=== PATIENT | female | born 1950 | race Caucasian/White ===

== ENCOUNTER 2020-01-12 23:48 | Inpatient (IN) | payer OTHER, MEDICARE ==
[2020-01-13] MEDS ORDERED: PROMETHAZINE INJ 25 MG/ML AMP ONE (00:21)
[2020-01-13] MEDS ORDERED: NA CHLORIDE 0.9% 1,000 ML ONE (00:23)
[2020-01-13] MEDS ORDERED: FENTANYL CITR 100 MCG/2 ML ONE (00:23)
[2020-01-13 00:27] LABS: Absolute Lymphocytes (CBC) 1.6 K/uL (0.7-4.9); Basophils % 1.1 % (0-1.3); Hematocrit 31.8 % (36.0-45.0); Lymphocytes % 13.8 % (15.3-44.8); MPV 7.8 fL (7.6-11.3); RBC Red Blood Cell Count 3.77 M/uL (3.86-4.86)
[2020-01-13 00:34] LABS: Protime INR 0.99
[2020-01-13] MEDS ORDERED: ASPIRIN 81 MG CHEWABLE TABLET ONE (00:45)
[2020-01-13 00:52] LABS: ALT/SGPT 30 U/L (12-78); AST/SGOT 17 U/L (15-37); Albumin 3.3 g/dL (3.4-5.0); Alkaline Phosphatase 68 U/L (45-117); BUN Blood Urea Nitrogen 29 mg/dL (7-18); Bicarbonate 25 mmol/L (21-32); Bilirubin Direct 0.1 mg/dL (0-0.2); Bilirubin Total 0.3 mg/dL (0.2-1.0); Glucose Level 223 mg/dL (74-106); NT PRO-BNP 985 pg/mL (<125); Potassium 3.7 mmol/L (3.5-5.1); Protein, Total 8.3 g/dL (6.4-8.2); Sodium Level 139 mmol/L (136-145); Troponin (Emerg Dept Use Only) < 0.02 ng/mL (0.0-0.045)
[2020-01-13] MEDS ORDERED: CEFTRIAXONE/SWI 1gm 1 GM/10 ML SYR ONE (01:29)
[2020-01-13] MEDS ORDERED: PANTOPRAZOLE 40 MG INJ ONE (01:29)
--- NOTE | 2020-01-13 01:38 | ER ---
Nurse's Notes [facility] Name: Dominique Collazo Age: 69 yrs Sex: Female : 1950 Arrival Date: 01/12/2020 Time: 23:49 Bed 13 Private MD: Diagnosis: Chest pain, unspecified;Pneumonia, unspecified organism-hx of valley fever Presentation: 01/13 00:00 Presenting complaint: Patient states: Chest pain that began about 2200 tonight; states lp1 pain to middle of chest, nausea; States hx of [place] with heart stents. 00:00 Transition of care: patient was not received from another setting of care. Onset of lp1 symptoms was January 12, 2020 at 22:00. Risk Assessment: Do you want to hurt yourself or someone else? Patient reports no desire to harm self or others. Initial Sepsis Screen: Does the patient meet any 2 criteria? No. Patient's initial sepsis screen is negative. Does the patient have a suspected source of infection? No. Patient's initial sepsis screen is negative. Care prior to arrival: None. 00:00 Method Of Arrival: Wheelchair lp1 00:00 Acuity: RAYO 3 lp1 Triage Assessment: 02:05 General: Appears in no apparent distress. comfortable, well groomed. bb3 02:06 General: Behavior is calm, cooperative, appropriate for age. Pain: Pain currently is 3 bb3 out of 10 on a pain scale. Cardiovascular: Rhythm is sinus rhythm. Historical: - Allergies: 00:25 No Known Allergies; lp1 - Home Meds: 00:25 Lantus Sub-Q [Active]; Atenolol Oral [Active]; Lisinopril Oral [Active]; atorvastatin lp1 oral oral [Active]; amlodipine oral [Active]; Hydrochlorothiazide Oral [Active]; Metformin Oral [Active]; BRILINTA oral oral [Active]; - PMHx: 00:25 Hypertension; SVT; Diabetes - IDDM; Hyperlipidemia; Myocardial infarction; lp1 - PSHx: 00:25 Cholecystectomy; Heart stents; lp1 - Immunization history:: Adult Immunizations up to date. - Coronavirus screen:: The patient has NOT traveled to [place] in the past 14 days. The patient has NOT had contact with known/suspected case of Coronavirus?. - Social history:: Smoking status: Patient denies any tobacco usage or history of. - Ebola Screening: : No symptoms or risks identified at this time. Screenin:25 Abuse screen: Denies threats or abuse. Denies injuries from another. Nutritional lp1 screening: No deficits noted. Tuberculosis screening: No symptoms or risk factors identified. 00:30 Fall Risk None identified. No fall in past 12 months (0 pts). IV access (20 points). bb3 Ambulatory Aid- None/Bed Rest/Nurse Assist (0 pts). Gait- Normal/Bed Rest/Wheelchair (0 pts) Mental Status- Oriented to own ability (0 pts). Assessment: 00:00 Reassessment: No changes from previously documented assessment. Patient and/or family bb3 updated on plan of care and expected duration. Pain level reassessed. Patient is alert, oriented x 3, equal unlabored respirations, skin warm/dry/pink. Pain:. 00:30 Pain: Pain does not radiate. Pain began 1 day ago. bb3 01:00 Reassessment: No changes from previously documented assessment. Patient and/or family bb3 updated on plan of care and expected duration. Pain level reassessed. Patient is alert, oriented x 3, equal unlabored respirations, skin warm/dry/pink. 02:01 Reassessment: No changes from previously documented assessment. Patient and/or family bb3 updated on plan of care and expected duration. Pain level reassessed. Patient is alert, oriented x 3, equal unlabored respirations, skin warm/dry/pink. Vital Signs: 00:10 BP 162 / 76; Pulse 85; Resp 20; Temp 97.8(O); Pulse Ox 100% on R/A; Weight 101.6 kg lp1 (R); Height 5 ft. 4 in. (162.56 cm); Pain 9/10; 01:15 BP 139 / 53; Pulse 83; Resp 20; Pulse Ox 99% ; bb3 02:28 BP 139 / 52; Pulse 75; Resp 22; Pulse Ox 98% ; Pain 3/10; bb3 03:23 BP 142 / 57; Pulse 76; Resp 20; Pulse Ox 97% ; Pain 4/10; bb3 00:10 Body Mass Index 38.45 (101.60 kg, 162.56 cm) [facility] ED Course: 01/12 23:49 Patient arrived in ED. es 23:55 Corie, Arlin, TRAINING SPECIALIST-C [facility] snw 23:55 Tam Nolen MD is Attending Physician. [facility] 01/13 00:15 Inserted saline lock: 22 gauge in right antecubital area, using aseptic technique. lp1 Blood collected. 00:15 Initial lab(s) drawn, by me, sent to lab. lp1 00:15 Patient has correct armband on for positive identification. Placed in gown. Bed in low lp1 position. Call light in reach. jazz musician on. Pulse ox on. NIBP on. 00:22 Triage completed. lp1 00:22 Arm band placed on. lp1 00:30 Patient maintains SpO2 saturation greater than 95% on room air. bb3 01:33 Júnior Villalba is Hospitalizing Provider. snw 01:56 Blood Culture Adult (2) Sent. bb3 03:13 No apparent distress. bb3 03:13 No provider procedures requiring assistance completed. bb3 03:28 Patient admitted, IV remains in place. bb3 04:09 Brittney Elias is Primary Nurse. wh Administered Medications: 01/12 02:10 Drug: Rocephin 1 grams Route: IV; Rate: calculated rate; Site: right forearm; [facility] 01/13 02:32 Follow up: Response: No adverse reaction; IV Status: Completed infusion; IV Intake: [id number] 01/12 02:10 Drug: ProTONIX 40 mg Route: IVP; Site: right forearm; [facility] 01/13 02:30 Follow up: Response: No adverse reaction; Marked relief of symptoms [facility] 01/12 23:30 Drug: fentaNYL (PF) 50 mcg Route: IVP; Site: right antecubital; [facility] 01/13 04:11 Follow up: Response: No adverse reaction; Pain is decreased; RASS: Alert and Calm (0) 01/12 23:30 Drug: Phenergan 12.5 mg Route: IVP; Site: right antecubital; [facility] 01/13 04:11 Follow up: Response: No adverse reaction; Nausea is decreased 01/12 23:30 Drug: NS 0.9% 1000 ml Route: IV; Rate: 75 ml/hr; Site: right antecubital; [facility] 01/13 04:10 Follow up: Response: No adverse reaction; IV Status: Infusion continued upon admission 00:44 Drug: Aspirin Chewable Tablet 324 mg Route: PO; bb3 04:10 Follow up: Response: No adverse reaction 02:49 Drug: Zithromax 500 mg Route: IVPB; Rate: ml/hr; Infused Over: 1 hrs; Site: right bb3 forearm; 04:09 Follow up: Response: No adverse reaction; IV Status: Completed infusion Intake: 02:32 IV: 10ml; Total: 10ml. bb3 Outcome: 01:37 Decision to Hospitalize by Provider. snw 03:26 Admitted to Tele accompanied by nurse, via wheelchair, room 419, with chart, Report bb3 called to ALEX Gill 03:26 Condition: improved 03:26 Condition: stable 03:26 Instructed on the need for admit. 04:11 Patient left the ED. Signatures: Ariln Fontenot, TRAINING SPECIALIST-C TRAINING SPECIALIST-Csnw Maria Luisa Nguyen Laura RN RN lp1 Brittney Elias Whitney Bird bb3
--- NOTE | 2020-01-13 01:38 | EDPHYS ---
Physician Documentation [facility] Name: Dominique Collazo Age: 69 yrs Sex: Female : 1950 Arrival Date: 01/12/2020 Time: 23:49 Bed 13 Private MD: ED Physician Tam Nolen HPI: 01/13 00:12 This 69 yrs old Female presents to ER via Unassigned with complaints of Chest snw Pain. 00:12 Onset: The symptoms/episode began/occurred acutely. Associated signs and symptoms: snw Pertinent positives: chest pain, nausea. The patient has experienced similar episodes in the past. The patient has not recently seen a physician, Dr. Marvin. Historical: - Allergies: 00:25 No Known Allergies; lp1 - Home Meds: 00:25 Lantus Sub-Q [Active]; Atenolol Oral [Active]; Lisinopril Oral [Active]; atorvastatin lp1 oral oral [Active]; amlodipine oral [Active]; Hydrochlorothiazide Oral [Active]; Metformin Oral [Active]; BRILINTA oral oral [Active]; - PMHx: 00:25 Hypertension; SVT; Diabetes - IDDM; Hyperlipidemia; Myocardial infarction; lp1 - PSHx: 00:25 Cholecystectomy; Heart stents; lp1 - Immunization history:: Adult Immunizations up to date. - Coronavirus screen:: The patient has NOT traveled to [place] in the past 14 days. The patient has NOT had contact with known/suspected case of Coronavirus?. - Social history:: Smoking status: Patient denies any tobacco usage or history of. - Ebola Screening: : No symptoms or risks identified at this time. ROS: 00:10 Eyes: Negative for injury, pain, redness, and discharge, ENT: Negative for injury, snw pain, and discharge, Neck: Negative for injury, pain, and swelling. 00:10 Respiratory: Negative for shortness of breath, cough, wheezing, and pleuritic chest pain, Abdomen/GI: Negative for abdominal pain, vomiting, diarrhea, and constipation, + nausea Back: Negative for injury and pain, : Negative for injury, bleeding, discharge, and swelling, MS/Extremity: Negative for injury and deformity, Skin: Negative for injury, rash, and discoloration, Neuro: Negative for headache, weakness, numbness, tingling, and seizure, Psych: Negative for depression, anxiety, suicide ideation, homicidal ideation, and hallucinations. 00:10 Constitutional: Positive for body aches. 00:10 Cardiovascular: Positive for chest pain, of the anterior aspect of left upper chest. Exam: 00:11 Eyes: Pupils equal round and reactive to light, extra-ocular motions intact. Lids and snw lashes normal. Conjunctiva and sclera are non-icteric and not injected. Cornea within normal limits. Periorbital areas with no swelling, redness, or edema. ENT: Nares patent. No nasal discharge, no septal abnormalities noted. Tympanic membranes are normal and external auditory canals are clear. Oropharynx with no redness, swelling, or masses, exudates, or evidence of obstruction, uvula midline. Mucous membranes moist. Neck: Trachea midline, no thyromegaly or masses palpated, and no cervical lymphadenopathy. Supple, full range of motion without nuchal rigidity, or vertebral point tenderness. No Meningismus. Chest/axilla: Normal chest wall appearance and motion. Nontender with no deformity. No lesions are appreciated. 00:11 Respiratory: Lungs have equal breath sounds bilaterally, clear to auscultation and percussion. No rales, rhonchi or wheezes noted. No increased work of breathing, no retractions or nasal flaring. 00:11 Back: No spinal tenderness. No costovertebral tenderness. Full range of motion. Skin: Warm, dry with normal turgor. Normal color with no rashes, no lesions, and no evidence of cellulitis. MS/ Extremity: Pulses equal, no cyanosis. Neurovascular intact. Full, normal range of motion. Neuro: Awake and alert, GCS 15, oriented to person, place, time, and situation. Cranial nerves II-XII grossly intact. Motor strength 5/5 in all extremities. Sensory grossly intact. Cerebellar exam normal. Normal gait. Psych: Awake, alert, with orientation to person, place and time. Behavior, mood, and affect are within normal limits. 00:11 Constitutional: The patient appears alert, anxious. 00:11 Head/face: Noted is ecchymosis, that is moderate, of the chin. 00:11 Cardiovascular: Rate: normal, Rhythm: regular, Pulses: no pulse deficits are appreciated, Heart sounds: normal, lymphedema, + pedal edema. 00:11 Abdomen/GI: Inspection: abdomen appears normal, scar(s), are noted in the right upper quadrant, right lower quadrant and left lower quadrant, Bowel sounds: normal, Palpation: abdomen is soft and non-tender. Vital Signs: 00:10 BP 162 / 76; Pulse 85; Resp 20; Temp 97.8(O); Pulse Ox 100% on R/A; Weight 101.6 kg lp1 (R); Height 5 ft. 4 in. (162.56 cm); Pain 9/10; 01:15 BP 139 / 53; Pulse 83; Resp 20; Pulse Ox 99% ; bb3 02:28 BP 139 / 52; Pulse 75; Resp 22; Pulse Ox 98% ; Pain 3/10; bb3 03:23 BP 142 / 57; Pulse 76; Resp 20; Pulse Ox 97% ; Pain 4/10; bb3 00:10 Body Mass Index 38.45 (101.60 kg, 162.56 cm) lp1 MDM: 01/12 23:56 Patient medically screened. snw 01/13 01:06 Data reviewed: vital signs, nurses notes. Data interpreted: Pulse oximetry: on room air snw is 100 %. Interpretation: normal. Counseling: I had a detailed discussion with the patient and/or guardian regarding: the historical points, exam findings, and any diagnostic results supporting the discharge/admit diagnosis, the presence of at least one elevated blood pressure reading (>120/80) during this emergency department visit, lab results, radiology results, the need for further work-up and treatment in the hospital. Physician consultation: Júnior Villalba was called at 01:07, was contacted at 01:07, regarding admission. 01/12 23:56 Order name: Basic Metabolic Panel [facility] 01/12 23:56 Order name: CBC with Diff snw 01/12 23:56 Order name: LFT's sn 01/12 23:56 Order name: Magnesium snw 01/12 23:56 Order name: NT PRO-BNP snw 01/12 23:56 Order name: PT-INR sn 01/12 23:56 Order name: Troponin (emerg Dept Use Only) sn 01/13 00:35 Order name: CBC with Automated Diff; Complete Time: 00:39 EDMS 01/13 00:35 Order name: Protime (+INR); Complete Time: 00:39 EDMS 01/13 00:40 Order name: Urine Culture 01/13 00:40 Order name: Urine Microscopic Only 01/13 00:41 Order name: Blood Culture Adult (2) 01/13 00:52 Order name: Basic Metabolic Panel; Complete Time: 00:57 EDMS 01/13 00:52 Order name: Liver (Hepatic) Function; Complete Time: 00:57 EDMS 01/12 23:56 Order name: XRAY Chest (1 view) 01/12 23:56 Order name: EKG; Complete Time: 23:57 snw 01/12 23:56 Order name: Cardiac monitoring; Complete Time: 00:10 w 01/12 23:56 Order name: EKG - Nurse/Tech; Complete Time: 00:10 w 01/12 23:56 Order name: IV Saline Lock; Complete Time: 00:26 w 01/12 23:56 Order name: Labs collected and sent; Complete Time: 00:26 w 01/13 00:52 Order name: Troponin (Emerg Dept Use Only); Complete Time: 00:57 EDMS 01/13 00:52 Order name: NT PRO-BNP; Complete Time: 00:57 EDMS 01/13 00:52 Order name: Magnesium; Complete Time: 00:57 EDMS 01/12 23:56 Order name: O2 Per Protocol; Complete Time: 00:10 w 01/12 23:56 Order name: O2 Sat Monitoring; Complete Time: 00:10 snw Administered Medications: 01/12 02:10 Drug: Rocephin 1 grams Route: IV; Rate: calculated rate; Site: right forearm; 01/13 02:32 Follow up: Response: No adverse reaction; IV Status: Completed infusion; IV Intake: [id number] 01/12 02:10 Drug: ProTONIX 40 mg Route: IVP; Site: right forearm; 01/13 02:30 Follow up: Response: No adverse reaction; Marked relief of symptoms 01/12 23:30 Drug: fentaNYL (PF) 50 mcg Route: IVP; Site: right antecubital; 01/13 04:11 Follow up: Response: No adverse reaction; Pain is decreased; RASS: Alert and Calm (0) 01/12 23:30 Drug: Phenergan 12.5 mg Route: IVP; Site: right antecubital; bb3 01/13 04:11 Follow up: Response: No adverse reaction; Nausea is decreased 01/12 23:30 Drug: NS 0.9% 1000 ml Route: IV; Rate: 75 ml/hr; Site: right antecubital; bb3 01/13 04:10 Follow up: Response: No adverse reaction; IV Status: Infusion continued upon admission 00:44 Drug: Aspirin Chewable Tablet 324 mg Route: PO; bb3 04:10 Follow up: Response: No adverse reaction 02:49 Drug: Zithromax 500 mg Route: IVPB; Rate: ml/hr; Infused Over: 1 hrs; Site: right bb3 forearm; 04:09 Follow up: Response: No adverse reaction; IV Status: Completed infusion Disposition: 01/13/20 01:37 Hospitalization ordered by Júnior Villalba for Inpatient Admission. Preliminary diagnosis are Chest pain, unspecified, Pneumonia, unspecified organism - hx of valley fever. - Bed requested for Telemetry/MedSurg (Inpatient). - Status is Inpatient Admission. - Condition is Stable. - Problem is an acute exacerbation. - Symptoms have worsened. Addendum: 01/14/2020 08:12 Co-signature as Attending Physician, Tam Nolen MD I agree with the assessment and c bahena plan of care. Signatures: Dispatcher [employer] Tam Carr MD MD cha Therrien, Shelly, MECHANIC DRIVER-C MECHANIC DRIVER-Csnw Huong Cooper RN RN lp1 Kate Kelly RN RN Brittney Elias Whitney Bird bb3 Corrections: (The following items were deleted from the chart) 01/13 02:40 01:37 Hospitalization Ordered by Júnior Villalba for Inpatient Admission. Preliminary cg diagnosis is Chest pain, unspecified; Pneumonia, unspecified organism - hx of valley fever. Bed requested for Telemetry/MedSurg (Inpatient). Status is Inpatient Admission. Condition is Stable. Problem is an acute exacerbation. Symptoms have worsened. snw 04:11 02:40 01/13/2020 01:37 Hospitalization Ordered by Júnior Villalba for Inpatient Admission. Preliminary diagnosis is Chest pain, unspecified; Pneumonia, unspecified organism - hx of valley fever. Bed requested for Telemetry/MedSurg (Inpatient). Status is Inpatient Admission. Condition is Stable. Problem is an acute exacerbation. Symptoms have worsened. cg
--- NOTE | 2020-01-13 02:29 | P.HP ---
Certification for Inpatient Patient admitted to: Observation With expected LOS: <2 Midnights Practitioner: I am a practitioner with admitting privileges, knowledge of patient current condition, hospital course, and medical plan of care. Services: Services provided to patient in accordance with Admission requirements found in Title 42 Section 412.3 of the Code of Federal Regulations Patient History Date of Service: 01/13/20 Reason for admission: Chest pain History of Present Illness: 69-year-old woman with a history of coronary artery disease status post stents x2, history of coccidiomycosis presented to the emergency department with a complaint of sudden onset of chest pain which occurred at rest last night. The patient described a left anterior chest pain, no relieving or aggravating factors, associated with chest tightness and shortness of breath. Her EKG in the ED demonstrated sinus rhythm with nonspecific ST-T changes. Initial troponin negative. Chest x-ray demonstrated right upper lobe opacity which per patient is chronic from her coccidiomycosis. Patient was chest pain free during my assessment. She is placed under observation for ACS rule out. Allergies No Known Allergies Allergy (Unverified 01/13/20 03:57) Home Medications: Amlodipine Besylate 5 mg PO DAILY 01/13/20 Aspirin 81 mg PO DAILY 01/13/20 Atorvastatin Calcium [Lipitor] 80 mg PO BEDTIME 01/13/20 Fluconazole [Diflucan] 400 mg PO DAILY 01/13/20 Insulin Glargine Human [Lantus*] 50 units SQ BEDTIME 01/13/20 Metformin HCl [Glucophage] 500 mg PO BIDWM 01/13/20 Ticagrelor [Brilinta*] 90 mg PO BID 01/13/20 atenoloL [Atenolol] 50 mg PO BID 01/13/20 hydroCHLOROthiazide [Hydrochlorothiazide] 25 mg PO DAILY 01/13/20 lisinopriL [Lisinopril] 40 mg PO DAILY 01/13/20 - Past Medical/Surgical History -: Hypertension -: Coronary artery disease -: Coccidiomycosis -: Cardiac stents - Family History Father -: Heart disease, Hypertension - Social History Smoking Status: Never smoker Alcohol use: No CD- Drugs: No Place of Residence: Home Review of Systems Other: Except as documented, all other systems reviewed and negative. Physical Examination - Physical Exam General: Alert, In no apparent distress, Oriented x3 HEENT: Atraumatic, Normocephalic, Mucous membr. moist/pink, Sclerae nonicteric Neck: Supple, JVD not distended, No Thyromegaly Respiratory: Clear to auscultation bilaterally, Normal air movement Cardiovascular: Regular rate/rhythm, Normal S1 S2, Edema (1+ bilateral lower extremity pitting edema) Capillary refill: <2 Seconds Gastrointestinal: Normal bowel sounds, Soft and benign, Non-distended, No tenderness Musculoskeletal: No swelling, No erythema Integumentary: No rashes Neurological: Normal speech, Normal strength at 5/5 x4 extr, Cranial nerves 3- 12 intact - Studies Laboratory Data (last 24 hrs) 01/13/20 00:15: PT 11.7, INR 0.99 01/13/20 00:15: WBC 11.6 H, Hgb 10.6 L, Hct 31.8 L, Plt Count 134 L 01/13/20 00:15: Sodium 139, Potassium 3.7, BUN 29 H, Creatinine 1.19, Glucose 223 H, Magnesium 2.0, Total Bilirubin 0.3, AST 17, ALT 30, Alkaline Phosphatase 68 Assessment and Plan - Problems (Diagnosis) (1) Chest pain Current Visit: Yes Status: Acute (2) Coronary artery disease Current Visit: Yes Status: Chronic (3) History of heart artery stent Current Visit: Yes Status: Chronic (4) Hypertension Current Visit: Yes Status: Chronic - Plan Place under observation Trend troponin Continue aspirin and Brillinta. Continue lipitor Atenolol 50 mg b.i.d. Check lipid profile Check echocardiogram Cardiology consult Outpatient stress test if troponin trend negative. - Advance Directives Does patient have a Living Will: No Does patient have a Durable POA for Healthcare: No
[2020-01-13] MEDS ORDERED: NA CHLORIDE 0.9% 250 ML ONE (02:42)
[2020-01-13] MEDS ORDERED: AZITHROMYCIN 500 MG INJ IVPB ONE (02:47)
[2020-01-13] MEDS ORDERED: MORPHINE 4 MG/ML SYR IV PRN (04:06)
[2020-01-13] MEDS ORDERED: NITROGLYCERIN 0.4 MG/TAB SL PRN (04:06)
[2020-01-13] MEDS: TICAGRELOR 90 MG TABLET PO SCH ×3 (04:48→20:18)
[2020-01-13] MEDS: ATORVASTATIN 80 MG TAB PO SCH ×2 (04:48→20:18)
[2020-01-13 04:56] VITALS: BMI 39.1
[2020-01-13 05:54] LABS: Troponin I 0.27 ng/mL (0.0-0.045)
--- NOTE | 2020-01-13 07:45 | EKG ---
Test Date: 2020-01-12 Test Time: 23:59:49 Wood Milling Machine Tender: SINCERE MEASUREMENT RESULTS: Intervals: Rate: 87 NH: 206 QRSD: 92 QT: 374 QTc: 450 [place]: P: 66 NH: 206 QRS: 83 T: 49 INTERPRETIVE STATEMENTS: Normal sinus rhythm Nonspecific ST abnormality Abnormal ECG No previous ECG available for comparison Electronically Signed On 01-13-20 07:44:27 CHEF GERMAN by Krish Aguilera
[2020-01-13] MEDS: ASPIRIN EC 81 MG TAB PO SCH (08:31)
[2020-01-13] MEDS ORDERED: ENOXAPARIN 40 MG/0.4 ML SQ SCH (09:00)
[2020-01-13] MEDS ORDERED: ENOXAPARIN 60 MG/0.6 ML SQ ONE (10:00)
--- NOTE | 2020-01-13 10:10 | RAD REPORT ---
EXAM DESCRIPTION: Kaylynn Single View01/13/2020 12:34 am CLINICAL HISTORY: Chest pain COMPARISON: none FINDINGS: The right upper lobe consolidation. Small nodular opacity right lung base Left lung appears clear The heart is normal size IMPRESSION: Right upper lobe consolidation consistent with pneumonia. This should be followed until it has cleared to help exclude a post obstructive process/underlying mass Small nodular opacity right lung base can be re-evaluated on subsequent exam
[2020-01-13 10:30] LABS: Urine Appearance CLEAR; Urine Bilirubin NEGATIVE (NEG); Urine Blood TRACE (NEG); Urine Color YELLOW; Urine Glucose NEGATIVE (NEG); Urine Protein TRACE (NEG); Urine Specific Gravity <=1.005 (1.005-1.030); Urine Urobilinogen 0.2 mg/dL (0.2-1.0); Urine pH 6.5 (5.0-7.0)
[2020-01-13] MEDS: lisinopriL 20 MG TAB PO SCH (10:38)
[2020-01-13] MEDS: hydroCHLOROthiazide 25 MG TAB PO SCH (10:38)
[2020-01-13] MEDS: atenoloL 50 MG TAB PO SCH ×2 (10:39→20:19)
[2020-01-13] MEDS: AMLODIPINE 5 MG TAB PO SCH (10:39)
[2020-01-13 10:50] LABS: Urine Bacteria <20 /HPF (<20); Urine Culture Reflex Order NOT NEEDED; Urine RBC <5 /HPF (NONE SEEN)
--- NOTE | 2020-01-13 11:03 | PN ---
Date of Progress Note: 01/13/2020 Code Status: Full. Medications: List reviewed. Subjective: Patient is seen and examined. Chart reviewed and case discussed with RN. Patient state s her pain is improved, asking for her home medications. Physical Examination: Vital Signs: Temperature 97.1, heart rate 62, blood pressure 157/70, respirations 18, O2 of 95% on r oom air. General: Awake, alert, oriented x3, in some mild distress. Elderly female, ill-appearing, obese. B MA 39. CV: S1, S2. Regular rate and rhythm. Peripheral pulses present. Respiratory: Moving air well bilaterally. No wheezing or stridor. No use of accessory muscles. Gastrointestinal: Abdomen is soft, nontender, nondistended. Positive bowel sounds. No guarding or rigidity. Extremities: No clubbing, cyanosis, or edema. Neurologic: Nonfocal. Laboratory Data: Troponin 0.02, 0.27, 0.82. Triglycerides 177, cholesterol 93, LDL 27, HDL 31. Blo od cultures pending as well as urine culture. Assessment: A 69-year-old female with: 1.Kan-RT-dfrwdmluo myocardial infarction. Cardiac enzymes are elevated. We will continue chest stefania n guidelines. We will switch to full-dose Lovenox. Patient is on aspirin and Brilinta. Plan is for cardiac catheterization in .. Appreciate Dr. Aguilera's input. 2.Coronary artery disease of three affiliated artery and three affiliated heart, status post 3 stents with angina. Cont inue home medications. 3.Essential hypertension, stable. We will continue home medications. 4.History of coccidioidomycosis. We will continue with Diflucan. Plan: Anticipate heart catheterization in a.. /DALIA Voice ID: [id number] Report ID: [id number]
[2020-01-13] MEDS ORDERED: D50W 25 GM/50 ML SYRINGE/VIAL IV PRN (15:49)
[2020-01-13] MEDS ORDERED: GLUCAGON 1 MG/VIAL IM PRN (15:49)
--- NOTE | 2020-01-13 16:02 | CON ---
Date of Consultation: 01/13/[address] Villalba on 01/13/2020. I saw the patient on 01/13/2020. Reason For Consultation: [id number] myocardial infarction. History Of Present Illness: Ms. Collazo is a 69-year-old white woman, has multiple past medical histo ry including her diabetes, hypertension, dyslipidemia, history of SVT. She had coronary artery disea se. She is status post 3 stents in June of last year. These stents were done in [place]. It soun ds from her that she had 2 stents placed in the LAD and 1 stent maybe in the RCA. She was not quite sure. She came in with chest pain with exertion radiating to the arms, some diaphoresis, shortness o f breath, but no nausea or vomiting. She denied PND, orthopnea, pedal edema, palpitation, or syncope . Her troponin was 0.27. Past Medical History: Otherwise as stated earlier. Allergies: NONE. Review of Systems: Negative. Social History: Negative. Family History: Positive for heart disease. Medications: At home include atenolol, Norvasc, aspirin, Lipitor, hydrochlorothiazide, lisinopril, i nsulin, Brilinta, and metformin. Physical Examination: General: Ms. Collazo is very pleasant. She was in no acute distress. She was pain free. Vital Signs: Stable. She was afebrile. HEENT: Negative. Neck: Supple without any bruit, lymphadenopathy, JVD, or thyromegaly. Chest; clear to auscultation and percussion. Cardiac: Revealed a regular rhythm and rate. No murmurs, gallops, or rubs. Abdomen: Benign. Extremities: Revealed no clubbing, cyanosis, or edema. Skin: Dry and intact. Pulses were present distally bilaterally in the dorsalis pedis and posterior tibial. Impression And Plan: Patient with history of coronary artery disease status post 3 stents in June of 2019 with recurrent chest pain, positive troponin consistent with [id number] myocardial infa rction. The patient does not have any allergies. She has a creatinine of 1.19, hemoglobin 10.7. Th e patient and I discussed the need for heart catheterization with possible intervention by Dr. Pena in the morning. She understood the risk and the benefits of the procedure and she agreed to proceed . She prefers her case done through the wrist as apparently she had developed a retroperitoneal martin jesenia with a hemoglobin of 6 requiring transfusion after her procedure in [place] in June. For now, we will continue her present regimen including the Brilinta, Lipitor, and her beta blockers. Her hy pertension, diabetes, and dyslipidemia seems to be well controlled. Her SVT has not recurred for esteban te some time. MARCOS/DALIA Voice ID: [id number] Report ID: [id number]
[2020-01-13] MEDS: INSULIN -REGULAR HUMAN 50 UNIT/0.5 ML ML SQ SCH ×2 (16:23→20:19)
[2020-01-13] MEDS ORDERED: INSULIN GLARGINE 100 UNITS/ML SQ SCH (21:00)
[2020-01-13] MEDS ORDERED: ENOXAPARIN 100 MG/ML SYR SQ SCH (21:00)
[2020-01-13] MEDS: ACETAMINOPHEN 325 MG TABLET PO PRN (21:05)
[2020-01-14] MEDS: ACETAMINOPHEN 325 MG TABLET PO PRN (02:05)
[2020-01-14] MEDS ORDERED: NA CHLORIDE 0.9% 1,000 ML ONE (06:20)
[2020-01-14 06:21] LABS: Absolute Lymphocytes (CBC) 1.9 K/uL (0.7-4.9); Basophils % 0.6 % (0-1.3); Hematocrit 29.3 % (36.0-45.0); Lymphocytes % 19.1 % (15.3-44.8); MPV 7.8 fL (7.6-11.3); RBC Red Blood Cell Count 3.47 M/uL (3.86-4.86)
[2020-01-14] MEDS: lisinopriL 20 MG TAB PO SCH (06:21)
[2020-01-14] MEDS: hydroCHLOROthiazide 25 MG TAB PO SCH (06:21)
[2020-01-14] MEDS: ASPIRIN EC 81 MG TAB PO SCH (06:21)
[2020-01-14] MEDS: atenoloL 50 MG TAB PO SCH (06:22)
[2020-01-14] MEDS: AMLODIPINE 5 MG TAB PO SCH (06:22)
[2020-01-14] MEDS: TICAGRELOR 90 MG TABLET PO SCH (06:23)
[2020-01-14 06:46] LABS: Potassium 3.9 mmol/L (3.5-5.1)
[2020-01-14] MEDS: INSULIN -REGULAR HUMAN 50 UNIT/0.5 ML ML SQ SCH ×2 (07:30→11:30)
[2020-01-14] MEDS ORDERED: AZITHROMYCIN IV 500 MG in NA CHLORIDE 0.9% 250 ML IVPB SCH (09:00)
[2020-01-14] MEDS ORDERED: CEFTRIAXONE/SWI 1gm 1 GM/10 ML SYR IVP SCH (09:00)
[2020-01-14] MEDS ORDERED: FLUCONAZOLE 100 MG TAB PO SCH (09:00)
[2020-01-14] MEDS ORDERED: HOME MED 1 EA UNK (Lisinopril [Lisinopril] 40 MG) PO SCH (09:00)
[2020-01-14] MEDS ORDERED: ENOXAPARIN 100 MG/ML SYR SQ SCH (09:00)
[2020-01-14] MEDS ORDERED: NA CHLORIDE 0.9% 0 ML ONE (09:26)
[2020-01-14] MEDS ORDERED: HEPA 1000U/500MLS 2,000 UNIT/1,000 ML BAG IV ONE (09:26)
[2020-01-14] MEDS ORDERED: HEPARIN 5000 UNIT/ML 1 ML VIAL ONE (09:53)
[2020-01-14] MEDS ORDERED: NICARDIPINE HCL 25 MG/10 ML IV ONE (09:54)
[2020-01-14] MEDS ORDERED: MIDAZOLAM HCL 2 MG/2 ML INJ ONE ×3 (09:54→10:21)
[2020-01-14] MEDS ORDERED: LIDOCAINE 1% MPF 30 ML VIAL ONE ×2 (09:54→09:55)
[2020-01-14] MEDS ORDERED: FENTANYL CITR 100 MCG/2 ML ONE (09:54)
[2020-01-14] MEDS ORDERED: NITROGLYCERIN 100 MCG/ML SYR (for cath lab use only) IV ONE (09:54)
[2020-01-14] MEDS ORDERED: NITROGLYCERIN/D5W 25 MG/250 ML BTL IV ONE (09:54)
[2020-01-14] MEDS ORDERED: NA CHLORIDE 0.9% 0 ML IV ONE (09:54)
--- NOTE | 2020-01-14 11:48 | OP ---
Surgeon: Jared Pena MD Identification: 69-year-old woman. Procedure: Left heart catheterization, coronary left ventricular angiography. Findings: The patient had previous stents placed. The stent is a bifurcation stent. It originates in the proximal LAD and it terminates a smaller branch in the first diagonal. The larger branch in t he mid LAD. It is totally occluded by the mid LAD. There is STEW 1 collateral flow from right and c ircumflex second diagonals to the LAD. The collateral flow was not very brisk. The right coronary, circumflex, left main are free of disease. The left main has at least 20% to 30% plaque at its ostiu m. The left ventricular ejection fraction is normal. Wall motion is normal. Left ventricular end-d iastolic pressure is normal at 11. Mild systolic hypertension. The recommendation is for the patien t to go through bypass surgery, left internal mammary to the LAD and perhaps Y LAD graft because she has poor veins. Procedure In Detail: The patient was brought to the cardiac cardiac cath lab radiology technologist in a fasting, sedated with Vers ed and fentanyl, prepared and draped in usual sterile fashion. Right radial approach was used. 3 cc of 1% lidocaine were used to anesthetize the skin around the right radial artery. The artery was en tered using a 21-gauge needle, cannulated with a 0.021 inch diameter guidewire, and a [employer] 5/6-Fren ch radial sheath was placed. We removed the wire and introducer. We gave a radial cocktail consisti ng of nicardipine, heparin, nitroglycerin. We guided a TIG catheter to the ascending aorta. Using a short radius J-tip Glidewire, we were able to angiogram right and left coronary, left ventricle all with a TIG catheter at the end of the procedure when the decision was made not to attempt an angiopla sty and send the patient to surgery. We withdrew the TIG catheter over a J-wire, flushed the sheath, measured arterial pressures, recorded a waveform. Then we removed the sheath and closed the arterio jamaal with a TR band. Complications From The Procedure: None. SH/MODL Voice ID: [id number] Report ID: [id number]
[2020-01-14 13:05] VITALS: O2SAT 98
--- NOTE | 2020-01-14 14:55 | DS ---
Consultants: 1. Dr. Pena with Cardiology. 2. Dr. Aguilera with Cardiology. Procedure: Cardiac catheterization on 01/14/2020, found to have in-stent stenosis of the mid LAD, recommended to have bypass surgery. Admitting Diagnoses: 1. Unstable angina. 2. Coronary artery disease. 3. Essential hypertension. Discharge Diagnoses: 1. Zwn-RF-brwsuxldm myocardial infarction, status post cardiac cath with in- stent stenosis. Continue aspirin and Brilinta. 2. Coronary artery disease, [place] artery and [place] heart, status post stent with angina, stable. 3. Essential hypertension, stable. 4. History of coccidioidomycosis, on chronic Diflucan. 5. Obesity, BMI 39. Hospital Course: Patient is a 69-year-old female with past medical history of hypertension, heart disease, coccidiomycosis, on Diflucan, comes in with chest pain. Patient was found to have NSTEMI. She was started on chest pain guidelines, given full-dose Lovenox. She was on aspirin and Brilinta. Patient was seen by Cardiology, Dr. Aguilera. Cardiac catheterization was recommended. Cardiac catheterization revealed in-stent stenosis and was recommended to have bypass surgery. Patient's pain improved, however, she will need to be transferred for coronary artery bypass graft. It should be noted that her chest x-ray did show right upper lobe consolidation, which is secondary to her chronic coccidioidomycosis and small nodular opacity in the right lung base, which is to be evaluated on subsequent exam versus possible CT of the chest may not be related to coccidioidomycosis infection. Patient is made aware of these findings. Physical exam General awake alert oriented x3 no acute distress CV S1-S2 Respiratory moving air well bilaterally Gastrointestinal abdomen soft nontender nondistended positive bowel sounds Extremities no clubbing cyanosis edema. Right wrist catheter site no hematoma Neuro nonfocal. Sensation intact light touch Time Spent: Total time spent transferring the patient was 45 minutes. /DALIA Voice ID: [id number] Report ID: [id number] JHOANA
[2020-01-14 16:53] VITALS: BP 145/71; TEMP 97.8
== END 2020-01-14 15:45 | disposition short-term general hospital (02) | DRG 281 ==
LOC: ER 23:48 → OBSVTOIN 01-13 02:33 → ERHOLD 01-13 02:33 → 4TH 01-13 03:29
PROVIDERS: ADMIT Internal Medicine; ATTEND Internal Medicine
PROC: 4A023N7 Measurement of Cardiac Sampling and Pressure, Left Heart, Percutaneous Approach (ICD-10-PCS; principal; 2020-01-14)
PROC: B205YZZ Plain Radiography of Left Heart using Other Contrast (ICD-10-PCS; 2020-01-14)
PROC: B201YZZ Plain Radiography of Multiple Coronary Arteries using Other Contrast (ICD-10-PCS; 2020-01-14)
DX: I21.4 Non-ST elevation (NSTEMI) myocardial infarction (principal); B38.9 Coccidioidomycosis, unspecified; I25.119 Atherosclerotic heart disease of native coronary artery with unspecified angina pectoris; I10 Essential (primary) hypertension; Z95.5 Presence of coronary angioplasty implant and graft; E66.9 Obesity, unspecified; Z68.39 Body mass index [BMI] 39.0-39.9, adult
CPT/HCPCS: 36415; 71045; 80048; 80061; 80076; 81001; 82947; 83735; 83880; 84484; 85025; 85610; 87040; 87086; 87088; 93005; 93458; 94760; 96365; 96366; 96367; 96375; 99285; C1893; C9113; J0456; J0583; J0696; J1644; J1650; J2250; J2550; J3010; J7030; J7040

== ENCOUNTER 2021-05-02 05:00 | Inpatient (IN) | payer OTHER, MEDICARE ==
[2021-05-02 05:21] LABS: Absolute Lymphocytes (CBC) 1.3 K/uL (0.7-4.9); Basophils % 0.6 % (0-1.3); Hematocrit 31.7 % (36.0-45.0); Lymphocytes % 9.2 % (15.3-44.8); MPV 7.7 fL (7.6-11.3); RBC Red Blood Cell Count 4.03 M/uL (3.86-4.86)
[2021-05-02 05:30] LABS: Protime INR 1.03
[2021-05-02 05:48] LABS: ALT/SGPT 23 U/L (12-78); AST/SGOT 14 U/L (15-37); Albumin 3.3 g/dL (3.4-5.0); Alkaline Phosphatase 74 U/L (45-117); BUN Blood Urea Nitrogen 21 mg/dL (7-18); Bicarbonate 28 mmol/L (21-32); Bilirubin Direct 0.2 mg/dL (0-0.2); Bilirubin Total 0.6 mg/dL (0.2-1.0); Creatine Phosphokinase 49 U/L (26-192); Glucose Level 200 mg/dL (74-106); Lipase 75 U/L (73-393); Magnesium 2.2 mg/dL (1.8-2.4); NT PRO-BNP 3423 pg/mL (<125); Potassium 3.7 mmol/L (3.5-5.1); Protein, Total 8.6 g/dL (6.4-8.2); Sodium Level 140 mmol/L (136-145); Troponin (Emerg Dept Use Only) < 0.02 ng/mL (0.0-0.045)
[2021-05-02 05:55] LABS: CKMB Creatine Kinase MB < 1.0 ng/mL (1.0-3.6)
[2021-05-02 06:02] LABS: Urine Blood 2+ (Negative); Urine Glucose Trace (Negative); Urine Protein 3+ (Negative); Urine Specific Gravity 1.025 (1.005-1.030)
--- NOTE | 2021-05-02 06:40 | EDPHYS ---
Physician Documentation [facility] Name: Dominique Collazo Age: 71 yrs Sex: Female : 1950 Arrival Date: 05/02/2021 Time: 05:05 Bed 8 Private MD: ED Physician Abundio Gaona HPI: 05/02 05:20 This 71 yrs old Female presents to ER via EMS with complaints of Shortness of mh7 Breath.. 05:20 The patient has shortness of breath at rest. Onset: The symptoms/episode began/occurred mh7 last night, at 22:00. Duration: The symptoms are continuous, and are unchanged since they started. The patient's shortness of breath is aggravated by light activity, is alleviated by rest, sitting up. Associated signs and symptoms: Pertinent negatives: chest pain, non-productive cough, productive cough, diaphoresis, dizziness, fever, hemoptysis, loss of consciousness, nausea, numbness in extremities, visual changes, vomiting. Severity of symptoms: At their worst the symptoms were moderate last night, in the emergency department the symptoms are unchanged. Historical: - Allergies: 05:06 No Known Allergies; ea - PMHx: 05:06 SVT; Myocardial infarction; Hypertension; Hyperlipidemia; Diabetes - IDDM; ea - PSHx: 05:06 Heart stents; Cholecystectomy; ea - Immunization history:: Adult Immunizations up to date. - Social history:: Smoking status: unknown. ROS: 05:20 Constitutional: Negative for fever, chills, and weight loss, Eyes: Negative for injury, mh7 pain, redness, and discharge, ENT: Negative for injury, pain, and discharge, Neck: Negative for injury, pain, and swelling, Cardiovascular: Negative for chest pain, palpitations, and edema, Abdomen/GI: Negative for abdominal pain, nausea, vomiting, diarrhea, and constipation, Back: Negative for injury and pain, : Negative for injury, bleeding, discharge, and swelling, MS/Extremity: Negative for injury and deformity, Skin: Negative for injury, rash, and discoloration, Neuro: Negative for headache, weakness, numbness, tingling, and seizure, Psych: Negative for depression, anxiety, suicide ideation, homicidal ideation, and hallucinations, Allergy/Immunology: Negative for hives, rash, and allergies, Endocrine: Negative for neck swelling, polydipsia, polyuria, polyphagia, and marked weight changes, Hematologic/Lymphatic: Negative for swollen nodes, abnormal bleeding, and unusual bruising. Exam: 05:20 Constitutional: This is a well developed, well nourished patient who is awake, alert, mh7 and in no acute distress. Head/Face: Normocephalic, atraumatic. Eyes: Pupils equal round and reactive to light, extra-ocular motions intact. Lids and lashes normal. Conjunctiva and sclera are non-icteric and not injected. Cornea within normal limits. Periorbital areas with no swelling, redness, or edema. Neck: Trachea midline, no thyromegaly or masses palpated, and no cervical lymphadenopathy. Supple, full range of motion without nuchal rigidity, or vertebral point tenderness. No Meningismus. Chest/axilla: Normal chest wall appearance and motion. Nontender with no deformity. No lesions are appreciated. Cardiovascular: Regular rate and rhythm with a normal S1 and S2. No gallops, murmurs, or rubs. Normal PMI, no JVD. No pulse deficits. 05:20 Abdomen/GI: Soft, non-tender, with normal bowel sounds. No distension or tympany. No guarding or rebound. No evidence of tenderness throughout. Back: No spinal tenderness. No costovertebral tenderness. Full range of motion. Skin: Warm, dry with normal turgor. Normal color with no rashes, no lesions, and no evidence of cellulitis. MS/ Extremity: Pulses equal, no cyanosis. Neurovascular intact. Full, normal range of motion. Neuro: Awake and alert, GCS 15, oriented to person, place, time, and situation. Cranial nerves II-XII grossly intact. Motor strength 5/5 in all extremities. Sensory grossly intact. Cerebellar exam normal. Normal gait. Psych: Awake, alert, with orientation to person, place and time. Behavior, mood, and affect are within normal limits. 05:20 Respiratory: the patient does not display signs of respiratory distress, Respirations: normal, Breath sounds: rales, that are mild, are scattered, rhonchi, that are mild, are scattered, Respiratory rate: 20 Vital Signs: 05:10 BP 188 / 147; Pulse 88; Resp 20; Temp 97.8; Pulse Ox 93% on R/A; Weight 108.86 kg; ea Height 5 ft. 4 in. (162.56 cm); 06:10 BP 177 / 68; Pulse 79; Resp 16; Pulse Ox 99% ; rr5 07:30 ph 08:42 BP 158 / 66; Pulse 70; Resp 20; Pulse Ox 99% on 2 lpm NC; ph 09:30 BP 147 / 76; Pulse 68; Resp 18; Temp 97.9(TE); Pulse Ox 98% on 2 lpm NC; ph 05:10 Body Mass Index 41.20 (108.86 kg, 162.56 cm) ea 07:30 Pt in radiology ph MDM: 06:38 Differential diagnosis: Anemia Anxiety Reaction asthma, Bronchitis CHF exacerbation, mh7 Chronic Obstructive Pulmonary Disease Myocardial Infarction pneumonia, Psychogenic pulmonary edema, reactive airway disease. Data reviewed: vital signs, nurses notes, old medical records, lab test result(s), cardiac enzymes, CBC, electrolytes, EKG, radiologic studies, plain films. Data interpreted: Pulse oximetry: on room air is 99 %. Interpretation: normal. Counseling: I had a detailed discussion with the patient and/or guardian regarding: the historical points, exam findings, and any diagnostic results supporting the discharge/admit diagnosis, the presence of at least one elevated blood pressure reading (>120/80) during this emergency department visit, lab results, radiology results, the need for further work-up and treatment in the hospital. Response to treatment: the patient's symptoms have mildly improved after treatment. 06:40 Patient medically screened. 7 05/02 05:08 Order name: BMP 05/02 05:08 Order name: CBC with Diff 05/02 05:08 Order name: Ckmb 05/02 05:08 Order name: CPK 05/02 05:08 Order name: D-Dimer 05/02 05:08 Order name: Hepatic Function; Complete Time: 06:13 05/02 05:08 Order name: Lipase; Complete Time: 06:13 05/02 05:08 Order name: Magnesium; Complete Time: 06:13 05/02 05:08 Order name: NT PRO-BNP; Complete Time: 06:13 05/02 05:08 Order name: PT-INR; Complete Time: 06:13 05/02 05:08 Order name: Ptt, Activated; Complete Time: 06:13 05/02 05:08 Order name: Troponin (emerg Dept Use Only); Complete Time: 06:13 ea 05/02 05:09 Order name: Basic Metabolic Panel; Complete Time: 06:13 EDMS 05/02 05:09 Order name: CBC with Automated Diff; Complete Time: 05:31 EDMS 05/02 05:09 Order name: CKMB Creatine Kinase MB; Complete Time: 06:13 EDMS 05/02 05:09 Order name: Creatine Phosphokinase; Complete Time: 06:13 EDMS 05/02 05:09 Order name: D-Dimer; Complete Time: 06:13 EDMS 05/02 06:02 Order name: Urine Dipstick-Ancillary; Complete Time: 06:13 EDMS 05/02 06:47 Order name: Basic Metabolic Panel EDMS 05/02 06:47 Order name: Basic Metabolic Panel EDMS 05/02 06:47 Order name: CBC with Automated Diff EDMS 05/02 06:47 Order name: CBC with Automated Diff EDMS 05/02 06:47 Order name: NT PRO-BNP EDMS 05/02 06:47 Order name: NT PRO-BNP EDMS 05/02 06:47 Order name: Troponin I EDMS 05/02 06:47 Order name: Troponin I EDMS 05/02 06:47 Order name: Troponin I; Complete Time: 02:37 EDMS 05/02 08:00 Order name: COVID-19 : Document "Date of Symptom Onset" if Symptomatic. 05/02 08:40 Order name: CORONAVIRUS EDMN 05/02 05:08 Order name: EKG; Complete Time: 05:09 ea 05/02 05:08 Order name: Cardiac monitoring; Complete Time: 05:27 ea 05/02 05:08 Order name: EKG - Nurse/Tech; Complete Time: 05:27 ea 05/02 05:08 Order name: IV Saline Lock; Complete Time: 05:19 ea 05/02 05:08 Order name: Labs collected and sent; Complete Time: 05:19 ea 05/02 05:08 Order name: O2 Per Protocol; Complete Time: 05:19 ea 05/02 05:08 Order name: O2 Sat Monitoring; Complete Time: 05:19 ea 05/02 05:09 Order name: Chest Single View XRAY; Complete Time: 02:37 ea 05/02 06:38 Order name: CT Chest For PE Angio [facility] 05/02 06:47 Order name: CONS Physician Consult [facility] 05/02 06:47 Order name: Consistent Carb (ADA) [address] EDMN 05/02 07:51 Order name: CT; Complete Time: 02:37 EDMS 05/02 09:38 Order name: SARS-COV-2 RT PCR; Complete Time: 02:37 EDMS Administered Medications: 06:48 Drug: Lasix (furosemide) 40 mg Route: IVP; Site: right antecubital; ea 09:53 Follow up: Response: No adverse reaction ph Disposition: 05/02/21 06:40 Hospitalization ordered by Jigar Desai for Inpatient Admission. Preliminary diagnosis is Acute combined systolic (congestive) and diastolic (congestive) heart failure. - Bed requested for Telemetry/MedSurg (Inpatient). - Status is Inpatient Admission. ph - Condition is Stable. - Problem is an acute exacerbation. - Symptoms have improved. Signatures: Dispatcher [employer] [facility] Shira Baxter RN RN ph Antunez, Elena, RN RN ea Botello, Elizabeth eb Holmes, Maurice, MD MD 7 Corrections: (The following items were deleted from the chart) 09:50 06:40 Hospitalization Ordered by A Giselle CRUZ for Inpatient Admission. Preliminary eb diagnosis is Acute combined systolic (congestive) and diastolic (congestive) heart failure. Bed requested for Telemetry/MedSurg (Inpatient). Status is Inpatient Admission. Condition is Stable. Problem is an acute exacerbation. Symptoms have improved. [facility] 10:33 09:50 05/02/2021 06:40 Hospitalization Ordered by A Giselle CRUZ for Inpatient Admission. ph Preliminary diagnosis is Acute combined systolic (congestive) and diastolic (congestive) heart failure. Bed requested for Telemetry/MedSurg (Inpatient). Status is Inpatient Admission. Condition is Stable. Problem is an acute exacerbation. Symptoms have improved. eb
--- NOTE | 2021-05-02 06:40 | ER ---
Nurse's Notes [facility] Name: Dominique Collazo Age: 71 yrs Sex: Female : 1950 Arrival Date: 05/02/2021 Time: 05:05 Bed 8 Private MD: Diagnosis: Acute combined systolic (congestive) and diastolic (congestive) heart failure Presentation: 05/02 05:09 Ebola Screen: No symptoms or risks identified at this time. ea 05:09 Acuity: RAYO 3 ea 05:10 Chief complaint: EMS states: Pt reports she was feeling short of breath since 10 PM ea last night with no improvement. Coronavirus screen: At this time, the client does not indicate any symptoms associated with coronavirus-19. Initial Sepsis Screen: Does the patient meet any 2 criteria? No. Patient's initial sepsis screen is negative. Does the patient have a suspected source of infection? No. Patient's initial sepsis screen is negative. Risk Assessment: Do you want to hurt yourself or someone else? Patient reports no desire to harm self or others. Onset of symptoms was May 02, 2021. 05:10 Method Of Arrival: EMS: [facility] ea Historical: - Allergies: 05:06 No Known Allergies; ea - PMHx: 05:06 SVT; Myocardial infarction; Hypertension; Hyperlipidemia; Diabetes - IDDM; ea - PSHx: 05:06 Heart stents; Cholecystectomy; ea - Immunization history:: Adult Immunizations up to date. - Social history:: Smoking status: unknown. Screenin:05 Abuse screen: Denies threats or abuse. Nutritional screening: No deficits noted. ea Tuberculosis screening: No symptoms or risk factors identified. Fall Risk None identified. Assessment: 05:10 General: Appears in no apparent distress. uncomfortable, Behavior is calm, cooperative, rr5 appropriate for age. 05:10 Pain: Denies pain. Neuro: Level of Consciousness is awake, alert, obeys commands, rr5 Oriented to person, place, time. Cardiovascular: Capillary refill < 3 seconds Patient's skin is warm and dry. Respiratory: Reports shortness of breath Airway is patent Respiratory effort is even, unlabored, Respiratory pattern is regular, symmetrical. GI: Abdomen is round. : No signs and/or symptoms were reported regarding the genitourinary system. Derm: Skin is fragile, Skin is dry, Skin temperature is warm. Musculoskeletal: Capillary refill < 3 seconds. 05:31 Reassessment: D dimer 899 torri from laboratory called, ed provider aware. rr5 06:10 Reassessment: Patient appears in no apparent distress at this time. Patient is alert, rr5 oriented x 3, equal unlabored respirations, skin warm/dry/pink. 06:56 Reassessment: Patient and/or family updated on plan of care and expected duration. Pain ea level reassessed. Patient is alert, oriented x 3, equal unlabored respirations, skin warm/dry/pink. 07:05 Reassessment: Pt taken to radiology via stretcher. ph 08:41 Reassessment: Patient appears in no apparent distress at this time. Patient and/or ph family updated on plan of care and expected duration. Pain level reassessed. Patient is alert, oriented x 3, equal unlabored respirations, skin warm/dry/pink. Pt resting comfortably, family at bedside. Awaiting results of COVID swab before receiving room assignment. 10:15 Reassessment: Patient appears in no apparent distress at this time. Patient and/or ph family updated on plan of care and expected duration. Pain level reassessed. Patient is alert, oriented x 3, equal unlabored respirations, skin warm/dry/pink. Report given to ALEX Nava. Vital Signs: 05:10 BP 188 / 147; Pulse 88; Resp 20; Temp 97.8; Pulse Ox 93% on R/A; Weight 108.86 kg; ea Height 5 ft. 4 in. (162.56 cm); 06:10 BP 177 / 68; Pulse 79; Resp 16; Pulse Ox 99% ; rr5 07:30 ph 08:42 BP 158 / 66; Pulse 70; Resp 20; Pulse Ox 99% on 2 lpm NC; ph 09:30 BP 147 / 76; Pulse 68; Resp 18; Temp 97.9(TE); Pulse Ox 98% on 2 lpm NC; ph 05:10 Body Mass Index 41.20 (108.86 kg, 162.56 cm) ea 07:30 Pt in radiology ED Course: 05:05 Patient arrived in ED. ea 05:05 Patient has correct armband on for positive identification. Placed in gown. Bed in low ea position. Call light in reach. Pulse ox on. NIBP on. 05:09 Triage completed. ea 05:09 Arm band placed on right wrist. Patient placed in an exam room, on a stretcher, on ea pulse oximetry. 05:11 Abundio Gaona MD is Attending Physician. 7 05:15 Inserted saline lock: 20 gauge in right antecubital area, using aseptic technique. rr5 05:27 Radha Nova, RN is Primary Nurse. ea 05:30 No provider procedures requiring assistance completed. EKG done, by ED staff, reviewed rr5 by Abundio Gaona MD. 05:36 Chest Single View XRAY In Process Unspecified. EDMT 06:39 Jigar Desai MD is Hospitalizing Provider. [facility] 06:55 Patient admitted, IV remains in place. ea 08:01 Primary Nurse role handed off by Radha Nova RN 08:01 Shira Baxter RN is Primary Nurse. ph Administered Medications: 06:48 Drug: Lasix (furosemide) 40 mg Route: IVP; Site: right antecubital; ea 09:53 Follow up: Response: No adverse reaction ph Output: 08:43 Urine: 650ml (Voided); Total: 650ml. ph Outcome: 06:40 Decision to Hospitalize by Provider. [facility] 06:55 Instructed on the need for admit, Demonstrated understanding of instructions. ea 10:16 Admitted to Tele accompanied by tech, family with patient, via wheelchair, room 209, ph with chart, Report called to ALEX Nava 10:16 Condition: stable 10:33 Patient left the ED. ph Signatures: Dispatcher [employer] [facility] Shira Baxter RN RN Radha Nova RN RN ea Roque, Raymond, RN RN rr5 Abundio Gaona MD MD [facility]
[2021-05-02] MEDS ORDERED: ALBUTEROL 2.5 MG/3 ML NEB SOL NEB PRN (06:44)
[2021-05-02] MEDS ORDERED: IPRATROPIUM BROM 0.5MG/2.5ML NEB PRN (06:44)
[2021-05-02] MEDS ORDERED: FUROSEMIDE 40 MG/4 ML VIAL ONE (07:03)
--- NOTE | 2021-05-02 07:50 | RAD REPORT ---
EXAM DESCRIPTION: CT - Chest For Pe Angio - 05/02/2021 7:16 am CLINICAL HISTORY: SOB COMPARISON: Chest Single View dated 05/02/2021 TECHNIQUE: Dynamically enhanced 3 mm thick images of the chest were obtained during administration o f approximately 150mL Isovue 370 IV contrast. Coronal and oblique MIP reconstruction images were gene rated and reviewed. Exam utilizes a protocol to evaluate the pulmonary arterial tree. All CT scans are performed using dose optimization technique as appropriate and may include automated exposure control or mA/KV adjustment according to patient size. FINDINGS: No main or lobar pulmonary artery emboli are present. Segmental branches also appear clear . Subsegmental branch assessment is very limited. There is substantial motion degradation on this ambika dy. The aorta as imaged shows no acute or suspicious finding. No pericardial thickening or effusion. Moderate-size area of consolidation present in the right upper lobe. Interstitial opacification is pr esent and there are scattered patchy alveolar opacities present in the lower lung sanderson. Left lower lobe partial atelectasis present. Small bilateral pleural effusions are seen layering from posterior gutter to apex. No pleural effusion or pleural thickening. Active type lymphadenopathy is seen. No chest wall masses or abnormal axillary lymphadenopathy. Zuniga otomy wires are in place. Bony degenerative changes are present without pathologic component identifi able. IMPRESSION: Exam is limited due to motion. However, no pulmonary emboli are identifiable. None are s uspected. Moderate-sized consolidated pneumonia right upper lobe. Overall increased interstitial prominence from edema or infiltrate. Small bilateral pleural effusions are present.
[2021-05-02] MEDS ORDERED: ACETAMINOPHEN 325 MG TABLET PO PRN (08:00)
--- NOTE | 2021-05-02 08:39 | RAD REPORT ---
EXAM DESCRIPTION: RAD - Chest Single View - 05/02/2021 5:35 am CLINICAL HISTORY: SOB COMPARISON: June 2020, portable December 2019 TECHNIQUE: AP portable chest image was obtained 05/02/2021 5:35 am . FINDINGS: Right upper lobe consolidation is present abutting the minor fissure. This has a typical a ppearance for pneumonia. However, imaging extending back 14 months shows this finding to be persisten t in this region. Patient could be having recurrent pneumonia. Underlying malignancy is a possibility given the persistence of this finding. New interstitial and alveolar opacities are present in the lower lung sanderson, right greater than left . Cardiomegaly is present. Vasculature is increased in prominence. No pneumothorax seen. Small pleura l effusions are likely. No acute bony abnormality seen. No acute aortic findings suspected. IMPRESSION: Right upper lobe consolidation is present typical for pneumonia. However, patient has bahena d consolidation in this region for greater than 1 year. Right upper lobe malignancy should be conside red in addition to recurrent pneumonia. Heart, vasculature and lower lung field markings are all increased suggesting failure/ volume overloa d component.
[2021-05-02] MEDS: FUROSEMIDE 40 MG/4 ML VIAL IV SCH ×2 (09:00→17:00)
[2021-05-02] MEDS ORDERED: D50W 25 GM/50 ML SYRINGE IV PRN (11:24)
[2021-05-02] MEDS ORDERED: GLUCAGON 1 MG/VIAL IM PRN (11:24)
[2021-05-02] MEDS ORDERED: ACETAMINOPHEN 500 MG TAB PO PRN (11:25)
[2021-05-02] MEDS: INSULIN -REGULAR HUMAN 50 UNIT/0.5 ML ML SQ SCH ×3 (11:30→20:08)
[2021-05-02 12:05] VITALS: BMI 41.1
[2021-05-02] MEDS: VALSARTAN 160 MG TAB PO SCH ×2 (12:58→20:37)
[2021-05-02] MEDS: atenoloL 50 MG TAB PO SCH ×2 (12:59→20:37)
[2021-05-02 13:40] LABS: Ferritin 212.3 ng/mL (8-388); Folic Acid, (Folate) > 20.0 ng/mL (3.1-17.5); Transferrin 182 mg/dL (200-360)
[2021-05-02] MEDS ORDERED: SILVER SULFADIAZINE 1% 25 GM TOP ONE (13:45)
--- NOTE | 2021-05-02 14:24 | HP ---
Date of Admission: 05/02/2021 Chief Complaint: Shortness of breath. History Of Present Illness: This is a 71-year-old very pleasant female patient came into the emergen cy room with increasing leg swelling and shortness of breath problem. The patient has history of chr onic leg edema which is nothing new, but lately it has gotten worse and she has started to notice shanel e clear liquid coming out of superficial excoriation from her left leg mainly. Denies any fever or c hills. She also has some shortness of breath now, which has gotten worse in the last few days and it started somewhere around Tuesday of this week or so. She recently went out of town to go on a family vacation and while she was on vacation, she did not have any trouble, but as of Tuesday of this week, she is having increasing shortness of breath to the extent and now she is having paroxysmal nocturna l dyspnea and orthopnea and not able to sleep at night at all. She came into emergency room with all these complaints and after she was evaluated, she was admitted to the hospital with congestive heart failure problem. Allergies: NO KNOWN ALLERGIES. Medications: Takes Lantus insulin 40 units at bedtime, furosemide 40 mg daily as needed for leg swel ling, fluconazole 400 mg daily, atorvastatin 80 mg daily at bedtime, atenolol 50 mg 2 times a day, as pirin 81 mg daily, and olmesartan 40 mg daily. Review of Systems: Cardiovascular: As mentioned above. All other systems reviewed and negative. Past Medical History: Significant for type 2 diabetes mellitus, coccidioidomycosis infection of lung for which she had workup done including biopsy while she was in [place] and since that time she was started on fluconazole 400 mg daily, which she takes it as a maintenance medication. Past medical hi story also significant for hypertension, hyperlipidemia, coronary artery disease, non-STEMI January 12, 2020, and supraventricular tachycardia, history of anemia, idiopathic thrombocytopenic purpura an d had a negative bone marrow biopsy in 2017. Past Surgical History: Negative breast biopsy, had coronary artery stent placement in May 2019, and coronary artery bypass surgery January 21, 2020 and subsequently had pericardial effusion for which she required pericardial window on January 28, 2020. She also had hernia repair, which was umbilical herni a repair and cholecystectomy in the past. Family History: Significant for father had heart disease and hypertension. Mother had thyroid cance r. Social History: Negative for smoking, alcohol use. Physical Examination: Vital Signs: When she first came in, blood pressure was 188/147, pulse 88, respiratory rate 20, temp erature 97.8, oxygen saturation 93%. Height 5 feet 4 inches, weight 108.86 kg. Last blood pressure in the emergency room was 177/68. General: Awake, alert, oriented, not in distress. HEENT: Head atraumatic, normocephalic. Conjunctivae nonerythematous. Sclerae white. Mouth, no thr ush or edema noted. Ears/Nose, no mass, lesion, discharge noted. Neck: Supple. No JVD, lymph nodes, bruit, thyromegaly noted. Lungs: Bilateral rales noted in lower lung sanderson. Not using accessory muscles for respiration. Heart: Normal heart sounds, no murmur or gallop. Abdomen: Abdominal wall edema present. No guarding or rigidity, tenderness, distention. No hepatos plenomegaly. No bruit. Extremities: Bilateral lower leg edema. Grade 2 to grade 3 nonpitting edema with some nodular skin appearance of the lower leg with some superficial skin excoriation, worse in the left anterior leg th an the right anterior leg with presence of some redness of the skin with clear watery type of dischar ge. No purulent discharge. No bleeding. Skin: No rash, ulcer, cellulitis. Lymphatics: No lymph node enlargement in neck, supraclavicular, infraclavicular region. Neuro: No focal neurological deficit. Chest: Unremarkable. External Genitalia: Deferred. Rectal: Deferred. Laboratory Data: CAT scan of the chest shows moderate-sized consolidation in right upper lobe and pr esence of bilateral small pleural effusion. Compared to chest x-ray from December 2019, this right u pper lobe consolidation has not shown any significant change. We do not have prior scan of the chest available for any comparison. Chest x-ray also shows right upper lobe consolidation present and thi s was noted also in December 2019 chest x-ray. White count 13.8, hemoglobin 10.2, platelets 150. D- dimer 899. INR 1.03. Sodium 140, potassium 3.7, chloride 106, bicarb 28, BUN 21, creatinine 1.04, g lucose 200. Liver function tests unremarkable. Troponin less than 0.02. ProBNP 3423. Lipase 75. Urinalysis; 2+ blood, 3+ protein. Impression: 1.Congestive heart failure. 2.Lymphedema, bilateral lower extremities. 3.Hypertension, uncontrolled. 4.Type 2 diabetes mellitus. 5.Coccidioidomycosis infection of lung, on chronic fluconazole therapy. 6.Hyperlipidemia. 7.Coronary artery disease. 8.Anemia, chronic. Plan: We will go ahead and admit the patient to hospital for further evaluation and management of th is problem. The patient is appropriate for inpatient and [facility] We will continue home medications per order, monitor intake output and daily weight. IV Lasix wi ll be given per order. Try to get her old records from [place] where she had her prior workup done f or this lung problems. We will get a venous and arterial Doppler done on her lower extremity. Bilat eral lower extremity daily dressing changes instruction, return, and we will clean bilateral lower le gs with saline solution and apply Silvadene cream daily. Consult regional ehs manager. The patient reports that she had echocardiogram done at office of Dr. Aguilera just about 2 to 3 months ago and it was unr emarkable and we will try to get the copy of that result as well. No need to repeat echocardiogram a t the present time. I suspect she probably has chronic diastolic congestive heart failure, and now p resenting with acute exacerbation of that. was ordered and Lovenox was ordered for DVT pr ophylaxis. Two days ago, she had outpatient mammogram done, which came back abnormal and I have disc ussed that result with her today, to go to [facility] and she is agreeable to do so and I will have office pursue further appointment at [facility] in [place]. Plan of treatment discussed with her an d her daughter who was at bedside and I will see her tomorrow morning for followup. SAUMYA/DALIA Voice ID: [id number]
[2021-05-02] MEDS: ENOXAPARIN 40 MG/0.4 ML SQ SCH (17:00)
[2021-05-02] MEDS: ONDANSETRON 4 MG/2 ML VIAL IV PRN (17:00)
[2021-05-02] MEDS: MORPHINE 2 MG/ML SYR IV PRN ×2 (17:00→22:05)
--- NOTE | 2021-05-02 20:32 | RAD REPORT ---
EXAM DESCRIPTION: US - Extrem Venous W Compress Roderick - 05/02/2021 7:58 pm CLINICAL HISTORY: leg edemabilateral COMPARISON: None. TECHNIQUE: Real-time sonographic evaluation of the bilateral lower extremity common femoral, superfi cial femoral, popliteal and posterior tibial veins was performed. FINDINGS: Normal compressibility, flow augmentation, phasic flow and spontaneous flow are identified in the left and right lower extremity common femoral, superficial femoral, popliteal and posterior t ibial veins. No intraluminal filling defects seen. IMPRESSION: No DVT in either lower extremity.
[2021-05-02] MEDS: ATORVASTATIN 80 MG TAB PO SCH (20:37)
[2021-05-02] MEDS: MELATONIN 5 MG TABLET PO SCH (20:37)
[2021-05-02] MEDS: INSULIN GLARGINE 100 UNITS/ML SQ SCH (20:38)
[2021-05-02] MEDS ORDERED: MELATONIN 10 MG PO SCH (21:00)
[2021-05-03 05:57] LABS: Absolute Lymphocytes (CBC) 1.4 K/uL (0.7-4.9); Basophils % 0.9 % (0-1.3); Hematocrit 26.2 % (36.0-45.0); Lymphocytes % 12.7 % (15.3-44.8); MPV 7.8 fL (7.6-11.3); RBC Red Blood Cell Count 3.33 M/uL (3.86-4.86)
[2021-05-03 06:18] LABS: Potassium 4.1 mmol/L (3.5-5.1)
[2021-05-03] MEDS: INSULIN -REGULAR HUMAN 50 UNIT/0.5 ML ML SQ SCH ×4 (07:30→21:00)
[2021-05-03] MEDS: FERROUS SULFATE 142 MG PO SCH (09:00)
[2021-05-03] MEDS ORDERED: FLUCONAZOLE 200 MG PO SCH (09:00)
[2021-05-03] MEDS: FUROSEMIDE 40 MG/4 ML VIAL IV SCH ×2 (10:33→17:40)
[2021-05-03] MEDS: atenoloL 50 MG TAB PO SCH ×2 (10:33→21:46)
[2021-05-03] MEDS: FLUCONAZOLE 100 MG TAB PO SCH (10:33)
[2021-05-03] MEDS: VALSARTAN 160 MG TAB PO SCH ×2 (10:35→21:45)
[2021-05-03] MEDS: ASPIRIN 81 MG CHEWABLE TABLET PO SCH (10:35)
--- NOTE | 2021-05-03 17:16 | PN ---
Date of Progress Note: 05/03/2021 Subjective: The patient was seen this morning for followup. No new complaints, problems reported by the patient. Overall she feels better. She slept better last night with her head elevated. Objective: Vital Signs: Reviewed. HEENT: Unremarkable. Lungs: Bilateral good equal air entry. Presence of rales noted in the lung bases, overall better than yesterday, not in respiratory distress . Heart: Sounds normal. Abdomen: Soft, bowel sounds normal. No guarding, rigidity, tenderness, distention. Extremities: Bilateral leg edema present. Laboratory Data: White count 11, hemoglobin 8.5, platelets 140. Sodium 143, potassium 4.1, chloride 106, bicarb 32, BUN 23, creatinine 1.18, glucose 135. Serum iron 38, TIBC 255, ferritin 212, B12 fo lic acid more than 20. ProBNP 4960. Impression: 1.Congestive heart failure. 2.Anemia. 3.Hypertension. 4.Coccidioidomycosis, on chronic fluconazole therapy. Plan: We will go ahead and continue current medications. Continue current IV Lasix tomorrow. We wi ll repeat blood work tomorrow morning and depending on her condition, we will decide if we can possib ly discharge her to go home tomorrow or not. We will monitor intake, output, and weight. SAUMYA/MODL Voice ID: [id number] Report ID: [id number]
[2021-05-03] MEDS: ENOXAPARIN 40 MG/0.4 ML SQ SCH (17:40)
--- NOTE | 2021-05-03 17:40 | RAD REPORT ---
EXAM DESCRIPTION: US - Lower Extremity Arterial Bilat - 05/03/2021 5:12 pm CLINICAL HISTORY: rule out pvd Leg pain, claudication. COMPARISON: No comparisons TECHNIQUE: Bilateral lower extremity arterial Doppler examination was performed with waveform tracin g and velocity measurements. FINDINGS: Right common femoral artery and superficial femoral artery are triphasic. Right popliteal artery, pos terior tibial artery and dorsalis pedis artery are mildly blunted monophasic. Left common femoral artery and superficial femoral artery are triphasic. Left popliteal and dorsalis pedis artery is are blunted and biphasic. Left posterior tibial artery was not well seen. No occlusions are present. No significant stenosis identified. IMPRESSION: Infrapopliteal peripheral vascular disease is seen in the symmetric bilateral fashion wh ich is mild to moderate in severity.
[2021-05-03] MEDS: MORPHINE 2 MG/ML SYR IV PRN (18:54)
[2021-05-03] MEDS: ONDANSETRON 4 MG/2 ML VIAL IV PRN (18:55)
[2021-05-03] MEDS: INSULIN GLARGINE 100 UNITS/ML SQ SCH (21:47)
[2021-05-03] MEDS: MELATONIN 5 MG TABLET PO SCH (22:17)
[2021-05-03] MEDS: ATORVASTATIN 80 MG TAB PO SCH (22:17)
[2021-05-04] MEDS: MORPHINE 2 MG/ML SYR IV PRN ×2 (04:41→18:11)
[2021-05-04 05:36] LABS: Absolute Lymphocytes (CBC) 1.6 K/uL (0.7-4.9); Basophils % 0.6 % (0-1.3); Hematocrit 22.7 % (36.0-45.0); Lymphocytes % 16.7 % (15.3-44.8); MPV 7.5 fL (7.6-11.3); RBC Red Blood Cell Count 2.92 M/uL (3.86-4.86)
[2021-05-04 05:57] LABS: Magnesium 2.2 mg/dL (1.8-2.4)
[2021-05-04] MEDS: INSULIN -REGULAR HUMAN 50 UNIT/0.5 ML ML SQ SCH ×4 (07:30→20:10)
[2021-05-04] MEDS: FERROUS SULFATE 142 MG PO SCH (09:00)
[2021-05-04] MEDS: FLUCONAZOLE 100 MG TAB PO SCH (10:17)
[2021-05-04] MEDS: FUROSEMIDE 40 MG/4 ML VIAL IV SCH ×2 (10:17→16:06)
[2021-05-04] MEDS: ASPIRIN 81 MG CHEWABLE TABLET PO SCH (10:18)
[2021-05-04] MEDS: HYDRALAZINE HCL 10 MG TABLET PO SCH ×2 (10:18→21:00)
[2021-05-04] MEDS: VALSARTAN 160 MG TAB PO SCH ×2 (10:18→21:00)
[2021-05-04] MEDS: atenoloL 50 MG TAB PO SCH ×2 (10:19→21:00)
--- NOTE | 2021-05-04 14:39 | RAD REPORT ---
EXAM DESCRIPTION: RAD - Chest Pa And Lat (2 Views) - 05/04/2021 2:23 pm CLINICAL HISTORY: CHF COMPARISON: Portable May 02, two view chest June 2020, portable chest December 2019 ; CT chest Ju TECHNIQUE: Frontal and lateral views of the chest were obtained. FINDINGS: The lungs are fibrotic as a baseline. Mid and lower lung field interstitial and alveolar o pacities have substantially improved. Central pulmonary vasculature has improved. Heart size remains prominent. Left-sided costophrenic angle blunting has been improved as well. Trachea is midline. CHF / volume overload pattern is improved. Patient has had chronic parenchymal opacification in the right upper lobe along the minor fissure. Th is is improved compared compared to all of these comparison studies. Additional clinical information subsequent to the May 02 CT chest indicates the patient is on chronic fungal infection regimen. The improvement in the right upper lobe is probably clearing of failure findings that surrounded the typesetting machine tender faith lung infection. There are no cavitation changes in the lung parenchyma. No pleural effusion or pn eumothorax seen. No acute bony finding noted. No aortic abnormality. IMPRESSION: Significant improvement in the CHF/ volume overload findings since prior studies.
[2021-05-04] MEDS: ENOXAPARIN 40 MG/0.4 ML SQ SCH (16:06)
[2021-05-04] MEDS: GLUCERNA SHAKE 237 ML CAN PO SCH (17:53)
[2021-05-04] MEDS: INSULIN GLARGINE 100 UNITS/ML SQ SCH (21:01)
[2021-05-04] MEDS: ATORVASTATIN 80 MG TAB PO SCH (21:01)
[2021-05-04] MEDS: MELATONIN 5 MG TABLET PO SCH (21:01)
--- NOTE | 2021-05-04 21:29 | PN ---
Date of Progress Note: 05/04/2021 Subjective: The patient was seen this morning for followup. She was lying in bed, not in distress. She slept very well last night and denied any shortness of breath during nighttime. Overall, she sa ys she feels much better. Objective: Vital Signs: Reviewed. HEENT: Unremarkable. Lungs: Bilateral good equal air entry. Not using any accessory muscles of respiration. No rales. No rhonchi. Heart: Sounds normal. Abdomen: Soft. Bowel sounds normal. No guarding, rigidity, tenderness, distention. Extremities: Bilateral leg edema present. Laboratory Data: White count 9.3, hemoglobin 7.7, platelets 120. Sodium 140, potassium 4, chloride 104, bicarb 31, BUN 34, creatinine 1.37, glucose 146. ProBNP 2390. Arterial Doppler of legs shows e vidence of igod-sw-yexxfmfr peripheral vascular disease . Chest x-ray shows improvement in congestive heart failure. Impression: 1.Congestive heart failure, chronic, diastolic, with acute exacerbation. 2.Anemia, chronic, unspecified. 3.Thrombocytopenia. 4.Hypertension. 5.Acute kidney injury. Plan: We will go ahead and continue current Lasix. We will go ahead and monitor renal function. We will get a stool for guaiac. The patient does not have any symptoms of GI blood loss. Anemia profi le is unremarkable. Her renal function has deteriorated very likely due to IV iodine contrast dye th at she received with her CAT scan when she came into emergency room. Upon further discussion today, the patient informs me that in the past when she had cardiac cath procedure a few to several years ag o, she had similar problem with kidney injury due to iodine. and I will see her tomorrow for followup. Depending on her blood work tomorrow, we will decide if she is stable for discharge to [place] or not. Details and plan of treatment discussed with her. Her echocardiogram was done on an outpatient basis in January of this year with her workforce services representative, Dr. Aguilera, showing normal ejection fr action. No need to repeat another echocardiogram at this time. SAUMYA/MODL Voice ID: [id number] Report ID: [id number]
[2021-05-05 06:17] LABS: Magnesium 2.2 mg/dL (1.8-2.4)
[2021-05-05 06:46] LABS: Absolute Lymphocytes (CBC) 1.2 K/uL (0.7-4.9); Hematocrit 23.2 % (36.0-45.0); Lymphocytes % 11.9 % (15.3-44.8); MPV 7.7 fL (7.6-11.3); RBC Red Blood Cell Count 2.98 M/uL (3.86-4.86)
[2021-05-05] MEDS: INSULIN -REGULAR HUMAN 50 UNIT/0.5 ML ML SQ SCH ×2 (07:30→11:30)
[2021-05-05] MEDS: FERROUS SULFATE 142 MG PO SCH (09:00)
[2021-05-05] MEDS: FUROSEMIDE 40 MG/4 ML VIAL IV SCH (09:02)
[2021-05-05] MEDS: FLUCONAZOLE 100 MG TAB PO SCH (09:03)
[2021-05-05] MEDS: VALSARTAN 160 MG TAB PO SCH (09:04)
[2021-05-05] MEDS: ASPIRIN 81 MG CHEWABLE TABLET PO SCH (09:04)
[2021-05-05] MEDS: atenoloL 50 MG TAB PO SCH (09:04)
[2021-05-05] MEDS: HYDRALAZINE HCL 10 MG TABLET PO SCH (09:04)
[2021-05-05] MEDS: GLUCERNA SHAKE 237 ML CAN PO SCH (09:06)
[2021-05-05 09:14] VITALS: O2SAT 96
[2021-05-05 12:39] VITALS: BP 188/71; TEMP 98
--- NOTE | 2021-05-05 20:33 | DS ---
Date of Discharge: 05/05/2021 Disposition: Discharged to go home. Physical Examination: HEENT: Unremarkable. Lungs: Clear to auscultation. Heart: Sounds normal. Abdomen: Soft. Bowel sounds normal. No guarding, rigidity, tenderness, distention. Extremities: Bilateral leg lymphedema present with superficial open wound, smaller wound on the righ t anterior leg and larger on the left anterior leg and this is in form of loss of epidermal skin. Th ere is no active discharge or bleeding. No evidence of surrounding skin redness or cellulitis type o f problem. Laboratory Data: Last chemistry today; sodium 142, potassium 4, chloride 105, bicarb 30, BUN 32, cre atinine 1.24, glucose 134, highest creatinine was yesterday 1.37, BUN 34. ProBNP yesterday was 2390. Upon admission; BUN was 21, creatinine 1.04. Troponin less than 0.02. Anemia workup showed ferrit in level 212, B12 597, and folic acid level more than 20. CBC today; white count 10, hemoglobin 7.9, platelets 113. Lowest hemoglobin was yesterday 7.7. Upon admission; white count 13.8, hemoglobin 1 0.2, platelets 150. Discharge Diagnoses: 1.Congestive heart failure, chronic, diastolic, with acute exacerbation. 2.Lymphedema, bilateral lower extremity. 3.Acute kidney injury, resolved. 4.Anemia, chronic, unspecified. 5.Hypertension, uncontrolled. 6.Type 2 diabetes mellitus. 7.Coccidioidomycosis infection of lung, on chronic fluconazole therapy. 8.Hyperlipidemia. 9.Coronary artery disease. 10.Peripheral vascular disease. Hospital Course: This is a 71-year-old pleasant female patient, admitted to the hospital with compla ints of shortness of breath. Please see dictated H and P for more information. After the patient wa s evaluated in the ER, she was admitted to the hospital and she was treated with IV Lasix 40 mg 2 trin[place] es a day and her shortness of breath complaint started to improve. The patient has bilateral leg lym phedema with some superficial open wound on the anterior leg and this was treated with topical dressi ng changes with Silvadene and this started to show improvement and the patient was advised to continu e to change dressing daily at home. Overall, her condition has improved. Leg was negative for DVT. Arterial Doppler shows [id number] disease and I have advised her to follow up with her cardiol ogist, Dr. Aguilera regarding this problem. Chest x-ray has shown improvement in her congestive heart failure pattern. Discharge Medications And Instructions: 1.Continue all prior home medications except change furosemide 40 mg, the patient to take 1 tablet b y mouth 2 times a day. 2.Apply Silvadene daily to bilateral leg wounds. 3.Start hydralazine 10 mg, take 1 tablet by mouth 2 times a day. 4.Follow up at my office next week on Tuesday, which is 05/11/2021 at 10 a.m. 5.The patient was advised to follow up with her nutrition assistant, Dr. Aguilera for peripheral vascular di sease. SAUMYA/MODL Voice ID: [id number] Report ID: [id number]
--- NOTE | 2021-05-10 15:35 | CON ---
Date of Consultation: 05/04/2021 Reason For Consultation: Shortness of breath. History Of Present Illness: Ms. Collazo is a patient of Dr. Desai. She came in complaining of shortne ss of breath that has been going on for few hours. Dyspnea on exertion. Denied chest pain, cough, d iaphoresis, nausea, vomiting, PND, orthopnea, pedal edema, palpitations, or syncope. She denied any fever or chills. Allergies: NONE. Review of Systems: Negative. Social History: Negative. Family History: Noncontributory. Past Medical History: Includes CAD, status post stent, STD, hypertension, diabetes, dyslipidemia, an d she is status post cholecystectomy. She came into the emergency room. Physical Examination: Vital signs: Her blood pressure was 188/147, sinus rhythm, with normal O2 saturation. HEENT: Negative. Neck: Supple. No adenopathy, JVD, or thyromegaly. Lungs: Revealed some rales at both bases. Cardiac: Revealed a regular rhythm and rate. No murmurs, gallops, or rubs. Abdomen: Obese but benign. Extremities: Revealed no clubbing, cyanosis, or edema. Diagnostic Data: Her creatinine is 1.7. Hemoglobin was 7.7. Her BNP was 2390. Chest x-ray showed congestive heart failure. Arterial Doppler showed peripheral arterial disease [id number]. EKG s howed normal sinus rhythm with nonspecific changes. Heart catheterization in 2019 showed occlusion o f her LAD, which was stented later. Impression And Plan: 1.Dyspnea on exertion secondary to congestive heart failure. 2.Hypertension. 3.Diabetes. 4.Hyperlipidemia. 5.Coronary artery disease status post stent. 6.Severe anemia. 7.Acute kidney injury. 8.Normal ejection fraction in January of 2021. 9.Allergies to contrast. Continue her present regimen. Consider blood transfusion. Watch her kidn ey function and low-dose Lasix to her regimen. I will plan to do a Lexiscan on her in a near future. She was seen in the office soon. MARCOS/DALIA Voice ID: [id number] Report ID: [id number]
== END 2021-05-05 12:30 | disposition home or self-care (01) | DRG 292 ==
LOC: ER 05:00 → ERHOLD 06:48 → 2ND 10:15
PROVIDERS: ADMIT Internal Medicine; ATTEND Internal Medicine
DX: I11.0 Hypertensive heart disease with heart failure (principal); N17.9 Acute kidney failure, unspecified; B38.2 Pulmonary coccidioidomycosis, unspecified; I50.33 Acute on chronic diastolic (congestive) heart failure; E11.9 Type 2 diabetes mellitus without complications; E78.5 Hyperlipidemia, unspecified; I25.10 Atherosclerotic heart disease of native coronary artery without angina pectoris; D64.9 Anemia, unspecified; I89.0 Lymphedema, not elsewhere classified; I73.9 Peripheral vascular disease, unspecified; Z95.1 Presence of aortocoronary bypass graft; Z95.5 Presence of coronary angioplasty implant and graft; Z20.822 Contact with and (suspected) exposure to COVID-19
CPT/HCPCS: 36415; 71045; 71046; 71275; 76641; 77066; 80048; 80076; 81003; 82274; 82550; 82553; 82607; 82728; 82746; 82947; 83540; 83690; 83735; 83880; 84466; 84484; 85025; 85379; 85610; 85730; 93005; 93925; 93970; 96374; 99285; G0279; J1650; J1815; J1940; J2270; J2405; Q9967; U0003

== ENCOUNTER 2021-06-11 00:33 | Inpatient (IN) | payer OTHER, MEDICARE ==
--- OUTSIDE RECORDS SUMMARY | 2021-06-11 00:43 | XMS REPORT | Continuity of Care Document ---
:1950 Author Organization [facility] t Address [address] [place] [address] Care Team Providers Name Role Phone [phone] Primary Care Physician Unavailable SYSTEM, NOT IN Attending Clinician Unavailable Jose Angel CRUZ Attending Clinician JOSE ANGEL Attending Clinician Unavailable Teto HERRERA Attending Clinician TETO Attending Clinician Unavailable Kimberly JOHNSON Attending Clinician Unavailable DIANA ALLEN Attending Clinician Unavailable LARRY JOHNSON Attending Clinician Unavailable DIANA ALLEN Admitting Clinician Unavailable LARRY JOHNSON Admitting Clinician Unavailable Payers Payer Name Policy Type Policy Effective Date Expiration Date Sour ce Number MEDICAREMEDICARE PART [id number] 2017 MD Nolen A AND 00:00:00 [id number] 2016-P [id number] [place], [place] [employer] [id number] 2020 MD Nolen OF RETIRED 00:00:00 PERSONSAARP-SECONDARY [id number]/ 1-PresentMedigap Problems Condition Condition Condition Status Onset Resolution Last Treating Co mments Source Name Details Category Date Date Treatment Clinician Date Anemia Anemia Disease Active 05-26 Anderso 00:00: n 00 Chest pain Chest pain Disease Active M D 05-26 Anderso 00:00: n 00 Coronary Coronary Disease Active bypass bypass 05-26 Anderso graft graft 00:00: n finding finding 00 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 Benji Allen on on 00:00: Wil Thorne edical 01/21/20 01/21/20 00 on 01/21/20 Cente r CAD CAD Disease Active [facility] (coronary (coronary 2-24 [facility] - artery artery 00:00: Medical disease) disease) 00 Center Status Status Disease Active [facility] pericardia pericardia l window l window Acute Acute Disease Active [facility] respirator respirator [facility] - y y Medical insufficie insufficie Ce nter ncy ncy Acute Acute Disease Active [facility] blood loss blood loss [facility] anemia anemia [facility] Pleural Pleural Disease Active [facility] effusion effusion [facility] Hypervolem Hypervolem Disease Active [facility] ia, ia, [facility] - unspecifie unspecifie Me dical d d Center hypervolem hypervolem ia type ia type Allergies, Adverse Reactions, Alerts This patient has no known allergies or adverse reactions. Family History Family Member Diagnosis Comments Start Date Stop Date Source Natural father Hypertension [facility] Natural father Kidney disease [facility] Natural father Prostate cancer MD Jadyn rose Paternal aunt Brain cancer Ajith on Paternal uncle Lung cancer Ajith on Social History Social Habit Start Date Stop Date Quantity Comments Source History SDOH [facility] - Alcohol Binge Medical [place] [facility] Sex Assigned At [facility] History SDOH [facility] - Alcohol Std Drinks Medica l Center Exposure to Not sure MD Nolen SARS-CoV-2 (event) Tobacco use and 2020-01-31 2020-01-31 Never used CARLA Lockett kes - exposure 00:00:00 00:00:00 [facility] Alcohol intake 2020-01-31 2020-01-31 Current CARLA Bhatia es - 00:00:00 00:00:00 non-drinker of Medical Ce nter alcohol (finding) History SDOH 2020-01-14 2020-01-14 [address] [facility] - Alcohol Frequency 00:00:00 00:00:00 [facility] Smoking Status Start Date Stop Date Source Never smoker [facility] Medications Ordered Filled Start Stop Current Ordering Indication Dosage Frequency Signature Comments Components Source Medication Medication Date Date Medication? Clinician (SIG) Name Name LORazepam Yes .5mg Take 0.5 MD (ATIVAN) 7-19 mg by Anderso 0.5 mg 21:03: mouth n tablet 01 once. Prior MRI aspirin Yes MD (ASPIR-81 05-21 Anderso ORAL) 17:18: n 45 LORazepam Claustropho 1mg Take 2 MD (ATIVAN) 05-21 cristian tablets (1 Daniel rso 0.5 mg 00:00: 04:59 mg) by n tablet 00 :00 mouth once for 1 dose. For use with MRI. Do not take until MRI consent has been signed. hydrALAZINE Yes TAKE 1 MD (APRESOLINE 6-15 TABLET BY And erso ) 10 mg 00:00: MOUTH n tablet 00 TWICE DAILY furosemide Yes TAKE 1 MD (LASIX) 40 6-15 TABLET BY Daniel rso mg tablet 00:00: MOUTH n 00 TWICE DAILY Lantus Yes ADMINISTER MD U-100 6-14 40 UNITS Anderso Insulin 100 00:00: UNDER THE n unit/mL 00 SKIN DAILY injection AT BEDTIME ferrous Yes 1{tbl} 1 tablet. sulfate 142 -12 Anderso mg (45 mg 00:00: n iron) TbER 00 acetaminoph Yes Q4H en 6-12 Anderso (TYLENOL) 00:00: n 500 mg 00 tablet atenolol Yes TAKE 1 MD (TENORMIN) 6-09 TABLET BY Daniel rso 50 mg 00:00: MOUTH n tablet 00 TWICE DAILY fluconazole Yes TAKE 2 MD (DIFLUCAN) 5-28 TABLETS BY And erso 200 mg 00:00: MOUTH n tablet 00 DAILY olmesartan Yes TAKE 1 MD (BENICAR) 5-27 TABLET BY Woo so 40 mg 00:00: MOUTH n tablet 00 DAILY atorvastati Yes TAKE 1 MD n (LIPITOR) 5-03 TABLET BY And erso 80 mg 00:00: MOUTH n tablet 00 EVERY DAY aspirin 81 2020-0 Yes 81mg QD Take 1 [facility] 3-[facility] tablet (81 [facility] - tablet 00:00: mg total) Medica l 00 by mouth Center daily. clopidogreL 2020-0 Yes 75mg QD Take [address] (PLAVIX) 75 3-18 tablet (75 Deepali kes - mg tablet 00:00: mg total) Med ical 00 by mouth Center daily. furosemide 2019-0 Yes 40mg QD Take 1 [facility] (LASIX) 40 3-18 tablet (40 [facility] - MG tablet 00:00: mg total) Med ical 00 by mouth Center daily. atenolol 2019-0 Yes hypertensio 50mg Q.5D Take [address] (TENORMIN) 3-17 n by mouth 2 [facility]ookie es - 50 MG 15:13: (two) Medical tablet 09 times Center daily. fluconazole 2019-0 Yes 200mg QD Take [address] (DIFLUCAN) 3-17 mg by [facility] - 200 MG 15:13: mouth Medical tablet 09 daily 2 Center tabs= 400mg . atorvastati 2019-0 Yes 80mg QD Take [address] n (LIPITOR) 3-17 by mouth [facility] - 80 MG 15:13: nightly. Medical tablet 09 Center nystatin 2020-0 Yes Q.5D Apply [facility] (MYCOSTATIN 3-17 topically [facility] - ) 100,000 00:00: 2 (two) Medic al unit/gram 00 times Center powder daily. insulin 2020-0 Yes 50U QD Inject 50 [facility] glargine 3-17 Units [facility] - (LANTUS) 00:00: subcutaneo Med ical 100 unit/mL 00 usly Center injection nightly Use as directed . Immunizations Ordered Immunization Filled Immunization Date Status Commen ts Source Name Name Bert SARS-CoV-2 2021-01-22 Completed And erson Vaccination 00:00:00 Bert SARS-CoV-2 2020-12-27 Completed And erson Vaccination 00:00:00 Vital Signs Vital Name Observation Time Observation Value Comments Source Systolic blood pressure 2021-06-08 22:25:00 164 mm[Hg] MD Nolen Diastolic blood pressure 2021-06-08 22:25:00 79 mm[Hg] MD Nolen Heart rate 2021-06-08 22:25:00 60 /min MD Woo cooper Respiratory rate 2021-06-08 22:25:00 15 /min MD Jigar gonzalez Oxygen saturation in 2021-06-08 22:25:00 99 /min MD Nolen Arterial blood by Pulse oximetry Body temperature 2021-05-21 17:08:00 37.11 Velia MD Jigar gonzalez Body height 2021-05-21 17:05:00 162 cm MD Woo cooper Body weight 2021-05-21 17:05:00 102.6 kg MD Woo cooper BMI 2021-05-21 17:05:00 39.09 kg/m2 MD Woo cooper Procedures Procedure Date / Time Performed Performing Clinician [facility] e MRI BREAST BILATERAL W WO 2021-06-08 22:24:00 Joao Walter CONTRAST INCL CAD MAMMO POST PROCEDURE BILATERAL 2021-05-20 22:26:50 Maru Irene MD PATHOLOGY BIOPSY 2021-05-20 22:21:00 Suni Irene MD INTERPRETATION PATHOLOGY BIOPSY 2021-05-20 22:19:00 Suni Irene MD INTERPRETATION US BREAST COMPLETE BILATERAL 2021-05-20 22:11:50 Suni Irene MD US CHEST 2021-05-20 22:11:50 Suni Irene MD US GUIDED BREAST BIOPSY RIGHT 2021-05-20 22:11:50 Dominique Irene MD US GUIDED BREAST CLIP 2021-05-20 22:11:50 Suni Irene MD And erson PLACEMENT RIGHT MAMMO DIGITAL DIAGNOSTIC 2021-05-20 18:59:53 Suni Irene MD BILATERAL W ALIDA OSI US BREAST 2021-04-29 17:47:00 Joao Walter MD OSI MAMMO BILATERAL 2021-04-29 17:46:00 Joao Walter MD OSI MAMMO BILATERAL 2020-07-03 17:47:00 Joao Walter MD rsamaury Plan of Care Planned Activity Planned Date Details Comments Source Future Scheduled 2020-07-22 INFLUENZA VACCINE (#1) [facility] Test 00:00:00 [code = INFLUENZA Medical Ce nter VACCINE (#1)] Future Scheduled 2019-01-[address] [facility] - Test 00:00:00 WELLNESS (YEAR 2 or Medical Center FIRST YEAR if no IPPE) [code = MEDICARE ANNUAL WELLNESS (YEAR 2 or FIRST YEAR if no IPPE)] Future Scheduled 2017-02-13 PNEUMOCOCCAL 65+ [facility]RS [facility] - Test 00:00:00 (1 of 1 - Medical Center [id number] PCV13) [code = PNEUMOCOCCAL 65+ YRS (1 of 1 - [id number] PCV13)] Future Scheduled [address] [facility] - Test 00:00:00 [facility] breast [facility]procedure) [code = 593585110] Future Scheduled [address] [facility] - Test 00:00:00 [facility] colon (procedure) [code = 765509367] Encounters Start End Encounter Admission Attending Care Care Encounter Source Date/Time Date/Time Type Type Clinicians Facility Department ID 2021-05-21 Outpatient SYSTEM, DYLAN RICHARDSON [id number] 10:22:16 PROVIDER Ajith o n 2021-05-20 Outpatient SYSTEM, DYLAN RICHARDSON [id number] 13:48:06 PROVIDER Ajith o n 2021-05-20 Outpatient SYSTEM, DYLAN RICHARDSON [id number] 12:42:12 PROVIDER Ajith o n 2021-05-20 Outpatient SYSTEM, DYLAN RICHARDSON [id number] 09:32:03 PROVIDER Ajith o n 2021-05-11 Outpatient SYSTEM, DYLAN RICHARDSON [id number] 11:24:36 PROVIDER Ajith o n 2021-06-08 2021-06-08 Outpatient GRAHAM WALTER MDA MDA [id number] 15:30:37 15:30:37 JOAO Winchesterers o n 2021-05-21 2021-05-21 Outpatient GRAHAM WALTER MDA MDA [id number] 11:53:27 13:19:21 JOAO Winchesterers o n 2021-05-21 2021-05-21 Outpatient GRAHAM WALTER MDA MDA [id number] 11:45:55 11:58:33 JOAO Winchesterers o n 2021-05-20 2021-05-20 Outpatient EL DYLAN MDA [id number] 17:07:10 17:07:10 Ajith terrell 2021-05-20 2021-05-20 Outpatient GRAHAM IRENE MDA MDA [id number] 14:00:59 14:00:59 SUNI tererll 2021-05-20 2021-05-20 Outpatient GRAHAM WALTER MDA MDA [id number] 12:33:34 12:33:34 JOAO Winchesterers o n 2021-05-20 2021-05-20 Outpatient GRAHAM WALTER MDA MDA [id number] 12:33:26 12:33:26 JOAO Winchesterers o n 2021-05-20 2021-05-20 Outpatient GRAHAM WALTER MDA MDA [id number] 12:33:22 12:33:22 JOAO Canseco o n 2021-05-20 2021-05-20 Outpatient EL DYLAN IRENE MDA [id number] 12:27:21 12:27:21 SUNI terrell Results Test Description Test Time Test Comments Results Result Comments Source MRI Breast Bilateral with and without Contrast incl CAD 2020 22:07:55 Test Item Value Reference Range Interpretation Comme nts IMP (test code = IMP) 1. Oval irregular enhancing mass in the right breast is identified withassociated signal void/clip artifact. This was previously biopsied viaultrasound guidance and reported as "Fragments of intraductal papilloma involvedby collagenous spherulosis and apocrine metaplasia" which was deemed discordant.Stereotactic biopsy has been recommended per 05/20/2021 report. This appears tointerconnect with a second area laterally which measure as a whole up to 4.0cm. 2. Signal void/clip artifact noted in the left breast 7:00 with adjacentnonspecific foci of enhancement/post biopsy changes. This was previouslybiopsied via ultrasound guidance and reported as "Breast parenchyma with focalapocrine metaplasia near post procedural changes with associatedmicrocalcifications" which was deemed discordant. Stereotactic biopsy has beenrecommended per 05/20/2021 report. A 1cm area of nonspecific enhancing focus in the right breast 7:00 7cm from thenipple likely corresponds to additional area of distortion noted on priormammogram. BI-RADS Category 4B:Suspicious Abnormality PXN (test code = PXN) Interface, Radiology Results In - 06/09/2021 5:08 PM CDT FILMS COMPAREDThe present examination has been compared to a prior imaging study performed [facility] on 05/20/2021. EXAMINATION:MRI BREAST BILATERAL W WO CONTRAST INCL CAD, Bennett Basins TECHNIQUE:Multiplanar, multisequence breast MRI was performed before and after theadministration of 10 mL of Gadavist contrast intravenously per protocol. Thefollowing sequences were obtained: Axial noncontrast T1-W, axial T1-W fat satdynamic pre/post contrast, sagittal T1-W fat sat post contrast, axialT2-weighted fat sat, axial DWI with ADC mapping. Serial subtraction images weregenerated during post-processing. DynaCAD was used for kinetic assessment. BACKGROUND ENHANCEMENT: There is motion artifact. Additionally the right anterior retroareolar regionis not well evaluated due to the anterior breast flattened against the table. There is mild early background parenchymal enhancement. MRI FINDINGS: 1. There is an oval irregular enhancing mass with associated signal void fromclip/foreign body measuring 2.6 x 1.1 x 1.3 centimeters in the right breastupper hemisphere at 12 o'clock located 4 centimeters from the nipple. Thisdemonstrates persistent kinetics. This is best demonstrated on series 100 image78. There is an asymmetry lateral and anterior to the 12:00 4cm mass which measuresapproximately 1.5cm. This is best seen on series 3, image 77 and series 7, . This may correspond to distortion noted on mammogram in the right rvmyez31:00 4cm from the nipple. This appears to connect with the 12:00 mass and as awhole this area measures up to 4.0cm 2. Signal void/clip artifact noted in the left breast 7:00 with area ofnonspecific enhancement measuring 2.0cm. This is best seen on series 100 image96. This demonstrates persistent kinetics. Superior lateral to the 7:00 area is a 1.0cm area of nonspecific enhancingfocus. This may correspond to second area of distortion noted on prior 05/20/21mammogram. This demonstrates persistent kinetics. Left Regional Bennett Basins: No suspicious axillary levels I, II, III(infraclavicular) or internal mammary lymph node is identified. Right Regional Bennett Basins: No suspicious axillary levels I, II, III(infraclavicular) or internal mammary lymph node is identified. IMPRESSION:1. Oval irregular enhancing mass in the right breast is identified withassociated signal void/clip artifact. This was previously biopsied viaultrasound guidance and reported as "Fragments of intraductal papilloma involvedby collagenous spherulosis and apocrine metaplasia" which was deemed discordant.Stereotactic biopsy has been recommended per 05/20/2021 report. This appears tointerconnect with a second area laterally which measure as a whole up to 4.0cm. 2. Signal void/clip artifact noted in the left breast 7:00 with adjacentnonspecific foci of enhancement/post biopsy changes. This was previouslybiopsied via ultrasound guidance and reported as "Breast parenchyma with focalapocrine metaplasia near post procedural changes with associatedmicrocalcifications" which was deemed discordant. Stereotactic biopsy has beenrecommended per 05/20/2021 report. A 1cm area of nonspecific enhancing focus in the right breast 7:00 7cm from thenipple likely corresponds to additional area of distortion noted on priormammogram. BI-RADS Category 4B:Suspicious Abnormality Lab Interpretation (test code = Abnormal 75535-2) [facility] [id number] 17:42:59 Test Item Value Reference Range Interpretation Comments Submitted Clinical History [id number] (test code = 62270) mbGFuZzEwMzNcZnRuYm pcdWMxIHtccnRmMVxzc 3OtI8HdBqKuPRkblmQa XGRlZmxhbmcxMDMzXGZ 0bmJqXHVjMVxkZWZmMH jfWv6xnHLhkPinDgJzE GSii8oyeuIMksnrhDy2 e5rlGPRpZaJ7qZIxNBp kD3ucfiYzrVSpVUWmJP x3hU06IEUjeQ5zkOXdQ ZczxpGmLaP1ETijCPVo XuW0WUHrnFAbHMTeJ2n yZWQwXGdyZWVuMFxibH DwWUE3hBdxu6P0kRUva GVldHtcZjBcZnMyMiBO c1MdEDw3qRtnU5KoWHF tSmG4yZRiXWGqUWlgTC KlRHOtlaN0jF40SQtnz hG4kIJwc1Yci55sp147 aP9kzKEdQJH3SHPnCYE vwAQyOFDrTCO9CDJdtW LqC1ryALTtOB2pnbmyR JgaTPqyBHGrkJC5CBDj mDOiR5MsCGBpUHqgOBQ mobp9JbZfVz9rtDZsbB pgOVgqh3edo9ldtMLgC ms1EQNoJeYiUxqaJRal u2Jcq9ilBICkkf0sWCB 3gUJjnJtsp7U4rFTgOM PshSSgehMiUHJsFcW5Z YqmRI5vpm89UNYiUUR9 qd3unVEpjDcuncBpbNU xKPocX4KfHBWzj999ZH BdT5WnUNIyn9S0oyYpR pKcAFDxyZG5yaX2OYXw DGi1eVSdzgV1pyIjtIV eV0zsiD7xJUKfHU5sea tpq7pvLIhlEEkjYXErd VY3ajR6VGNwiONrB9He zL1lDCDuQUtgQAUcahi 4HyErOd2pgHFabWqgQR xzYmtwYWdlXHBnbmNvb nRccGduZGVjXHBsYWlu XHBsYWluXGYwXGZzMjR wcOgxiScllC0rUoIdGo EvUBtwOJ7kFJPeT8sap WVeYLNqPSAdC0fxXlJv sP9hqAmsBHkhzrTuTK5 lzH5hL4JvuIa8LONyud 3tmNGcVRtLXEBfHX9yr SygfI1fCoDzUiMmKgqm NA8bDIOqA5dxpISpOED dLXUqT4wgLqPwiW3arL zhVBnaphDrZDPlek27 Diagnosis (test code = 34) e7hecLIdIJIbySV4AIG fURDht4lzy4CffYNofD NlGAturAVgpsWyxx55d PF9lB60ZF5xRDLrXwU9 QNDbxoK2Fce6HVUdGSP rpRCwN038i0bwj3fzdd QluJB3iZduQBIbljpkY sO0HQrtBMFlyylcKOe3 RPgoWDQaeBO0BKOwjNL cG3IxAHNqTT0sgvp1DY G4KWtwZAKgLsO0EYPjt PWjGIPusKuySJuqd608 BDR8VdZwANZhsqTjaQn kmN6zXmDaTRBKAoKiQE StrWGzfxSuo2RsXPGnD YXiL36eoJUnhobjHamx QVhrEcWncCEzre9mVM7 iuXBfVWgrqPu7xfSqw6 EbNM7icJtqRCUcW68fP SBuZWVkbGUgYmlvcHN5 MdgdZZXanZGcCK3eZPF 2sCFjeuLvMD8ySW4txE fubtKiA6ayHLdcnpAlg GFiIEJyZWFzdCBwYXJl zrPseB4iGIiagNrmPu5 yFIcpJGYqS2FyptGhiC R2BBAzJRIuGADoIZWeC BDri1MpkYRzV5UbuSEm dAOlyZJlD5YdWCcibAz hRDFas2PwKZHsRTBfhW Tci8KneCFmIxstQFOaz 17yQjh6WFThdKCrzH== Gross Description (test m1oscYMdHTPucWZ8BOH code = [id number]) kBSTyr0vkz6TtmZHpvK TaLIdhkHXjnkLypl66m UX7xV96ZD1oDKIxPpG4 FJUerkX7Npe0WNMoUYA abNCkP438n6ssm9xina FalFV2QWZfAQUwP2StM K3hFTChgQCrH79tfFSu SDG2CDYnGNJnzFUwLJE bZWL5LTHnlKRoV5vaXI JpVF9uyvqcFForOSewP REduAR6HZDoyOLfT6If ODMlMChxIWPalkm8LhW rKk7gxNPgvNprLHhiKK Ich2huPQEcrBRrEIV9H FxcaWQgNTEwMDAgXFx0 LHVzXHnutNXcCL4pfUs rAonasUpop8YbyLQaPO lkIDUxMDAyIFxcZGIgT 8JBUFKzDmT9YBuxOWUa EZw5ITwyU8VENBBfUUY 6BTGwCUe4NoM5JSp6XD AEJj2uMeG6BUS7GEN1A FC6HxZ1LColfOKkBCle ZmwgXFxmIEFyaWFsIFx cZnMgMTAgXFxmYiBcXG 5jfVxwbGFpblxiXGZzM jAgQTpccGFyXGNmMSBC ixKoq0BcQInjSxKfFQd 6MDAgNiBjbSBmbjpcYj WoM7GuYVMYq99rwJQ4P Z6kWECpqTRnXIHmEyBq aTlpc3OkIDVpymEqKCL bubpjoipbpQ2ru4z5KD Xxyy9iWIEkTQ6pYuirS 16hyY9pvEWbY4KlHTrz VI1bMADuSPluBWOoEU9 bcGNeQwIyS3HzL8yyCN 7eEZIzVDAomYXzwTT2P TRlAX01uDKjaAixpW1o QOKpNRUoMEReE77bTPJ gZWFjaCkuICBccHJvdG ZdsSuqNkxmlTA4NFndM orxjZ5piCYNIZBDYdcX WcltdwWrVJ7CLF7QVrW LPL06QsPjKXT6FNoXR7 OWtAB1Kab6HLt0iExdE aybmfYhrWEuPiFxdT4C VIvoEerafQV9IQdpEfd zeY2uoUALFLWKXuvIBr ieucCnWF5DQE9DRI2Zm BGrEZS8mLZ0SRZNFkug wUN2nVC4mR17PRXuGWH pcHGkXFsnW644GVKgFM psKSHlQeI0SVHmdGFrR NH6IT7gvRajJIJkS0Cx X6PstvG2MSPmre9= Biomarker Block(s) (test o2tynKGoFNQemHM6BNZ code = 9841) yKDFvj3eyc3HukVUgaC DuKXpiwGZdlvWwkx99r BI7yC45OP4xIXIgZsF3 NKTynvP0Bpn4AAOyIXZ lhHNrF814l0wep8snpw CnhXY8nZdtNEZpzdvhD nO7MRtlINZoeukxCQi9 EUsaMSAjyCX9JSNopCB sP0KmFHXaFH5nlth6MC A1JSpaZNSfTjX6RDXzo PZmOEOaxMjtBOspq682 JSR3PgDoBKTeroFvtTh myY2mDtEkPSAFF4QqeZ FyfQ== Disclaimer (test code = w0pjpWJuAVOdmLQpWeW 9844) uELYkTKNqy7ptRCWnqB FuZzEwMzNcZnRuYmpcd TAkEOWlWdPxd4lnx890 rLImi9jyIEOoIzX7uJB vPQFxxMKdK997HTDuMX mkq2geo3LvPGIzdGGmj 9W2WAHEpphuiRq1hMbo H61zm0L4JebxV3fgVPG yXMZiW7QdJG0rRDCuBl d3OHI2EPS6ILGrJMKtN 3DfRT2xWOKvdMKgKAj7 q8guxZawHKPtNIG5u4k bBVcpdfQhZP7quz6qlN z4o0cqbzHpPCRcXKDki RBZMATjA9KaqBarYr9x sGd4aCroUcwsGTB8Tcj 8KI0nzw42rth3hUsxWC IkatjdRdP9NRpqFUYyf xlmPBw4WMrbXREceAX6 WLRzaPDcV0FlLJGpRY6 ruzu3SCS6YOvwKSInWn K7VVLjuKWzUBHvgSccV Xack746SKI8OjQdHQ4c Q1Uey3N8rQ4lbQCyXEE hnVIwYuDvDRVpjy3iqB AaMBotw2BcUZQ0vqP2p BLieTNrSONlXF04Gung g9CoUxrcERZ9RIUijtN ws7Oex7ftUyChcdAoY9 lrF6PpMVFtRTLwUONfH dZyxkXsp4Wqp1RyyDTf sUg1z1oiZRSuHYAcpPp dq1kcKHI7QLXwW2P5wC Wai9lpUTxhPNNprUJ4b yA7QBVinECnV3YazQ4g VERlRR2gzac7t0ouVLQ 4PQwbMIHgZcX0cfI9ZL BcaGVhZGVyeTcyMFxmb 534CYK2KhGfNVHcf7Mh A6JirUikM54inQcrA12 nNXOxtHnruT2fdUzprH 5cZjBcZnMyNFxxbFxwb CHmeubeABiwqeK6XGjn cufpVPBmSDsrD3fzFkL cHDIloMirWMpax9IpGF DtKOHuPgqmugW4WRQPw 45gRDIeo6WmYIZqeT0m fDSrYMdgmcOjvMR0HHv hdmUgYmVlbiBkZXZlbG 1lMSJdSE4mIBQpfwFhg h1bnfDtFIFwOZWvX9Fs cmlzdGljcyBkZXRlcm1 wddPyADV1GQHTVN8BDS NqFYKwo61cAGQbbSgku Q5ktBLcsmPzXZAxi0Cg rR4xnMTXMJNjG6yeRL6 zHWyfh9TlaGWccNLsxN T7QWFsf6BwDbXcdwYbq UXkgVHlD9YnvSdvM8gz TCLbNRXdboZmpYHui6Z gAJKwqKY4aGWeIT8IMc BDz18lKQNiDNILxuIgV GCvgFaivBW1rjK3gS0o LiBJZiBhcHBsaWNhYmx mIYDqi290ma5rivR4IQ JnHSFjfijql3GjTZBsQ PKzzA70LKRgXGEmsw7x ezcyiFWcqwCsB0Gwehx 7yT5pPSPmARgcNWPhRU ZzMjJcbGFuZzEwMzNca GljaFxmMVxkYmNoXGYx BJzeG8kxPkQcZtSiBle wYXJ9 AndersonUS Guided Breast Biopsy [id number] 23:09:21Addendum by Eliane Wilkinson MD on 05/26/2021 1:34 PMADDENDED REPORT 05/26/2021 at 12:50:14 Addendum: Right breast, 0.76 cm mass, 1:00, 3 cm from nipple, ultrasound-guided coreneedle biopsy:No evidence of malignancy or atypia.Fragments of intraductal papilloma involved by collagenous sherulosis andapocrine metaplasia with focally associated microcalcifications. Leftbreast, 1.04 cm mass, 7:00, 6 cm from nipple, ultrasound-guided core needlebiopsy:No evidence of malignancy.Breast parenchyma with focal apocrine metaplasia near post procedural changeswith associated microcalcifications. Given the distortions, the pathology is discordant. Stereotactic biopsies ofboth the right breast 1 o'clock and left breast 7 o'clock are recommended.Breast MRI is also recommendedfor the additional areas of distortion in bothbreasts in this patient with a history of bilateral breast surgeries. An institutional email was sent to Dr. Walter. Technically successful ultrasound guided biopsy of the right breast. An addendumwill be issued once the final pathology result is available and reviewed. The patients clinical history was reviewed in detail. On the basis of availableclinical data, the procedure noted above is Urgent/Elective-Urgent. Theprocedure is immediately medically necessary as the risk for cancer progressionor deterioration is significant if not performed immediately or significantlydelayed. The resulting decline in the patients health could make the patientmore vulnerable to COVID-19 and other issues. Examination: Left Breast Ultrasound Guided Needle Biopsy with Marker ClipPlacement and Post Biopsy Mammograms, 05/20/2021. Clinical History: 71 year-old woman with an abnormal breast ultrasoundpresenting for biopsy. Indication: Suspicious finding(s) onrecent breast ultrasound. Comparison: Breast Ultrasound from 05/20/2021. Technique: Ultrasound imaging of the left breast was performed. The skin of thebreast(s) was cleansed with chlorhexidine. Localanesthesia was achieved witha total of 7ml 1% Lidocaine Procedure: The procedure and its risks, benefits, and alternatives wereexplained in detail to the patient, who agreed to proceed and signed an informedconsent form. All questions were answered. The patient was brought to the ultrasound suite, andwas placed supine on thetable. Site 1: The lesion in question was identified in the left breast at 7o'clock,6cm from the nipple. The biopsy needle was advanced to the targeted lesion.Biopsy was performed with a 14-gauge automated core biopsy device, and 4 passeswere made. A total of 4 cores were obtained. A marker clip was deployed into thebiopsied lesion. At the conclusion of the procedure, pressure was held untilcessation of bleeding. The skin incision was closed with Steri-strips andcovered witha bandage. A JEDI MIND ribbon marker clip was placed at the biopsy site. Post proceduremammography confirms expected positioning of the marker clip(s)The clip marker lies within the biopsied lesion.. The estimated blood loss for the procedure was minimal. The patient toleratedthe procedure well without immediate complications and left the department ingood condition. IMPRESSION: Technically successful ultrasound guided biopsy of the left breast. An addendumwill be issued once the final pathology resultis available and reviewed. The patients clinical history was reviewed in detail. On the basis of availableclinical data, the procedure noted above is Urgent/Elective-Urgent. Theprocedure is immediately medically necessary as the risk for cancer progressionor deterioration is significant if not performed immediately or significantlydelayed. The resulting decline in the patients health could make the patientmore vulnerable to COVID-19 and other issues. Examination: Post Procedure Mammogram Bilateral 05/20/2021. Clinical Indication: Patient is a 71 years old female and is seen for postprocedure mammogram. Findings: See Ultrasound-guided biopsy report done same date. Interface, Radiology Results In - 05/20/2021 6:09 PM CDT Examination: Right Breast Ultrasound Guided Needle Biopsy with Marker ClipPlacement and Post Biopsy Mammograms, 05/20/2021. Clinical History: 71 year- old woman with an abnormal breast ultrasoundpresenting forbiopsy. Indication: Suspicious finding(s) on recent breast ultrasound. Comparison: Breast Ultrasound from 05/20/2021. Technique: Ultrasound imaging of the right breast was performed. The skin of thebreast(s) was cleansed with chlorhexidine. Local anesthesia was achieved witha total of 16ml 1% Lidocaine Procedure: The procedure and its risks, benefits, and alternatives wereexplained in detail to the patient, who agreed to proceed and signed an informedconsent form. All questions were answered. The patient was brought to the ultrasound suite, and was placed supine on thetable. Site 1: The lesion in question was identified in the right breast at 1 o'clock,3cm from the nipple. The biopsy needle was ad vanced to the targeted lesion.Biopsy was performed with a 14-gauge automated core biopsy device, and6 passeswere made. A total of 6 cores were obtained. A marker clip was deployed into thebiopsied lesion. At the conclusion of the procedure, pressure was held untilcessation of bleeding. The skin incision was closed with Steri-strips andcovered with a bandage. A Bard coil marker clip was placed at thebiopsy site. Post proceduremammography confirms expected positioning of the marker clip(s)The clip marker lies within the biopsied lesion.. The estimated blood loss for the procedure was minimal. The patient toleratedthe procedure well without immediate complications and left the department ingood condition. IMPRESSION: Technically successful ultrasound guided biopsy of the right breast. An addendumwill be issued once the final pathology result is available and reviewed. The patients clinical history was reviewed in detail. On the basis of availableclinical data, the procedure noted above is Urgent/Elective-Urgent. Theprocedure is immediately medically necessary as the risk for cancer progressionor deterioration is significant if not performed immediately or significantlydelayed. The resulting decline in the patients health could make the patientmore vulnerable to COVID-19 and other issues. Examination: Left Breast Ultrasound Guided Needle Biopsy with Marker ClipPlacement and Post Biopsy Mammograms, 05/20/2021. Clinical History: 71 year- old woman with an abnormal breast ultrasoundpresenting for biopsy. Indication: Suspicious finding(s) on recent breast ultrasound. Comparison: Breast Ultrasound from 05/20/2021. Technique: Ultrasound imaging of the left breast was performed. The skin of thebreast(s) was cleansed with chlorhexidine. Local anesthesia was achieved witha total of 7ml 1% Lidocaine Procedure: The procedure and its risks, benefits, and alternatives wereexplained in detail to the patient, who agreed to proceed and signed an informedconsent form. All questions were answered. The patient was brought to the ultrasound suite, and was placed supine on thetable. Site 1: The lesion in question was identified in the left breast at 7 o'clock,6cm from the nipple. The biopsy needle was advanced to the targeted lesion.Biopsy was performed with a 14-gauge automated core biopsy dev ice, and 4 passeswere made. A total of 4 cores were obtained. A marker clip was deployed into thebiopsied lesion. At the conclusion of the procedure, pressure was held untilcessation of bleeding. The skin incision was closed with Steri- strips andcovered with a bandage. A Bard ribbon marker clip was placed at the biopsy site. Post proceduremammography confirms expected positioning of the marker clip(s)The clip marker lies within the biopsied lesion.. The estimated blood loss for the procedure was minimal. The patient toleratedthe procedure well without immediate complications and left the department ingood condition. IMPRESSION: Technically successful ultrasound guided biopsy of the left breast. An addendumwill be issued once the final pathology result is available and reviewed. The patients clinical history was reviewed in detail. On the basis of availableclinical data, the procedure noted above is Urgent/Elective-Urgent. Theprocedure is immediately medically necessary as the risk for cancer progressionor deterioration is significant if not performed immediately or significantlydelayed. The resulting decline in the patients health could make the patientmore vulnerable to COVID-19 and other issues. Examination: Post Procedure Mammogram Bilateral 05/20/2021. Clinical Indication: Patient is a 71 years old female and is seen for postprocedure mammogram. Findings: See Ultrasound-guided biopsy report done same date.MD NolenUS Guided Breast Clip Placement [id number] 23:09:21Addendum by Eliane Wilkinson MD on 05/26/2021 1:34 PMADDENDED REPORT 05/26/2021 at 12:50:14 Addendum: Right breast, 0.76 cm mass, 1:00, 3 cm from nipple, ultrasound-guided coreneedle biopsy:No evidence of malignancy or atypia.Fragments of intraductal papilloma involved by collagenous sherulosis andapocrine metaplasia with focally associated microcalcifications. Leftbreast, 1.04 cm mass, 7:00, 6 cm from nipple, ultrasound-guided core needlebiopsy:No evidence of malignancy.Breast parenchyma with focal apocrine metaplasia near post procedural changeswith associated microcalcifications. Given the distortions, the pathology is discordant. Stereotactic biopsies ofboth the right breast 1 o'clock and left breast 7 o'clock are recommended.Breast MRI is also recommendedfor the additional areas of distortion in bothbreasts in this patient with a history of bilateral breast surgeries. An institutional email was sent to Dr. Walter. Technically successful ultrasound guided biopsy of the right breast. An addendumwill be issued once the final pathology result is available and reviewed. The patients clinical history was reviewed in detail. On the basis of availableclinical data, the procedure noted above is Urgent/Elective-Urgent. Theprocedure is immediately medically necessary as the risk for cancer progressionor deterioration is significant if not performed immediately or significantlydelayed. The resulting decline in the patients health could make the patientmore vulnerable to COVID-19 and other issues. Examination: Left Breast Ultrasound Guided Needle Biopsy with Marker ClipPlacement and Post Biopsy Mammograms, 05/20/2021. Clinical History: 71 year-old woman with an abnormal breast ultrasoundpresenting for biopsy. Indication: Suspicious finding(s) onrecent breast ultrasound. Comparison: Breast Ultrasound from 05/20/2021. Technique: Ultrasound imaging of the left breast was performed. The skin of thebreast(s) was cleansed with chlorhexidine. Localanesthesia was achieved witha total of 7ml 1% Lidocaine Procedure: The procedure and its risks, benefits, and alternatives wereexplained in detail to the patient, who agreed to proceed and signed an informedconsent form. All questions were answered. The patient was brought to the ultrasound suite, andwas placed supine on thetable. Site 1: The lesion in question was identified in the left breast at 7o'clock,6cm from the nipple. The biopsy needle was advanced to the targeted lesion.Biopsy was performed with a 14-gauge automated core biopsy device, and 4 passeswere made. A total of 4 cores were obtained. A marker clip was deployed into thebiopsied lesion. At the conclusion of the procedure, pressure was held untilcessation of bleeding. The skin incision was closed with Steri-strips andcovered witha bandage. A Bard ribbon marker clip was placed at the biopsy site. Post proceduremammography confirms expected positioning of the marker clip(s)The clip marker lies within the biopsied lesion.. The estimated blood loss for the procedure was minimal. The patient toleratedthe procedure well without immediate complications and left the department ingood condition. IMPRESSION: Technically successful ultrasound guided biopsy of the left breast. An addendumwill be issued once the final pathology resultis available and reviewed. The patients clinical history was reviewed in detail. On the basis of availableclinical data, the procedure noted above is Urgent/Elective-Urgent. Theprocedure is immediately medically necessary as the risk for cancer progressionor deterioration is significant if not performed immediately or significantlydelayed. The resulting decline in the patients health could make the patientmore vulnerable to COVID-19 and other issues. Examination: Post Procedure Mammogram Bilateral 05/20/2021. Clinical Indication: Patient is a 71 years old female and is seen for postprocedure mammogram. Findings: See Ultrasound-guided biopsy report done same date. Interface, Radiology Results In - 05/20/2021 6:09 PM CDT Examination: Right Breast Ultrasound Guided Needle Biopsy with Marker ClipPlacement and Post Biopsy Mammograms, 05/20/2021. Clinical History: 71 year- old woman with an abnormal breast ultrasoundpresenting forbiopsy. Indication: Suspicious finding(s) on recent breast ultrasound. Comparison: Breast Ultrasound from 05/20/2021. Technique: Ultrasound imaging of the right breast was performed. The skin of thebreast(s) was cleansed with chlorhexidine. Local anesthesia was achieved witha total of 16ml 1% Lidocaine Procedure: The procedure and its risks, benefits, and alternatives wereexplained in detail to the patient, who agreed to proceed and signed an informedconsent form. All questions were answered. The patient was brought to the ultrasound suite, and was placed supine on thetable. Site 1: The lesion in question was identified in the right breast at 1 o'clock,3cm from the nipple. The biopsy needle was ad vanced to the targeted lesion.Biopsy was performed with a 14-gauge automated core biopsy device, and6 passeswere made. A total of 6 cores were obtained. A marker clip was deployed into thebiopsied lesion. At the conclusion of the procedure, pressure was held untilcessation of bleeding. The skin incision was closed with Steri-strips andcovered with a bandage. A JEDI MIND coil marker clip was placed at thebiopsy site. Post proceduremammography confirms expected positioning of the marker clip(s)The clip marker lies within the biopsied lesion.. The estimated blood loss for the procedure was minimal. The patient toleratedthe procedure well without immediate complications and left the department ingood condition. IMPRESSION: Technically successful ultrasound guided biopsy of the right breast. An addendumwill be issued once the final pathology result is available and reviewed. The patients clinical history was reviewed in detail. On the basis of availableclinical data, the procedure noted above is Urgent/Elective-Urgent. Theprocedure is immediately medically necessary as the risk for cancer progressionor deterioration is significant if not performed immediately or significantlydelayed. The resulting decline in the patients health could make the patientmore vulnerable to COVID-19 and other issues. Examination: Left Breast Ultrasound Guided Needle Biopsy with Marker ClipPlacement and Post Biopsy Mammograms, 05/20/2021. Clinical History: 71 year- old woman with an abnormal breast ultrasoundpresenting for biopsy. Indication: Suspicious finding(s) on recent breast ultrasound. Comparison: Breast Ultrasound from 05/20/2021. Technique: Ultrasound imaging of the left breast was performed. The skin of thebreast(s) was cleansed with chlorhexidine. Local anesthesia was achieved witha total of 7ml 1% Lidocaine Procedure: The procedure and its risks, benefits, and alternatives wereexplained in detail to the patient, who agreed to proceed and signed an informedconsent form. All questions were answered. The patient was brought to the ultrasound suite, and was placed supine on thetable. Site 1: The lesion in question was identified in the left breast at 7 o'clock,6cm from the nipple. The biopsy needle was advanced to the targeted lesion.Biopsy was performed with a 14-gauge automated core biopsy dev ice, and 4 passeswere made. A total of 4 cores were obtained. A marker clip was deployed into thebiopsied lesion. At the conclusion of the procedure, pressure was held untilcessation of bleeding. The skin incision was closed with Steri- strips andcovered with a bandage. A JEDI MIND ribbon marker clip was placed at the biopsy site. Post proceduremammography confirms expected positioning of the marker clip(s)The clip marker lies within the biopsied lesion.. The estimated blood loss for the procedure was minimal. The patient toleratedthe procedure well without immediate complications and left the department ingood condition. IMPRESSION: Technically successful ultrasound guided biopsy of the left breast. An addendumwill be issued once the final pathology result is available and reviewed. The patients clinical history was reviewed in detail. On the basis of availableclinical data, the procedure noted above is Urgent/Elective-Urgent. Theprocedure is immediately medically necessary as the risk for cancer progressionor deterioration is significant if not performed immediately or significantlydelayed. The resulting decline in the patients health could make the patientmore vulnerable to COVID-19 and other issues. Examination: Post Procedure Mammogram Bilateral 05/20/2021. Clinical Indication: Patient is a 71 years old female and is seen for postprocedure mammogram. Findings: See Ultrasound-guided biopsy report done same date.MD NolenUS Guided Breast Clip Placement [id number] 23:09:21Addendum by Eliane Wilkinson MD on 05/26/2021 1:34 PMADDENDED REPORT 05/26/2021 at 12:50:14 Addendum: Right breast, 0.76 cm mass, 1:00, 3 cm from nipple, ultrasound-guided coreneedle biopsy:No evidence of malignancy or atypia.Fragments of intraductal papilloma involved by collagenous sherulosis andapocrine metaplasia with focally associated microcalcifications. Leftbreast, 1.04 cm mass, 7:00, 6 cm from nipple, ultrasound-guided core needlebiopsy:No evidence of malignancy.Breast parenchyma with focal apocrine metaplasia near post procedural changeswith associated microcalcifications. Given the distortions, the pathology is discordant. Stereotactic biopsies ofboth the right breast 1 o'clock and left breast 7 o'clock are recommended.Breast MRI is also recommendedfor the additional areas of distortion in bothbreasts in this patient with a history of bilateral breast surgeries. An institutional email was sent to Dr. Walter. Technically successful ultrasound guided biopsy of the right breast. An addendumwill be issued once the final pathology result is available and reviewed. The patients clinical history was reviewed in detail. On the basis of availableclinical data, the procedure noted above is Urgent/Elective-Urgent. Theprocedure is immediately medically necessary as the risk for cancer progressionor deterioration is significant if not performed immediately or significantlydelayed. The resulting decline in the patients health could make the patientmore vulnerable to COVID-19 and other issues. Examination: Left Breast Ultrasound Guided Needle Biopsy with Marker ClipPlacement and Post Biopsy Mammograms, 05/20/2021. Clinical History: 71 year-old woman with an abnormal breast ultrasoundpresenting for biopsy. Indication: Suspicious finding(s) onrecent breast ultrasound. Comparison: Breast Ultrasound from 05/20/2021. Technique: Ultrasound imaging of the left breast was performed. The skin of thebreast(s) was cleansed with chlorhexidine. Localanesthesia was achieved witha total of 7ml 1% Lidocaine Procedure: The procedure and its risks, benefits, and alternatives wereexplained in detail to the patient, who agreed to proceed and signed an informedconsent form. All questions were answered. The patient was brought to the ultrasound suite, andwas placed supine on thetable. Site 1: The lesion in question was identified in the left breast at 7o'clock,6cm from the nipple. The biopsy needle was advanced to the targeted lesion.Biopsy was performed with a 14-gauge automated core biopsy device, and 4 passeswere made. A total of 4 cores were obtained. A marker clip was deployed into thebiopsied lesion. At the conclusion of the procedure, pressure was held untilcessation of bleeding. The skin incision was closed with Steri-strips andcovered witha bandage. A JEDI MIND ribbon marker clip was placed at the biopsy site. Post proceduremammography confirms expected positioning of the marker clip(s)The clip marker lies within the biopsied lesion.. The estimated blood loss for the procedure was minimal. The patient toleratedthe procedure well without immediate complications and left the department ingood condition. IMPRESSION: Technically successful ultrasound guided biopsy of the left breast. An addendumwill be issued once the final pathology resultis available and reviewed. The patients clinical history was reviewed in detail. On the basis of availableclinical data, the procedure noted above is Urgent/Elective-Urgent. Theprocedure is immediately medically necessary as the risk for cancer progressionor deterioration is significant if not performed immediately or significantlydelayed. The resulting decline in the patients health could make the patientmore vulnerable to COVID-19 and other issues. Examination: Post Procedure Mammogram Bilateral 05/20/2021. Clinical Indication: Patient is a 71 years old female and is seen for postprocedure mammogram. Findings: See Ultrasound-guided biopsy report done same date. Interface, Radiology Results In - 05/20/2021 6:09 PM CDT Examination: Right Breast Ultrasound Guided Needle Biopsy with Marker ClipPlacement and Post Biopsy Mammograms, 05/20/2021. Clinical History: 71 year- old woman with an abnormal breast ultrasoundpresenting forbiopsy. Indication: Suspicious finding(s) on recent breast ultrasound. Comparison: Breast Ultrasound from 05/20/2021. Technique: Ultrasound imaging of the right breast was performed. The skin of thebreast(s) was cleansed with chlorhexidine. Local anesthesia was achieved witha total of 16ml 1% Lidocaine Procedure: The procedure and its risks, benefits, and alternatives wereexplained in detail to the patient, who agreed to proceed and signed an informedconsent form. All questions were answered. The patient was brought to the ultrasound suite, and was placed supine on thetable. Site 1: The lesion in question was identified in the right breast at 1 o'clock,3cm from the nipple. The biopsy needle was ad vanced to the targeted lesion.Biopsy was performed with a 14-gauge automated core biopsy device, and6 passeswere made. A total of 6 cores were obtained. A marker clip was deployed into thebiopsied lesion. At the conclusion of the procedure, pressure was held untilcessation of bleeding. The skin incision was closed with Steri-strips andcovered with a bandage. A JEDI MIND coil marker clip was placed at thebiopsy site. Post proceduremammography confirms expected positioning of the marker clip(s)The clip marker lies within the biopsied lesion.. The estimated blood loss for the procedure was minimal. The patient toleratedthe procedure well without immediate complications and left the department ingood condition. IMPRESSION: Technically successful ultrasound guided biopsy of the right breast. An addendumwill be issued once the final pathology result is available and reviewed. The patients clinical history was reviewed in detail. On the basis of availableclinical data, the procedure noted above is Urgent/Elective-Urgent. Theprocedure is immediately medically necessary as the risk for cancer progressionor deterioration is significant if not performed immediately or significantlydelayed. The resulting decline in the patients health could make the patientmore vulnerable to COVID-19 and other issues. Examination: Left Breast Ultrasound Guided Needle Biopsy with Marker ClipPlacement and Post Biopsy Mammograms, 05/20/2021. Clinical History: 71 year- old woman with an abnormal breast ultrasoundpresenting for biopsy. Indication: Suspicious finding(s) on recent breast ultrasound. Comparison: Breast Ultrasound from 05/20/2021. Technique: Ultrasound imaging of the left breast was performed. The skin of thebreast(s) was cleansed with chlorhexidine. Local anesthesia was achieved witha total of 7ml 1% Lidocaine Procedure: The procedure and its risks, benefits, and alternatives wereexplained in detail to the patient, who agreed to proceed and signed an informedconsent form. All questions were answered. The patient was brought to the ultrasound suite, and was placed supine on thetable. Site 1: The lesion in question was identified in the left breast at 7 o'clock,6cm from the nipple. The biopsy needle was advanced to the targeted lesion.Biopsy was performed with a 14-gauge automated core biopsy dev ice, and 4 passeswere made. A total of 4 cores were obtained. A marker clip was deployed into thebiopsied lesion. At the conclusion of the procedure, pressure was held untilcessation of bleeding. The skin incision was closed with Steri- strips andcovered with a bandage. A JEDI MIND ribbon marker clip was placed at the biopsy site. Post proceduremammography confirms expected positioning of the marker clip(s)The clip marker lies within the biopsied lesion.. The estimated blood loss for the procedure was minimal. The patient toleratedthe procedure well without immediate complications and left the department ingood condition. IMPRESSION: Technically successful ultrasound guided biopsy of the left breast. An addendumwill be issued once the final pathology result is available and reviewed. The patients clinical history was reviewed in detail. On the basis of availableclinical data, the procedure noted above is Urgent/Elective-Urgent. Theprocedure is immediately medically necessary as the risk for cancer progressionor deterioration is significant if not performed immediately or significantlydelayed. The resulting decline in the patients health could make the patientmore vulnerable to COVID-19 and other issues. Examination: Post Procedure Mammogram Bilateral 05/20/2021. Clinical Indication: Patient is a 71 years old female and is seen for postprocedure mammogram. Findings: See Ultrasound-guided biopsy report done same date.MD NolenUS Guided Breast Biopsy [id number] 23:09:21Addendum by Eliane Wilkinson MD on 05/26/2021 1:34 PMADDENDED REPORT 05/26/2021 at 12:50:14 Addendum: Right breast, 0.76 cm mass, 1:00, 3 cm from nipple, ultrasound-guided coreneedle biopsy:No evidence of malignancy or atypia.Fragments of intraductal papilloma involved by collagenous sherulosis andapocrine metaplasia with focally associated microcalcifications. Leftbreast, 1.04 cm mass, 7:00, 6 cm from nipple, ultrasound-guided core needlebiopsy:No evidence of malignancy.Breast parenchyma with focal apocrine metaplasia near post procedural changeswith associated microcalcifications. Given the distortions, the pathology is discordant. Stereotactic biopsies ofboth the right breast 1 o'clock and left breast 7 o'clock are recommended.Breast MRI is also recommendedfor the additional areas of distortion in bothbreasts in this patient with a history of bilateral breast surgeries. An institutional email was sent to Dr. Walter. Technically successful ultrasound guided biopsy of the right breast. An addendumwill be issued once the final pathology result is available and reviewed. The patients clinical history was reviewed in detail. On the basis of availableclinical data, the procedure noted above is Urgent/Elective-Urgent. Theprocedure is immediately medically necessary as the risk for cancer progressionor deterioration is significant if not performed immediately or significantlydelayed. The resulting decline in the patients health could make the patientmore vulnerable to COVID-19 and other issues. Examination: Left Breast Ultrasound Guided Needle Biopsy with Marker ClipPlacement and Post Biopsy Mammograms, 05/20/2021. Clinical History: 71 year-old woman with an abnormal breast ultrasoundpresenting for biopsy. Indication: Suspicious finding(s) on recent breast ultrasound. Comparison: Breast Ultrasound from 05/20/2021. Technique: Ultrasound imaging of the left breast was performed. The skin of thebreast(s) was cleansed with chlorhexidine. Localanesthesia was achieved witha total of 7ml 1% Lidocaine Procedure: The procedure and its risks, benef its, and alternatives wereexplained in detail to the patient, who agreed to proceed and signed an informedconsent form. All questions were answered. The patient was brought to the ultrasound suite, andwas placed supine on thetable. Site 1: The lesion in question was identified in the left breast at 7o'clock,6cm from the nipple. The biopsy needle was advanced to the targeted lesion.Biopsy was performed with a 14-gauge automated core biopsy device, and 4 passeswere made. A total of 4 cores were obtained. A marker clip was deployed into thebiopsied lesion. At the conclusion of the procedure, pressure was held untilcessation of bleeding. The skin incision was closed with Steri-strips andcovered witha bandage. A Bard ribbon marker clip was placed at the biopsy site. Post proceduremammography confirms expected positioning of the marker clip(s)The clip marker lies within the biopsied lesion.. The estimated blood loss for the procedure was minimal. The patient toleratedthe procedure well without immediate complications and left the department ingood condition. IMPRESSION: Technically successful ultrasound guided biopsy of the left breast. An addendumwill be issued once the final pathology resultis available and reviewed. The patients clinical history was reviewed in detail. On the basis of availableclinical data, the procedure noted above is Urgent/Elective-Urgent. Theprocedure is immediately medically necessary as the risk for cancer progressionor deterioration is significant if not performed immediately or significantlydelayed. The resulting decline in the patients health could make the patientmore vulnerable to COVID-19 and other issues. Examination: Post Procedure Mammogram Bilateral 05/20/2021. Clinical Indication: Patient is a 71 years old female and is seen for postprocedure mammogram. Findings: See Ultrasound-guided biopsy report done same date. Interface, Radiology Results In - 05/20/2021 6:09 PM CDT Examination: Right Breast Ultrasound Guided Needle Biopsy with Marker ClipPlacement and Post Biopsy Mammograms, 05/20/2021. Clinical History: 71 year- old woman with an abnormal breast ultrasoundpresenting forbiopsy. Indication: Suspicious finding(s) on recent breast ultrasound. Comparison: Breast Ultrasound from 05/20/2021. Technique: Ultrasound imaging of the right breast was performed. The skin of thebreast(s) was cleansed with chlorhexidine. Local anesthesia was achieved witha total of 16ml 1% Lidocaine Procedure: The procedure and its risks, benefits, and alternatives wereexplained in detail to the patient, who agreed to proceed and signed an informedconsent form. All questions were answered. The patient was brought to the ultrasound suite, and was placed supine on thetable. Site 1: The lesion in question was identified in the right breast at 1 o'clock,3cm from the nipple. The biopsy needle was ad vanced to the targeted lesion.Biopsy was performed with a 14-gauge automated core biopsy device, and6 passeswere made. A total of 6 cores were obtained. A marker clip was deployed into thebiopsied lesion. At the conclusion of the procedure, pressure was held untilcessation of bleeding. The skin incision was closed with Steri-strips andcovered with a bandage. A JEDI MIND coil marker clip was placed at thebiopsy site. Post proceduremammography confirms expected positioning of the marker clip(s)The clip marker lies within the biopsied lesion.. The estimated blood loss for the procedure was minimal. The patient toleratedthe procedure well without immediate complications and left the department ingood condition. IMPRESSION: Technically successful ultrasound guided biopsy of the right breast. An addendumwill be issued once the final pathology result is available and reviewed. The patients clinical history was reviewed in detail. On the basis of availableclinical data, the procedure noted above is Urgent/Elective-Urgent. Theprocedure is immediately medically necessary as the risk for cancer progressionor deterioration is significant if not performed immediately or significantlydelayed. The resulting decline in the patients health could make the patientmore vulnerable to COVID-19 and other issues. Examination: Left Breast Ultrasound Guided Needle Biopsy with Marker ClipPlacement and Post Biopsy Mammograms, 05/20/2021. Clinical History: 71 year- old woman with an abnormal breast ultrasoundpresenting for biopsy. Indication: Suspicious finding(s) on recent breast ultrasound. Comparison: Breast Ultrasound from 05/20/2021. Technique: Ultrasound imaging of the left breast was performed. The skin of thebreast(s) was cleansed with chlorhexidine. Local anesthesia was achieved witha total of 7ml 1% Lidocaine Procedure: The procedure and its risks, benefits, and alternatives wereexplained in detail to the patient, who agreed to proceed and signed an informedconsent form. All questions were answered. The patient was brought to the ultrasound suite, and was placed supine on thetable. Site 1: The lesion in question was identified in the left breast at 7 o'clock,6cm from the nipple. The biopsy needle was advanced to the targeted lesion.Biopsy was performed with a 14-gauge automated core biopsy dev ice, and 4 passeswere made. A total of 4 cores were obtained. A marker clip was deployed into thebiopsied lesion. At the conclusion of the procedure, pressure was held untilcessation of bleeding. The skin incision was closed with Steri- strips andcovered with a bandage. A Bard ribbon marker clip was placed at the biopsy site. Post proceduremammography confirms expected positioning of the marker clip(s)The clip marker lies within the biopsied lesion.. The estimated blood loss for the procedure was minimal. The patient toleratedthe procedure well without immediate complications and left the department ingood condition. IMPRESSION: Technically successful ultrasound guided biopsy of the left breast. An addendumwill be issued once the final pathology result is available and reviewed. The patients clinical history was reviewed in detail. On the basis of availableclinical data, the procedure noted above is Urgent/Elective-Urgent. Theprocedure is immediately medically necessary as the risk for cancer progressionor deterioration is significant if not performed immediately or significantlydelayed. The resulting decline in the patients health could make the patientmore vulnerable to COVID-19 and other issues. Examination: Post Procedure Mammogram Bilateral 05/20/2021. Clinical Indication: Patient is a 71 years old female and is seen for postprocedure mammogram. Findings: See Ultrasound-guided biopsy report done same date.MD NolenPosmonica Procedure Mammogram [id number] 23:09:21Addendum by Eliane Wilkinson MD on 05/26/2021 1:34 PMADDENDED REPORT 05/26/2021 at 12:50:14 Addendum: Right breast, 0.76 cm mass, 1:00, 3 cm from nipple, ultrasound-guided coreneedle biopsy:No evidence of malignancy or atypia.Fragments of intraductal papilloma involved by collagenous sherulosis andapocrine metaplasia with focally associated microcalcifications. Leftbreast, 1.04 cm mass, 7:00, 6 cm from nipple, ultrasound-guided core needlebiopsy:No evidence of malignancy.Breast parenchyma with focal apocrine metaplasia near post procedural changeswith associated microcalcifications. Given the distortions, the pathology is discordant. Stereotactic biopsies ofboth the right breast 1 o'clock and left breast 7 o'clock are recommended.Breast MRI is also recommendedfor the additional areas of distortion in bothbreasts in this patient with a history of bilateral breast surgeries. An institutional email was sent to Dr. Walter. Technically successful ultrasound guided biopsy of the right breast. An addendumwill be issued once the final pathology result is available and reviewed. The patients clinical history was reviewed in detail. On the basis of availableclinical data, the procedure noted above is Urgent/Elective-Urgent. Theprocedure is immediately medically necessary as the risk for cancer progressionor deterioration is significant if not performed immediately or significantlydelayed. The resulting decline in the patients health could make the patientmore vulnerable to COVID-19 and other issues. Examination: Left Breast Ultrasound Guided Needle Biopsy with Marker ClipPlacement and Post Biopsy Mammograms, 05/20/2021. Clinical History: 71 year-old woman with an abnormal breast ultrasoundpresenting for biopsy. Indication: Suspicious finding(s) onrecent breast ultrasound. Comparison: Breast Ultrasound from 05/20/2021. Technique: Ultrasound imaging of the left breast was performed. The skin of thebreast(s) was cleansed with chlorhexidine. Localanesthesia was achieved witha total of 7ml 1% Lidocaine Procedure: The procedure and its risks, benefits, and alternatives wereexplained in detail to the patient, who agreed to proceed and signed an informedconsent form. All questions were answered. The patient was brought to the ultrasound suite, andwas placed supine on thetable. Site 1: The lesion in question was identified in the left breast at 7o'clock,6cm from the nipple. The biopsy needle was advanced to the targeted lesion.Biopsy was performed with a 14-gauge automated core biopsy device, and 4 passeswere made. A total of 4 cores were obtained. A marker clip was deployed into thebiopsied lesion. At the conclusion of the procedure, pressure was held untilcessation of bleeding. The skin incision was closed with Steri-strips andcovered witha bandage. A JEDI MIND ribbon marker clip was placed at the biopsy site. Post proceduremammography confirms expected positioning of the marker clip(s)The clip marker lies within the biopsied lesion.. The estimated blood loss for the procedure was minimal. The patient toleratedthe procedure well without immediate complications and left the department ingood condition. IMPRESSION: Technically successful ultrasound guided biopsy of the left breast. An addendumwill be issued once the final pathology resultis available and reviewed. The patients clinical history was reviewed in detail. On the basis of availableclinical data, the procedure noted above is Urgent/Elective-Urgent. Theprocedure is immediately medically necessary as the risk for cancer progressionor deterioration is significant if not performed immediately or significantlydelayed. The resulting decline in the patients health could make the patientmore vulnerable to COVID-19 and other issues. Examination: Post Procedure Mammogram Bilateral 05/20/2021. Clinical Indication: Patient is a 71 years old female and is seen for postprocedure mammogram. Findings: See Ultrasound-guided biopsy report done same date. Interface, Radiology Results In - 05/20/2021 6:09 PM CDT Examination: Right Breast Ultrasound Guided Needle Biopsy with Marker ClipPlacement and Post Biopsy Mammograms, 05/20/2021. Clinical History: 71 year- old woman with an abnormal breast ultrasoundpresenting forbiopsy. Indication: Suspicious finding(s) on recent breast ultrasound. Comparison: Breast Ultrasound from 05/20/2021. Technique: Ultrasound imaging of the right breast was performed. The skin of thebreast(s) was cleansed with chlorhexidine. Local anesthesia was achieved witha total of 16ml 1% Lidocaine Procedure: The procedure and its risks, benefits, and alternatives wereexplained in detail to the patient, who agreed to proceed and signed an informedconsent form. All questions were answered. The patient was brought to the ultrasound suite, and was placed supine on thetable. Site 1: The lesion in question was identified in the right breast at 1 o'clock,3cm from the nipple. The biopsy needle was ad vanced to the targeted lesion.Biopsy was performed with a 14-gauge automated core biopsy device, and6 passeswere made. A total of 6 cores were obtained. A marker clip was deployed into thebiopsied lesion. At the conclusion of the procedure, pressure was held untilcessation of bleeding. The skin incision was closed with Steri-strips andcovered with a bandage. A Bard coil marker clip was placed at thebiopsy site. Post proceduremammography confirms expected positioning of the marker clip(s)The clip marker lies within the biopsied lesion.. The estimated blood loss for the procedure was minimal. The patient toleratedthe procedure well without immediate complications and left the department ingood condition. IMPRESSION: Technically successful ultrasound guided biopsy of the right breast. An addendumwill be issued once the final pathology result is available and reviewed. The patients clinical history was reviewed in detail. On the basis of availableclinical data, the procedure noted above is Urgent/Elective-Urgent. Theprocedure is immediately medically necessary as the risk for cancer progressionor deterioration is significant if not performed immediately or significantlydelayed. The resulting decline in the patients health could make the patientmore vulnerable to COVID-19 and other issues. Examination: Left Breast Ultrasound Guided Needle Biopsy with Marker ClipPlacement and Post Biopsy Mammograms, 05/20/2021. Clinical History: 71 year- old woman with an abnormal breast ultrasoundpresenting for biopsy. Indication: Suspicious finding(s) on recent breast ultrasound. Comparison: Breast Ultrasound from 05/20/2021. Technique: Ultrasound imaging of the left breast was performed. The skin of thebreast(s) was cleansed with chlorhexidine. Local anesthesia was achieved witha total of 7ml 1% Lidocaine Procedure: The procedure and its risks, benefits, and alternatives wereexplained in detail to the patient, who agreed to proceed and signed an informedconsent form. All questions were answered. The patient was brought to the ultrasound suite, and was placed supine on thetable. Site 1: The lesion in question was identified in the left breast at 7 o'clock,6cm from the nipple. The biopsy needle was advanced to the targeted lesion.Biopsy was performed with a 14-gauge automated core biopsy dev ice, and 4 passeswere made. A total of 4 cores were obtained. A marker clip was deployed into thebiopsied lesion. At the conclusion of the procedure, pressure was held untilcessation of bleeding. The skin incision was closed with Steri- strips andcovered with a bandage. A JEDI MIND ribbon marker clip was placed at the biopsy site. Post proceduremammography confirms expected positioning of the marker clip(s)The clip marker lies within the biopsied lesion.. The estimated blood loss for the procedure was minimal. The patient toleratedthe procedure well without immediate complications and left the department ingood condition. IMPRESSION: Technically successful ultrasound guided biopsy of the left breast. An addendumwill be issued once the final pathology result is available and reviewed. The patients clinical history was reviewed in detail. On the basis of availableclinical data, the procedure noted above is Urgent/Elective-Urgent. Theprocedure is immediately medically necessary as the risk for cancer progressionor deterioration is significant if not performed immediately or significantlydelayed. The resulting decline in the patients health could make the patientmore vulnerable to COVID-19 and other issues. Examination: Post Procedure Mammogram Bilateral 05/20/2021. Clinical Indication: Patient is a 71 years old female and is seen for postprocedure mammogram. Findings: See Ultrasound-guided biopsy report done same date.MD NolenUS Breast Complete - [id number] 23:05:28 Test Item Value Reference Range Interpretation Comments IMP (test code = IMP) 1: Mass in the right breast upper inner quadrant at 1 o'clock located 3centimeters from the nipple is suspicious. Ultrasound guided biopsy isrecommended and subsequently performed. 2: Area of architectural distortion in the right breast may represent a postsurgical scar. However, no overlying skin scar i seen. 3: Mass in the left breast lower inner quadrant at 7 o'clock located 6centimeters from the nipple is suspicious. Ultrasound guided biopsy isrecommended and subsequently performed. 4: No sonographic correlate of the architectural distortion in the left breastat 7 o'clock 7 cm from the nipple. While patient's bilateral architectural distortions may be related to her priorbilateral surgeries, there is no mammograms prior to 2019 for comparison. Abreast MRI for further evaluation is recommended. BI-RADS Category 4B:Suspicious Abnormality PXN (test code = PXN) Interface, Radiology Results In - 05/20/2021 6:08 PM CDT CLINICAL INDICATION:Patient is a 71 year old female and is seen for other signs and symptoms in thebreast FILMS COMPAREDThe present examination has been compared to [facility] imaging [facility], and at [facility] on 05/20/2021. Images were obtained in multiple scanning planes. Real-time sonographic imaging of both breasts (including all 4 quadrants andretroareolar region) was performed. Real-time sonographic imaging of bilateralregional bennett basins including the axillary (level I,II,III) and internalmammary regions was performed. 1: There is an irregular mass measuring 0.8 x 0.4 x 0.4 cm in the right breastupper inner quadrant at 1 o'clock located 3 centimeters from the nipple. Thiscorrelates with the irregular mass on mammogram at 12-1 o'clock, 4 cm from thenipple. 2: An area of subtle architectural distortion at right 11:00, 6 cm from thenipple may correlate with the architectural distortion on mammogram at 11:00, 4cm from the nipple. While this may represent a postsurgical scar, a scar is notclearly seen on the overlying skin. 3: There is a hypoechoic mass measuring 1 x 0.8 x 0.7 cm in the left breastlower inner quadrant at 7 o'clock located 6 centimeters from the nipple. Thiscorrelates with the irregular mass on mammogram at left 7-8 o'clock, 6 cm fromthe nipple. 4: There is no sonographic correlate of the architectural distortion in theleft breast at 7:00, 7 cm from the nipple. A postsurgical scar is seen in the left retroareolar region. Multiple bilateral similar-appearing masses are consistent with fat necrosis andcorrelate with the mammography findings. Left Regional Bennett Basins: No suspicious axillary levels I, II, III(infraclavicular) or internal mammary lymph node is identified. Right Regional Bennett Basins: No suspicious axillary levels I, II, III(infraclavicular) or internal mammary lymph node is identified. IMPRESSION:1: Mass in the right breast upper inner quadrant at 1 o'clock located 3centimeters from the nipple is suspicious. Ultrasound guided biopsy isrecommended and subsequently performed. 2: Area of architectural distortion in the right breast may represent a postsurgical scar. However, no overlying skin scar i seen. 3: Mass in the left breast lower inner quadrant at 7 o'clock located 6centimeters from the nipple is suspicious. Ultrasound guided biopsy isrecommended and subsequently performed. 4: No sonographic correlate of the architectural distortion in the left breastat 7 o'clock 7 cm from the nipple. While patient's bilateral architectural distortions may be related to her priorbilateral surgeries, there is no mammograms prior to 2019 for comparison. Abreast MRI for further evaluation is recommended. BI-RADS Category 4B:Suspicious Abnormality Lab Interpretation Abnormal (test code = 92598-1) [facility] [id number] 23:05:28 Test Item Value Reference Range Interpretation Comments IMP (test code = IMP) 1: Mass in the right breast upper inner quadrant at 1 o'clock located 3centimeters from the nipple is suspicious. Ultrasound guided biopsy isrecommended and subsequently performed. 2: Area of architectural distortion in the right breast may represent a postsurgical scar. However, no overlying skin scar i seen. 3: Mass in the left breast lower inner quadrant at 7 o'clock located 6centimeters from the nipple is suspicious. Ultrasound guided biopsy isrecommended and subsequently performed. 4: No sonographic correlate of the architectural distortion in the left breastat 7 o'clock 7 cm from the nipple. While patient's bilateral architectural distortions may be related to her priorbilateral surgeries, there is no mammograms prior to 2019 for comparison. Abreast MRI for further evaluation is recommended. BI-RADS Category 4B:Suspicious Abnormality PXN (test code = PXN) Interface, Radiology Results In - 05/20/2021 6:08 PM CDT CLINICAL INDICATION:Patient is a 71 year old female and is seen for other signs and symptoms in thebreast FILMS COMPAREDThe present examination has been compared to prior imaging studies performed ata outside location on 04/29/2021, and at [facility] on 05/20/2021. Images were obtained in multiple scanning planes. Real-time sonographic imaging of both breasts (including all 4 quadrants andretroareolar region) was performed. Real-time sonographic imaging of bilateralregional bennett basins including the axillary (level I,II,III) and internalmammary regions was performed. 1: There is an irregular mass measuring 0.8 x 0.4 x 0.4 cm in the right breastupper inner quadrant at 1 o'clock located 3 centimeters from the nipple. Thiscorrelates with the irregular mass on mammogram at 12-1 o'clock, 4 cm from thenipple. 2: An area of subtle architectural distortion at right 11:00, 6 cm from thenipple may correlate with the architectural distortion on mammogram at 11:00, 4cm from the nipple. While this may represent a postsurgical scar, a scar is notclearly seen on the overlying skin. 3: There is a hypoechoic mass measuring 1 x 0.8 x 0.7 cm in the left breastlower inner quadrant at 7 o'clock located 6 centimeters from the nipple. Thiscorrelates with the irregular mass on mammogram at left 7-8 o'clock, 6 cm fromthe nipple. 4: There is no sonographic correlate of the architectural distortion in theleft breast at 7:00, 7 cm from the nipple. A postsurgical scar is seen in the left retroareolar region. Multiple bilateral similar-appearing masses are consistent with fat necrosis andcorrelate with the mammography findings. Left Regional Bennett Basins: No suspicious axillary levels I, II, III(infraclavicular) or internal mammary lymph node is identified. Right Regional Bennett Basins: No suspicious axillary levels I, II, III(infraclavicular) or internal mammary lymph node is identified. IMPRESSION:1: Mass in the right breast upper inner quadrant at 1 o'clock located 3centimeters from the nipple is suspicious. Ultrasound guided biopsy isrecommended and subsequently performed. 2: Area of architectural distortion in the right breast may represent a postsurgical scar. However, no overlying skin scar i seen. 3: Mass in the left breast lower inner quadrant at 7 o'clock located 6centimeters from the nipple is suspicious. Ultrasound guided biopsy isrecommended and subsequently performed. 4: No sonographic correlate of the architectural distortion in the left breastat 7 o'clock 7 cm from the nipple. While patient's bilateral architectural distortions may be related to her priorbilateral surgeries, there is no mammograms prior to 2019 for comparison. Abreast MRI for further evaluation is recommended. BI-RADS Category 4B:Suspicious Abnormality Lab Interpretation Abnormal (test code = 68125-8) MD NolenMammgraham Digital Diagnostic Bilateral with [id number] 22:47:41 Test Item Value Reference Range Interpretation Comments IMP (test code = IMP) 1: Masses in both breasts are benign. 2: Mass in the right breast upper hemisphere at 12 to 1 o'clock located 4centimeters from the nipple requires additional imaging evaluation. Anultrasound exam and possible biopsy is recommended. 3: Area of architectural distortion in the right breast upper outer quadrant at11 o'clock located 4 centimeters from the nipple requires additional imagingevaluation. An ultrasound exam is recommended. 4: Mass in the left breast lower inner quadrant at 7 to 8 o'clock located 6centimeters from the nipple requires additional imaging evaluation. Anultrasound exam and possible biopsy is recommended. 5: Post surgical scar in the retroareolar region of the left breast requiresadditional imaging evaluation. An ultrasound exam is recommended. 6: Area of architectural distortion in the left breast lower inner quadrant at7 o'clock located 7 centimeters from the nipple requires additional imagingevaluation. An ultrasound exam is recommended. BI-RADS Category 0:Incomplete: Needs Additional Imaging Evaluation PXN (test code = PXN) Interface, Radiology Results In - 05/20/2021 6:08 PM CDT CLINICAL INDICATION:Patient is a 71 year old female and is seen for other signs and symptoms in thebreast MAMMO DIGITAL DIAGNOSTIC BILATERAL W TOMODigital Mammogram evaluated with Computer Aided Detection (CAD). COMPARISON:The present examination has been compared to prior imaging studies performed atan outside location on 07/03/2020 and 04/29/2021. FINDINGS:There are scattered areas of fibroglandular density. 1: There are multiple similar oval masses with associated coarse calcificationsin both breasts. Patient reported a fall a few years ago. These masses arecompatible with fat necrosis. One of the fat necrosis masses correlates with anarea of palpable concern in the right breast. 2: There is an irregular mass measuring 1.5 centimeters in the right breastupper hemisphere at 12 to 1 o'clock located 4 centimeters from the nipple. 3: There is an area of architectural distortion in the right breast upper outerquadrant at 11 o'clock located 4 centimeters from the nipple. The patient has ahistory of bilateral breast surgeries. While this may represent a postsurgicalscar, a scar is not clearly seen on the overlying skin. 4: There is an irregular mass measuring 1.2 centimeters in the left breastlower inner quadrant at 7 to 8 o'clock located 6 centimeters from the nipple. 5: There is a post surgical scar with associated surgical clip in theretroareolar region of the left breast. 6: There is an area of architectural distortion in the left breast lower innerquadrant at 7 o'clock located 7 centimeters from the nipple. Tomosynthesis performed in CC and MLO projections. IMPRESSION:1: Masses in both breasts are benign. 2: Mass in the right breast upper hemisphere at 12 to 1 o'clock located 4centimeters from the nipple requires additional imaging evaluation. Anultrasound exam and possible biopsy is recommended. 3: Area of architectural distortion in the right breast upper outer quadrant at11 o'clock located 4 centimeters from the nipple requires additional imagingevaluation. An ultrasound exam is recommended. 4: Mass in the left breast lower inner quadrant at 7 to 8 o'clock located 6centimeters from the nipple requires additional imaging evaluation. Anultrasound exam and possible biopsy is recommended. 5: Post surgical scar in the retroareolar region of the left breast requiresadditional imaging evaluation. An ultrasound exam is recommended. 6: Area of architectural distortion in the left breast lower inner quadrant at7 o'clock located 7 centimeters from the nipple requires additional imagingevaluation. An ultrasound exam is recommended. BI-RADS Category 0:Incomplete: Needs Additional Imaging Evaluation Lab Interpretation Abnormal (test code = 16890-5) MD Cooper US [id number] 17:47:47Study acquired at another institution. For comparison only. No [facility] originated interpretation requested or available.MD Cooper [id number] 17:47:05Study acquired at another institution. For comparison only. No [facility] originated interpretationrequested or available.MD NolenPOCT-GLUCOSE [id number] 17:03:00 Test Item Value Reference Range Interpretation Comments POC-GLUCOSE METER 169 mg/dL 70-110 H : TESTED A T [facility] ([employer]) (test code = [place], 1538) 62577: Teletype Adjuster/Techni kylie ID = [id number] for TIMMY CLIFFORDFRANKIE POCT-GLUCOSE [id number] 12:28:00 Test Item Value Reference Range Interpretation Comments POC-GLUCOSE METER 173 mg/dL 70-110 H : TESTED A T [facility] ([employer]) (test code = [place], 1538) 52677: Teletype Adjuster/Techni kylie ID = [id number] for [place] YOUNG [id number] 06:44:00 Test Item Value Reference Range Interpretation Comments MAGNESIUM (BEAKER) (test code = 2.2 mg/dL 1.6-2.6 627) Teletype Adjuster ID - LARRY MBASIC METABOLIC [id number] 06:44:00 Test Item Value Reference Range Interpretation Comments SODIUM (BEAKER) 137 meq/L 136-145 (test code = 381) POTASSIUM (BEAKER) 4.5 meq/L 3.5-5.1 (test code = 379) CHLORIDE (BEAKER) 100 meq/L 98-107 (test code = 382) CO2 (BEAKER) (test 30 meq/L 22-29 H code = 355) BLOOD UREA NITROGEN 32 mg/dL 7-21 H (BEAKER) (test code = 354) CREATININE (BEAKER) 1.07 mg/dL 0.57-1.25 (test code = 358) GLUCOSE RANDOM 161 mg/dL 70-105 H (BEAKER) (test code = 652) CALCIUM (BEAKER) 8.9 mg/dL 8.4-10.2 (test code = 697) EGFR (BEAKER) (test 51 mL/min/1.73 ESTIMA TOSHIA GFR IS code = 1092) sq m NOT ACCURATE CREATININE CLEARANCE IN PREDICTING GLOMERULAR FILTRATION RATE . ESTIMATED GFR I S NOT APPLICABLE FOR DIALYSIS PATIEN TS. Teletype Adjuster ID - LARRY MCBC W/PLT COUNT & AUTO [id number] 06:21:00 Test Item Value Reference Range Interpretation Comments WHITE BLOOD CELL COUNT (BEAKER) 11.2 K/ L 3.5-10.5 H (test code = 775) RED BLOOD CELL COUNT (BEAKER) 2.81 M/ L 3.93-5.22 L (test code = 761) HEMOGLOBIN (BEAKER) (test code = 8.0 GM/DL 11.2-15.7 L 410) HEMATOCRIT (BEAKER) (test code = 25.7 % 34.1-44.9 L 411) MEAN CORPUSCULAR VOLUME (BEAKER) 91.5 fL 79.4-94.8 (test code = 753) MEAN CORPUSCULAR HEMOGLOBIN 28.5 pg 25.6-32.2 (BEAKER) (test code = 751) MEAN CORPUSCULAR HEMOGLOBIN CONC 31.1 GM/DL 32.2-35.5 L (BEAKER) (test code = 752) RED CELL DISTRIBUTION WIDTH 16.0 % 11.7-14.4 H (BEAKER) (test code = 412) PLATELET COUNT (BEAKER) (test 130 K/CU MM 150-450 L code = 756) MEAN PLATELET VOLUME (BEAKER) 9.8 fL 9.4-12.3 (test code = 754) NUCLEATED RED BLOOD CELLS 0 /100 WBC 0-0 (BEAKER) (test code = 413) NEUTROPHILS RELATIVE PERCENT 83 % (BEAKER) (test code = 429) LYMPHOCYTES RELATIVE PERCENT 12 % (BEAKER) (test code = 430) MONOCYTES RELATIVE PERCENT 3 % (BEAKER) (test code = 431) EOSINOPHILS RELATIVE PERCENT 1 % (BEAKER) (test code = 432) BASOPHILS RELATIVE PERCENT 0 % (BEAKER) (test code = 437) NEUTROPHILS ABSOLUTE COUNT 9.29 K/ L 1.56-6.13 H (BEAKER) (test code = 670) LYMPHOCYTES ABSOLUTE COUNT 1.33 K/ L 1.18-3.74 (BEAKER) (test code = 414) MONOCYTES ABSOLUTE COUNT (BEAKER) 0.33 K/ L 0.24-0.36 (test code = 415) EOSINOPHILS ABSOLUTE COUNT 0.14 K/ L 0.04-0.36 (BEAKER) (test code = 416) BASOPHILS ABSOLUTE COUNT (BEAKER) 0.02 K/ L 0.01-0.08 (test code = 417) IMMATURE GRANULOCYTES-RELATIVE 1 % 0-1 PERCENT (BEAKER) (test code = 2801) RAD, CHEST, 1 VIEW, NON [id number] 05:40:00Reason for exam:->Pulmonary edema evalShould this be performed at the bedside?->YesFINAL REPORT CLINICAL INDICATION: Pulmonary edema evaluation Comparison: 02/03 The cardiomediastinal contours are stable. Bilateral parenchymal and pleural opacities are unchanged. There is no pneumothorax. Signed: Tati Robertson MDReport Verified Date/Time: 02/05/2020 05:40:40 POCT-GLUCOSE [id number] 21:06:00 Test Item Value Reference Range Interpretation Comments POC-GLUCOSE METER 228 mg/dL 70-110 H : TESTED A T [facility] (BEAKER) (test code = [facility], 1538) 83356: Teletype Adjuster/Techni kylie ID = [id number] for SHARONDA ROMEO POCT-GLUCOSE [id number] 18:30:00 Test Item Value Reference Range Interpretation Comments POC-GLUCOSE METER 111 mg/dL 70-110 H : TESTED A T [facility] (BEAKER) (test code = [facility], 1538) 35583: Teletype Adjuster/Techni kylie ID = [id number] for JOAQUINA ALEJO, [place] POCT-GLUCOSE [id number] 12:32:00 Test Item Value Reference Range Interpretation Comments POC-GLUCOSE METER 175 mg/dL 70-110 H : TESTED A T [facility] (BEAKER) (test code = [facility], 1538) 39369: Teletype Adjuster/Techni kylie ID = [id number] for JOAQUINA HN, [place] POCT-GLUCOSE [id number] 07:49:00 Test Item Value Reference Range Interpretation Comments POC-GLUCOSE METER 171 mg/dL 70-110 H : TESTED A T [facility] (BEAKER) (test code = [facility], 1538) 05470: Teletype Adjuster/Techni kylie ID = [id number] for JOAQUINA HN, [place] CBC W/PLT COUNT & AUTO [id number] 07:40:00 Test Item Value Reference Range Interpretation Comments WHITE BLOOD CELL COUNT (BEAKER) 12.3 K/ L 3.5-10.5 H (test code = 775) RED BLOOD CELL COUNT (BEAKER) 2.87 M/ L 3.93-5.22 L (test code = 761) HEMOGLOBIN (BEAKER) (test code = 8.0 GM/DL 11.2-15.7 L 410) HEMATOCRIT (BEAKER) (test code = 26.3 % 34.1-44.9 L 411) MEAN CORPUSCULAR VOLUME (BEAKER) 91.6 fL 79.4-94.8 (test code = 753) MEAN CORPUSCULAR HEMOGLOBIN 27.9 pg 25.6-32.2 (BEAKER) (test code = 751) MEAN CORPUSCULAR HEMOGLOBIN CONC 30.4 GM/DL 32.2-35.5 L (BEAKER) (test code = 752) RED CELL DISTRIBUTION WIDTH 16.1 % 11.7-14.4 H (BEAKER) (test code = 412) PLATELET COUNT (BEAKER) (test 134 K/CU MM 150-450 L code = 756) MEAN PLATELET VOLUME (BEAKER) 9.8 fL 9.4-12.3 (test code = 754) NUCLEATED RED BLOOD CELLS 0 /100 WBC 0-0 (BEAKER) (test code = 413) NEUTROPHILS RELATIVE PERCENT 84 % (BEAKER) (test code = 429) LYMPHOCYTES RELATIVE PERCENT 11 % (BEAKER) (test code = 430) MONOCYTES RELATIVE PERCENT 3 % (BEAKER) (test code = 431) EOSINOPHILS RELATIVE PERCENT 1 % (BEAKER) (test code = 432) BASOPHILS RELATIVE PERCENT 0 % (BEAKER) (test code = 437) NEUTROPHILS ABSOLUTE COUNT 10.35 K/ L 1.56-6.13 H (BEAKER) (test code = 670) LYMPHOCYTES ABSOLUTE COUNT 1.33 K/ L 1.18-3.74 (BEAKER) (test code = 414) MONOCYTES ABSOLUTE COUNT (BEAKER) 0.32 K/ L 0.24-0.36 (test code = 415) EOSINOPHILS ABSOLUTE COUNT 0.15 K/ L 0.04-0.36 (BEAKER) (test code = 416) BASOPHILS ABSOLUTE COUNT (BEAKER) 0.02 K/ L 0.01-0.08 (test code = 417) IMMATURE GRANULOCYTES-RELATIVE 1 % 0-1 PERCENT (BEAKER) (test code = 2801) [id number] 07:40:00 Test Item Value Reference Range Interpretation Comments MAGNESIUM (BEAKER) (test code = 2.2 mg/dL 1.6-2.6 627) Teletype Adjuster ID - MARY FBASIC METABOLIC [id number] 07:40:00 Test Item Value Reference Range Interpretation Comments SODIUM (BEAKER) 136 meq/L 136-145 (test code = 381) POTASSIUM (BEAKER) 4.6 meq/L 3.5-5.1 (test code = 379) CHLORIDE (BEAKER) 101 meq/L 98-107 (test code = 382) CO2 (BEAKER) (test 25 meq/L 22-29 code = 355) BLOOD UREA NITROGEN 35 mg/dL 7-21 H (BEAKER) (test code = 354) CREATININE (BEAKER) 1.02 mg/dL 0.57-1.25 (test code = 358) GLUCOSE RANDOM 168 mg/dL 70-105 H (BEAKER) (test code = 652) CALCIUM (BEAKER) 8.6 mg/dL 8.4-10.2 (test code = 697) EGFR (BEAKER) (test 54 mL/min/1.73 ESTIMA TOSHIA GFR IS code = 1092) sq m NOT ACCURATE CREATININE CLEARANCE IN PREDICTING GLOMERULAR FILTRATION RATE . ESTIMATED GFR I S NOT APPLICABLE FOR DIALYSIS PATIEN TS. Teletype Adjuster ID - MARY LEGER, CHEST, 1 VIEW, NON [id number] 05:19:00Reason for exam:->Pulmonary edema evalShould this be performed at the bedside?->YesFINAL REPORT CLINICAL INDICATION: Pulmonary edema evaluation Comparison: 02/03/2020 The cardiomediastinal contours are stable. Central pulmonary vascular congestion has partiallyimproved. Bilateral parenchymal and pleural opacities are similar to previous. There is no pneumothorax. Signed: Tati Robertson MDReport Verified Date/Time: 02/04/2020 05:19:59 POCT-GLUCOSE [id number] 21:40:00 Test Item Value Reference Range Interpretation Comments POC-GLUCOSE METER 164 mg/dL 70-110 H : TESTED A T [facility] (BEAKER) (test code = [facility] [employer] [facility], 1538) 56477: Teletype Adjuster/Techni kylie ID = [id number] for BERNICE MANN POCT-GLUCOSE [id number] 17:56:00 Test Item Value Reference Range Interpretation Comments POC-GLUCOSE METER 164 mg/dL 70-110 H : TESTED A T [facility] (BEAKER) (test code = [facility] [employer] [facility], 1538) 55507: Teletype Adjuster/Techni kylie ID = [id number] for FADY PELAYO RAD, CHEST, 1 VIEW, NON [id number] 04:12:00Reason for exam:->Pulmonary edema evalShould this be performed at the bedside?->YesFINAL REPORT CLINICAL INDICATION: Pulmonary edema evaluation Comparison: 02/01 The cardiomediastinal contours are stable. Central pulmonary vascular congestion and bilateralparenchymal and pleural opacities are similar within variation of acquisition technique. There is nopneumothorax. Signed: Tati Robertson MDReport Verified Date/Time: 02/03/2020 04:12:45 [id number] 03:41:00 Test Item Value Reference Range Interpretation Comments MAGNESIUM (BEAKER) (test code = 2.2 mg/dL 1.6-2.6 627) Teletype Adjuster ID - LARRY MBASIC METABOLIC [id number] 03:41:00 Test Item Value Reference Range Interpretation Comments SODIUM (BEAKER) 136 meq/L 136-145 (test code = 381) POTASSIUM (BEAKER) 4.6 meq/L 3.5-5.1 (test code = 379) CHLORIDE (BEAKER) 99 meq/L 98-107 (test code = 382) CO2 (BEAKER) (test 27 meq/L 22-29 code = 355) BLOOD UREA NITROGEN 45 mg/dL 7-21 H (BEAKER) (test code = 354) CREATININE (BEAKER) 1.17 mg/dL 0.57-1.25 (test code = 358) GLUCOSE RANDOM 178 mg/dL 70-105 H (BEAKER) (test code = 652) CALCIUM (BEAKER) 8.8 mg/dL 8.4-10.2 (test code = 697) EGFR (BEAKER) (test 46 mL/min/1.73 ESTIMA TOSHIA GFR IS code = 1092) sq m NOT ACCURATE CREATININE CLEARANCE IN PREDICTING GLOMERULAR FILTRATION RATE . ESTIMATED GFR I S NOT APPLICABLE FOR DIALYSIS PATIEN TS. Teletype Adjuster ID - LARRY MCBC W/PLT COUNT & AUTO [id number] 03:32:00 Test Item Value Reference Range Interpretation Comments WHITE BLOOD CELL COUNT (BEAKER) 13.0 K/ L 3.5-10.5 H (test code = 775) RED BLOOD CELL COUNT (BEAKER) 2.85 M/ L 3.93-5.22 L (test code = 761) HEMOGLOBIN (BEAKER) (test code = 8.1 GM/DL 11.2-15.7 L 410) HEMATOCRIT (BEAKER) (test code = 26.3 % 34.1-44.9 L 411) MEAN CORPUSCULAR VOLUME (BEAKER) 92.3 fL 79.4-94.8 (test code = 753) MEAN CORPUSCULAR HEMOGLOBIN 28.4 pg 25.6-32.2 (BEAKER) (test code = 751) MEAN CORPUSCULAR HEMOGLOBIN CONC 30.8 GM/DL 32.2-35.5 L (BEAKER) (test code = 752) RED CELL DISTRIBUTION WIDTH 15.9 % 11.7-14.4 H (BEAKER) (test code = 412) PLATELET COUNT (BEAKER) (test 147 K/CU MM 150-450 L code = 756) MEAN PLATELET VOLUME (BEAKER) 9.9 fL 9.4-12.3 (test code = 754) NUCLEATED RED BLOOD CELLS 0 /100 WBC 0-0 (BEAKER) (test code = 413) NEUTROPHILS RELATIVE PERCENT 84 % (BEAKER) (test code = 429) LYMPHOCYTES RELATIVE PERCENT 11 % (BEAKER) (test code = 430) MONOCYTES RELATIVE PERCENT 3 % (BEAKER) (test code = 431) EOSINOPHILS RELATIVE PERCENT 1 % (BEAKER) (test code = 432) BASOPHILS RELATIVE PERCENT 0 % (BEAKER) (test code = 437) NEUTROPHILS ABSOLUTE COUNT 10.89 K/ L 1.56-6.13 H (BEAKER) (test code = 670) LYMPHOCYTES ABSOLUTE COUNT 1.42 K/ L 1.18-3.74 (BEAKER) (test code = 414) MONOCYTES ABSOLUTE COUNT (BEAKER) 0.41 K/ L 0.24-0.36 H (test code = 415) EOSINOPHILS ABSOLUTE COUNT 0.14 K/ L 0.04-0.36 (BEAKER) (test code = 416) BASOPHILS ABSOLUTE COUNT (BEAKER) 0.02 K/ L 0.01-0.08 (test code = 417) IMMATURE GRANULOCYTES-RELATIVE 1 % 0-1 PERCENT (BEAKER) (test code = 2801) POCT-GLUCOSE [id number] 21:10:00 Test Item Value Reference Range Interpretation Comments POC-GLUCOSE METER 100 mg/dL 70-110 : TESTED A T [facility] (BEAKER) (test code = [facility], 1538) 81698: Teletype Adjuster/Techni kylie ID = [id number] for MILY PEDRAZA POCT-GLUCOSE [id number] 16:50:00 Test Item Value Reference Range Interpretation Comments POC-GLUCOSE METER 128 mg/dL 70-110 H : TESTED A T [facility] (BEAKER) (test code = [facility], 1538) 37251: Teletype Adjuster/Techni kylie ID = [id number] for IZABEL CALLAHAN BODY FLUID CULTURE + GRAM [id number] 15:39:00 Test Item Value Reference Range Interpretation Comments CULTURE (BEAKER) (test No growth code = 1095) GRAM STAIN RESULT 2+ White blood cells (BEAKER) (test code = seen 1123) GRAM STAIN RESULT No organisms seen (BEAKER) (test code = 08411) POCT-GLUCOSE [id number] 07:54:00 Test Item Value Reference Range Interpretation Comments POC-GLUCOSE METER 111 mg/dL 70-110 H : TESTED A T [facility] (BEAKER) (test code = [facility], 1538) 88095: Teletype Adjuster/Techni kylie ID = [id number] for IZABEL CALLAHAN CBC W/PLT COUNT & AUTO [id number] 07:43:00 Test Item Value Reference Range Interpretation Comments WHITE BLOOD CELL COUNT (BEAKER) 13.0 K/ L 3.5-10.5 H (test code = 775) RED BLOOD CELL COUNT (BEAKER) 2.89 M/ L 3.93-5.22 L (test code = 761) HEMOGLOBIN (BEAKER) (test code = 8.3 GM/DL 11.2-15.7 L 410) HEMATOCRIT (BEAKER) (test code = 26.8 % 34.1-44.9 L 411) MEAN CORPUSCULAR VOLUME (BEAKER) 92.7 fL 79.4-94.8 (test code = 753) MEAN CORPUSCULAR HEMOGLOBIN 28.7 pg 25.6-32.2 (BEAKER) (test code = 751) MEAN CORPUSCULAR HEMOGLOBIN CONC 31.0 GM/DL 32.2-35.5 L (BEAKER) (test code = 752) RED CELL DISTRIBUTION WIDTH 16.2 % 11.7-14.4 H (BEAKER) (test code = 412) PLATELET COUNT (BEAKER) (test 136 K/CU MM 150-450 L code = 756) MEAN PLATELET VOLUME (BEAKER) 10.1 fL 9.4-12.3 (test code = 754) NUCLEATED RED BLOOD CELLS 0 /100 WBC 0-0 (BEAKER) (test code = 413) NEUTROPHILS RELATIVE PERCENT 84 % (BEAKER) (test code = 429) LYMPHOCYTES RELATIVE PERCENT 10 % (BEAKER) (test code = 430) MONOCYTES RELATIVE PERCENT 3 % (BEAKER) (test code = 431) EOSINOPHILS RELATIVE PERCENT 1 % (BEAKER) (test code = 432) BASOPHILS RELATIVE PERCENT 0 % (BEAKER) (test code = 437) NEUTROPHILS ABSOLUTE COUNT 10.93 K/ L 1.56-6.13 H (BEAKER) (test code = 670) LYMPHOCYTES ABSOLUTE COUNT 1.35 K/ L 1.18-3.74 (BEAKER) (test code = 414) MONOCYTES ABSOLUTE COUNT (BEAKER) 0.39 K/ L 0.24-0.36 H (test code = 415) EOSINOPHILS ABSOLUTE COUNT 0.12 K/ L 0.04-0.36 (BEAKER) (test code = 416) BASOPHILS ABSOLUTE COUNT (BEAKER) 0.02 K/ L 0.01-0.08 (test code = 417) IMMATURE GRANULOCYTES-RELATIVE 1 % 0-1 PERCENT (BEAKER) (test code = 2801) [id number] 07:26:00 Test Item Value Reference Range Interpretation Comments MAGNESIUM (BEAKER) (test code = 2.3 mg/dL 1.6-2.6 627) Teletype Adjuster ID - LARRY MBASIC METABOLIC [id number] 07:26:00 Test Item Value Reference Range Interpretation Comments SODIUM (BEAKER) 137 meq/L 136-145 (test code = 381) POTASSIUM (BEAKER) 4.3 meq/L 3.5-5.1 (test code = 379) CHLORIDE (BEAKER) 102 meq/L 98-107 (test code = 382) CO2 (BEAKER) (test 27 meq/L 22-29 code = 355) BLOOD UREA NITROGEN 48 mg/dL 7-21 H (BEAKER) (test code = 354) CREATININE (BEAKER) 1.22 mg/dL 0.57-1.25 (test code = 358) GLUCOSE RANDOM 108 mg/dL 70-105 H (BEAKER) (test code = 652) CALCIUM (BEAKER) 8.9 mg/dL 8.4-10.2 (test code = 697) EGFR (BEAKER) (test 44 mL/min/1.73 ESTIMA TOSHIA GFR IS code = 1092) sq m NOT ACCURATE CREATININE CLEARANCE IN PREDICTING GLOMERULAR FILTRATION RATE . ESTIMATED GFR I S NOT APPLICABLE FOR DIALYSIS PATIEN TS. Teletype Adjuster ID - LARRY MRAD, CHEST, 1 VIEW, NON [id number] 03:54:00Reason for exam:->Pulmonary edema evalShould this be performed at the bedside?->Yes FINAL REPORT RAD, CHEST, 1 VIEW, NON DEPT INDICATION: Pulmonary edema eval COMPARISON: Prior day's exam FINDINGS: Portable frontal view of the chest. IMPRESSION: Lungs and pleura: Unchanged airspace and pleural opacities. No pneumothorax.Heart and mediastinum: Stable contours. Stable surgical changes.Additional findings: None. Signed: Carleen Richardson Verified Date/Time: 02/02/2020 03:54:55 POCT-GLUCOSE [id number] 21:12:00 Test Item Value Reference Range Interpretation Comments POC-GLUCOSE METER 164 mg/dL 70-110 H : TESTED A T [facility] ([employer]) (test code = [facility], 1538) 40753: Teletype Adjuster/Techni kylie ID = [id number] for ANGIE SAMANO POCT-GLUCOSE [id number] 17:36:00 Test Item Value Reference Range Interpretation Comments POC-GLUCOSE METER 130 mg/dL 70-110 H : TESTED A T [facility] ([employer]) (test code = [facility], 1538) 74104: Teletype Adjuster/Techni kylie ID = [id number] for IZABEL CALLAHAN POCT-GLUCOSE [id number] 13:24:00 Test Item Value Reference Range Interpretation Comments POC-GLUCOSE METER 185 mg/dL 70-110 H : TESTED A T [facility] (BEAKER) (test code = [facility], 1538) 77586: Teletype Adjuster/Techni kylie ID = [id number] for IZABEL CALLAHAN RAD, CHEST, 1 VIEW, NON [id number] 10:28:00Reason for exam:->Pulmonary edema evalShould this be performed at the bedside?->YesFINAL REPORT RAD, CHEST, 1 VIEW, NON DEPT INDICATION: Pulmonary edema eval COM PARISON: Prior day's exam FINDINGS: Portable frontal view of the chest. IMPRESSION: Support Lines: Sternotomy wires Lungs and pleura: Possible left effusion and airspace edema No pneumothorax.Heart and mediastinum: Stable contours. Additional findings: None. Signed: Shellie Clark Verified Date/Time: 02/01/2020 10:28:46 Reading Location: [facility] Radiology Reading Room POCT-GLUCOSE [id number] 07:48:00 Test Item Value Reference Range Interpretation Comments POC-GLUCOSE METER 114 mg/dL 70-110 H : TESTED A T [facility] (BEAKER) (test code = [facility], 1538) 74280: Teletype Adjuster/Techni kylie ID = [id number] for IZABEL CALLAHAN [id number] 05:05:00 Test Item Value Reference Range Interpretation Comments PHOSPHORUS (BEAKER) (test code = 3.6 mg/dL 2.3-4.7 604) Teletype Adjuster ID - LARRY [id number] 05:05:00 Test Item Value Reference Range Interpretation Comments MAGNESIUM (BEAKER) (test code = 2.1 mg/dL 1.6-2.6 627) Teletype Adjuster ID - LARRY MBASIC METABOLIC [id number] 05:05:00 Test Item Value Reference Range Interpretation Comments SODIUM (BEAKER) 137 meq/L 136-145 (test code = 381) POTASSIUM (BEAKER) 4.3 meq/L 3.5-5.1 (test code = 379) CHLORIDE (BEAKER) 102 meq/L 98-107 (test code = 382) CO2 (BEAKER) (test 25 meq/L 22-29 code = 355) BLOOD UREA NITROGEN 53 mg/dL 7-21 H (BEAKER) (test code = 354) CREATININE (BEAKER) 1.41 mg/dL 0.57-1.25 H (test code = 358) GLUCOSE RANDOM 158 mg/dL 70-105 H (BEAKER) (test code = 652) CALCIUM (BEAKER) 8.8 mg/dL 8.4-10.2 (test code = 697) EGFR (BEAKER) (test 37 mL/min/1.73 ESTIMA TOSHIA GFR IS code = 1092) sq m NOT ACCURATE CREATININE CLEARANCE IN PREDICTING GLOMERULAR FILTRATION RATE . ESTIMATED GFR I S NOT APPLICABLE FOR DIALYSIS PATIEN TS. Teletype Adjuster ID - LARRY MCALCIUM, [id number] 05:03:00 Test Item Value Reference Range Interpretation Comments CALCIUM IONIZED (BEAKER) (test 1.06 mmol/L 1.12-1.27 L code = 698) PH, BLOOD (BEAKER) (test code = 7.42 1810) B-TYPE NATRIURETIC FACTOR (BNP)2020-02-01 04:52:00 Test Item Value Reference Range Interpretation Comments B-TYPE NATRIURETIC PEPTIDE (BEAKER) 640 pg/mL 0-100 H (test code = 700) Teletype Adjuster ID - LARRY MCBC W/PLT COUNT & AUTO [id number] 04:27:00 Test Item Value Reference Range Interpretation Comments WHITE BLOOD CELL COUNT (BEAKER) 12.9 K/ L 3.5-10.5 H (test code = 775) RED BLOOD CELL COUNT (BEAKER) 2.75 M/ L 3.93-5.22 L (test code = 761) HEMOGLOBIN (BEAKER) (test code = 8.0 GM/DL 11.2-15.7 L 410) HEMATOCRIT (BEAKER) (test code = 25.6 % 34.1-44.9 L 411) MEAN CORPUSCULAR VOLUME (BEAKER) 93.1 fL 79.4-94.8 (test code = 753) MEAN CORPUSCULAR HEMOGLOBIN 29.1 pg 25.6-32.2 (BEAKER) (test code = 751) MEAN CORPUSCULAR HEMOGLOBIN CONC 31.3 GM/DL 32.2-35.5 L (BEAKER) (test code = 752) RED CELL DISTRIBUTION WIDTH 16.3 % 11.7-14.4 H (BEAKER) (test code = 412) PLATELET COUNT (BEAKER) (test 109 K/CU MM 150-450 L code = 756) MEAN PLATELET VOLUME (BEAKER) 9.8 fL 9.4-12.3 (test code = 754) NUCLEATED RED BLOOD CELLS 0 /100 WBC 0-0 (BEAKER) (test code = 413) NEUTROPHILS RELATIVE PERCENT 86 % (BEAKER) (test code = 429) LYMPHOCYTES RELATIVE PERCENT 8 % (BEAKER) (test code = 430) MONOCYTES RELATIVE PERCENT 3 % (BEAKER) (test code = 431) EOSINOPHILS RELATIVE PERCENT 1 % (BEAKER) (test code = 432) BASOPHILS RELATIVE PERCENT 0 % (BEAKER) (test code = 437) NEUTROPHILS ABSOLUTE COUNT 11.10 K/ L 1.56-6.13 H (BEAKER) (test code = 670) LYMPHOCYTES ABSOLUTE COUNT 1.08 K/ L 1.18-3.74 L (BEAKER) (test code = 414) MONOCYTES ABSOLUTE COUNT (BEAKER) 0.40 K/ L 0.24-0.36 H (test code = 415) EOSINOPHILS ABSOLUTE COUNT 0.11 K/ L 0.04-0.36 (BEAKER) (test code = 416) BASOPHILS ABSOLUTE COUNT (BEAKER) 0.02 K/ L 0.01-0.08 (test code = 417) IMMATURE GRANULOCYTES-RELATIVE 1 % 0-1 PERCENT (BEAKER) (test code = 2801) POCT-GLUCOSE [id number] 21:42:00 Test Item Value Reference Range Interpretation Comments POC-GLUCOSE METER 179 mg/dL 70-110 H : TESTED A T [facility] 6720 (BEAKER) (test code = [place], 1538) [address]: Teletype Adjuster/Techni kylie ID = [id number] for Nevaeh Strauss POCT-GLUCOSE [id number] 12:56:00 Test Item Value Reference Range Interpretation Comments POC-GLUCOSE METER 155 mg/dL 70-110 H : TESTED A T [facility] 6720 (BEAKER) (test code = [place], 1538) [id number]: Teletype Adjuster/Techni kylie ID = [id number] for CORAZON YOUNG RAD, CHEST, 1 VIEW, NON [id number] 08:51:00Reason for exam:->Pulmonary edema evalShould this be performed at the bedside?->YesFINAL REPORT RAD, CHEST, 1 VIEW, NON DEPT INDICATION: Pulmonary edema eval COM PARISON: Prior day's exam FINDINGS: Portable frontal view of the chest. IMPRESSION: Support Lines: None Lungs and pleura: Scattered airspace edema and trace fluid within the right minor fissure is unchanged No pneumothorax.Heart and mediastinum: Stable contours. Stable surgical changes.Additional findings: None. Signed: Shellie Clark Verified Date/Time: 01/31/2020 08:51:26 Reading Location: [facility] Radiology Reading Room Electronically signed by: SHELLIE CLARK MD on01/31/2020 08:51 AMPOCT-GLUCOSE METER 2020-01-31 08:09:00 Test Item Value Reference Range Interpretation Comments POC-GLUCOSE METER 144 mg/dL 70-110 H : [facility] ([facility] (test code = [facility]al [facility], 1538) [id number]: Teletype Adjuster/Techni kylie ID = [id number] for CORAZON YOUNG CBC W/PLT COUNT & AUTO [id number] 07:53:00 Test Item Value Reference Range Interpretation Comments WHITE BLOOD CELL COUNT (BEAKER) 14.5 K/ L 3.5-10.5 H (test code = 775) RED BLOOD CELL COUNT (BEAKER) 2.70 M/ L 3.93-5.22 L (test code = 761) HEMOGLOBIN (BEAKER) (test code = 8.0 GM/DL 11.2-15.7 L 410) HEMATOCRIT (BEAKER) (test code = 24.9 % 34.1-44.9 L 411) MEAN CORPUSCULAR VOLUME (BEAKER) 92.2 fL 79.4-94.8 (test code = 753) MEAN CORPUSCULAR HEMOGLOBIN 29.6 pg 25.6-32.2 (BEAKER) (test code = 751) MEAN CORPUSCULAR HEMOGLOBIN CONC 32.1 GM/DL 32.2-35.5 L (BEAKER) (test code = 752) RED CELL DISTRIBUTION WIDTH 16.2 % 11.7-14.4 H (BEAKER) (test code = 412) PLATELET COUNT (BEAKER) (test 108 K/CU MM 150-450 L code = 756) MEAN PLATELET VOLUME (BEAKER) 10.1 fL 9.4-12.3 (test code = 754) NUCLEATED RED BLOOD CELLS 0 /100 WBC 0-0 (BEAKER) (test code = 413) NEUTROPHILS RELATIVE PERCENT 87 % (BEAKER) (test code = 429) LYMPHOCYTES RELATIVE PERCENT 7 % (BEAKER) (test code = 430) MONOCYTES RELATIVE PERCENT 4 % (BEAKER) (test code = 431) EOSINOPHILS RELATIVE PERCENT 1 % (BEAKER) (test code = 432) BASOPHILS RELATIVE PERCENT 0 % (BEAKER) (test code = 437) NEUTROPHILS ABSOLUTE COUNT 12.59 K/ L 1.56-6.13 H (BEAKER) (test code = 670) LYMPHOCYTES ABSOLUTE COUNT 1.07 K/ L 1.18-3.74 L (BEAKER) (test code = 414) MONOCYTES ABSOLUTE COUNT (BEAKER) 0.61 K/ L 0.24-0.36 H (test code = 415) EOSINOPHILS ABSOLUTE COUNT 0.08 K/ L 0.04-0.36 (BEAKER) (test code = 416) BASOPHILS ABSOLUTE COUNT (BEAKER) 0.02 K/ L 0.01-0.08 (test code = 417) IMMATURE GRANULOCYTES-RELATIVE 1 % 0-1 PERCENT (BEAKER) (test code = 2801) [id number] 07:04:00 Test Item Value Reference Range Interpretation Comments MAGNESIUM (BEAKER) (test code = 2.1 mg/dL 1.6-2.6 627) Teletype Adjuster ID - [place] FBASIC METABOLIC [id number] 07:04:00 Test Item Value Reference Range Interpretation Comments SODIUM (BEAKER) 137 meq/L 136-145 (test code = 381) POTASSIUM (BEAKER) 4.6 meq/L 3.5-5.1 (test code = 379) CHLORIDE (BEAKER) 101 meq/L 98-107 (test code = 382) CO2 (BEAKER) (test 25 meq/L 22-29 code = 355) BLOOD UREA NITROGEN 55 mg/dL 7-21 H (BEAKER) (test code = 354) CREATININE (BEAKER) 1.53 mg/dL 0.57-1.25 H (test code = 358) GLUCOSE RANDOM 167 mg/dL 70-105 H (BEAKER) (test code = 652) CALCIUM (BEAKER) 8.5 mg/dL 8.4-10.2 (test code = 697) EGFR (BEAKER) (test 34 mL/min/1.73 ESTIMA TOSHIA GFR IS code = 1092) sq m NOT ACCURATE CREATININE CLEARANCE IN PREDICTING GLOMERULAR FILTRATION RATE . ESTIMATED GFR I S NOT APPLICABLE FOR DIALYSIS PATIEN TS. Teletype Adjuster ID - MARY FPOCT-GLUCOSE [id number] 23:43:00 Test Item Value Reference Range Interpretation Comments POC-GLUCOSE METER 176 mg/dL 70-110 H : TESTED A T [facility] 6720 (BEAKER) (test code = [place], 1538) 459[address]: Teletype Adjuster/Techni kylie ID = [id number] for Angel mesa Eduardo BODY FLUID CELL COUNT WITH [id number] 18:44:00 Test Item Value Reference Range Interpretation Comments APPEARANCE FLUID (BEAKER) Bloody Clear A (test code = 510) COLOR FLUID (BEAKER) (test Red Colorless, Straw A code = 511) RBC FLUID (BEAKER) (test 573553 /cu mm <=1 H code = 513) ADJUSTED WBC FLUID 476 /cu mm <=5 H (BEAKER) (test code = 1691) LINING CELLS (BEAKER) 14 /cu mm <=1 H (test code = 1590) NEUTROPHILS FLUID (BEAKER) 47 % (test code = 1656) LYMPHS FLUID (BEAKER) 37 % (test code = 488) MONO/MACROPHAGE FLUID 16 % (BEAKER) (test code = 489) EOSINOPHILS FLUID (BEAKER) 0 % (test code = 491) BASO FLUID (BEAKER) (test 0 % code = 492) CONTAINER BODY FLUID Sterile Container (BEAKER) (test code = 2873) BLOOD GAS, [id number] 18:06:00 Test Item Value Reference Range Interpretation Comments PH ARTERIAL (BEAKER) (test code = 7.45 7.35-7.45 383) PCO2 ARTERIAL (BEAKER) (test code 40 mmHg 35-45 = 384) PO2 ARTERIAL (BEAKER) (test code = 89 mmHg 80-90 385) O2 SATURATION ARTERIAL (BEAKER) 97.3 % 96.0-97.0 H (test code = 386) HCO3 ARTERIAL (BEAKER) (test code 28 mmol/L 21-29 = 388) BASE EXCESS ARTERIAL (BEAKER) 3.4 mmol/L -2.0-3.0 H (test code = 387) PATIENT TEMPERATURE (BEAKER) (test 36.5 C code = 1818) FIO2 (BEAKER) (test code = 1819) 28.0 % SODIUM NA-STAT [id number] 18:06:00 Test Item Value Reference Range Interpretation Comments SODIUM (BEAKER) (test code = 381) 138 meq/L 135-148 POTASSIUM-STAT [id number] 18:06:00 Test Item Value Reference Range Interpretation Comments POTASSIUM (BEAKER) (test code = 3.8 meq/L 3.6-5.5 379) GLUCOSE-STAT [id number] 18:06:00 Test Item Value Reference Range Interpretation Comments GLUCOSE RANDOM (BEAKER) (test code 149 mg/dL 70-110 H = 652) HGB/HCT (H&H) - STAT [id number] 18:06:00 Test Item Value Reference Range Interpretation Comments HEMOGLOBIN (BEAKER) (test code = 7.6 g/dL 12.0-15.0 L 410) HEMATOCRIT (BEAKER) (test code = 22.0 % 36.0-45.0 L 411) BASIC METABOLIC [id number] 17:37:00 Test Item Value Reference Range Interpretation Comments SODIUM (BEAKER) 136 meq/L 136-145 (test code = 381) POTASSIUM (BEAKER) 4.3 meq/L 3.5-5.1 Specimen slightly (test code = 379) hemolyzed CHLORIDE (BEAKER) 102 meq/L 98-107 (test code = 382) CO2 (BEAKER) (test 25 meq/L 22-29 code = 355) BLOOD UREA NITROGEN 57 mg/dL 7-21 H (BEAKER) (test code = 354) CREATININE (BEAKER) 1.38 mg/dL 0.57-1.25 H Specimen slightly (test code = 358) hemolyzed GLUCOSE RANDOM 167 mg/dL 70-105 H (BEAKER) (test code = 652) CALCIUM (BEAKER) 8.7 mg/dL 8.4-10.2 (test code = 697) EGFR (BEAKER) (test 38 mL/min/1.73 ESTIMA TOSHIA GFR IS code = 1092) sq m NOT ACCURATE CREATININE CLEARANCE IN PREDICTING GLOMERULAR FILTRATION RATE . ESTIMATED GFR I S NOT APPLICABLE FOR DIALYSIS PATIEN TS. Teletype Adjuster ID - DBRAD, CHEST, 1 VIEW, NON [id number] 17:00:00Reason for exam:- >Post thoracentesisShould this be performed at the bedside?->YesFINAL REPORT History: Status post thoracentesis Comparison: 0029 hours on 01/30/2020 Findings: Interval left-sided thoracentesis. No pneumothorax is identified. The previously visualized left pleural effusion is no longer identified. There are bilateral interstitial pulmonary opacities suggestive of interstitial edema. Airspace consolidation in the right upper lobe is unchanged. Small right pleural effusion is suspected. The cardiac shadow remains enlarged. Signed: Jose Alfredo Quinonez MDReport Verified Date/Time: 01/30/2020 17:00:24 Reading Location: [facility] Radiology Reading Room [id number] 14:52:00 Test Item Value Reference Range Interpretation Comments MAGNESIUM (BEAKER) (test code = 2.1 mg/dL 1.6-2.6 627) Teletype Adjuster ID - LARRY MCOMPREHENSIVE METABOLIC [id number] 14:52:00 Test Item Value Reference Range Interpretation Comments TOTAL PROTEIN 6.4 gm/dL 6.0-8.3 (BEAKER) (test code = 770) ALBUMIN (BEAKER) 2.9 g/dL 3.5-5.0 L (test code = 1145) ALKALINE PHOSPHATASE 77 U/L 40-150 (BEAKER) (test code = 346) BILIRUBIN TOTAL 0.8 mg/dL 0.2-1.2 (BEAKER) (test code = 377) SODIUM (BEAKER) (test 137 meq/L 136-145 code = 381) POTASSIUM (BEAKER) 4.2 meq/L 3.5-5.1 (test code = 379) CHLORIDE (BEAKER) 101 meq/L 98-107 (test code = 382) CO2 (BEAKER) (test 27 meq/L 22-29 code = 355) BLOOD UREA NITROGEN 58 mg/dL 7-21 H (BEAKER) (test code = 354) CREATININE (BEAKER) 1.51 mg/dL 0.57-1.25 H (test code = 358) GLUCOSE RANDOM 178 mg/dL 70-105 H (BEAKER) (test code = 652) CALCIUM (BEAKER) 9.1 mg/dL 8.4-10.2 (test code = 697) AST (SGOT) (BEAKER) 12 U/L 5-34 (test code = 353) ALT (SGPT) (BEAKER) 21 U/L 6-55 (test code = 347) EGFR (BEAKER) (test 34 mL/min/1.73 ESTIMA TOSHIA GFR IS code = 1092) sq m NOT ACCURATE CREATININE CLEARANCE IN PREDICTING GLOMERULAR FILTRATION RATE . ESTIMATED GFR I S NOT APPLICABLE FOR DIALYSIS PATIEN TS. Teletype Adjuster ID - LARRY MCBC W/PLT COUNT & AUTO [id number] 14:26:00 Test Item Value Reference Range Interpretation Comments WHITE BLOOD CELL COUNT (BEAKER) 13.1 K/ L 3.5-10.5 H (test code = 775) RED BLOOD CELL COUNT (BEAKER) 2.69 M/ L 3.93-5.22 L (test code = 761) HEMOGLOBIN (BEAKER) (test code = 8.0 GM/DL 11.2-15.7 L 410) HEMATOCRIT (BEAKER) (test code = 24.5 % 34.1-44.9 L 411) MEAN CORPUSCULAR VOLUME (BEAKER) 91.1 fL 79.4-94.8 (test code = 753) MEAN CORPUSCULAR HEMOGLOBIN 29.7 pg 25.6-32.2 (BEAKER) (test code = 751) MEAN CORPUSCULAR HEMOGLOBIN CONC 32.7 GM/DL 32.2-35.5 (BEAKER) (test code = 752) RED CELL DISTRIBUTION WIDTH 15.7 % 11.7-14.4 H (BEAKER) (test code = 412) PLATELET COUNT (BEAKER) (test 113 K/CU MM 150-450 L code = 756) MEAN PLATELET VOLUME (BEAKER) 9.6 fL 9.4-12.3 (test code = 754) NUCLEATED RED BLOOD CELLS 0 /100 WBC 0-0 (BEAKER) (test code = 413) NEUTROPHILS RELATIVE PERCENT 85 % (BEAKER) (test code = 429) LYMPHOCYTES RELATIVE PERCENT 9 % (BEAKER) (test code = 430) MONOCYTES RELATIVE PERCENT 4 % (BEAKER) (test code = 431) EOSINOPHILS RELATIVE PERCENT 0 % (BEAKER) (test code = 432) BASOPHILS RELATIVE PERCENT 0 % (BEAKER) (test code = 437) NEUTROPHILS ABSOLUTE COUNT 11.21 K/ L 1.56-6.13 H (BEAKER) (test code = 670) LYMPHOCYTES ABSOLUTE COUNT 1.17 K/ L 1.18-3.74 L (BEAKER) (test code = 414) MONOCYTES ABSOLUTE COUNT (BEAKER) 0.51 K/ L 0.24-0.36 H (test code = 415) EOSINOPHILS ABSOLUTE COUNT 0.05 K/ L 0.04-0.36 (BEAKER) (test code = 416) BASOPHILS ABSOLUTE COUNT (BEAKER) 0.02 K/ L 0.01-0.08 (test code = 417) IMMATURE GRANULOCYTES-RELATIVE 1 % 0-1 PERCENT (BEAKER) (test code = 2801) LACTIC ACID, [id number] 14:23:00 Test Item Value Reference Range Interpretation Comments LACTATE BLOOD ARTERIAL (2) 0.6 mmol/L 0.5-2.2 (BEAKER) (test code = 2874) Teletype Adjuster ID - LARRY [id number] 14:22:00 Test Item Value Reference Range Interpretation Comments PARTIAL THROMBOPLASTIN TIME 45.2 seconds 22.5-36.0 H (BEAKER) (test code = 760) PROTHROMBIN [id number] 14:21:00 Test Item Value Reference Range Interpretation Comments PROTIME (BEAKER) (test code = 15.8 seconds 11.9-14.2 H 759) INR (BEAKER) (test code = 370) 1.3 <=5.9 Effective 04/18/2019: PT Reference Range ChangeNew: 11.9-14.2 Previous: 11.7- 14.7RECOMMENDED COUMADIN/WARFARIN INR THERAPY RANGESSTANDARD DOSE: 2.0-3.0 Includes: PROPHYLAXIS for venous thrombosis, systemic embolization; TREATMENT for venous thrombosis and/or pulmonary embolus.HIGH RISK: Target INR is2.5-3.5 for patients wiht mechanical heart valves.BLOOD GAS, [id number] 14:19:00 Test Item Value Reference Range Interpretation Comments PH ARTERIAL (BEAKER) (test code = 7.43 7.35-7.45 383) PCO2 ARTERIAL (BEAKER) (test code 43 mmHg 35-45 = 384) PO2 ARTERIAL (BEAKER) (test code = 61 mmHg 80-90 L 385) O2 SATURATION ARTERIAL (BEAKER) 93.0 % 96.0-97.0 L (test code = 386) HCO3 ARTERIAL (BEAKER) (test code 28 mmol/L 21-29 = 388) BASE EXCESS ARTERIAL (BEAKER) 2.6 mmol/L -2.0-3.0 (test code = 387) PATIENT TEMPERATURE (BEAKER) (test 36.0 C code = 1818) FIO2 (BEAKER) (test code = 1819) 28.0 % BLOOD GAS, [id number] 14:19:00 Test Item Value Reference Range Interpretation Comments PH ARTERIAL (BEAKER) (test code = 7.43 7.35-7.45 383) PCO2 ARTERIAL (BEAKER) (test code 41 mmHg 35-45 = 384) PO2 ARTERIAL (BEAKER) (test code = 62 mmHg 80-90 L 385) O2 SATURATION ARTERIAL (BEAKER) 93.4 % 96.0-97.0 L (test code = 386) HCO3 ARTERIAL (BEAKER) (test code 27 mmol/L 21-29 = 388) BASE EXCESS ARTERIAL (BEAKER) 1.9 mmol/L -2.0-3.0 (test code = 387) PATIENT TEMPERATURE (BEAKER) (test 36.0 C code = 1818) FIO2 (BEAKER) (test code = 1819) 28.0 % BLOOD GAS, [id number] 13:12:00 Test Item Value Reference Range Interpretation Comments PH ARTERIAL (BEAKER) (test code = 7.39 7.35-7.45 383) PCO2 ARTERIAL (BEAKER) (test code 49 mmHg 35-45 H = 384) PO2 ARTERIAL (BEAKER) (test code = 187 mmHg 80-90 H 385) O2 SATURATION ARTERIAL (BEAKER) 99.3 % 96.0-97.0 H (test code = 386) HCO3 ARTERIAL (BEAKER) (test code 29 mmol/L 21-29 = 388) BASE EXCESS ARTERIAL (BEAKER) 3.5 mmol/L -2.0-3.0 H (test code = 387) PATIENT TEMPERATURE (BEAKER) (test 37.0 C code = 1818) FIO2 (BEAKER) (test code = 1819) 28.0 % GLUCOSE-STAT [id number] 13:12:00 Test Item Value Reference Range Interpretation Comments GLUCOSE RANDOM (BEAKER) (test code 179 mg/dL 70-110 H = 652) HGB/HCT (H&H) - STAT [id number] 13:12:00 Test Item Value Reference Range Interpretation Comments HEMOGLOBIN (BEAKER) (test code = 7.5 g/dL 12.0-15.0 L 410) HEMATOCRIT (BEAKER) (test code = 22.0 % 36.0-45.0 L 411) CALCIUM, [id number] 13:12:00 Test Item Value Reference Range Interpretation Comments CALCIUM IONIZED (BEAKER) (test 1.17 mmol/L 1.12-1.27 code = 698) PH, BLOOD (BEAKER) (test code = 7.39 1810) SODIUM NA-STAT [id number] 13:10:00 Test Item Value Reference Range Interpretation Comments SODIUM (BEAKER) (test code = 381) 135 meq/L 135-148 POTASSIUM-STAT [id number] 13:10:00 Test Item Value Reference Range Interpretation Comments POTASSIUM (BEAKER) (test code = 4.1 meq/L 3.6-5.5 379) POCT-GLUCOSE [id number] 11:01:00 Test Item Value Reference Range Interpretation Comments POC-GLUCOSE METER 170 mg/dL 70-110 H : TESTED A T [facility] 6720 (BEAKER) (test code = [place], 153) [address]: Teletype Adjuster/Techni kylie ID = [id number] for Ana Cedeno POCT-GLUCOSE [id number] 08:06:00 Test Item Value Reference Range Interpretation Comments POC-GLUCOSE METER 168 mg/dL 70-110 H : TESTED A T [facility] 6720 (BEAKER) (test code = [place], 1538) [address]: Teletype Adjuster/Techni kylie ID = [id number] for CORAZON YOUNG [id number] 06:17:00 Test Item Value Reference Range Interpretation Comments MAGNESIUM (BEAKER) (test code = 2.2 mg/dL 1.6-2.6 627) Teletype Adjuster ID - LARRY MBASIC METABOLIC [id number] 06:17:00 Test Item Value Reference Range Interpretation Comments SODIUM (BEAKER) 136 meq/L 136-145 (test code = 381) POTASSIUM (BEAKER) 4.2 meq/L 3.5-5.1 (test code = 379) CHLORIDE (BEAKER) 100 meq/L 98-107 (test code = 382) CO2 (BEAKER) (test 29 meq/L 22-29 code = 355) BLOOD UREA NITROGEN 59 mg/dL 7-21 H (BEAKER) (test code = 354) CREATININE (BEAKER) 1.50 mg/dL 0.57-1.25 H (test code = 358) GLUCOSE RANDOM 167 mg/dL 70-105 H (BEAKER) (test code = 652) CALCIUM (BEAKER) 8.5 mg/dL 8.4-10.2 (test code = 697) EGFR (BEAKER) (test 35 mL/min/1.73 ESTIMA TOSHIA GFR IS code = 1092) sq m NOT ACCURATE CREATININE CLEARANCE IN PREDICTING GLOMERULAR FILTRATION RATE . ESTIMATED GFR I S NOT APPLICABLE FOR DIALYSIS PATIEN TS. Teletype Adjuster ID - LARRY MCBC W/PLT COUNT & AUTO [id number] 05:22:00 Test Item Value Reference Range Interpretation Comments WHITE BLOOD CELL COUNT (BEAKER) 13.0 K/ L 3.5-10.5 H (test code = 775) RED BLOOD CELL COUNT (BEAKER) 2.42 M/ L 3.93-5.22 L (test code = 761) HEMOGLOBIN (BEAKER) (test code = 6.9 GM/DL 11.2-15.7 L 410) HEMATOCRIT (BEAKER) (test code = 22.2 % 34.1-44.9 L 411) MEAN CORPUSCULAR VOLUME (BEAKER) 91.7 fL 79.4-94.8 (test code = 753) MEAN CORPUSCULAR HEMOGLOBIN 28.5 pg 25.6-32.2 (BEAKER) (test code = 751) MEAN CORPUSCULAR HEMOGLOBIN CONC 31.1 GM/DL 32.2-35.5 L (BEAKER) (test code = 752) RED CELL DISTRIBUTION WIDTH 16.1 % 11.7-14.4 H (BEAKER) (test code = 412) PLATELET COUNT (BEAKER) (test 116 K/CU MM 150-450 L code = 756) MEAN PLATELET VOLUME (BEAKER) 10.2 fL 9.4-12.3 (test code = 754) NUCLEATED RED BLOOD CELLS 0 /100 WBC 0-0 (BEAKER) (test code = 413) NEUTROPHILS RELATIVE PERCENT 85 % (BEAKER) (test code = 429) LYMPHOCYTES RELATIVE PERCENT 10 % (BEAKER) (test code = 430) MONOCYTES RELATIVE PERCENT 4 % (BEAKER) (test code = 431) EOSINOPHILS RELATIVE PERCENT 0 % (BEAKER) (test code = 432) BASOPHILS RELATIVE PERCENT 0 % (BEAKER) (test code = 437) NEUTROPHILS ABSOLUTE COUNT 11.12 K/ L 1.56-6.13 H (BEAKER) (test code = 670) LYMPHOCYTES ABSOLUTE COUNT 1.25 K/ L 1.18-3.74 (BEAKER) (test code = 414) MONOCYTES ABSOLUTE COUNT (BEAKER) 0.47 K/ L 0.24-0.36 H (test code = 415) EOSINOPHILS ABSOLUTE COUNT 0.04 K/ L 0.04-0.36 (BEAKER) (test code = 416) BASOPHILS ABSOLUTE COUNT (BEAKER) 0.02 K/ L 0.01-0.08 (test code = 417) IMMATURE GRANULOCYTES-RELATIVE 1 % 0-1 PERCENT (BEAKER) (test code = 2801) RAD, CHEST, 1 VIEW, NON [id number] 04:45:00Reason for exam:->Pulmonary edema evalShould this be performed at the bedside?->YesFINAL REPORT RAD, CHEST, 1 VIEW, NON DEPT INDICATION: Pulmonary edema eval COM PARISON: Prior day's exam FINDINGS: Portable frontal view of the chest. IMPRESSION: Support Lines: None Lungs and pleura: Unchanged moderate left pleural effusion with adjacent airspace disease and right midlung hazy opacity. No new airspace consolidation. No pneumothorax.Heart and mediastinum: Stable contours. Stable surgical changes.Additional findings: None. Signed: Bettina Mclean MDReport Verified Date/Time: 01/30/2020 04:45:39 BASIC METABOLIC PANEL 2020-01-29 22:45:00 Test Item Value Reference Range Interpretation Comments SODIUM (BEAKER) 135 meq/L 136-145 L (test code = 381) POTASSIUM (BEAKER) 4.2 meq/L 3.5-5.1 (test code = 379) CHLORIDE (BEAKER) 97 meq/L 98-107 L (test code = 382) CO2 (BEAKER) (test 28 meq/L 22-29 code = 355) BLOOD UREA NITROGEN 61 mg/dL 7-21 H (BEAKER) (test code = 354) CREATININE (BEAKER) 1.61 mg/dL 0.57-1.25 H (test code = 358) GLUCOSE RANDOM 201 mg/dL 70-105 H (BEAKER) (test code = 652) CALCIUM (BEAKER) 8.7 mg/dL 8.4-10.2 (test code = 697) EGFR (BEAKER) (test 32 mL/min/1.73 ESTIMA TOSHIA GFR IS code = 1092) sq m NOT ACCURATE CREATININE CLEARANCE IN PREDICTING GLOMERULAR FILTRATION RATE . ESTIMATED GFR I S NOT APPLICABLE FOR DIALYSIS PATIEN TS. Teletype Adjuster ID - DBPOCT-GLUCOSE [id number] 21:24:00 Test Item Value Reference Range Interpretation Comments POC-GLUCOSE METER 185 mg/dL 70-110 H : TESTED A T [facility] 6720 (BEAKER) (test code = [facility] [employer] [facility], 1538) [id number]: Teletype Adjuster/Techni kylie ID = [id number] for BERNICE MANN POCT-GLUCOSE [id number] 17:05:00 Test Item Value Reference Range Interpretation Comments POC-GLUCOSE METER 192 mg/dL 70-110 H : TESTED A T [facility] 6720 (BEAKER) (test code = [facility] [employer] [facility], 1538) [id number]: Teletype Adjuster/Techni kylie ID = [id number] for TA MERYBAKARI GILBERT POCT-GLUCOSE [id number] 13:09:00 Test Item Value Reference Range Interpretation Comments POC-GLUCOSE METER 241 mg/dL 70-110 H : TESTED A T [facility] 6720 (BEAKER) (test code = [facility] [employer] [facility], 1538) [id number]: Teletype Adjuster/Techni kylie ID = [id number] for OR CYNTHIA KEITH RAD, CHEST, 1 VIEW, NON [id number] 08:05:00Reason for exam:->Pulmonary edema evalShould this be performed at the bedside?->YesFINAL REPORT RAD, CHEST, 1 VIEW, NON DEPT INDICATION: Pulmonary edema eval COM PARISON: Prior day's exam FINDINGS: Portable frontal view of the chest. IMPRESSION: Support Lines: Stable. Lungs and pleura: Unchanged airspace and pleural opacities. No pneumothorax.Heart and mediastinum: Stable contours. Stable surgical changes.Additional findings: None. Signed: Shellie Clark MD Report Verified Date/Time: 01/29/2020 08:05:17 Reading Location: [facility] Radiology Reading Room POCT-GLUCOSE [id number] 07:40:00 Test Item Value Reference Range Interpretation Comments POC-GLUCOSE METER 209 mg/dL 70-110 H : TESTED A T [facility] 6720 (BEAKER) (test [facility] = [facility], 1538) [id number]: Teletype Adjuster/Techni kylie ID = [id number] for RACHEL STEEN [id number] 06:53:00 Test Item Value Reference Range Interpretation Comments PHOSPHORUS (BEAKER) (test code = 3.5 mg/dL 2.3-4.7 604) Teletype Adjuster ID - LARRY [id number] 06:53:00 Test Item Value Reference Range Interpretation Comments MAGNESIUM (BEAKER) (test code = 2.0 mg/dL 1.6-2.6 627) Teletype Adjuster ID - LARRY [facility] W/PLT COUNT & AUTO [id number] 06:45:00 Test Item Value Reference Range Interpretation Comments WHITE BLOOD CELL COUNT (BEAKER) 14.2 K/ L 3.5-10.5 H (test code = 775) RED BLOOD CELL COUNT (BEAKER) 2.45 M/ L 3.93-5.22 L (test code = 761) HEMOGLOBIN (BEAKER) (test code = 7.0 GM/DL 11.2-15.7 L 410) HEMATOCRIT (BEAKER) (test code = 22.5 % 34.1-44.9 L 411) MEAN CORPUSCULAR VOLUME (BEAKER) 91.8 fL 79.4-94.8 (test code = 753) MEAN CORPUSCULAR HEMOGLOBIN 28.6 pg 25.6-32.2 (BEAKER) (test code = 751) MEAN CORPUSCULAR HEMOGLOBIN CONC 31.1 GM/DL 32.2-35.5 L (BEAKER) (test code = 752) RED CELL DISTRIBUTION WIDTH 16.0 % 11.7-14.4 H (BEAKER) (test code = 412) PLATELET COUNT (BEAKER) (test 123 K/CU MM 150-450 L code = 756) MEAN PLATELET VOLUME (BEAKER) 10.2 fL 9.4-12.3 (test code = 754) NUCLEATED RED BLOOD CELLS 0 /100 WBC 0-0 (BEAKER) (test code = 413) NEUTROPHILS RELATIVE PERCENT 88 % (BEAKER) (test code = 429) LYMPHOCYTES RELATIVE PERCENT 8 % (BEAKER) (test code = 430) MONOCYTES RELATIVE PERCENT 3 % (BEAKER) (test code = 431) EOSINOPHILS RELATIVE PERCENT 0 % (BEAKER) (test code = 432) BASOPHILS RELATIVE PERCENT 0 % (BEAKER) (test code = 437) NEUTROPHILS ABSOLUTE COUNT 12.42 K/ L 1.56-6.13 H (BEAKER) (test code = 670) LYMPHOCYTES ABSOLUTE COUNT 1.13 K/ L 1.18-3.74 L (BEAKER) (test code = 414) MONOCYTES ABSOLUTE COUNT (BEAKER) 0.46 K/ L 0.24-0.36 H (test code = 415) EOSINOPHILS ABSOLUTE COUNT 0.03 K/ L 0.04-0.36 L (BEAKER) (test code = 416) BASOPHILS ABSOLUTE COUNT (BEAKER) 0.02 K/ L 0.01-0.08 (test code = 417) IMMATURE GRANULOCYTES-RELATIVE 1 % 0-1 PERCENT (BEAKER) (test code = 280) B-TYPE NATRIURETIC FACTOR (BNP)2020-01-29 06:28:00 Test Item Value Reference Range Interpretation Comments B-TYPE NATRIURETIC PEPTIDE (BEAKER) 276 pg/mL 0-100 H (test code = 700) Teletype Adjuster ID - LARRY MCALCIUM, [id number] 06:02:00 Test Item Value Reference Range Interpretation Comments CALCIUM IONIZED (BEAKER) (test 1.03 mmol/L 1.12-1.27 L code = 698) PH, BLOOD (BEAKER) (test code = 7.46 1810) BASIC METABOLIC [id number] 22:40:00 Test Item Value Reference Range Interpretation Comments SODIUM (BEAKER) 136 meq/L 136-145 (test code = 381) POTASSIUM (BEAKER) 3.8 meq/L 3.5-5.1 (test code = 379) CHLORIDE (BEAKER) 99 meq/L 98-107 (test code = 382) CO2 (BEAKER) (test 26 meq/L 22-29 code = 355) BLOOD UREA NITROGEN 54 mg/dL 7-21 H (BEAKER) (test code = 354) CREATININE (BEAKER) 1.40 mg/dL 0.57-1.25 H (test code = 358) GLUCOSE RANDOM 174 mg/dL 70-105 H (BEAKER) (test code = 652) CALCIUM (BEAKER) 8.4 mg/dL 8.4-10.2 (test code = 697) EGFR (BEAKER) (test 38 mL/min/1.73 ESTIMA TOSHIA GFR IS code = 1092) sq m NOT ACCURATE CREATININE CLEARANCE IN PREDICTING GLOMERULAR FILTRATION RATE . ESTIMATED GFR I S NOT APPLICABLE FOR DIALYSIS PATIEN TS. Teletype Adjuster ID - BSPOCT-GLUCOSE [id number] 21:05:00 Test Item Value Reference Range Interpretation Comments POC-GLUCOSE METER 168 mg/dL 70-110 H : TESTED A T [facility] 6720 (BEAKER) (test code = [facility], 1538) 44645: Teletype Adjuster/Techni kylie ID = [id number] for PI TTS, BERNICE POCT-GLUCOSE [id number] 17:35:00 Test Item Value Reference Range Interpretation Comments POC-GLUCOSE METER 200 mg/dL 70-110 H : TESTED A T [facility] 6720 (BEAKER) (test code = [facility], 1538) 15730: Teletype Adjuster/Techni kylie ID = [id number] for OL MOS, RAMON POCT-GLUCOSE [id number] 12:52:00 Test Item Value Reference Range Interpretation Comments POC-GLUCOSE METER 190 mg/dL 70-110 H : [facility] ([facility] (test code = [place], 1538) 81876: Teletype Adjuster/Techni kylie ID = [id number] for JEFFERY ERAZO [id number] 08:31:00 Test Item Value Reference Range Interpretation Comments MAGNESIUM (BEAKER) (test code = 2.1 mg/dL 1.6-2.6 627) Teletype Adjuster ID - PIAYA LCOMPREHENSIVE METABOLIC [id number] 08:31:00 Test Item Value Reference Range Interpretation Comments TOTAL PROTEIN 6.5 gm/dL 6.0-8.3 (BEAKER) (test code = 770) ALBUMIN (BEAKER) 3.1 g/dL 3.5-5.0 L (test code = 1145) ALKALINE PHOSPHATASE 72 U/L 40-150 (BEAKER) (test code = 346) BILIRUBIN TOTAL 0.7 mg/dL 0.2-1.2 (BEAKER) (test code = 377) SODIUM (BEAKER) (test 135 meq/L 136-145 L code = 381) POTASSIUM (BEAKER) 3.9 meq/L 3.5-5.1 (test code = 379) CHLORIDE (BEAKER) 99 meq/L 98-107 (test code = 382) CO2 (BEAKER) (test 25 meq/L 22-29 code = 355) BLOOD UREA NITROGEN 52 mg/dL 7-21 H (BEAKER) (test code = 354) CREATININE (BEAKER) 1.32 mg/dL 0.57-1.25 H (test code = 358) GLUCOSE RANDOM 210 mg/dL 70-105 H (BEAKER) (test code = 652) CALCIUM (BEAKER) 8.6 mg/dL 8.4-10.2 (test code = 697) AST (SGOT) (BEAKER) 11 U/L 5-34 (test code = 353) ALT (SGPT) (BEAKER) 28 U/L 6-55 (test code = 347) EGFR (BEAKER) (test 40 mL/min/1.73 ESTIMA TOSHIA GFR IS code = 1092) sq m NOT ACCURATE CREATININE CLEARANCE IN PREDICTING GLOMERULAR FILTRATION RATE . ESTIMATED GFR I S NOT APPLICABLE FOR DIALYSIS PATIEN TS. Teletype Adjuster ID - PIAYA LPOCT-GLUCOSE [id number] 08:22:00 Test Item Value Reference Range Interpretation Comments POC-GLUCOSE METER 191 mg/dL 70-110 H : TESTED [facility] 6720 (BEAKER) (test code = [facility] [place], 1538) 29279: Teletype Adjuster/Techni kylie ID = [id number] for JEFFERY ERAZO CBC W/PLT COUNT & AUTO [id number] 08:21:00 Test Item Value Reference Range Interpretation Comments WHITE BLOOD CELL COUNT (BEAKER) 15.3 K/ L 3.5-10.5 H (test code = 775) RED BLOOD CELL COUNT (BEAKER) 2.65 M/ L 3.93-5.22 L (test code = 761) HEMOGLOBIN (BEAKER) (test code = 7.6 GM/DL 11.2-15.7 L 410) HEMATOCRIT (BEAKER) (test code = 24.3 % 34.1-44.9 L 411) MEAN CORPUSCULAR VOLUME (BEAKER) 91.7 fL 79.4-94.8 (test code = 753) MEAN CORPUSCULAR HEMOGLOBIN 28.7 pg 25.6-32.2 (BEAKER) (test code = 751) MEAN CORPUSCULAR HEMOGLOBIN CONC 31.3 GM/DL 32.2-35.5 L (BEAKER) (test code = 752) RED CELL DISTRIBUTION WIDTH 16.0 % 11.7-14.4 H (BEAKER) (test code = 412) PLATELET COUNT (BEAKER) (test 144 K/CU MM 150-450 L code = 756) MEAN PLATELET VOLUME (BEAKER) 10.1 fL 9.4-12.3 (test code = 754) NUCLEATED RED BLOOD CELLS 0 /100 WBC 0-0 (BEAKER) (test code = 413) NEUTROPHILS RELATIVE PERCENT 88 % (BEAKER) (test code = 429) LYMPHOCYTES RELATIVE PERCENT 7 % (BEAKER) (test code = 430) MONOCYTES RELATIVE PERCENT 4 % (BEAKER) (test code = 431) EOSINOPHILS RELATIVE PERCENT 0 % (BEAKER) (test code = 432) BASOPHILS RELATIVE PERCENT 0 % (BEAKER) (test code = 437) NEUTROPHILS ABSOLUTE COUNT 13.48 K/ L 1.56-6.13 H (BEAKER) (test code = 670) LYMPHOCYTES ABSOLUTE COUNT 1.05 K/ L 1.18-3.74 L (BEAKER) (test code = 414) MONOCYTES ABSOLUTE COUNT (BEAKER) 0.54 K/ L 0.24-0.36 H (test code = 415) EOSINOPHILS ABSOLUTE COUNT 0.06 K/ L 0.04-0.36 (BEAKER) (test code = 416) BASOPHILS ABSOLUTE COUNT (BEAKER) 0.02 K/ L 0.01-0.08 (test code = 417) IMMATURE GRANULOCYTES-RELATIVE 1 % 0-1 PERCENT (BEAKER) (test code = 2801) RAD, CHEST, 1 VIEW, NON [id number] 08:06:00Reason for exam:->Pulmonary edema evalShould this be performed at the bedside?->YesFINAL REPORT RAD, CHEST, 1 VIEW, NON DEPT INDICATION: Pulmonary edema eval COM PARISON: Prior day's exam FINDINGS: Portable frontal view of the chest. IMPRESSION: Support Lines: Right IJ catheter has been removed Lungs and pleura: Unchanged airspace and pleural opacities. No pneumothorax.Heart and mediastinum: Stable contours. Stable surgical changes.Additional findings: None. Signed: Shellie Clark Verified Date/Time: 01/28/2020 08:06:18 Reading Location: [facility] Radiology Reading Room POCT-GLUCOSE [id number] 22:12:00 Test Item Value Reference Range Interpretation Comments POC-GLUCOSE METER 216 mg/dL 70-110 H : [facility] ([facility]ER[facility] (test code = [facility], 1538) 23028: Teletype Adjuster/Techni kylie ID = [id number] for DO KEYJOSE LUIS LEON [id number] 21:25:00 Test Item Value Reference Range Interpretation Comments MAGNESIUM (BEAKER) 2.1 mg/dL 1.6-2.6 Specimen slightly (test code = 627) hemolyzed Teletype Adjuster ID - DBWhile on bumex gttBASIC METABOLIC [id number] 21:25:00 Test Item Value Reference Range Interpretation Comments SODIUM (BEAKER) 135 meq/L 136-145 L (test code = 381) POTASSIUM (BEAKER) 4.2 meq/L 3.5-5.1 Specimen slightly (test code = 379) hemolyzed CHLORIDE (BEAKER) 100 meq/L 98-107 (test code = 382) CO2 (BEAKER) (test 25 meq/L 22-29 code = 355) BLOOD UREA NITROGEN 55 mg/dL 7-21 H (BEAKER) (test code = 354) CREATININE (BEAKER) 1.34 mg/dL 0.57-1.25 H Specimen slightly (test code = 358) hemolyzed GLUCOSE RANDOM 233 mg/dL 70-105 H (BEAKER) (test code = 652) CALCIUM (BEAKER) 8.6 mg/dL 8.4-10.2 (test code = 697) EGFR (BEAKER) (test 39 mL/min/1.73 ESTIMA TOSHIA GFR IS code = 1092) sq m NOT ACCURATE CREATININE CLEARANCE IN PREDICTING GLOMERULAR FILTRATION RATE . ESTIMATED GFR I S NOT APPLICABLE FOR DIALYSIS PATIEN TS. Teletype Adjuster ID - DBWhile on bumex gttHEMOGLOBIN AND [id number] 21:10:00 Test Item Value Reference Range Interpretation Comments HEMOGLOBIN (BEAKER) (test code = 7.7 GM/DL 11.2-15.7 L 410) HEMATOCRIT (BEAKER) (test code = 24.2 % 34.1-44.9 L 411) Teletype Adjuster ID - 6000POCT-GLUCOSE [id number] 17:06:00 Test Item Value Reference Range Interpretation Comments POC-GLUCOSE METER 168 mg/dL 70-110 H : TESTED A T [facility] 6720 (BEAKER) (test code = [facility], 1538) 12000: Teletype Adjuster/Techni kylie ID = [id number] for JOAQUINA Kendal ROSA POCT-GLUCOSE [id number] 13:42:00 Test Item Value Reference Range Interpretation Comments POC-GLUCOSE METER 150 mg/dL 70-110 H : TESTED A T [facility] 6720 (BEAKER) (test code = [facility], 1538) 90751: Teletype Adjuster/Techni kylie ID = [id number] for NORA CALLAWAY [id number] 12:10:00 Test Item Value Reference Range Interpretation Comments MAGNESIUM (BEAKER) (test code = 2.3 mg/dL 1.6-2.6 627) Teletype Adjuster ID - CRIS Carlson on bumex gttBASIC METABOLIC [id number] 12:10:00 Test Item Value Reference Range Interpretation Comments SODIUM (BEAKER) 133 meq/L 136-145 L (test code = 381) POTASSIUM (BEAKER) 3.9 meq/L 3.5-5.1 (test code = 379) CHLORIDE (BEAKER) 99 meq/L 98-107 (test code = 382) CO2 (BEAKER) (test 23 meq/L 22-29 code = 355) BLOOD UREA NITROGEN 53 mg/dL 7-21 H (BEAKER) (test code = 354) CREATININE (BEAKER) 1.30 mg/dL 0.57-1.25 H (test code = 358) GLUCOSE RANDOM 219 mg/dL 70-105 H (BEAKER) (test code = 652) CALCIUM (BEAKER) 8.4 mg/dL 8.4-10.2 (test code = 697) EGFR (BEAKER) (test 41 mL/min/1.73 ESTIMA TOSHIA GFR IS code = 1092) sq m NOT ACCURATE CREATININE CLEARANCE IN PREDICTING GLOMERULAR FILTRATION RATE . ESTIMATED GFR I S NOT APPLICABLE FOR DIALYSIS PATIEN TS. Teletype Adjuster ID - CRIS Carlson on bumex gttPOCT-GLUCOSE [id number] 11:53:00 Test Item Value Reference Range Interpretation Comments POC-GLUCOSE METER 209 mg/dL 70-110 H : TESTED A T [facility] 6720 ([employer]) (test code = [place], 1538) 49018: Teletype Adjuster/Techni kylie ID = [id number] for JOAQUINA Kendal ROSA OXYGEN SATURATION, [id number] 11:28:00 Test Item Value Reference Range Interpretation Comments O2 SATURATION (MEASURED) (BEAKER) 52.1 % (test code = 1455) POCT-GLUCOSE [id number] 08:08:00 Test Item Value Reference Range Interpretation Comments POC-GLUCOSE METER 164 mg/dL 70-110 H : TESTED A T [facility] 6720 (BEAKER) (test code = [employer] [facility], 1538) 10288: Teletype Adjuster/Techni kylie ID = [id number] for JOAQUINA ROSA Edmonds RAD, CHEST, 1 VIEW, NON [id number] 05:55:00Reason for exam:->Pulmonary edema evalShould this be performed at the bedside?->YesFINAL REPORT RAD, CHEST, 1 VIEW, NON DEPT INDICATION: Pulmonary edema eval COM PARISON: Exam from 11 hours prior FINDINGS: Portable frontal view of the chest. IMPRESSION: Support Lines: Stable. Lungs and pleura: Improved right basilar aeration. Otherwise, unchanged bilateral airspace opacities and small pleural effusion. No new consolidation. No pneumothorax.Heart and mediastinum: Stable contours. Stable surgical changes.Additional findings: None. Signed: Bettina Mclean MDReport Verified Date/Time: 01/27/2020 05:55:02 [id number] 04:55:00 Test Item Value Reference Range Interpretation Comments MAGNESIUM (BEAKER) 2.2 mg/dL 1.6-2.6 Specimen slightly (test code = 627) hemolyzed Teletype Adjuster ID - PIAYA [id number] 04:55:00 Test Item Value Reference Range Interpretation Comments PHOSPHORUS (BEAKER) 3.5 mg/dL 2.3-4.7 Specimen slightly (test code = 604) hemolyzed Teletype Adjuster ID - PIAYA LCOMPREHENSIVE METABOLIC [id number] 04:55:00 Test Item Value Reference Range Interpretation Comments TOTAL PROTEIN 6.0 gm/dL 6.0-8.3 Specimen sligh tly (BEAKER) (test code = hemoly zed 770) ALBUMIN (BEAKER) 2.9 g/dL 3.5-5.0 L Specimen sl ightly (test code = 1145) hemolyzed ALKALINE PHOSPHATASE 66 U/L 40-150 (BEAKER) (test code = 346) BILIRUBIN TOTAL 0.5 mg/dL 0.2-1.2 Specimen sli ghtly (BEAKER) (test code = hemoly zed 377) SODIUM (BEAKER) (test 134 meq/L 136-145 L code = 381) POTASSIUM (BEAKER) 4.1 meq/L 3.5-5.1 Specimen slightly (test code = 379) hemolyzed CHLORIDE (BEAKER) 101 meq/L 98-107 (test code = 382) CO2 (BEAKER) (test 25 meq/L 22-29 code = 355) BLOOD UREA NITROGEN 48 mg/dL 7-21 H (BEAKER) (test code = 354) CREATININE (BEAKER) 1.30 mg/dL 0.57-1.25 H Specimen slightly (test code = 358) hemolyzed GLUCOSE RANDOM 188 mg/dL 70-105 H (BEAKER) (test code = 652) CALCIUM (BEAKER) 8.5 mg/dL 8.4-10.2 (test code = 697) AST (SGOT) (BEAKER) 16 U/L 5-34 Specimen slightly (test code = 353) hemolyzed ALT (SGPT) (BEAKER) 32 U/L 6-55 Specimen slightly (test code = 347) hemolyzed EGFR (BEAKER) (test 41 mL/min/1.73 ESTIMA TOSHIA GFR IS code = 1092) sq m NOT ACCURATE CREATININE CLEARANCE IN PREDICTING GLOMERULAR FILTRATION RATE . ESTIMATED GFR I S NOT APPLICABLE FOR DIALYSIS PATIEN TS. Teletype Adjuster ID - PIAYA LCBC W/PLT COUNT & AUTO [id number] 04:30:00 Test Item Value Reference Range Interpretation Comments WHITE BLOOD CELL COUNT (BEAKER) 14.3 K/ L 3.5-10.5 H (test code = 775) RED BLOOD CELL COUNT (BEAKER) 2.48 M/ L 3.93-5.22 L (test code = 761) HEMOGLOBIN (BEAKER) (test code = 7.3 GM/DL 11.2-15.7 L 410) HEMATOCRIT (BEAKER) (test code = 22.4 % 34.1-44.9 L 411) MEAN CORPUSCULAR VOLUME (BEAKER) 90.3 fL 79.4-94.8 (test code = 753) MEAN CORPUSCULAR HEMOGLOBIN 29.4 pg 25.6-32.2 (BEAKER) (test code = 751) MEAN CORPUSCULAR HEMOGLOBIN CONC 32.6 GM/DL 32.2-35.5 (BEAKER) (test code = 752) RED CELL DISTRIBUTION WIDTH 16.0 % 11.7-14.4 H (BEAKER) (test code = 412) PLATELET COUNT (BEAKER) (test 121 K/CU MM 150-450 L code = 756) MEAN PLATELET VOLUME (BEAKER) 10.1 fL 9.4-12.3 (test code = 754) NUCLEATED RED BLOOD CELLS 0 /100 WBC 0-0 (BEAKER) (test code = 413) NEUTROPHILS RELATIVE PERCENT 87 % (BEAKER) (test code = 429) LYMPHOCYTES RELATIVE PERCENT 9 % (BEAKER) (test code = 430) MONOCYTES RELATIVE PERCENT 4 % (BEAKER) (test code = 431) EOSINOPHILS RELATIVE PERCENT 0 % (BEAKER) (test code = 432) BASOPHILS RELATIVE PERCENT 0 % (BEAKER) (test code = 437) NEUTROPHILS ABSOLUTE COUNT 12.40 K/ L 1.56-6.13 H (BEAKER) (test code = 670) LYMPHOCYTES ABSOLUTE COUNT 1.24 K/ L 1.18-3.74 (BEAKER) (test code = 414) MONOCYTES ABSOLUTE COUNT (BEAKER) 0.51 K/ L 0.24-0.36 H (test code = 415) EOSINOPHILS ABSOLUTE COUNT 0.06 K/ L 0.04-0.36 (BEAKER) (test code = 416) BASOPHILS ABSOLUTE COUNT (BEAKER) 0.02 K/ L 0.01-0.08 (test code = 417) IMMATURE GRANULOCYTES-RELATIVE 1 % 0-1 PERCENT (BEAKER) (test code = 2801) CALCIUM, [id number] 04:11:00 Test Item Value Reference Range Interpretation Comments CALCIUM IONIZED (BEAKER) (test 1.12 mmol/L 1.12-1.27 code = 698) PH, BLOOD (BEAKER) (test code = 7.46 1810) [id number] 22:43:00 Test Item Value Reference Range Interpretation Comments MAGNESIUM (BEAKER) (test code = 2.1 mg/dL 1.6-2.6 627) Teletype Adjuster ID - DBWhile on bumex gttBASIC METABOLIC [id number] 22:43:00 Test Item Value Reference Range Interpretation Comments SODIUM (BEAKER) 134 meq/L 136-145 L (test code = 381) POTASSIUM (BEAKER) 4.0 meq/L 3.5-5.1 (test code = 379) CHLORIDE (BEAKER) 102 meq/L 98-107 (test code = 382) CO2 (BEAKER) (test 24 meq/L 22-29 code = 355) BLOOD UREA NITROGEN 52 mg/dL 7-21 H (BEAKER) (test code = 354) CREATININE (BEAKER) 1.28 mg/dL 0.57-1.25 H (test code = 358) GLUCOSE RANDOM 177 mg/dL 70-105 H (BEAKER) (test code = 652) CALCIUM (BEAKER) 8.6 mg/dL 8.4-10.2 (test code = 697) EGFR (BEAKER) (test 42 mL/min/1.73 ESTIMA TOSHIA GFR IS code = 1092) sq m NOT ACCURATE CREATININE CLEARANCE IN PREDICTING GLOMERULAR FILTRATION RATE . ESTIMATED GFR I S NOT APPLICABLE FOR DIALYSIS PATIEN TS. Teletype Adjuster ID - Keith on bumex gttPOCT-GLUCOSE [id number] 22:21:00 Test Item Value Reference Range Interpretation Comments POC-GLUCOSE METER 163 mg/dL 70-110 H : TESTED A T [facility] 6720 (BEAKER) (test code = [place], 1538) 81333: Teletype Adjuster/Techni kylie ID = [id number] for JIMMY ZHOU [id number] 18:36:00 Test Item Value Reference Range Interpretation Comments MAGNESIUM (BEAKER) (test code = 2.0 mg/dL 1.6-2.6 627) Teletype Adjuster ID - LARRY Ramírez on bumex gttBASIC METABOLIC [id number] 18:36:00 Test Item Value Reference Range Interpretation Comments SODIUM (BEAKER) 135 meq/L 136-145 L (test code = 381) POTASSIUM (BEAKER) 4.0 meq/L 3.5-5.1 (test code = 379) CHLORIDE (BEAKER) 102 meq/L 98-107 (test code = 382) CO2 (BEAKER) (test 24 meq/L 22-29 code = 355) BLOOD UREA NITROGEN 52 mg/dL 7-21 H (BEAKER) (test code = 354) CREATININE (BEAKER) 1.33 mg/dL 0.57-1.25 H (test code = 358) GLUCOSE RANDOM 115 mg/dL 70-105 H (BEAKER) (test code = 652) CALCIUM (BEAKER) 8.8 mg/dL 8.4-10.2 (test code = 697) EGFR (BEAKER) (test 40 mL/min/1.73 ESTIMA TOSHIA GFR IS code = 1092) sq m NOT ACCURATE CREATININE CLEARANCE IN PREDICTING GLOMERULAR FILTRATION RATE . ESTIMATED GFR I S NOT APPLICABLE FOR DIALYSIS PATIEN TS. Teletype Adjuster ID - LARRY Ramírez on bumex gttPOCT-GLUCOSE [id number] 17:41:00 Test Item Value Reference Range Interpretation Comments POC-GLUCOSE METER 104 mg/dL 70-110 : TESTED A T [facility] 6720 (BEAKER) (test code = [facility], 1538) 79346: Teletype Adjuster/Techni kylie ID = [id number] for NORA CALLAWAY RAD, CHEST, 1 VIEW, NON [id number] 13:55:00Reason for exam:->Pulmonary edema evalShould this be performed at the bedside?->YesFINAL REPORT RAD, CHEST, 1 VIEW, NON DEPT INDICATION: Pulmonary edema eval COM PARISON: Prior day's exam FINDINGS: Portable frontal view of the chest. IMPRESSION: Support Lines: Stable. Lungs and pleura: Unchanged airspace, interstitial, and pleural opacities. No pneumothorax.Heart and mediastinum: Stable contours. Stable surgical changes.Additional findings: None. Signed: Nuno espino JR, Tania Oliveira Verified Date/Time: 01/26/2020 13:55:59 Reading Location: [address] Neuro Reading Room POCT-GLUCOSE [id number] 11:59:00 Test Item Value Reference Range Interpretation Comments POC-GLUCOSE METER 220 mg/dL 70-110 H : TESTED A T [facility] 6720 (BEAKER) (test code = [facility]ASILIYID Cristal [facility], 1538) 64083: Teletype Adjuster/Techni kylie ID = [id number] for JOAQUINA Edmonds ROSA [id number] 11:58:00 Test Item Value Reference Range Interpretation Comments MAGNESIUM (BEAKER) (test code = 2.1 mg/dL 1.6-2.6 627) Teletype Adjuster ID - Rebecca on bumex gttBASIC METABOLIC [id number] 11:58:00 Test Item Value Reference Range Interpretation Comments SODIUM (BEAKER) 133 meq/L 136-145 L (test code = 381) POTASSIUM (BEAKER) 3.9 meq/L 3.5-5.1 (test code = 379) CHLORIDE (BEAKER) 101 meq/L 98-107 (test code = 382) CO2 (BEAKER) (test 22 meq/L 22-29 code = 355) BLOOD UREA NITROGEN 53 mg/dL 7-21 H (BEAKER) (test code = 354) CREATININE (BEAKER) 1.40 mg/dL 0.57-1.25 H (test code = 358) GLUCOSE RANDOM 263 mg/dL 70-105 H (BEAKER) (test code = 652) CALCIUM (BEAKER) 8.6 mg/dL 8.4-10.2 (test code = 697) EGFR (BEAKER) (test 38 mL/min/1.73 ESTIMA TOSHIA GFR IS code = 1092) sq m NOT ACCURATE CREATININE CLEARANCE IN PREDICTING GLOMERULAR FILTRATION RATE . ESTIMATED GFR I S NOT APPLICABLE FOR DIALYSIS PATIEN TS. Teletype Adjuster ID - ERUMGWhile on bumex gttCALCIUM, [id number] 11:38:00 Test Item Value Reference Range Interpretation Comments CALCIUM IONIZED (BEAKER) (test 1.12 mmol/L 1.12-1.27 code = 698) PH, BLOOD (BEAKER) (test code = 7.50 5060) Check serum Ionized Calcium level after 4 hours after IV Calcium replacement. POCT-GLUCOSE [id number] 07:33:00 Test Item Value Reference Range Interpretation Comments POC-GLUCOSE METER 209 mg/dL 70-110 H : TESTED A T [facility] 6720 (BEAKER) (test code = [place], 1538) 93127: Teletype Adjuster/Techni kylie ID = [id number] for ROSA BRIONES [id number] 05:43:00 Test Item Value Reference Range Interpretation Comments MAGNESIUM (BEAKER) 2.4 mg/dL 1.6-2.6 Specimen slightly (test code = 627) hemolyzed Teletype Adjuster ID - LARRY [id number] 05:43:00 Test Item Value Reference Range Interpretation Comments PHOSPHORUS (BEAKER) 3.4 mg/dL 2.3-4.7 Specimen slightly (test code = 604) hemolyzed Teletype Adjuster ID - LARRY MCOMPREHENSIVE METABOLIC [id number] 05:43:00 Test Item Value Reference Range Interpretation Comments TOTAL PROTEIN 6.3 gm/dL 6.0-8.3 Specimen sligh tly (BEAKER) (test code = hemoly zed 770) ALBUMIN (BEAKER) 3.0 g/dL 3.5-5.0 L Specimen sl ightly (test code = 1145) hemolyzed ALKALINE PHOSPHATASE 69 U/L 40-150 (BEAKER) (test code = 346) BILIRUBIN TOTAL 0.5 mg/dL 0.2-1.2 Specimen sli ghtly (BEAKER) (test code = hemoly zed 377) SODIUM (BEAKER) (test 132 meq/L 136-145 L code = 381) POTASSIUM (BEAKER) 4.0 meq/L 3.5-5.1 Specimen slightly (test code = 379) hemolyzed CHLORIDE (BEAKER) 102 meq/L 98-107 (test code = 382) CO2 (BEAKER) (test 21 meq/L 22-29 L code = 355) BLOOD UREA NITROGEN 52 mg/dL 7-21 H (BEAKER) (test code = 354) CREATININE (BEAKER) 1.40 mg/dL 0.57-1.25 H Specimen slightly (test code = 358) hemolyzed GLUCOSE RANDOM 243 mg/dL 70-105 H (BEAKER) (test code = 652) CALCIUM (BEAKER) 8.5 mg/dL 8.4-10.2 (test code = 697) AST (SGOT) (BEAKER) 14 U/L 5-34 Specimen slightly (test code = 353) hemolyzed ALT (SGPT) (BEAKER) 28 U/L 6-55 Specimen slightly (test code = 347) hemolyzed EGFR (BEAKER) (test 38 mL/min/1.73 ESTIMA TOSHIA GFR IS code = 1092) sq m NOT ACCURATE CREATININE CLEARANCE IN PREDICTING GLOMERULAR FILTRATION RATE . ESTIMATED GFR I S NOT APPLICABLE FOR DIALYSIS PATIEN TS. Teletype Adjuster ID - LARRY [facility] W/PLT COUNT & AUTO [id number] 05:23:00 Test Item Value Reference Range Interpretation Comments WHITE BLOOD CELL COUNT (BEAKER) 19.9 K/ L 3.5-10.5 H (test code = 775) RED BLOOD CELL COUNT (BEAKER) 2.68 M/ L 3.93-5.22 L (test code = 761) HEMOGLOBIN (BEAKER) (test code = 7.9 GM/DL 11.2-15.7 L 410) HEMATOCRIT (BEAKER) (test code = 23.9 % 34.1-44.9 L 411) MEAN CORPUSCULAR VOLUME (BEAKER) 89.2 fL 79.4-94.8 (test code = 753) MEAN CORPUSCULAR HEMOGLOBIN 29.5 pg 25.6-32.2 (BEAKER) (test code = 751) MEAN CORPUSCULAR HEMOGLOBIN CONC 33.1 GM/DL 32.2-35.5 (BEAKER) (test code = 752) RED CELL DISTRIBUTION WIDTH 16.1 % 11.7-14.4 H (BEAKER) (test code = 412) PLATELET COUNT (BEAKER) (test 159 K/CU MM 150-450 code = 756) MEAN PLATELET VOLUME (BEAKER) 10.1 fL 9.4-12.3 (test code = 754) NUCLEATED RED BLOOD CELLS 0 /100 WBC 0-0 (BEAKER) (test code = 413) NEUTROPHILS RELATIVE PERCENT 89 % (BEAKER) (test code = 429) LYMPHOCYTES RELATIVE PERCENT 6 % (BEAKER) (test code = 430) MONOCYTES RELATIVE PERCENT 3 % (BEAKER) (test code = 431) EOSINOPHILS RELATIVE PERCENT 0 % (BEAKER) (test code = 432) BASOPHILS RELATIVE PERCENT 0 % (BEAKER) (test code = 437) NEUTROPHILS ABSOLUTE COUNT 17.74 K/ L 1.56-6.13 H (BEAKER) (test code = 670) LYMPHOCYTES ABSOLUTE COUNT 1.27 K/ L 1.18-3.74 (BEAKER) (test code = 414) MONOCYTES ABSOLUTE COUNT (BEAKER) 0.68 K/ L 0.24-0.36 H (test code = 415) EOSINOPHILS ABSOLUTE COUNT 0.02 K/ L 0.04-0.36 L (BEAKER) (test code = 416) BASOPHILS ABSOLUTE COUNT (BEAKER) 0.02 K/ L 0.01-0.08 (test code = 417) IMMATURE GRANULOCYTES-RELATIVE 1 % 0-1 PERCENT (BEAKER) (test code = 2801) CALCIUM, [id number] 05:13:00 Test Item Value Reference Range Interpretation Comments CALCIUM IONIZED (BEAKER) (test 1.11 mmol/L 1.12-1.27 L code = 698) PH, BLOOD (BEAKER) (test code = 7.46 1810) OXYGEN SATURATION, [id number] 05:08:00 Test Item Value Reference Range Interpretation Comments O2 SATURATION (MEASURED) (BEAKER) 53.3 % (test code = 1455) CALCIUM, [id number] 00:12:00 Test Item Value Reference Range Interpretation Comments CALCIUM IONIZED (BEAKER) (test 1.10 mmol/L 1.12-1.27 L code = 698) PH, BLOOD (BEAKER) (test code = 7.46 1810) [id number] 23:58:00 Test Item Value Reference Range Interpretation Comments MAGNESIUM (BEAKER) 2.0 mg/dL 1.6-2.6 Specimen slightly (test code = 627) hemolyzed Teletype Adjuster CAROLYN Hatfieldle on bumex gttBASIC METABOLIC [id number] 23:58:00 Test Item Value Reference Range Interpretation Comments SODIUM (BEAKER) 132 meq/L 136-145 L (test code = 381) POTASSIUM (BEAKER) 4.1 meq/L 3.5-5.1 Specimen slightly (test code = 379) hemolyzed CHLORIDE (BEAKER) 102 meq/L 98-107 (test code = 382) CO2 (BEAKER) (test 19 meq/L 22-29 L code = 355) BLOOD UREA NITROGEN 51 mg/dL 7-21 H (BEAKER) (test code = 354) CREATININE (BEAKER) 1.44 mg/dL 0.57-1.25 H Specimen slightly (test code = 358) hemolyzed GLUCOSE RANDOM 311 mg/dL 70-105 H (BEAKER) (test code = 652) CALCIUM (BEAKER) 8.3 mg/dL 8.4-10.2 L (test code = 697) EGFR (BEAKER) (test 36 mL/min/1.73 ESTIMA TOSHIA GFR IS code = 1092) sq m NOT ACCURATE CREATININE CLEARANCE IN PREDICTING GLOMERULAR FILTRATION RATE . ESTIMATED GFR I S NOT APPLICABLE FOR DIALYSIS PATIEN TS. Teletype Adjuster CAROLYN Hatfieldle on bumex gttHEMOGLOBIN AND [id number] 23:41:00 Test Item Value Reference Range Interpretation Comments HEMOGLOBIN (BEAKER) (test code = 7.9 GM/DL 11.2-15.7 L 410) HEMATOCRIT (BEAKER) (test code = 23.7 % 34.1-44.9 L 411) Teletype Adjuster ID - CelyPOCT-GLUCOSE [id number] 21:38:00 Test Item Value Reference Range Interpretation Comments POC-GLUCOSE METER 293 mg/dL 70-110 H : TESTED A T [facility] 6720 (BEAKER) (test code = [place], 1538) [address]: Teletype Adjuster/Techni kylie ID = [id number] for JOSE LUIS JOSE [id number] 17:54:00 Test Item Value Reference Range Interpretation Comments MAGNESIUM (BEAKER) 2.1 mg/dL 1.6-2.6 Specimen slightly (test code = 627) hemolyzed Teletype Adjuster ID - EVELYN EBASIC METABOLIC [id number] 17:54:00 Test Item Value Reference Range Interpretation Comments SODIUM (BEAKER) 132 meq/L 136-145 L (test code = 381) POTASSIUM (BEAKER) 4.3 meq/L 3.5-5.1 Specimen slightly (test code = 379) hemolyzed CHLORIDE (BEAKER) 104 meq/L 98-107 (test code = 382) CO2 (BEAKER) (test 19 meq/L 22-29 L code = 355) BLOOD UREA NITROGEN 51 mg/dL 7-21 H (BEAKER) (test code = 354) CREATININE (BEAKER) 1.48 mg/dL 0.57-1.25 H Specimen slightly (test code = 358) hemolyzed GLUCOSE RANDOM 304 mg/dL 70-105 H (BEAKER) (test code = 652) CALCIUM (BEAKER) 8.3 mg/dL 8.4-10.2 L (test code = 697) EGFR (BEAKER) (test 35 mL/min/1.73 ESTIMA TOSHIA GFR IS code = 1092) sq m NOT ACCURATE CREATININE CLEARANCE IN PREDICTING GLOMERULAR FILTRATION RATE . ESTIMATED GFR I S NOT APPLICABLE FOR DIALYSIS PATIEN TS. Teletype Adjuster ID - EVELYN EPOCT-GLUCOSE [id number] 12:31:00 Test Item Value Reference Range Interpretation Comments POC-GLUCOSE METER 272 mg/dL 70-110 H : TESTED A T [facility] 6720 (BEAKER) (test code = SERGEY Bee [facility], 1538) [address]: Teletype Adjuster/Techni kylie ID = [id number] for ROSA BRIONES POCT-GLUCOSE [id number] 09:20:00 Test Item Value Reference Range Interpretation Comments POC-GLUCOSE METER 201 mg/dL 70-110 H : TESTED A T [facility] 6720 (BEAKER) (test code = SERGEY Bee [facility], 1538) [address]: Teletype Adjuster/Techni kylie ID = [id number] for ROSA BRIONES RAD, CHEST, 1 VIEW, NON [id number] 08:46:00Reason for exam:->post acrdiac surgeryFINAL REPORT RAD, CHEST, 1 VIEW, NON DEPT INDICATION: post acrdiac surgery COMPARISON: Prior day's exam FINDINGS: Portable frontal view of the chest. IMPRESSION: Support Lines: Stable. Lungs and pleura: Unchanged airspace and pleural opacities. No pneumothorax.Heart and mediastinum: Stable contours. Stable surgical changes.Additional findings: None. Signed: Shellie lCark Verified Date/Time: 01/25/2020 08:46:10 Reading Location: [facility] Radiology Reading Room CBC W/PLT COUNT & AUTO [id number] 05:18:00 Test Item Value Reference Range Interpretation Comments WHITE BLOOD CELL COUNT (BEAKER) 21.9 K/ L 3.5-10.5 H (test code = 775) RED BLOOD CELL COUNT (BEAKER) 2.65 M/ L 3.93-5.22 L (test code = 761) HEMOGLOBIN (BEAKER) (test code = 7.9 GM/DL 11.2-15.7 L 410) HEMATOCRIT (BEAKER) (test code = 24.0 % 34.1-44.9 L 411) MEAN CORPUSCULAR VOLUME (BEAKER) 90.6 fL 79.4-94.8 (test code = 753) MEAN CORPUSCULAR HEMOGLOBIN 29.8 pg 25.6-32.2 (BEAKER) (test code = 751) MEAN CORPUSCULAR HEMOGLOBIN CONC 32.9 GM/DL 32.2-35.5 (BEAKER) (test code = 752) RED CELL DISTRIBUTION WIDTH 16.3 % 11.7-14.4 H (BEAKER) (test code = 412) PLATELET COUNT (BEAKER) (test 141 K/CU MM 150-450 L code = 756) MEAN PLATELET VOLUME (BEAKER) 10.5 fL 9.4-12.3 (test code = 754) NUCLEATED RED BLOOD CELLS 0 /100 WBC 0-0 (BEAKER) (test code = 413) NEUTROPHILS RELATIVE PERCENT 91 % (BEAKER) (test code = 429) LYMPHOCYTES RELATIVE PERCENT 4 % (BEAKER) (test code = 430) MONOCYTES RELATIVE PERCENT 4 % (BEAKER) (test code = 431) EOSINOPHILS RELATIVE PERCENT 0 % (BEAKER) (test code = 432) BASOPHILS RELATIVE PERCENT 0 % (BEAKER) (test code = 437) NEUTROPHILS ABSOLUTE COUNT 19.91 K/ L 1.56-6.13 H (BEAKER) (test code = 670) LYMPHOCYTES ABSOLUTE COUNT 0.97 K/ L 1.18-3.74 L (BEAKER) (test code = 414) MONOCYTES ABSOLUTE COUNT (BEAKER) 0.84 K/ L 0.24-0.36 H (test code = 415) EOSINOPHILS ABSOLUTE COUNT 0.01 K/ L 0.04-0.36 L (BEAKER) (test code = 416) BASOPHILS ABSOLUTE COUNT (BEAKER) 0.03 K/ L 0.01-0.08 (test code = 417) IMMATURE GRANULOCYTES-RELATIVE 1 % 0-1 PERCENT (BEAKER) (test code = 2801) [id number] 04:56:00 Test Item Value Reference Range Interpretation Comments PHOSPHORUS (BEAKER) (test code = 3.7 mg/dL 2.3-4.7 604) Teletype Adjuster ID - PIAYA [id number] 04:56:00 Test Item Value Reference Range Interpretation Comments MAGNESIUM (BEAKER) (test code = 2.2 mg/dL 1.6-2.6 627) Teletype Adjuster ID - PIAYA LCOMPREHENSIVE METABOLIC [id number] 04:56:00 Test Item Value Reference Range Interpretation Comments TOTAL PROTEIN 5.9 gm/dL 6.0-8.3 L (BEAKER) (test code = 770) ALBUMIN (BEAKER) 3.1 g/dL 3.5-5.0 L (test code = 1145) ALKALINE PHOSPHATASE 66 U/L 40-150 (BEAKER) (test code = 346) BILIRUBIN TOTAL 0.5 mg/dL 0.2-1.2 (BEAKER) (test code = 377) SODIUM (BEAKER) (test 133 meq/L 136-145 L code = 381) POTASSIUM (BEAKER) 4.0 meq/L 3.5-5.1 (test code = 379) CHLORIDE (BEAKER) 106 meq/L 98-107 (test code = 382) CO2 (BEAKER) (test 18 meq/L 22-29 L code = 355) BLOOD UREA NITROGEN 47 mg/dL 7-21 H (BEAKER) (test code = 354) CREATININE (BEAKER) 1.38 mg/dL 0.57-1.25 H (test code = 358) GLUCOSE RANDOM 244 mg/dL 70-105 H (BEAKER) (test code = 652) CALCIUM (BEAKER) 8.4 mg/dL 8.4-10.2 (test code = 697) AST (SGOT) (BEAKER) 13 U/L 5-34 (test code = 353) ALT (SGPT) (BEAKER) 29 U/L 6-55 (test code = 347) EGFR (BEAKER) (test 38 mL/min/1.73 ESTIMA TOSHIA GFR IS code = 1092) sq m NOT ACCURATE CREATININE CLEARANCE IN PREDICTING GLOMERULAR FILTRATION RATE . ESTIMATED GFR I S NOT APPLICABLE FOR DIALYSIS PATIEN TS. Teletype Adjuster ID - PIAYA LLACTIC ACID, [id number] 04:50:00 Test Item Value Reference Range Interpretation Comments LACTATE BLOOD ARTERIAL (2) 0.9 mmol/L 0.5-2.2 (BEAKER) (test code = 2874) Teletype Adjuster ID - PIAYA LOXYGEN SATURATION, [id number] 04:49:00 Test Item Value Reference Range Interpretation Comments O2 SATURATION (MEASURED) (BEAKER) 47.7 % (test code = 1455) BLOOD GAS, [id number] 04:47:00 Test Item Value Reference Range Interpretation Comments PH ARTERIAL (BEAKER) (test code = 7.43 7.35-7.45 383) PCO2 ARTERIAL (BEAKER) (test code 31 mmHg 35-45 L = 384) PO2 ARTERIAL (BEAKER) (test code 69 mmHg 80-90 L = 385) O2 SATURATION ARTERIAL (BEAKER) 94.5 % 96.0-97.0 L (test code = 386) HCO3 ARTERIAL (BEAKER) (test code 20 mmol/L 21-29 L = 388) BASE EXCESS ARTERIAL (BEAKER) -3.8 mmol/L -2.0-3.0 L (test code = 387) PATIENT TEMPERATURE (BEAKER) 37.0 C (test code = 1818) FIO2 (BEAKER) (test code = 1819) 28.0 % CALCIUM, [id number] 04:46:00 Test Item Value Reference Range Interpretation Comments CALCIUM IONIZED (BEAKER) (test 1.14 mmol/L 1.12-1.27 code = 698) PH, BLOOD (BEAKER) (test code = 7.43 1810) BASIC METABOLIC [id number] 21:22:00 Test Item Value Reference Range Interpretation Comments SODIUM (BEAKER) 135 meq/L 136-145 L (test code = 381) POTASSIUM (BEAKER) 4.3 meq/L 3.5-5.1 (test code = 379) CHLORIDE (BEAKER) 107 meq/L 98-107 (test code = 382) CO2 (BEAKER) (test 21 meq/L 22-29 L code = 355) BLOOD UREA NITROGEN 48 mg/dL 7-21 H (BEAKER) (test code = 354) CREATININE (BEAKER) 1.53 mg/dL 0.57-1.25 H (test code = 358) GLUCOSE RANDOM 254 mg/dL 70-105 H (BEAKER) (test code = 652) CALCIUM (BEAKER) 8.7 mg/dL 8.4-10.2 (test code = 697) EGFR (BEAKER) (test 34 mL/min/1.73 ESTIMA TOSHIA GFR IS code = 1092) sq m NOT ACCURATE CREATININE CLEARANCE IN PREDICTING GLOMERULAR FILTRATION RATE . ESTIMATED GFR I S NOT APPLICABLE FOR DIALYSIS PATIEN TS. Teletype Adjuster ID - BSLACTIC ACID, [id number] 21:19:00 Test Item Value Reference Range Interpretation Comments LACTATE BLOOD ARTERIAL (2) 0.9 mmol/L 0.5-2.2 (BEAKER) (test code = 2874) Teletype Adjuster ID - BSCBC (HEMOGRAM ONLY)2020-01-24 21:06:00 Test Item Value Reference Range Interpretation Comments WHITE BLOOD CELL COUNT (BEAKER) 23.9 K/ L 3.5-10.5 H (test code = 775) RED BLOOD CELL COUNT (BEAKER) 2.67 M/ L 3.93-5.22 L (test code = 761) HEMOGLOBIN (BEAKER) (test code = 8.0 GM/DL 11.2-15.7 L 410) HEMATOCRIT (BEAKER) (test code = 24.0 % 34.1-44.9 L 411) MEAN CORPUSCULAR VOLUME (BEAKER) 89.9 fL 79.4-94.8 (test code = 753) MEAN CORPUSCULAR HEMOGLOBIN 30.0 pg 25.6-32.2 (BEAKER) (test code = 751) MEAN CORPUSCULAR HEMOGLOBIN CONC 33.3 GM/DL 32.2-35.5 (BEAKER) (test code = 752) RED CELL DISTRIBUTION WIDTH 16.1 % 11.7-14.4 H (BEAKER) (test code = 412) PLATELET COUNT (BEAKER) (test 131 K/CU MM 150-450 L code = 756) MEAN PLATELET VOLUME (BEAKER) 10.1 fL 9.4-12.3 (test code = 754) NUCLEATED RED BLOOD CELLS 0 /100 WBC 0-0 (BEAKER) (test code = 413) BLOOD GAS, [id number] 21:03:00 Test Item Value Reference Range Interpretation Comments PH ARTERIAL (BEAKER) (test code = 7.47 7.35-7.45 H 383) PCO2 ARTERIAL (BEAKER) (test code 30 mmHg 35-45 L = 384) PO2 ARTERIAL (BEAKER) (test code 81 mmHg 80-90 = 385) O2 SATURATION ARTERIAL (BEAKER) 96.7 % 96.0-97.0 (test code = 386) HCO3 ARTERIAL (BEAKER) (test code 21 mmol/L 21-29 = 388) BASE EXCESS ARTERIAL (BEAKER) -2.0 mmol/L -2.0-3.0 (test code = 387) PATIENT TEMPERATURE (BEAKER) 37.0 C (test code = 1818) FIO2 (BEAKER) (test code = 1819) 28.0 % CALCIUM, [id number] 21:02:00 Test Item Value Reference Range Interpretation Comments CALCIUM IONIZED (BEAKER) (test 1.13 mmol/L 1.12-1.27 code = 698) PH, BLOOD (BEAKER) (test code = 7.47 1810) OXYGEN SATURATION, [id number] 21:01:00 Test Item Value Reference Range Interpretation Comments O2 SATURATION (MEASURED) (BEAKER) 54.8 % (test code = 1455) [id number] 18:12:00 Test Item Value Reference Range Interpretation Comments FERRITIN (BEAKER) (test code = 1829 ng/mL 5-275 H 361) Teletype Adjuster ID - BSWith next blood draw.POCT-GLUCOSE [id number] 18:06:00 Test Item Value Reference Range Interpretation Comments POC-GLUCOSE METER 259 mg/dL 70-110 H : TESTED A T [facility] 6720 (BEAKER) (test code = SERGEY Cristal [place], 1538) [address]: Teletype Adjuster/Techni kylie ID = [id number] for CO ONCE, RU B-TYPE NATRIURETIC FACTOR (BNP)2020-01-24 17:28:00 Test Item Value Reference Range Interpretation Comments B-TYPE NATRIURETIC PEPTIDE (BEAKER) 269 pg/mL 0-100 H (test code = 700) Teletype Adjuster ID - BSIRON, TIBC, % SAT. (WITHOUT FERRITIN)2020-01-24 17:26:00 Test Item Value Reference Range Interpretation Comments IRON (BEAKER) (test code = 547) 16.0 ug/dL 40.0-160.0 L TOTAL IRON BINDING CAPACITY 150 ug/dL 250-450 L (BEAKER) (test code = 769) IRON % SATURATION (2) (BEAKER) 11 % 20-55 L (test code = 2590) Teletype Adjuster ID - BSWith next blood draw.[id number] 17:23:00 Test Item Value Reference Range Interpretation Comments POTASSIUM (BEAKER) (test code = 4.0 meq/L 3.5-5.1 379) Teletype Adjuster ID - BSEvery 8 hours PRN for Creatinine greater than or equal to 2 mg/dL.[id number] 17:23:00 Test Item Value Reference Range Interpretation Comments MAGNESIUM (BEAKER) (test code = 2.1 mg/dL 1.6-2.6 627) Teletype Adjuster ID - BSEvery 8 hours PRN for Creatinine greater than or equal to 2 mg/dL.POCT-GLUCOSE [id number] 14:07:00 Test Item Value Reference Range Interpretation Comments POC-GLUCOSE METER 211 mg/dL 70-110 H : TESTED A T [facility] 6720 (BEAKER) (test code = SERGEY Bee [facility], 1538) 57[address]: Teletype Adjuster/Techni kylie ID = [id number] for CO ZOYA RU [id number] 12:40:00 Test Item Value Reference Range Interpretation Comments ACTIVATED CLOTTING TIME 995 sec : 74 -137 seconds, (BEAKER) (test code = Baseli ne: TESTED AT 441) [facility] 6720 [facility], [address]: Teletype Adjuster/Techni kylie ID = [id number] for STEPHANIE ESCOBAR [id number] 12:40:00 Test Item Value Reference Range Interpretation Comments ACTIVATED CLOTTING TIME > sec : 74 -137 seconds, (BEAKER) (test code = Earnest ne: TESTED AT 441) [place] [id number] [facility], 770 30: Teletype Adjuster/Techni kylie ID = [id number] for SYDNIE STANLEY OXYGEN SATURATION, [id number] 11:50:00 Test Item Value Reference Range Interpretation Comments O2 SATURATION (MEASURED) (BEAKER) 55.5 % (test code = 1455) BLOOD GAS, [id number] 11:50:00 Test Item Value Reference Range Interpretation Comments PH ARTERIAL (BEAKER) (test code = 7.43 7.35-7.45 383) PCO2 ARTERIAL (BEAKER) (test code 31 mmHg 35-45 L = 384) PO2 ARTERIAL (BEAKER) (test code 82 mmHg 80-90 = 385) O2 SATURATION ARTERIAL (BEAKER) 96.3 % 96.0-97.0 (test code = 386) HCO3 ARTERIAL (BEAKER) (test code 20 mmol/L 21-29 L = 388) BASE EXCESS ARTERIAL (BEAKER) -3.9 mmol/L -2.0-3.0 L (test code = 387) PATIENT TEMPERATURE (BEAKER) 37.5 C (test code = 1818) FIO2 (BEAKER) (test code = 1819) 40.0 % POCT-GLUCOSE [id number] 10:21:00 Test Item Value Reference Range Interpretation Comments POC-GLUCOSE METER 171 mg/dL 70-110 H : TESTED A T [facility] 6720 (BEAKER) (test code = SERGE[place], 1538) [address]: Teletype Adjuster/Techni kylie ID = [id number] for RAMEZ SCOTT RAD, CHEST, 1 VIEW, NON [id number] 08:05:00Reason for exam:->post opShould this be performed at the bedside?->YesFINAL REPORT RAD, CHEST, 1 VIEW, NON DEPT INDICATION: post op COMPARISON: Prior day's exam FINDINGS: Portable frontal view of the chest. IMPRESSION: Support Lines: Chest tube has been removed. Otherwise, no significant interval change Lungs and pleura: Unchanged airspace and pleural opacities. No pneumothorax.Heart and mediastinum: Stable contours. Stable surgical changes.Add itional findings: None. Signed: Shellie Clark MDReport Verified Date/Time: 01/24/2020 08:05:19 Reading Location: [facility] Radiology Reading Room [id number] 03:45:00 Test Item Value Reference Range Interpretation Comments PHOSPHORUS (BEAKER) (test code = 4.1 mg/dL 2.3-4.7 604) Teletype Adjuster ID - BHUPINDER [id number] 03:45:00 Test Item Value Reference Range Interpretation Comments MAGNESIUM (BEAKER) (test code = 2.3 mg/dL 1.6-2.6 627) Teletype Adjuster ID - BHUPINDER WBASIC METABOLIC [id number] 03:45:00 Test Item Value Reference Range Interpretation Comments SODIUM (BEAKER) 137 meq/L 136-145 (test code = 381) POTASSIUM (BEAKER) 4.6 meq/L 3.5-5.1 (test code = 379) CHLORIDE (BEAKER) 108 meq/L 98-107 H (test code = 382) CO2 (BEAKER) (test 22 meq/L 22-29 code = 355) BLOOD UREA NITROGEN 43 mg/dL 7-21 H (BEAKER) (test code = 354) CREATININE (BEAKER) 1.62 mg/dL 0.57-1.25 H (test code = 358) GLUCOSE RANDOM 188 mg/dL 70-105 H (BEAKER) (test code = 652) CALCIUM (BEAKER) 8.9 mg/dL 8.4-10.2 (test code = 697) EGFR (BEAKER) (test 32 mL/min/1.73 ESTIMA TOSHIA GFR IS code = 1092) sq m NOT ACCURATE CREATININE CLEARANCE IN PREDICTING GLOMERULAR FILTRATION RATE . ESTIMATED GFR I S NOT APPLICABLE FOR DIALYSIS PATIEN TS. Teletype Adjuster ID - BHUPINDER WLACTIC ACID, [id number] 03:34:00 Test Item Value Reference Range Interpretation Comments LACTATE BLOOD ARTERIAL (2) 0.8 mmol/L 0.5-2.2 (BEAKER) (test code = 2874) Teletype Adjuster ID - BHUPINDER WOXYGEN SATURATION, [id number] 03:28:00 Test Item Value Reference Range Interpretation Comments O2 SATURATION (MEASURED) (BEAKER) 49.0 % (test code = 1455) CBC (HEMOGRAM ONLY)2020-01-24 03:27:00 Test Item Value Reference Range Interpretation Comments WHITE BLOOD CELL COUNT (BEAKER) 18.8 K/ L 3.5-10.5 H (test code = 775) RED BLOOD CELL COUNT (BEAKER) 2.59 M/ L 3.93-5.22 L (test code = 761) HEMOGLOBIN (BEAKER) (test code = 7.8 GM/DL 11.2-15.7 L 410) HEMATOCRIT (BEAKER) (test code = 23.2 % 34.1-44.9 L 411) MEAN CORPUSCULAR VOLUME (BEAKER) 89.6 fL 79.4-94.8 (test code = 753) MEAN CORPUSCULAR HEMOGLOBIN 30.1 pg 25.6-32.2 (BEAKER) (test code = 751) MEAN CORPUSCULAR HEMOGLOBIN CONC 33.6 GM/DL 32.2-35.5 (BEAKER) (test code = 752) RED CELL DISTRIBUTION WIDTH 16.1 % 11.7-14.4 H (BEAKER) (test code = 412) PLATELET COUNT (BEAKER) (test code 93 K/CU MM 150-450 L = 756) MEAN PLATELET VOLUME (BEAKER) 10.4 fL 9.4-12.3 (test code = 754) NUCLEATED RED BLOOD CELLS (BEAKER) 0 /100 WBC 0-0 (test code = 413) BLOOD GAS, [id number] 03:25:00 Test Item Value Reference Range Interpretation Comments PH ARTERIAL (BEAKER) (test code = 7.40 7.35-7.45 383) PCO2 ARTERIAL (BEAKER) (test code 35 mmHg 35-45 = 384) PO2 ARTERIAL (BEAKER) (test code 92 mmHg 80-90 H = 385) O2 SATURATION ARTERIAL (BEAKER) 97.1 % 96.0-97.0 H (test code = 386) HCO3 ARTERIAL (BEAKER) (test code 21 mmol/L 21-29 = 388) BASE EXCESS ARTERIAL (BEAKER) -3.3 mmol/L -2.0-3.0 L (test code = 387) PATIENT TEMPERATURE (BEAKER) 37.0 C (test code = 1818) FIO2 (BEAKER) (test code = 1819) 32.0 % CALCIUM, [id number] 03:24:00 Test Item Value Reference Range Interpretation Comments CALCIUM IONIZED (BEAKER) (test 1.20 mmol/L 1.12-1.27 code = 698) PH, BLOOD (BEAKER) (test code = 7.40 1810) POCT-GLUCOSE [id number] 22:11:00 Test Item Value Reference Range Interpretation Comments POC-GLUCOSE METER 191 mg/dL 70-110 H : [facility] ([facility] (test code = [place], 1538) [address]: Teletype Adjuster/Techni kylie ID = [id number] for RAMEZ SCOTT [id number] 20:29:00 Test Item Value Reference Range Interpretation Comments MAGNESIUM (BEAKER) (test code = 2.3 mg/dL 1.6-2.6 627) Teletype Adjuster ID - DBBLOOD GAS, [id number] 20:20:00 Test Item Value Reference Range Interpretation Comments PH ARTERIAL (BEAKER) (test code = 7.42 7.35-7.45 383) PCO2 ARTERIAL (BEAKER) (test code 33 mmHg 35-45 L = 384) PO2 ARTERIAL (BEAKER) (test code 97 mmHg 80-90 H = 385) O2 SATURATION ARTERIAL (BEAKER) 97.6 % 96.0-97.0 H (test code = 386) HCO3 ARTERIAL (BEAKER) (test code 21 mmol/L 21-29 = 388) BASE EXCESS ARTERIAL (BEAKER) -3.5 mmol/L -2.0-3.0 L (test code = 387) PATIENT TEMPERATURE (BEAKER) 37.0 C (test code = 1818) FIO2 (BEAKER) (test code = 1819) 44.0 % SODIUM NA-STAT [id number] 20:20:00 Test Item Value Reference Range Interpretation Comments SODIUM (BEAKER) (test code = 381) 132 meq/L 135-148 L POTASSIUM-STAT [id number] 20:20:00 Test Item Value Reference Range Interpretation Comments POTASSIUM (BEAKER) (test code = 4.6 meq/L 3.6-5.5 379) GLUCOSE-STAT [id number] 20:20:00 Test Item Value Reference Range Interpretation Comments GLUCOSE RANDOM (BEAKER) (test code 227 mg/dL 70-110 H = 652) HGB/HCT (H&H) - STAT [id number] 20:20:00 Test Item Value Reference Range Interpretation Comments HEMOGLOBIN (BEAKER) (test code = 8.5 GM/DL 12.0-15.0 L 410) HEMATOCRIT (BEAKER) (test code = 25.0 % 36.0-45.0 L 411) CALCIUM, [id number] 20:18:00 Test Item Value Reference Range Interpretation Comments CALCIUM IONIZED (BEAKER) (test 1.18 mmol/L 1.12-1.27 code = 698) PH, BLOOD (BEAKER) (test code = 7.42 1810) OXYGEN SATURATION, [id number] 20:17:00 Test Item Value Reference Range Interpretation Comments O2 SATURATION (MEASURED) (BEAKER) 45.5 % (test code = 1455) POCT-GLUCOSE [id number] 18:48:00 Test Item Value Reference Range Interpretation Comments POC-GLUCOSE METER 210 mg/dL 70-110 H : TESTED A T [facility] 6720 (BEAKER) (test code = [place], 1538) [address]: Teletype Adjuster/Techni kylie ID = [id number] for CARLA SWENSON POCT-GLUCOSE [id number] 12:36:00 Test Item Value Reference Range Interpretation Comments POC-GLUCOSE METER 177 mg/dL 70-110 H : TESTED A T [facility] 6720 (BEAKER) (test code = SERGEY Bee [facility], 1538) [address]: Teletype Adjuster/Techni kylie ID = [id number] for CARLA SWENSON RAD, CHEST, 1 VIEW, NON [id number] 08:14:00Reason for exam:->post acrdiac surgeryFINAL REPORT RAD, CHEST, 1 VIEW, NON DEPT INDICATION: post acrdiac surgery COMPARISON: Prior day's exam FINDINGS: Portable frontal view of the chest. IMPRESSION: Support Lines: Stable. Lungs and pleura: Unchanged airspace and pleural opacities. No pneumothorax.Heart and mediastinum: Stable contours. Stable surgical changes.Additional findings: None. Signed: Shellie Clark Verified Date/Time: 01/23/2020 08:14:36 Reading Location: [facility] Radiology Reading Room POCT-GLUCOSE METER 2020-01-23 07:34:00 Test Item Value Reference Range Interpretation Comments POC-GLUCOSE METER 166 mg/dL 70-110 H : TESTED A T [facility] 6720 (FERNANDO) (test code = SERGEY Bee [facility], 1538) [address]: Teletype Adjuster/Techni kylie ID = [id number] for CARLA SWENSON [id number] 03:43:00 Test Item Value Reference Range Interpretation Comments MAGNESIUM (BEAKER) 2.2 mg/dL 1.6-2.6 Specimen slightly (test code = 627) hemolyzed Teletype Adjuster ID - BHUPINDER [id number] 03:43:00 Test Item Value Reference Range Interpretation Comments PHOSPHORUS (BEAKER) 3.9 mg/dL 2.3-4.7 Specimen slightly (test code = 604) hemolyzed Teletype Adjuster ID - BHUPINDER WBASIC METABOLIC [id number] 03:43:00 Test Item Value Reference Range Interpretation Comments SODIUM (BEAKER) 141 meq/L 136-145 (test code = 381) POTASSIUM (BEAKER) 4.9 meq/L 3.5-5.1 Specimen slightly (test code = 379) hemolyzed CHLORIDE (BEAKER) 113 meq/L 98-107 H (test code = 382) CO2 (BEAKER) (test 22 meq/L 22-29 code = 355) BLOOD UREA NITROGEN 32 mg/dL 7-21 H (BEAKER) (test code = 354) CREATININE (BEAKER) 1.19 mg/dL 0.57-1.25 Specimen slightly (test code = 358) hemolyzed GLUCOSE RANDOM 176 mg/dL 70-105 H (BEAKER) (test code = 652) CALCIUM (BEAKER) 8.7 mg/dL 8.4-10.2 (test code = 697) EGFR (BEAKER) (test 45 mL/min/1.73 ESTIMA TOSHIA GFR IS code = 1092) sq m NOT ACCURATE CREATININE CLEARANCE IN PREDICTING GLOMERULAR FILTRATION RATE . ESTIMATED GFR I S NOT APPLICABLE FOR DIALYSIS PATIEN TS. Teletype Adjuster ID - BHUPINDER WLACTIC ACID, [id number] 03:36:00 Test Item Value Reference Range Interpretation Comments LACTATE BLOOD ARTERIAL (2) 0.7 mmol/L 0.5-2.2 (BEAKER) (test code = 2874) Teletype Adjuster ID - BHUPINDER WOXYGEN SATURATION, [id number] 03:31:00 Test Item Value Reference Range Interpretation Comments O2 SATURATION (MEASURED) (BEAKER) 52.2 % (test code = 1455) BLOOD GAS, [id number] 03:28:00 Test Item Value Reference Range Interpretation Comments PH ARTERIAL (BEAKER) (test code = 7.40 7.35-7.45 383) PCO2 ARTERIAL (BEAKER) (test code 38 mmHg 35-45 = 384) PO2 ARTERIAL (BEAKER) (test code 107 mmHg 80-90 H = 385) O2 SATURATION ARTERIAL (BEAKER) 97.9 % 96.0-97.0 H (test code = 386) HCO3 ARTERIAL (BEAKER) (test code 23 mmol/L 21-29 = 388) BASE EXCESS ARTERIAL (BEAKER) -1.8 mmol/L -2.0-3.0 (test code = 387) PATIENT TEMPERATURE (BEAKER) 37.0 C (test code = 1818) FIO2 (BEAKER) (test code = 1819) 44.0 % CBC (HEMOGRAM ONLY)[id number] 03:25:00 Test Item Value Reference Range Interpretation Comments WHITE BLOOD CELL COUNT (BEAKER) 15.0 K/ L 3.5-10.5 H (test code = 775) RED BLOOD CELL COUNT (BEAKER) 2.61 M/ L 3.93-5.22 L (test code = 761) HEMOGLOBIN (BEAKER) (test code = 7.7 GM/DL 11.2-15.7 L 410) HEMATOCRIT (BEAKER) (test code = 22.7 % 34.1-44.9 L 411) MEAN CORPUSCULAR VOLUME (BEAKER) 87.0 fL 79.4-94.8 (test code = 753) MEAN CORPUSCULAR HEMOGLOBIN 29.5 pg 25.6-32.2 (BEAKER) (test code = 751) MEAN CORPUSCULAR HEMOGLOBIN CONC 33.9 GM/DL 32.2-35.5 (BEAKER) (test code = 752) RED CELL DISTRIBUTION WIDTH 15.9 % 11.7-14.4 H (BEAKER) (test code = 412) PLATELET COUNT (BEAKER) (test code 96 K/CU MM 150-450 L = 756) MEAN PLATELET VOLUME (BEAKER) 10.2 fL 9.4-12.3 (test code = 754) NUCLEATED RED BLOOD CELLS (BEAKER) 0 /100 WBC 0-0 (test code = 413) CBC W/PLT COUNT & AUTO [id number] 22:41:00 Test Item Value Reference Range Interpretation Comments WHITE BLOOD CELL COUNT (BEAKER) 13.4 K/ L 3.5-10.5 H (test code = 775) RED BLOOD CELL COUNT (BEAKER) 2.58 M/ L 3.93-5.22 L (test code = 761) HEMOGLOBIN (BEAKER) (test code = 7.6 GM/DL 11.2-15.7 L 410) HEMATOCRIT (BEAKER) (test code = 22.4 % 34.1-44.9 L 411) MEAN CORPUSCULAR VOLUME (BEAKER) 86.8 fL 79.4-94.8 (test code = 753) MEAN CORPUSCULAR HEMOGLOBIN 29.5 pg 25.6-32.2 (BEAKER) (test code = 751) MEAN CORPUSCULAR HEMOGLOBIN CONC 33.9 GM/DL 32.2-35.5 (BEAKER) (test code = 752) RED CELL DISTRIBUTION WIDTH 15.4 % 11.7-14.4 H (BEAKER) (test code = 412) PLATELET COUNT (BEAKER) (test code 89 K/CU MM 150-450 L = 756) MEAN PLATELET VOLUME (BEAKER) 9.8 fL 9.4-12.3 (test code = 754) NUCLEATED RED BLOOD CELLS (BEAKER) 0 /100 WBC 0-0 (test code = 413) NEUTROPHILS RELATIVE PERCENT 90 % (BEAKER) (test code = 429) LYMPHOCYTES RELATIVE PERCENT 5 % (BEAKER) (test code = 430) MONOCYTES RELATIVE PERCENT 5 % (BEAKER) (test code = 431) EOSINOPHILS RELATIVE PERCENT 0 % (BEAKER) (test code = 432) BASOPHILS RELATIVE PERCENT 0 % (BEAKER) (test code = 437) NEUTROPHILS ABSOLUTE COUNT 12.13 K/ L 1.56-6.13 H (BEAKER) (test code = 670) LYMPHOCYTES ABSOLUTE COUNT 0.60 K/ L 1.18-3.74 L (BEAKER) (test code = 414) MONOCYTES ABSOLUTE COUNT (BEAKER) 0.60 K/ L 0.24-0.36 H (test code = 415) EOSINOPHILS ABSOLUTE COUNT 0.00 K/ L 0.04-0.36 L (BEAKER) (test code = 416) BASOPHILS ABSOLUTE COUNT (BEAKER) 0.02 K/ L 0.01-0.08 (test code = 417) IMMATURE GRANULOCYTES-RELATIVE 1 % 0-1 PERCENT (BEAKER) (test code = 2801) POCT-GLUCOSE [id number] 22:37:00 Test Item Value Reference Range Interpretation Comments POC-GLUCOSE METER 221 mg/dL 70-110 H : [facility] ([facility]ER[facility] (test code = [place], 1538) [address]: Teletype Adjuster/Techni kylie ID = [id number] for DO February BLOOD GAS, [id number] 22:36:00 Test Item Value Reference Range Interpretation Comments PH ARTERIAL (BEAKER) (test code = 7.40 7.35-7.45 383) PCO2 ARTERIAL (BEAKER) (test code 37 mmHg 35-45 = 384) PO2 ARTERIAL (BEAKER) (test code 73 mmHg 80-90 L = 385) O2 SATURATION ARTERIAL (BEAKER) 94.7 % 96.0-97.0 L (test code = 386) HCO3 ARTERIAL (BEAKER) (test code 22 mmol/L 21-29 = 388) BASE EXCESS ARTERIAL (BEAKER) -2.3 mmol/L -2.0-3.0 L (test code = 387) PATIENT TEMPERATURE (BEAKER) 37.0 C (test code = 1818) FIO2 (BEAKER) (test code = 1819) 36.0 % OXYGEN SATURATION, [id number] 22:36:00 Test Item Value Reference Range Interpretation Comments O2 SATURATION (MEASURED) (BEAKER) 60.5 % (test code = 1455) POCT-GLUCOSE [id number] 16:20:00 Test Item Value Reference Range Interpretation Comments POC-GLUCOSE METER 216 mg/dL 70-110 H : TESTED A T [facility] 6720 (BEAKER) (test code = [employer] [facility], 1538) 63907: Teletype Adjuster/Techni kylie ID = [id number] for Re ed, [facility] HEMOGLOBIN AND [id number] 16:14:00 Test Item Value Reference Range Interpretation Comments HEMOGLOBIN (BEAKER) (test code = 7.3 GM/DL 11.2-15.7 L 410) HEMATOCRIT (BEAKER) (test code = 21.4 % 34.1-44.9 L 411) Teletype Adjuster ID - [id number]-GLUCOSE [id number] 15:08:00 Test Item Value Reference Range Interpretation Comments POC-GLUCOSE METER 176 mg/dL 70-110 H : TESTED A T [facility] 6720 (BEAKER) (test code = [facility] [employer] [facility], 1538) 53584: Teletype Adjuster/Techni kylie ID = [id number] for Re ed, Lauryn RAD, CHEST, 1 VIEW, NON [id number] 11:04:00while patient is intubated or has chest tubes.Reason for exam:->Status post CV SurgeryShould thisbe performed at the bedside?->YesFINAL REPORT RAD, CHEST, 1 VIEW, NON DEPT INDICATION: Status post CV Surgery COMPARISON: Prior day's exam FINDINGS: Portable frontal view of the chest. IMPRESSION: Support Lines: NG tube and ET tube have been removed. Otherwise, no significant interval change. Lungs and pleura: Unchanged airspace and pleural opacities. No pneumothorax.Heart and mediastinum: Stable contours. Stable surgical changes.Additional findings: None. Signed: Shellie [place] Verified Date/Time: 01/22/2020 11:04:00 Reading Location: [facility] Radiology Reading Room Electronically signedby: SHELLIE CLARK MD on 01/22/2020 11:04 AMCBC W/PLT COUNT & AUTO [id number] 11:02:00 Test Item Value Reference Range Interpretation Comments WHITE BLOOD CELL COUNT (BEAKER) 15.2 K/ L 3.5-10.5 H (test code = 775) RED BLOOD CELL COUNT (BEAKER) 2.33 M/ L 3.93-5.22 L (test code = 761) HEMOGLOBIN (BEAKER) (test code = 7.1 GM/DL 11.2-15.7 L 410) HEMATOCRIT (BEAKER) (test code = 20.6 % 34.1-44.9 L 411) MEAN CORPUSCULAR VOLUME (BEAKER) 88.4 fL 79.4-94.8 (test code = 753) MEAN CORPUSCULAR HEMOGLOBIN 30.5 pg 25.6-32.2 (BEAKER) (test code = 751) MEAN CORPUSCULAR HEMOGLOBIN CONC 34.5 GM/DL 32.2-35.5 (BEAKER) (test code = 752) RED CELL DISTRIBUTION WIDTH 15.5 % 11.7-14.4 H (BEAKER) (test code = 412) PLATELET COUNT (BEAKER) (test 105 K/CU MM 150-450 L code = 756) MEAN PLATELET VOLUME (BEAKER) 9.9 fL 9.4-12.3 (test code = 754) NUCLEATED RED BLOOD CELLS 0 /100 WBC 0-0 (BEAKER) (test code = 413) NEUTROPHILS RELATIVE PERCENT 91 % (BEAKER) (test code = 429) LYMPHOCYTES RELATIVE PERCENT 4 % (BEAKER) (test code = 430) MONOCYTES RELATIVE PERCENT 4 % (BEAKER) (test code = 431) EOSINOPHILS RELATIVE PERCENT 0 % (BEAKER) (test code = 432) BASOPHILS RELATIVE PERCENT 0 % (BEAKER) (test code = 437) NEUTROPHILS ABSOLUTE COUNT 13.89 K/ L 1.56-6.13 H (BEAKER) (test code = 670) LYMPHOCYTES ABSOLUTE COUNT 0.54 K/ L 1.18-3.74 L (BEAKER) (test code = 414) MONOCYTES ABSOLUTE COUNT (BEAKER) 0.67 K/ L 0.24-0.36 H (test code = 415) EOSINOPHILS ABSOLUTE COUNT 0.01 K/ L 0.04-0.36 L (BEAKER) (test code = 416) BASOPHILS ABSOLUTE COUNT (BEAKER) 0.02 K/ L 0.01-0.08 (test code = 417) IMMATURE GRANULOCYTES-RELATIVE 1 % 0-1 PERCENT (BEAKER) (test code = 2801) POCT-GLUCOSE [id number] 10:53:00 Test Item Value Reference Range Interpretation Comments POC-GLUCOSE METER 176 mg/dL 70-110 H : TESTED A T [facility] 6720 (BEAKER) (test code = [facility], 1538) 06326: Teletype Adjuster/Techni kylie ID = [id number] for Re Lauryn tate POCT-GLUCOSE [id number] 08:53:00 Test Item Value Reference Range Interpretation Comments POC-GLUCOSE METER 98 mg/dL 70-110 : TESTED A T [facility] 6720 (BEAKER) (test code = [facility], 1538) 78063: Teletype Adjuster/Techni kylie ID = [id number] for Lauryn Mcneill POCT-GLUCOSE [id number] 05:35:00 Test Item Value Reference Range Interpretation Comments POC-GLUCOSE METER 121 mg/dL 70-110 H : TESTED A T [facility] 6720 (BEAKER) (test code = [facility], 1538) 61171: Teletype Adjuster/Techni kylie ID = [id number] for BENNETT TOBIAS BLOOD GAS, [id number] 04:18:00 Test Item Value Reference Range Interpretation Comments PH ARTERIAL (BEAKER) (test code = 7.38 7.35-7.45 383) PCO2 ARTERIAL (BEAKER) (test code 40 mmHg 35-45 = 384) PO2 ARTERIAL (BEAKER) (test code 99 mmHg 80-90 H = 385) O2 SATURATION ARTERIAL (BEAKER) 97.4 % 96.0-97.0 H (test code = 386) HCO3 ARTERIAL (BEAKER) (test code 23 mmol/L 21-29 = 388) BASE EXCESS ARTERIAL (BEAKER) -1.9 mmol/L -2.0-3.0 (test code = 387) PATIENT TEMPERATURE (BEAKER) 36.9 C (test code = 1818) FIO2 (BEAKER) (test code = 1819) 28.0 % CBC (HEMOGRAM ONLY)2020-01-22 03:57:00 Test Item Value Reference Range Interpretation Comments WHITE BLOOD CELL COUNT (BEAKER) 19.7 K/ L 3.5-10.5 H (test code = 775) RED BLOOD CELL COUNT (BEAKER) 2.20 M/ L 3.93-5.22 L (test code = 761) HEMOGLOBIN (BEAKER) (test code = 6.6 GM/DL 11.2-15.7 L 410) HEMATOCRIT (BEAKER) (test code = 18.9 % 34.1-44.9 L 411) MEAN CORPUSCULAR VOLUME (BEAKER) 85.9 fL 79.4-94.8 (test code = 753) MEAN CORPUSCULAR HEMOGLOBIN 30.0 pg 25.6-32.2 (BEAKER) (test code = 751) MEAN CORPUSCULAR HEMOGLOBIN CONC 34.9 GM/DL 32.2-35.5 (BEAKER) (test code = 752) RED CELL DISTRIBUTION WIDTH 15.1 % 11.7-14.4 H (BEAKER) (test code = 412) PLATELET COUNT (BEAKER) (test 137 K/CU MM 150-450 L code = 756) MEAN PLATELET VOLUME (BEAKER) 9.9 fL 9.4-12.3 (test code = 754) NUCLEATED RED BLOOD CELLS 0 /100 WBC 0-0 (BEAKER) (test code = 413) [id number] 03:48:00 Test Item Value Reference Range Interpretation Comments PHOSPHORUS (BEAKER) (test code = 4.1 mg/dL 2.3-4.7 604) Teletype Adjuster ID Cherie ROE [id number] 03:48:00 Test Item Value Reference Range Interpretation Comments MAGNESIUM (BEAKER) (test code = 1.8 mg/dL 1.6-2.6 627) Teletype Adjuster ID Cherie ROE WBASIC METABOLIC [id number] 03:48:00 Test Item Value Reference Range Interpretation Comments SODIUM (BEAKER) 147 meq/L 136-145 H (test code = 381) POTASSIUM (BEAKER) 4.1 meq/L 3.5-5.1 (test code = 379) CHLORIDE (BEAKER) 116 meq/L 98-107 H (test code = 382) CO2 (BEAKER) (test 24 meq/L 22-29 code = 355) BLOOD UREA NITROGEN 30 mg/dL 7-21 H (BEAKER) (test code = 354) CREATININE (BEAKER) 1.05 mg/dL 0.57-1.25 (test code = 358) GLUCOSE RANDOM 129 mg/dL 70-105 H (BEAKER) (test code = 652) CALCIUM (BEAKER) 8.6 mg/dL 8.4-10.2 (test code = 697) EGFR (BEAKER) (test 52 mL/min/1.73 ESTIMA TOSHIA GFR IS code = 1092) sq m NOT ACCURATE CREATININE CLEARANCE IN PREDICTING GLOMERULAR FILTRATION RATE . ESTIMATED GFR I S NOT APPLICABLE FOR DIALYSIS PATIEN TS. Teletype Adjuster ID - BHUPINDER WLACTIC ACID, [id number] 03:41:00 Test Item Value Reference Range Interpretation Comments LACTATE BLOOD ARTERIAL (2) 1.8 mmol/L 0.5-2.2 (BEAKER) (test code = 2874) Teletype Adjuster ID - BHUPINDER WPOCT-GLUCOSE [id number] 02:23:00 Test Item Value Reference Range Interpretation Comments POC-GLUCOSE METER 111 mg/dL 70-110 H : TESTED A T [facility] 6720 (BEAKER) (test code = [place], 1538) 37441: Teletype Adjuster/Techni kylie ID = [id number] for BENNETT TOBIAS LACTIC ACID, [id number] 01:13:00 Test Item Value Reference Range Interpretation Comments LACTATE BLOOD 2.6 mmol/L 0.5-2.2 H Specimen sligh tly ARTERIAL (2) (BEAKER) hemoly zed (test code = 2874) Teletype Adjuster ID - DBCALCIUM, [id number] 01:00:00 Test Item Value Reference Range Interpretation Comments CALCIUM IONIZED (BEAKER) (test 1.20 mmol/L 1.12-1.27 code = 698) PH, BLOOD (BEAKER) (test code = 7.34 1810) OXYGEN SATURATION, [id number] 01:00:00 Test Item Value Reference Range Interpretation Comments O2 SATURATION (MEASURED) (BEAKER) 66.4 % (test code = 1455) BLOOD GAS, [id number] 00:58:00 Test Item Value Reference Range Interpretation Comments PH ARTERIAL (BEAKER) (test code = 7.34 7.35-7.45 L 383) PCO2 ARTERIAL (BEAKER) (test code 39 mmHg 35-45 = 384) PO2 ARTERIAL (BEAKER) (test code 82 mmHg 80-90 = 385) O2 SATURATION ARTERIAL (BEAKER) 95.7 % 96.0-97.0 L (test code = 386) HCO3 ARTERIAL (BEAKER) (test code 21 mmol/L 21-29 = 388) BASE EXCESS ARTERIAL (BEAKER) -4.5 mmol/L -2.0-3.0 L (test code = 387) PATIENT TEMPERATURE (BEAKER) 36.7 C (test code = 1818) FIO2 (BEAKER) (test code = 1819) 28.0 % GLUCOSE-STAT [id number] 00:58:00 Test Item Value Reference Range Interpretation Comments GLUCOSE RANDOM (BEAKER) (test code 131 mg/dL 70-110 H = 652) HGB/HCT (H&H) - STAT [id number] 00:58:00 Test Item Value Reference Range Interpretation Comments HEMOGLOBIN (BEAKER) (test code = 8.0 g/dL 12.0-15.0 L 410) HEMATOCRIT (BEAKER) (test code = 24.0 % 36.0-45.0 L 411) SODIUM NA-STAT [id number] 00:57:00 Test Item Value Reference Range Interpretation Comments SODIUM (BEAKER) (test code = 381) 141 meq/L 135-148 POTASSIUM-STAT [id number] 00:57:00 Test Item Value Reference Range Interpretation Comments POTASSIUM (BEAKER) (test code = 3.7 meq/L 3.6-5.5 379) POCT-GLUCOSE [id number] 18:19:00 Test Item Value Reference Range Interpretation Comments POC-GLUCOSE METER 173 mg/dL 70-110 H : TESTED A T [facility] 6720 (BEAKER) (test code = [facility], 1538) 98240: Teletype Adjuster/Techni kylie ID = [id number] for PER, ROSSINI POCT-GLUCOSE [id number] 16:36:00 Test Item Value Reference Range Interpretation Comments POC-GLUCOSE METER 223 mg/dL 70-110 H : TESTED A T [facility] 6720 (BEAKER) (test code = [facility], 1538) 68996: Teletype Adjuster/Techni kylie ID = [id number] for GE LESLY IBRAHIMIA POCT-GLUCOSE [id number] 15:17:00 Test Item Value Reference Range Interpretation Comments POC-GLUCOSE METER 224 mg/dL 70-110 H : TESTED A T [facility] 6720 (BEAKER) (test code = [facility], 1538) 09483: Teletype Adjuster/Techni kylie ID = [id number] for PER, ROSSINI CALCIUM, [id number] 15:12:00 Test Item Value Reference Range Interpretation Comments CALCIUM IONIZED (BEAKER) (test 1.23 mmol/L 1.12-1.27 code = 698) PH, BLOOD (BEAKER) (test code = 7.36 1810) HGB/HCT (H&H) - STAT [id number] 15:12:00 Test Item Value Reference Range Interpretation Comments HEMOGLOBIN (BEAKER) (test code = 9.5 GM/DL 12.0-15.0 L 410) HEMATOCRIT (BEAKER) (test code = 28.0 % 36.0-45.0 L 411) BLOOD GAS, [id number] 15:12:00 Test Item Value Reference Range Interpretation Comments PH ARTERIAL (BEAKER) (test code = 7.38 7.35-7.45 383) PCO2 ARTERIAL (BEAKER) (test code 35 mmHg 35-45 = 384) PO2 ARTERIAL (BEAKER) (test code 118 mmHg 80-90 H = 385) O2 SATURATION ARTERIAL (BEAKER) 98.4 % 96.0-97.0 H (test code = 386) HCO3 ARTERIAL (BEAKER) (test code 21 mmol/L 21-29 = 388) BASE EXCESS ARTERIAL (BEAKER) -4.3 mmol/L -2.0-3.0 L (test code = 387) PATIENT TEMPERATURE (BEAKER) 35.8 C (test code = 1818) FIO2 (BEAKER) (test code = 1819) 40.0 % POCT-GLUCOSE [id number] 14:36:00 Test Item Value Reference Range Interpretation Comments POC-GLUCOSE METER 223 mg/dL 70-110 H : [facility] ([facility]ER[facility] (test code = [place], 1538) 57749: Teletype Adjuster/Techni kylie ID = [id number] for PERKATIE RAD, CHEST, 1 VIEW, NON [id number] 13:32:00Reason for exam:->postopShould this be performed at the bedside?->YesFINAL REPORT RAD, CHEST, 1 VIEW, NON DEPT INDICATION: postop COMPARISON: January 15, 2020 FINDINGS: Portable frontal view of the chest. IMPRESSION: Support Lines: Right IJ sheath a catheter overlies the SVC. Feeding tube descends below the diaphragm. ET tube tip is 4 cm superior to the adrienne. Mediastinal drain and left-sided chest tube Lungs and pleura: Right midlung airspace disease in left lower lobe airspace disease, unchanged No pneumothorax.Heart and mediastinum: Stable contours. Additional findings: None. Signed: Shellie Clark Verified Date/Time: 01/21/2020 13:32:15 Reading Location: [facility] Radiology Reading Room THROMBOELASTOGRAPH (TEG)2020-01-21 13:09:00 Test Item Value Reference Range Interpretation Comments TEG ACTIVATED CLOTTING TIME 7.1 minutes 4.0-7.0 H (BEAKER) (test code = 1407) TEG FIBRINOGEN ACTIVITY (BEAKER) 69.5 degrees 61.0-73.0 (test code = 1408) TEG PLT. AGGREGATION (BEAKER) 69.5 MM 55.0-65.0 H (test code = 1409) TEG FIBRINOLYSIS (BEAKER) (test 0.0 % 0.0-5.0 code = 1410) TGH ACTIVATED CLOTTING TIME 6.8 minutes 4.0-7.0 (BEAKER) (test code = 1411) TGH FIBRINOGEN ACTIVITY (BEAKER) 71.7 degrees 61.0-73.0 (test code = 1412) TGH PLT. AGGREGATION (BEAKER) 65.9 MM 55.0-65.0 H (test code = 1413) TGH FIBRINOLYSIS (BEAKER) (test 0.0 % 0.0-5.0 code = 1414) CBC W/PLT COUNT & AUTO [id number] 12:47:00 Test Item Value Reference Range Interpretation Comments WHITE BLOOD CELL COUNT (BEAKER) 26.7 K/ L 3.5-10.5 H (test code = 775) RED BLOOD CELL COUNT (BEAKER) 3.37 M/ L 3.93-5.22 L (test code = 761) HEMOGLOBIN (BEAKER) (test code = 10.2 GM/DL 11.2-15.7 L 410) HEMATOCRIT (BEAKER) (test code = 30.1 % 34.1-44.9 L 411) MEAN CORPUSCULAR VOLUME (BEAKER) 89.3 fL 79.4-94.8 (test code = 753) MEAN CORPUSCULAR HEMOGLOBIN 30.3 pg 25.6-32.2 (BEAKER) (test code = 751) MEAN CORPUSCULAR HEMOGLOBIN CONC 33.9 GM/DL 32.2-35.5 (BEAKER) (test code = 752) RED CELL DISTRIBUTION WIDTH 14.7 % 11.7-14.4 H (BEAKER) (test code = 412) PLATELET COUNT (BEAKER) (test 194 K/CU MM 150-450 code = 756) MEAN PLATELET VOLUME (BEAKER) 9.6 fL 9.4-12.3 (test code = 754) NUCLEATED RED BLOOD CELLS 0 /100 WBC 0-0 (BEAKER) (test code = 413) (CELLAVISION MANUAL DIFF)2020-01-21 12:47:00 Test Item Value Reference Range Interpretation Comments NEUTROPHILS - REL 85 % (CELLAVISION)(BEAKER) (test code = 2816) LYMPHOCYTES - REL 10 % (CELLAVISION)(BEAKER) (test code = 2817) MONOCYTES - REL 4 % (CELLAVISION)(BEAKER) (test code = 2818) BANDS - REL (CELLAVISION)(BEAKER) 1 % 0-10 (test code = 2826) NEUTROPHILS - ABS 22.70 K/ul 1.56-6.13 H (CELLAVISION)(BEAKER) (test code = 2830) LYMPHOCYTES - ABS 2.67 K/ul 1.18-3.74 (CELLAVISION)(BEAKER) (test code = 2831) MONOCYTES - ABS 1.07 K/uL 0.24-0.36 H (CELLAVISION)(BEAKER) (test code = 2832) BANDS - ABS (CELLAVISION)(BEAKER) 0.27 K/uL 0.00-0.80 (test code = 2840) TOTAL COUNTED (BEAKER) (test code 100 = 1351) WBC MORPHOLOGY (BEAKER) (test code Normal = 487) PLT MORPHOLOGY (BEAKER) (test code Normal = 486) ANISOCYTOSIS (BEAKER) (test code = 1+ few 961) MICROCYTES (BEAKER) (test code = 1+ few 965) POIKILOCYTES (BEAKER) (test code = 1+ few 966) ARTIFACT (CELLAVISION)(BEAKER) Present (test code = 3432) PLATELET CONCENTRATION Adequate (CELLAVISION)(BEAKER) (test code = 3438) Teletype Adjuster ID Cherie Hunter OverholtUser comments: Slide comments:[id number] 12:43:00 Test Item Value Reference Range Interpretation Comments POTASSIUM (BEAKER) (test code = 4.1 meq/L 3.5-5.1 379) Teletype Adjuster ID - JOELLEN [id number] 12:43:00 Test Item Value Reference Range Interpretation Comments MAGNESIUM (BEAKER) (test code = 2.0 mg/dL 1.6-2.6 627) Teletype Adjuster ID - JOELLEN [id number] 12:43:00 Test Item Value Reference Range Interpretation Comments PHOSPHORUS (BEAKER) (test code = 3.8 mg/dL 2.3-4.7 604) Teletype Adjuster ID - JOELLEN [id number] 12:43:00 Test Item Value Reference Range Interpretation Comments GLUCOSE RANDOM (BEAKER) (test code 284 mg/dL 70-105 H = 652) Teletype Adjuster ID - JOELLEN WBASIC METABOLIC [id number] 12:43:00 Test Item Value Reference Range Interpretation Comments SODIUM (BEAKER) 136 meq/L 136-145 (test code = 381) POTASSIUM (BEAKER) 4.1 meq/L 3.5-5.1 (test code = 379) CHLORIDE (BEAKER) 109 meq/L 98-107 H (test code = 382) CO2 (BEAKER) (test 18 meq/L 22-29 L code = 355) BLOOD UREA NITROGEN 31 mg/dL 7-21 H (BEAKER) (test code = 354) CREATININE (BEAKER) 1.05 mg/dL 0.57-1.25 (test code = 358) GLUCOSE RANDOM 284 mg/dL 70-105 H (BEAKER) (test code = 652) CALCIUM (BEAKER) 9.6 mg/dL 8.4-10.2 (test code = 697) EGFR (BEAKER) (test 52 mL/min/1.73 ESTIMA TOSHIA GFR IS code = 1092) sq m NOT ACCURATE CREATININE CLEARANCE IN PREDICTING GLOMERULAR FILTRATION RATE . ESTIMATED GFR I S NOT APPLICABLE FOR DIALYSIS PATIEN TS. Teletype Adjuster CAROLYN Cherie CUENCA WLACTIC ACID, [id number] 12:14:00 Test Item Value Reference Range Interpretation Comments LACTATE BLOOD ARTERIAL (2) 1.5 mmol/L 0.5-2.2 (BEAKER) (test code = 2874) Teletype Adjuster CAROLYN CUENCA [id number] 12:13:00 Test Item Value Reference Range Interpretation Comments PROTIME (BEAKER) (test code = 15.9 seconds 11.9-14.2 H 759) INR (BEAKER) (test code = 370) 1.3 <=5.9 PARTIAL THROMBOPLASTIN TIME 34.9 seconds 22.5-36.0 (BEAKER) (test code = 760) Effective 04/18/2019: PT Reference Range ChangeNew: 11.9-14.2 Previous: 11.7- 14.7RECOMMENDED COUMADIN/WARFARIN INR THERAPY RANGESSTANDARD DOSE: 2.0-3.0 Includes: PROPHYLAXIS for venous thrombosis, systemic embolization; TREATMENT for venous thrombosis and/or pulmonary embolus.HIGH RISK: Target INR is2.5-3.5 for patients wiht mechanical heart valves.[id number] 12:12:00 Test Item Value Reference Range Interpretation Comments FIBRINOGEN LEVEL (BEAKER) (test 447 mg/dl 225-434 H code = 658) BLOOD GAS, [id number] 12:00:00 Test Item Value Reference Range Interpretation Comments PH ARTERIAL (BEAKER) (test code = 7.32 7.35-7.45 L 383) PCO2 ARTERIAL (BEAKER) (test code 42 mmHg 35-45 = 384) PO2 ARTERIAL (BEAKER) (test code 105 mmHg 80-90 H = 385) O2 SATURATION ARTERIAL (BEAKER) 97.7 % 96.0-97.0 H (test code = 386) HCO3 ARTERIAL (BEAKER) (test code 21 mmol/L 21-29 = 388) BASE EXCESS ARTERIAL (BEAKER) -4.9 mmol/L -2.0-3.0 L (test code = 387) PATIENT TEMPERATURE (BEAKER) 35.6 C (test code = 1818) FIO2 (BEAKER) (test code = 1819) 60.0 % CALCIUM, [id number] 12:00:00 Test Item Value Reference Range Interpretation Comments CALCIUM IONIZED (BEAKER) (test 1.28 mmol/L 1.12-1.27 H code = 698) PH, BLOOD (BEAKER) (test code = 7.30 1810) OXYGEN SATURATION, [id number] 11:59:00 Test Item Value Reference Range Interpretation Comments O2 SATURATION (MEASURED) (BEAKER) 71.7 % (test code = 1455) THROMBOELASTOGRAPH (TEG)2020-01-21 11:09:00 Test Item Value Reference Range Interpretation Comments TEG ACTIVATED CLOTTING NO CL OT DETECTED. TIME (BEAKER) (test code = 1407) TGH ACTIVATED CLOTTING 9.5 minutes 4.0-7.0 H TIME (BEAKER) (test code = 1411) TGH FIBRINOGEN ACTIVITY 68.2 degrees 61.0-73.0 (BEAKER) (test code = 1412) TGH PLT. AGGREGATION 58.8 MM 55.0-65.0 (BEAKER) (test code = 1413) [id number] 10:53:00 Test Item Value Reference Range Interpretation Comments ACTIVATED CLOTTING TIME 120 sec : 74 -137 seconds, (BEAKER) (test code = Earnest ne: TESTED AT 441) [facility] [address] [facility], [address]: Teletype Adjuster/Techni kylie ID = [id number] for STEPHANIE ESCOBAR [id number] 10:53:00 Test Item Value Reference Range Interpretation Comments ACTIVATED CLOTTING TIME 543 sec : 74 -137 seconds, (BEAKER) (test code = Baseli ne: TESTED AT 441) [facility] [address] [facility], [address]70 [address]: Teletype Adjuster/Techni kylie ID = [id number] for STEPHANIE ESCOBAR RADHA [id number] 10:53:00 Test Item Value Reference Range Interpretation Comments ACTIVATED CLOTTING TIME 830 sec : 74 -137 seconds, (BEAKER) (test code = Earnest ne: TESTED AT 441) [facility] [address] [facility], [address]: Teletype Adjuster/Techni kylie ID = [id number] for STEPHANIE ESCOBAR RADHA [id number] 10:40:00 Test Item Value Reference Range Interpretation Comments PARTIAL THROMBOPLASTIN TIME > seconds 22.5-36.0 HH (BEAKER) (test code = 760) POTASSIUM-STAT [id number] 10:32:00 Test Item Value Reference Range Interpretation Comments POTASSIUM (BEAKER) (test code = 4.8 meq/L 3.6-5.5 379) CALCIUM, [id number] 10:32:00 Test Item Value Reference Range Interpretation Comments CALCIUM IONIZED (BEAKER) (test 1.19 mmol/L 1.12-1.27 code = 698) PH, BLOOD (BEAKER) (test code = 7.31 1810) BLOOD GAS, [id number] 10:32:00 Test Item Value Reference Range Interpretation Comments PH ARTERIAL (BEAKER) (test code = 7.33 7.35-7.45 L 383) PCO2 ARTERIAL (BEAKER) (test code 42 mmHg 35-45 = 384) PO2 ARTERIAL (BEAKER) (test code 373 mmHg 80-90 H = 385) O2 SATURATION ARTERIAL (BEAKER) 99.8 % 96.0-97.0 H (test code = 386) HCO3 ARTERIAL (BEAKER) (test code 22 mmol/L 21-29 = 388) BASE EXCESS ARTERIAL (BEAKER) -3.6 mmol/L -2.0-3.0 L (test code = 387) PATIENT TEMPERATURE (BEAKER) 35.3 C (test code = 1818) FIO2 (BEAKER) (test code = 1819) 100.0 % SODIUM NA-STAT [id number] 10:32:00 Test Item Value Reference Range Interpretation Comments SODIUM (BEAKER) (test code = 381) 134 meq/L 135-148 L GLUCOSE-STAT [id number] 10:32:00 Test Item Value Reference Range Interpretation Comments GLUCOSE RANDOM (BEAKER) (test code 241 mg/dL 70-110 H = 652) HGB/HCT (H&H) - STAT [id number] 10:32:00 Test Item Value Reference Range Interpretation Comments HEMOGLOBIN (BEAKER) (test code = 7.7 g/dL 12.0-15.0 L 410) HEMATOCRIT (BEAKER) (test code = 23.0 % 36.0-45.0 L 411) POTASSIUM-STAT [id number] 10:08:00 Test Item Value Reference Range Interpretation Comments POTASSIUM (BEAKER) (test code = 4.7 meq/L 3.6-5.5 379) BLOOD GAS, [id number] 10:08:00 Test Item Value Reference Range Interpretation Comments PH ARTERIAL (BEAKER) (test code = 7.33 7.35-7.45 L 383) PCO2 ARTERIAL (BEAKER) (test code 41 mmHg 35-45 = 384) PO2 ARTERIAL (BEAKER) (test code 415 mmHg 80-90 H = 385) O2 SATURATION ARTERIAL (BEAKER) 99.8 % 96.0-97.0 H (test code = 386) HCO3 ARTERIAL (BEAKER) (test code 21 mmol/L 21-29 = 388) BASE EXCESS ARTERIAL (BEAKER) -4.5 mmol/L -2.0-3.0 L (test code = 387) PATIENT TEMPERATURE (BEAKER) 35.8 C (test code = 1818) FIO2 (BEAKER) (test code = 1819) 100.0 % SODIUM NA-STAT [id number] 10:08:00 Test Item Value Reference Range Interpretation Comments SODIUM (BEAKER) (test code = 381) 132 meq/L 135-148 L GLUCOSE-STAT [id number] 10:08:00 Test Item Value Reference Range Interpretation Comments GLUCOSE RANDOM (BEAKER) (test code 239 mg/dL 70-110 H = 652) HGB/HCT (H&H) - STAT [id number] 10:08:00 Test Item Value Reference Range Interpretation Comments HEMOGLOBIN (BEAKER) (test code = 7.9 g/dL 12.0-15.0 L 410) HEMATOCRIT (BEAKER) (test code = 23.0 % 36.0-45.0 L 411) CALCIUM, [id number] 10:08:00 Test Item Value Reference Range Interpretation Comments CALCIUM IONIZED (BEAKER) (test 1.17 mmol/L 1.12-1.27 code = 698) PH, BLOOD (BEAKER) (test code = 7.31 1810) PROTHROMBIN [id number] 10:04:00 Test Item Value Reference Range Interpretation Comments PROTIME (BEAKER) (test code = 22.9 seconds 11.9-14.2 H 759) INR (BEAKER) (test code = 370) 2.1 <=5.9 Effective 04/18/2019: PT Reference Range ChangeNew: 11.9-14.2 Previous: 11.7- 14.7RECOMMENDED COUMADIN/WARFARIN INR THERAPY RANGESSTANDARD DOSE: 2.0-3.0 Includes: PROPHYLAXIS for venous thrombosis, systemic embolization; TREATMENT for venous thrombosis and/or pulmonary embolus.HIGH RISK: Target INR is2.5-3.5 for patients wiht mechanical heart valves.[id number] 10:04:00 Test Item Value Reference Range Interpretation Comments FIBRINOGEN LEVEL (BEAKER) (test 290 mg/dl 225-434 code = 658) PLATELET [id number] 09:54:00 Test Item Value Reference Range Interpretation Comments PLATELET COUNT (BEAKER) (test code 77 K/CU MM 150-450 L = 756) Teletype Adjuster ID - [id number]-STAT [id number] 09:53:00 Test Item Value Reference Range Interpretation Comments POTASSIUM (BEAKER) (test code = 5.3 meq/L 3.6-5.5 379) BLOOD GAS, [id number] 09:53:00 Test Item Value Reference Range Interpretation Comments PH ARTERIAL (BEAKER) (test code = 7.37 7.35-7.45 383) PCO2 ARTERIAL (BEAKER) (test code 34 mmHg 35-45 L = 384) PO2 ARTERIAL (BEAKER) (test code 326 mmHg 80-90 H = 385) O2 SATURATION ARTERIAL (BEAKER) 99.7 % 96.0-97.0 H (test code = 386) HCO3 ARTERIAL (BEAKER) (test code 19 mmol/L 21-29 L = 388) BASE EXCESS ARTERIAL (BEAKER) -6.0 mmol/L -2.0-3.0 L (test code = 387) PATIENT TEMPERATURE (BEAKER) 35.1 C (test code = 1818) FIO2 (BEAKER) (test code = 1819) 75.0 % SODIUM NA-STAT [id number] 09:53:00 Test Item Value Reference Range Interpretation Comments SODIUM (BEAKER) (test code = 381) 131 meq/L 135-148 L GLUCOSE-STAT [id number] 09:53:00 Test Item Value Reference Range Interpretation Comments GLUCOSE RANDOM (BEAKER) (test code 250 mg/dL 70-110 H = 652) HGB/HCT (H&H) - STAT [id number] 09:53:00 Test Item Value Reference Range Interpretation Comments HEMOGLOBIN (BEAKER) (test code = 6.8 g/dL 12.0-15.0 L 410) HEMATOCRIT (BEAKER) (test code = 20.0 % 36.0-45.0 L 411) PLATELET AGGREGATION: FUNCTION [id number] 09:49:00 Test Item Value Reference Range Interpretation Comments [id number] Gerry Aaron M.D. (BEAKER) (test code = (electonic signature) 8691) PLATELET COUNT AGG 126 K/CU MM 150-450 L (BEAKER) (test code = 2656) PLATELET RICH 147 k/cu mm 200-300 L PLASMA(BEAKER) (test code = 2134) PLATELET FUNCTION Pattern of SCREEN INTERPRETATION disaggregation present (BEAKER) (test code = with ADP which may be 4653) characteristic of P2Y12 inhibitor effect. Correlation with medication history is required. Platelet Function Screen results may be falsely low with platelet counts<75,000/cu mm.Teletype Adjuster ID- [id number] ID - [id number] ID - [id number] POTASSIUM-STAT [id number] 09:33:00 Test Item Value Reference Range Interpretation Comments POTASSIUM (BEAKER) (test code = 4.8 meq/L 3.6-5.5 379) BLOOD GAS, [id number] 09:33:00 Test Item Value Reference Range Interpretation Comments PH ARTERIAL (BEAKER) (test code = 7.37 7.35-7.45 383) PCO2 ARTERIAL (BEAKER) (test code 34 mmHg 35-45 L = 384) PO2 ARTERIAL (BEAKER) (test code 288 mmHg 80-90 H = 385) O2 SATURATION ARTERIAL (BEAKER) 99.7 % 96.0-97.0 H (test code = 386) HCO3 ARTERIAL (BEAKER) (test code 20 mmol/L 21-29 L = 388) BASE EXCESS ARTERIAL (BEAKER) -5.5 mmol/L -2.0-3.0 L (test code = 387) PATIENT TEMPERATURE (BEAKER) 33.2 C (test code = 1818) FIO2 (BEAKER) (test code = 1819) 70.0 % SODIUM NA-STAT [id number] 09:33:00 Test Item Value Reference Range Interpretation Comments SODIUM (BEAKER) (test code = 381) 131 meq/L 135-148 L GLUCOSE-STAT [id number] 09:33:00 Test Item Value Reference Range Interpretation Comments GLUCOSE RANDOM (BEAKER) (test code 249 mg/dL 70-110 H = 652) HGB/HCT (H&H) - STAT [id number] 09:33:00 Test Item Value Reference Range Interpretation Comments HEMOGLOBIN (BEAKER) (test code = 7.8 g/dL 12.0-15.0 L 410) HEMATOCRIT (BEAKER) (test code = 23.0 % 36.0-45.0 L 411) HGB/HCT (H&H) - STAT [id number] 09:15:00 Test Item Value Reference Range Interpretation Comments HEMOGLOBIN (BEAKER) (test code = 5.3 g/dL 12.0-15.0 LL 410) HEMATOCRIT (BEAKER) (test code = 16.0 % 36.0-45.0 L 411) POTASSIUM-STAT [id number] 09:12:00 Test Item Value Reference Range Interpretation Comments POTASSIUM (BEAKER) (test code = 4.3 meq/L 3.6-5.5 379) SODIUM NA-STAT [id number] 09:12:00 Test Item Value Reference Range Interpretation Comments SODIUM (BEAKER) (test code = 381) 132 meq/L 135-148 L GLUCOSE-STAT [id number] 09:12:00 Test Item Value Reference Range Interpretation Comments GLUCOSE RANDOM (BEAKER) (test code 228 mg/dL 70-110 H = 652) BLOOD GAS, [id number] 09:12:00 Test Item Value Reference Range Interpretation Comments PH ARTERIAL (BEAKER) (test code = 7.40 7.35-7.45 383) PCO2 ARTERIAL (BEAKER) (test code 34 mmHg 35-45 L = 384) PO2 ARTERIAL (BEAKER) (test code 290 mmHg 80-90 H = 385) O2 SATURATION ARTERIAL (BEAKER) 99.7 % 96.0-97.0 H (test code = 386) HCO3 ARTERIAL (BEAKER) (test code 23 mmol/L 21-29 = 388) BASE EXCESS ARTERIAL (BEAKER) -3.7 mmol/L -2.0-3.0 L (test code = 387) PATIENT TEMPERATURE (BEAKER) 29.0 C (test code = 1818) FIO2 (BEAKER) (test code = 1819) 65.0 % SODIUM NA-STAT [id number] 08:01:00 Test Item Value Reference Range Interpretation Comments SODIUM (BEAKER) (test code = 381) 139 meq/L 135-148 POTASSIUM-STAT [id number] 08:01:00 Test Item Value Reference Range Interpretation Comments POTASSIUM (BEAKER) (test code = 3.8 meq/L 3.6-5.5 379) BLOOD GAS, [id number] 08:01:00 Test Item Value Reference Range Interpretation Comments PH ARTERIAL (BEAKER) (test code = 7.41 7.35-7.45 383) PCO2 ARTERIAL (BEAKER) (test code 38 mmHg 35-45 = 384) PO2 ARTERIAL (BEAKER) (test code 385 mmHg 80-90 H = 385) O2 SATURATION ARTERIAL (BEAKER) 99.8 % 96.0-97.0 H (test code = 386) HCO3 ARTERIAL (BEAKER) (test code 23 mmol/L 21-29 = 388) BASE EXCESS ARTERIAL (BEAKER) -1.2 mmol/L -2.0-3.0 (test code = 387) PATIENT TEMPERATURE (BEAKER) 36.5 C (test code = 1818) FIO2 (BEAKER) (test code = 1819) 97.0 % GLUCOSE-STAT [id number] 08:01:00 Test Item Value Reference Range Interpretation Comments GLUCOSE RANDOM (BEAKER) (test code 149 mg/dL 70-110 H = 652) HGB/HCT (H&H) - STAT [id number] 08:01:00 Test Item Value Reference Range Interpretation Comments HEMOGLOBIN (BEAKER) (test code = 9.1 g/dL 12.0-15.0 L 410) HEMATOCRIT (BEAKER) (test code = 27.0 % 36.0-45.0 L 411) CALCIUM, [id number] 08:00:00 Test Item Value Reference Range Interpretation Comments CALCIUM IONIZED (BEAKER) (test 1.12 mmol/L 1.12-1.27 code = 698) PH, BLOOD (BEAKER) (test code = 7.40 1810) [id number] 06:58:00 Test Item Value Reference Range Interpretation Comments PARTIAL THROMBOPLASTIN TIME 44.8 seconds 22.5-36.0 H (BEAKER) (test code = 760) PROTHROMBIN [id number] 06:57:00 Test Item Value Reference Range Interpretation Comments PROTIME (BEAKER) (test code = 13.8 seconds 11.9-14.2 759) INR (BEAKER) (test code = 370) 1.1 <=5.9 Effective 04/18/2019: PT Reference Range ChangeNew: 11.9-14.2 Previous: 11.7- 14.7RECOMMENDED COUMADIN/WARFARIN INR THERAPY RANGESSTANDARD DOSE: 2.0-3.0 Includes: PROPHYLAXIS for venous thrombosis, systemic embolization; TREATMENT for venous thrombosis and/or pulmonary embolus.HIGH RISK: Target INR is2.5-3.5 for patients wiht mechanical heart valves.POCT-GLUCOSE [id number] 06:14:00 Test Item Value Reference Range Interpretation Comments POC-GLUCOSE METER 153 mg/dL 70-110 H : TESTED A T [facility] 6720 (BEAKER) (test code [facility], = 1538) [address]: Teletype Adjuster/Techni kylie ID = [id number] for JORD AN, LACRYSTAL POCT-GLUCOSE [id number] 09:34:00 Test Item Value Reference Range Interpretation Comments POC-GLUCOSE METER 169 mg/dL 70-110 H : [facility] (BEAKER) (test code = [place], 1538) [address]: Teletype Adjuster/Techni kylie ID = [id number] for AAYUSH BATEMAN BASIC METABOLIC [id number] 06:51:00 Test Item Value Reference Range Interpretation Comments SODIUM (BEAKER) 137 meq/L 136-145 (test code = 381) POTASSIUM (BEAKER) 3.6 meq/L 3.5-5.1 (test code = 379) CHLORIDE (BEAKER) 107 meq/L 98-107 (test code = 382) CO2 (BEAKER) (test 23 meq/L 22-29 code = 355) BLOOD UREA NITROGEN 31 mg/dL 7-21 H (BEAKER) (test code = 354) CREATININE (BEAKER) 1.23 mg/dL 0.57-1.25 (test code = 358) GLUCOSE RANDOM 242 mg/dL 70-105 H (BEAKER) (test code = 652) CALCIUM (BEAKER) 9.1 mg/dL 8.4-10.2 (test code = 697) EGFR (BEAKER) (test 44 mL/min/1.73 ESTIMA TOSHIA GFR IS code = 1092) sq m NOT ACCURATE CREATININE CLEARANCE IN PREDICTING GLOMERULAR FILTRATION RATE . ESTIMATED GFR I S NOT APPLICABLE FOR DIALYSIS PATIEN TS. Teletype Adjuster ID - PIAYA LCBC (HEMOGRAM ONLY)2020-01-17 06:02:00 Test Item Value Reference Range Interpretation Comments WHITE BLOOD CELL COUNT (BEAKER) 8.8 K/ L 3.5-10.5 (test code = 775) RED BLOOD CELL COUNT (BEAKER) 3.18 M/ L 3.93-5.22 L (test code = 761) HEMOGLOBIN (BEAKER) (test code = 9.1 GM/DL 11.2-15.7 L 410) HEMATOCRIT (BEAKER) (test code = 27.7 % 34.1-44.9 L 411) MEAN CORPUSCULAR VOLUME (BEAKER) 87.1 fL 79.4-94.8 (test code = 753) MEAN CORPUSCULAR HEMOGLOBIN 28.6 pg 25.6-32.2 (BEAKER) (test code = 751) MEAN CORPUSCULAR HEMOGLOBIN CONC 32.9 GM/DL 32.2-35.5 (BEAKER) (test code = 752) RED CELL DISTRIBUTION WIDTH 13.8 % 11.7-14.4 (BEAKER) (test code = 412) PLATELET COUNT (BEAKER) (test code 91 K/CU MM 150-450 L = 756) MEAN PLATELET VOLUME (BEAKER) 9.9 fL 9.4-12.3 (test code = 754) NUCLEATED RED BLOOD CELLS (BEAKER) 0 /100 WBC 0-0 (test code = 413) POCT-GLUCOSE [id number] 22:03:00 Test Item Value Reference Range Interpretation Comments POC-GLUCOSE METER 196 mg/dL 70-110 H : TESTED A T [facility] 6720 (BEAKER) (test code = [facility], 1538) 87[address]: Teletype Adjuster/Techni kylie ID = [id number] for Peggy Dooley POCT-GLUCOSE [id number] 17:47:00 Test Item Value Reference Range Interpretation Comments POC-GLUCOSE METER 207 mg/dL 70-110 H : TESTED A T [facility] 6720 (BEAKER) (test code = [facility], 1538) 154[address]: Teletype Adjuster/Techni kylie ID = [id number] for ADITHYA ALICIA BASIC METABOLIC [id number] 16:32:00 Test Item Value Reference Range Interpretation Comments SODIUM (BEAKER) 137 meq/L 136-145 (test code = 381) POTASSIUM (BEAKER) 3.7 meq/L 3.5-5.1 (test code = 379) CHLORIDE (BEAKER) 107 meq/L 98-107 (test code = 382) CO2 (BEAKER) (test 23 meq/L 22-29 code = 355) BLOOD UREA NITROGEN 31 mg/dL 7-21 H (BEAKER) (test code = 354) CREATININE (BEAKER) 1.24 mg/dL 0.57-1.25 (test code = 358) GLUCOSE RANDOM 255 mg/dL 70-105 H (BEAKER) (test code = 652) CALCIUM (BEAKER) 8.8 mg/dL 8.4-10.2 (test code = 697) EGFR (BEAKER) (test 43 mL/min/1.73 ESTIMA TOSHIA GFR IS code = 1092) sq m NOT ACCURATE CREATININE CLEARANCE IN PREDICTING GLOMERULAR FILTRATION RATE . ESTIMATED GFR I S NOT APPLICABLE FOR DIALYSIS PATIEN TS. Teletype Adjuster ID - ADMINURINALYSIS W/ [id number] 13:37:00 Test Item Value Reference Range Interpretation Comments COLOR (BEAKER) (test code = 470) Light Yellow CLARITY (BEAKER) (test code = Clear 469) SPECIFIC GRAVITY UA (BEAKER) 1.011 1.001-1.035 (test code = 468) PH UA (BEAKER) (test code = 467) 5.5 5.0-8.0 PROTEIN UA (BEAKER) (test code = 10 mg/dL Negative A 464) GLUCOSE UA (BEAKER) (test code = Negative Negative 365) KETONES UA (BEAKER) (test code = Negative Negative 371) BILIRUBIN UA (BEAKER) (test code Negative Negative = 462) BLOOD UA (BEAKER) (test code = Negative Negative 461) NITRITE UA (BEAKER) (test code = Negative Negative 465) LEUKOCYTE ESTERASE UA (BEAKER) Negative Negative (test code = 466) UROBILINOGEN UA (BEAKER) (test 0.2 mg/dL 0.2-1.0 code = 463) RBC UA (BEAKER) (test code = 1 /HPF 519) WBC UA (BEAKER) (test code = 1 /HPF 520) SQUAMOUS EPITHELIAL (BEAKER) < /HPF (test code = 516) SOURCE(BEAKER) (test code = 2795) Teletype Adjuster ID - [auto]Teletype Adjuster ID - techCREATININE, RANDOM [id number] 13:10:00 Test Item Value Reference Range Interpretation Comments CREATININE URINE (BEAKER) (test 54.5 mg/dL code = 375) Reference Range: No NormalsOperator ID - DBSODIUM, RANDOM [id number] 13:10:00 Test Item Value Reference Range Interpretation Comments SODIUM URINE (BEAKER) (test code = 58 meq/L 243) Reference Range: No NormalsOperator ID - DBUREA NITROGEN, RANDOM [id number] 13:10:00 Test Item Value Reference Range Interpretation Comments UREA NITROGEN URINE (BEAKER) (test 444 mg/dL code = 538) Reference Range: No NormalsOperator ID - DBPOCT-GLUCOSE [id number] 12:16:00 Test Item Value Reference Range Interpretation Comments POC-GLUCOSE METER 192 mg/dL 70-110 H : TESTED A T [facility] 6720 (BEAKER) (test code = [facility], 1538) [address]: Teletype Adjuster/Techni kylie ID = [id number] for JOSEFA HANNAH POCT-GLUCOSE [id number] 08:06:00 Test Item Value Reference Range Interpretation Comments POC-GLUCOSE METER 196 mg/dL 70-110 H : TESTED A T [facility] 6720 (BEAKER) (test code = [facility], 1538) 59478: Teletype Adjuster/Techni kylie ID = [id number] for JOSEFA HANNAH BASIC METABOLIC [id number] 06:22:00 Test Item Value Reference Range Interpretation Comments SODIUM (BEAKER) 139 meq/L 136-145 (test code = 381) POTASSIUM (BEAKER) 3.6 meq/L 3.5-5.1 (test code = 379) CHLORIDE (BEAKER) 107 meq/L 98-107 (test code = 382) CO2 (BEAKER) (test 23 meq/L 22-29 code = 355) BLOOD UREA NITROGEN 33 mg/dL 7-21 H (BEAKER) (test code = 354) CREATININE (BEAKER) 1.29 mg/dL 0.57-1.25 H (test code = 358) GLUCOSE RANDOM 171 mg/dL 70-105 H (BEAKER) (test code = 652) CALCIUM (BEAKER) 9.1 mg/dL 8.4-10.2 (test code = 697) EGFR (BEAKER) (test 41 mL/min/1.73 ESTIMA TOSHIA GFR IS code = 1092) sq m NOT ACCURATE CREATININE CLEARANCE IN PREDICTING GLOMERULAR FILTRATION RATE . ESTIMATED GFR I S NOT APPLICABLE FOR DIALYSIS PATIEN TS. Teletype Adjuster ID - LARRY MCBC (HEMOGRAM ONLY)2020-01-16 05:47:00 Test Item Value Reference Range Interpretation Comments WHITE BLOOD CELL COUNT (BEAKER) 8.5 K/ L 3.5-10.5 (test code = 775) RED BLOOD CELL COUNT (BEAKER) 3.26 M/ L 3.93-5.22 L (test code = 761) HEMOGLOBIN (BEAKER) (test code = 9.3 GM/DL 11.2-15.7 L 410) HEMATOCRIT (BEAKER) (test code = 28.2 % 34.1-44.9 L 411) MEAN CORPUSCULAR VOLUME (BEAKER) 86.5 fL 79.4-94.8 (test code = 753) MEAN CORPUSCULAR HEMOGLOBIN 28.5 pg 25.6-32.2 (BEAKER) (test code = 751) MEAN CORPUSCULAR HEMOGLOBIN CONC 33.0 GM/DL 32.2-35.5 (BEAKER) (test code = 752) RED CELL DISTRIBUTION WIDTH 13.9 % 11.7-14.4 (BEAKER) (test code = 412) PLATELET COUNT (BEAKER) (test code 88 K/CU MM 150-450 L = 756) MEAN PLATELET VOLUME (BEAKER) 9.3 fL 9.4-12.3 L (test code = 754) NUCLEATED RED BLOOD CELLS (BEAKER) 0 /100 WBC 0-0 (test code = 413) POCT-GLUCOSE [id number] 21:42:00 Test Item Value Reference Range Interpretation Comments POC-GLUCOSE METER 150 mg/dL 70-110 H : TESTED A T [facility] 6720 (BEAKER) (test code = [facility], 1538) 20056: Teletype Adjuster/Techni kylie ID = [id number] for Peggy Dooley POCT-GLUCOSE [id number] 18:22:00 Test Item Value Reference Range Interpretation Comments POC-GLUCOSE METER 163 mg/dL 70-110 H : TESTED A T [facility] 6720 (BEAKER) (test code = [facility], 1538) [address]: Teletype Adjuster/Techni kylie ID = [id number] for ADITHYA ALICIA TROPONIN [id number] 18:11:00 Test Item Value Reference Range Interpretation Comments TROPONIN I (BEAKER) (test code = 0.17 ng/mL 0.00-0.03 H 397) Troponin I (TnI) levels must be interpreted in the context of the presenting symptoms and the clinical findings. Elevated TnI levels indicate myocardial damage, but are not specific for ischemic heart disease. Elevated TnI levels are seen in patients with other cardiac conditions (including myocarditis and congestive heart failure), and slight TnI elevations occur in patients with other conditions, including sepsis, renal failure, acidosis, acute neurological disease, and persistent tachyarrhythmia.Teletype Adjuster ID - DBHEMOGLOBIN [id number] 12:57:00 Test Item Value Reference Range Interpretation Comments HEMOGLOBIN A1C (FERNANDO) (test code = 6.5 % 4.3-6.1 H 368) RAD, CHEST, 1 VIEW, NON [id number] 11:04:00Reason for exam:->ACSShould this be performed at the bedside?->YesFINAL REPORT INDICATION: ACS COMPARISON: None TECHNIQUE: Single frontal view of the chest. IMPRESSION:Lungs and pleura: Focal consolidation in the right upper lobe with questionable perihilar involvement. Left lung is clear. No effusion.Heart and mediastinum: Normal heart size. Unremarkable mediastinal contours.Osseous structures: No acute abnormality.Other: None. Signed: JR Sue Robert MDReport Verified Date/Time: 01/15/2020 11:04:04 Reading Location: [facility] Reading Room T4, [id number] 10:23:00 Test Item Value Reference Range Interpretation Comments FREE T4 (FERNANDO) (test code = 655) 0.98 ng/dL 0.70-1.48 Teletype Adjuster ID - LARRY [id number] 10:23:00 Test Item Value Reference Range Interpretation Comments THYROID STIMULATING HORMONE 1.00 uIU/mL 0.35-4.94 (FERNANDO) (test code = 772) Teletype Adjuster ID - LARRY MTROPONIN [id number] 10:15:00 Test Item Value Reference Range Interpretation Comments TROPONIN I (FERNANDO) (test code = 0.18 ng/mL 0.00-0.03 H 397) Troponin I (TnI) levels must be interpreted in the context of the presenting symptoms and the clinical findings. Elevated TnI levels indicate myocardial damage, but are not specific for ischemic heart disease. Elevated TnI levels are seen in patients with other cardiac conditions (including myocarditis and congestive heart failure), and slight TnI elevations occur in patients with other conditions, including sepsis, renal failure, acidosis, acute neurological disease, and persistent tachyarrhythmia.Teletype Adjuster ID - LARRY MB-TYPE NATRIURETIC FACTOR (BNP)2020-01-15 10:09:00 Test Item Value Reference Range Interpretation Comments B-TYPE NATRIURETIC PEPTIDE (BEAKER) 96 pg/mL 0-100 (test code = 700) Teletype Adjuster ID - LARRY MPLATELET AGGREGATION: FUNCTION [id number] 10:02:00 Test Item Value Reference Range Interpretation Comments [id number] Ed Higgins MD (BEAKER) (test code = (electronic 2622) signature) PLATELET COUNT AGG 108 K/CU MM 150-450 L (BEAKER) (test code = 2656) PLATELET RICH 145 k/cu mm 200-300 L PLASMA(BEAKER) (test code = 2134) PLATELET FUNCTION SCREEN Decreased aggregation INTERPRETATION (BEAKER) with ADP which (test code = 4655) indicates platelet dysfunction that may be due to medication effect, uremia, or other platelet function disorders. Clinical correlation is required. PLATELET FUNCTION SCREEN When platelet rich INTERPRETATION (BEAKER) plasma count is (test code = 206283) <200,000/mm3, an abnormal result may be due to a low platelet count rather than a true platelet dysfunction. Platelet Function Screen results may be falsely low with platelet counts<75,000/cu mm.Teletype Adjuster ID- [id number] [id number] 09:50:00 Test Item Value Reference Range Interpretation Comments TROPONIN I (BEAKER) (test code = 0.13 ng/mL 0.00-0.03 H 397) Troponin I (TnI) levels must be interpreted in the context of the presenting symptoms and the clinical findings. Elevated TnI levels indicate myocardial damage, but are not specific for ischemic heart disease. Elevated TnI levels are seen in patients with other cardiac conditions (including myocarditis and congestive heart failure), and slight TnI elevations occur in patients with other conditions, including sepsis, renal failure, acidosis, acute neurological disease, and persistent tachyarrhythmia.Teletype Adjuster ID - KIYA MLIPID PANEL 2020-01-15 08:20:00 Test Item Value Reference Range Interpretation Comments TRIGLYCERIDES (BEAKER) 230 mg/dL Speci men slightly (test code = 540) hemolyzed CHOLESTEROL (BEAKER) 105 mg/dL Specime n slightly (test code = 631) hemolyzed HDL CHOLESTEROL (BEAKER) 20 mg/dL (test code = 976) LDL CHOLESTEROL 39 mg/dL CALCULATED (BEAKER) (test code = 633) Triglyceride Reference Range: Low Risk <150 Borderline 150-199 High Risk 200-499 Very High Risk >=500Cholesterol Reference Range: Low Risk <200 Borderline 200-239 High Risk >240HDL Cholesterol Reference Range: Low Risk >=60 High Risk <40LDL Cholesterol Reference Range: Optimal <100 Near Optimal 100-129 Borderline 130-159 High 160-189 Very High >=190 Teletype Adjuster ID - KIYA MPOCT-GLUCOSE [id number] 07:47:00 Test Item Value Reference Range Interpretation Comments POC-GLUCOSE METER 164 mg/dL 70-110 H : Notified RN/MD: TESTED (BEAKER) (test code AT [facility] [address] = 1538) [facility], [facility] 30: Teletype Adjuster/Techni kylie ID = [id number] for ROMERO REBOLLEDO BASIC METABOLIC [id number] 06:41:00 Test Item Value Reference Range Interpretation Comments SODIUM (BEAKER) 139 meq/L 136-145 (test code = 381) POTASSIUM (BEAKER) 3.6 meq/L 3.5-5.1 (test code = 379) CHLORIDE (BEAKER) 107 meq/L 98-107 (test code = 382) CO2 (BEAKER) (test 22 meq/L 22-29 code = 355) BLOOD UREA NITROGEN 25 mg/dL 7-21 H (BEAKER) (test code = 354) CREATININE (BEAKER) 1.05 mg/dL 0.57-1.25 (test code = 358) GLUCOSE RANDOM 150 mg/dL 70-105 H (BEAKER) (test code = 652) CALCIUM (BEAKER) 9.0 mg/dL 8.4-10.2 (test code = 697) EGFR (BEAKER) (test 52 mL/min/1.73 ESTIMA TOSHIA GFR IS code = 1092) sq m NOT ACCURATE CREATININE CLEARANCE IN PREDICTING GLOMERULAR FILTRATION RATE . ESTIMATED GFR I S NOT APPLICABLE FOR DIALYSIS PATIEN TS. Teletype Adjuster ID - LARRY MCBC (HEMOGRAM ONLY)2020-01-15 06:19:00 Test Item Value Reference Range Interpretation Comments WHITE BLOOD CELL COUNT (BEAKER) 8.5 K/ L 3.5-10.5 (test code = 775) RED BLOOD CELL COUNT (BEAKER) 3.24 M/ L 3.93-5.22 L (test code = 761) HEMOGLOBIN (BEAKER) (test code = 9.4 GM/DL 11.2-15.7 L 410) HEMATOCRIT (BEAKER) (test code = 28.1 % 34.1-44.9 L 411) MEAN CORPUSCULAR VOLUME (BEAKER) 86.7 fL 79.4-94.8 (test code = 753) MEAN CORPUSCULAR HEMOGLOBIN 29.0 pg 25.6-32.2 (BEAKER) (test code = 751) MEAN CORPUSCULAR HEMOGLOBIN CONC 33.5 GM/DL 32.2-35.5 (BEAKER) (test code = 752) RED CELL DISTRIBUTION WIDTH 13.9 % 11.7-14.4 (BEAKER) (test code = 412) PLATELET COUNT (BEAKER) (test code 96 K/CU MM 150-450 L = 756) MEAN PLATELET VOLUME (BEAKER) 9.6 fL 9.4-12.3 (test code = 754) NUCLEATED RED BLOOD CELLS (BEAKER) 0 /100 WBC 0-0 (test code = 413) POCT-GLUCOSE [id number] 21:43:00 Test Item Value Reference Range Interpretation Comments POC-GLUCOSE METER 223 mg/dL 70-110 H : TESTED A T [facility] 6720 (BEAKER) (test code = [place], 1538) [id number]: Teletype Adjuster/Techni kylie ID = [id number] for Evelyn Gillespie BASIC METABOLIC [id number] 21:08:00 Test Item Value Reference Range Interpretation Comments SODIUM (BEAKER) 137 meq/L 136-145 (test code = 381) POTASSIUM (BEAKER) 3.7 meq/L 3.5-5.1 (test code = 379) CHLORIDE (BEAKER) 105 meq/L 98-107 (test code = 382) CO2 (BEAKER) (test 23 meq/L 22-29 code = 355) BLOOD UREA NITROGEN 21 mg/dL 7-21 (BEAKER) (test code = 354) CREATININE (BEAKER) 1.08 mg/dL 0.57-1.25 (test code = 358) GLUCOSE RANDOM 158 mg/dL 70-105 H (BEAKER) (test code = 652) CALCIUM (BEAKER) 9.4 mg/dL 8.4-10.2 (test code = 697) EGFR (BEAKER) (test 51 mL/min/1.73 ESTIMA TOSHIA GFR IS code = 1092) sq m NOT ACCURATE CREATININE CLEARANCE IN PREDICTING GLOMERULAR FILTRATION RATE . ESTIMATED GFR I S NOT APPLICABLE FOR DIALYSIS PATIEN TS. Teletype Adjuster ID - EVELYN EPROTHROMBIN TIME/[id number] 21:02:00 Test Item Value Reference Range Interpretation Comments PROTIME (BEAKER) (test code = 14.1 seconds 11.9-14.2 759) INR (BEAKER) (test code = 370) 1.1 <=5.9 Effective 04/18/2019: PT Reference Range ChangeNew: 11.9-14.2 Previous: 11.7- 14.7RECOMMENDED COUMADIN/WARFARIN INR THERAPY RANGESSTANDARD DOSE: 2.0-3.0 Includes: PROPHYLAXIS for venous thrombosis, systemic embolization; TREATMENT for venous thrombosis and/or pulmonary embolus.HIGH RISK: Target INR is2.5-3.5 for patients wiht mechanical heart valves.CBC (HEMOGRAM ONLY)2020-01-14 20:52:00 Test Item Value Reference Range Interpretation Comments WHITE BLOOD CELL COUNT (BEAKER) 10.4 K/ L 3.5-10.5 (test code = 775) RED BLOOD CELL COUNT (BEAKER) 3.49 M/ L 3.93-5.22 L (test code = 761) HEMOGLOBIN (BEAKER) (test code = 10.1 GM/DL 11.2-15.7 L 410) HEMATOCRIT (BEAKER) (test code = 29.8 % 34.1-44.9 L 411) MEAN CORPUSCULAR VOLUME (BEAKER) 85.4 fL 79.4-94.8 (test code = 753) MEAN CORPUSCULAR HEMOGLOBIN 28.9 pg 25.6-32.2 (BEAKER) (test code = 751) MEAN CORPUSCULAR HEMOGLOBIN CONC 33.9 GM/DL 32.2-35.5 (BEAKER) (test code = 752) RED CELL DISTRIBUTION WIDTH 14.0 % 11.7-14.4 (BEAKER) (test code = 412) PLATELET COUNT (BEAKER) (test 103 K/CU MM 150-450 L code = 756) MEAN PLATELET VOLUME (BEAKER) 9.3 fL 9.4-12.3 L (test code = 754) NUCLEATED RED BLOOD CELLS 0 /100 WBC 0-0 (BEAKER) (test code = 413) POCT-GLUCOSE [id number] 18:35:00 Test Item Value Reference Range Interpretation Comments POC-GLUCOSE METER 151 mg/dL 70-110 H : TESTED A T [facility] 6720 ([facility]) (test code = SERGEY SCHWARTZ, 1538) 76220: Teletype Adjuster/Techni kylie ID = [id number] for Alicia Vargas
[2021-06-11 01:48] LABS: Protime INR 1.04
[2021-06-11 02:08] LABS: BUN Blood Urea Nitrogen 33 mg/dL (7-18); Bicarbonate 29 mmol/L (21-32); Glucose Level 218 mg/dL (74-106); Potassium 3.6 mmol/L (3.5-5.1); Sodium Level 138 mmol/L (136-145)
[2021-06-11] MEDS ORDERED: NITROGLYCERIN 0.4 MG/TAB SL ONE (02:08)
[2021-06-11] MEDS ORDERED: ASPIRIN 81 MG CHEWABLE TABLET ONE (02:08)
[2021-06-11 02:09] LABS: ALT/SGPT 30 U/L (12-78); AST/SGOT 21 U/L (15-37); Albumin 3.2 g/dL (3.4-5.0); Alkaline Phosphatase 60 U/L (45-117); Bilirubin Direct < 0.1 mg/dL (0-0.2); Bilirubin Total 0.3 mg/dL (0.2-1.0); NT PRO-BNP 1210 pg/mL (<125); Troponin (Emerg Dept Use Only) < 0.02 ng/mL (0.0-0.045)
[2021-06-11 02:16] LABS: Absolute Lymphocytes (CBC) 1.4 K/uL (0.7-4.9); Basophils % 0.3 % (0-1.3); Hematocrit 30.4 % (36.0-45.0); Lymphocytes % 12.1 % (15.3-44.8); MPV 7.9 fL (7.6-11.3)
[2021-06-11] MEDS ORDERED: ACETAMINOPHEN 500 MG TAB ONE (02:19)
--- NOTE | 2021-06-11 02:45 | ER ---
Nurse's Notes [facility] Name: Dominique Collazo Age: 71 yrs Sex: Female : 1950 Arrival Date: 06/11/2021 Time: 00:34 Bed 5 Private MD: Jigar Desai C Diagnosis: Chest pain, unspecified;Unspecified combined systolic (congestive) and diastolic (congestive) heart failure Presentation: 06/11 01:17 Chief complaint: Patient states: Reports chest pain and elevated BP that started ea tonight. Coronavirus screen: At this time, the client does not indicate any symptoms associated with coronavirus-19. Ebola Screen: No symptoms or risks identified at this time. Initial Sepsis Screen: Does the patient meet any 2 criteria? No. Patient's initial sepsis screen is negative. Does the patient have a suspected source of infection? No. Patient's initial sepsis screen is negative. Risk Assessment: Do you want to hurt yourself or someone else? Patient reports no desire to harm self or others. Onset of symptoms was June 11, 2021. 01:17 Method Of Arrival: Ambulatory ea 01:17 Acuity: RAYO 3 ea Triage Assessment: 01:19 General: Appears uncomfortable, Behavior is appropriate for age. Pain: Complains of ea pain in chest. Cardiovascular: Reports chest pain, Patient's skin is warm and dry. Historical: - Allergies: :19 No Known Allergies; ea - PMHx: :19 SVT; Myocardial infarction; Hypertension; Hyperlipidemia; Diabetes - IDDM; ea - Immunization history:: Adult Immunizations up to date. - Social history:: Smoking status: unknown. Screenin:06 Abuse screen: Denies threats or abuse. Nutritional screening: No deficits noted. ea Tuberculosis screening: No symptoms or risk factors identified. Fall Risk None identified. Assessment: 01:29 General: Appears uncomfortable, Behavior is appropriate for age. Pain: Complains of ea pain in chest Pain began tonight. Neuro: Level of Consciousness is awake, alert, obeys commands, Oriented to person, place, time. Respiratory: Airway is patent Respiratory effort is even, unlabored, Respiratory pattern is regular, symmetrical. Derm: Skin is pink, warm \T\ dry. 02:11 Reassessment: Patient and/or family updated on plan of care and expected duration. Pain ea level reassessed. Patient is alert, oriented x 3, equal unlabored respirations, skin warm/dry/pink. 02:55 Reassessment: Patient and/or family updated on plan of care and expected duration. Pain ad5 level reassessed. Patient is alert, oriented x 3, equal unlabored respirations, skin warm/dry/pink. Patient states symptoms have improved. 13:22 Pain: Pain does not radiate. ll1 Vital Signs: 01:17 BP 206 / 79; Pulse 78; Resp 19; Temp 97.6(TE); Pulse Ox 99% on R/A; ea 02:10 BP 174 / 56; Pulse 73; Resp 18; Pulse Ox 98% ; ea 02:43 BP 167 / 69; Pulse 76; Resp 17 S; Pulse Ox 98% on R/A; ad5 ED Course: 00:34 Patient arrived in ED. es 00:36 Jigar Desai MD is Private Physician. es 01:03 Tam Chavez PA is PHCP. cp 01:03 Gael Mendoza MD is Attending Physician. cp 01:06 Radha Nova RN is Primary Nurse. ea 01:06 Patient maintains SpO2 saturation greater than 95% on room air. ea 01:06 Arm band placed on right wrist. Patient placed in an exam room, on a stretcher, on ea pulse oximetry. 01:17 Patient has correct armband on for positive identification. Bed in low position. Call ea light in reach. Side rails up X2. child support officer on. Pulse ox on. NIBP on. 01:18 Triage completed. ea 01:28 Inserted saline lock: 20 gauge in right antecubital area, using aseptic technique. ea Blood collected. 01:36 XRAY Chest (1 view) In Process Unspecified. EDMS 02:43 Jigar Desai MD is Hospitalizing Provider. cp 05:43 No provider procedures requiring assistance completed. Patient admitted, IV remains in ad5 place. 06:19 Primary Nurse role handed off by Radha Nova RN mw2 07:15 Mellissa Winters RN is Primary Nurse. ll1 Administered Medications: 01:59 Drug: Aspirin Chewable Tablet 324 mg Route: PO; ad5 03:40 Follow up: Response: No adverse reaction ad5 02:00 Drug: Tylenol 1000 mg Route: PO; ad5 03:40 Follow up: Response: No adverse reaction; Pain is decreased ad5 02:12 Not Given (Patient Refused): Nitroglycerin 0.4 mg Sublingual once; every five minute if cp needed x3 02:54 Drug: Lasix (furosemide) 40 mg Route: IVP; Site: right antecubital; ad5 03:40 Follow up: Response: No adverse reaction ad5 Outcome: 02:44 Decision to Hospitalize by Provider. cp 05:43 Admitted to ER Hold. Please see [facility] for further documentation. ad5 05:43 Condition: stable 05:43 Instructed on the need for admit, Demonstrated understanding of instructions. 14:11 Patient left the ED. ll1 Signatures: Dispatcher [employer] EDMaria Luisa Catalan Corey, PA PA cp Antunez, Elena RN RN Ugo Alfredo [facility] Mellissa Winters RN RN ll1 Reggie Crandall ad5
--- NOTE | 2021-06-11 02:45 | EDPHYS ---
Physician Documentation [facility] Name: Dominique Collazo Age: 71 yrs Sex: Female : 1950 Arrival Date: 06/11/2021 Time: 00:34 Bed 5 Private MD: Jigar Desai C ED Physician Gael Mendoza HPI: 06/11 01:15 This 71 yrs old Female presents to ER via Ambulatory with complaints of Chest cp Pressure, Elevated blood pressure. 01:15 The patient or guardian reports chest pain that is located primarily in the anterior cp chest wall. 01:15 Onset: last night. The pain does not radiate. Associated signs and symptoms: Pertinent cp positives: lower extremity swelling, Pertinent negatives: abdominal pain, cough, diaphoresis, dizziness, headache, lower extremity pain, lightheadedness, syncope, vomiting. The chest pain is described as a pressure. Duration: The patient or guardian reports a single episode, that is still ongoing, and unchanged. Modifying factors: The symptoms are alleviated by nothing. the symptoms are aggravated by nothing. Historical: - Allergies: :19 No Known Allergies; ea - PMHx: 01:19 SVT; Myocardial infarction; Hypertension; Hyperlipidemia; Diabetes - IDDM; ea - Immunization history:: Adult Immunizations up to date. - Social history:: Smoking status: unknown. ROS: 01:18 Constitutional: Negative for body aches, chills, fever, poor PO intake. cp 01:18 Eyes: Negative for injury, pain, redness, and discharge. cp 01:18 ENT: Negative for ear pain, sore throat, difficulty swallowing, difficulty handling secretions. 01:18 Cardiovascular: Positive for chest pain, edema, Negative for palpitations. 01:18 Respiratory: Negative for cough, wheezing. 01:18 Abdomen/GI: Negative for abdominal pain, nausea, vomiting, and diarrhea. 01:18 Back: Negative for radiated pain. 01:18 Neuro: Negative for altered mental status, dizziness, headache, syncope, weakness. 01:18 All other systems are negative. Exam: 01:20 ECG was reviewed by the Attending Physician. cp 01:23 Constitutional: The patient appears in no acute distress, alert, awake, cp non-diaphoretic, non-toxic, well developed, well nourished. 01:23 Head/Face: Normocephalic, atraumatic. cp 01:23 Eyes: Periorbital structures: appear normal, Conjunctiva: normal, no exudate, no injection, Sclera: no appreciated abnormality, Lids and lashes: appear normal, bilaterally. 01:23 ENT: External ear(s): are unremarkable, Nose: is normal, Mouth: Lips: moist, Oral mucosa: moist, Posterior pharynx: Airway: no evidence of obstruction, patent. 01:23 Neck: ROM/movement: is normal, is supple, without pain, no range of motions limitations. 01:23 Chest/axilla: Inspection: normal, Palpation: is normal, no crepitus, no tenderness. 01:23 Cardiovascular: Rate: normal, Rhythm: regular, Edema: ankle edema, that is mild, JVD: is not appreciated. 01:23 Respiratory: the patient does not display signs of respiratory distress, Respirations: normal, no use of accessory muscles, no retractions, labored breathing, is not present, Breath sounds: decreased breath sounds, are not appreciated, stridor, is not appreciated, wheezing: is not appreciated. 01:23 Abdomen/GI: Inspection: abdomen appears normal, Palpation: abdomen is soft and non-tender, in all quadrants. 01:23 Back: pain, is absent, ROM is normal. 01:23 Skin: cellulitis, is not appreciated, no rash present. 01:23 Neuro: Orientation: to person, place \\T\\ time. Mentation: able to follow commands, slow to respond, Motor: moves all fours, strength is normal. Vital Signs: 01:17 BP 206 / 79; Pulse 78; Resp 19; Temp 97.6(TE); Pulse Ox 99% on R/A; ea 02:10 BP 174 / 56; Pulse 73; Resp 18; Pulse Ox 98% ; ea 02:43 BP 167 / 69; Pulse 76; Resp 17 S; Pulse Ox 98% on R/A; ad5 MDM: 01:07 Patient medically screened. cp 02:50 The patient was given aspirin in the Emergency Department. cp 02:50 Differential diagnosis: abnormal EKG, acute myocardial infarction, congestive heart cp failure pneumonia, pneumothorax, pulmonary embolus, stable angina, unstable angina. Data reviewed: vital signs, nurses notes, lab test result(s), EKG, radiologic studies, plain films, and as a result, I will admit patient. Test interpretation: by ED physician or midlevel provider: ECG, plain radiologic studies. 06/11 01:08 Order name: Basic Metabolic Panel; Complete Time: 02:10 06/11 02:11 Interpretation: Normal except: GLUC 218; BUN 33; GFR 56. 06/11 01:08 Order name: CBC with Diff; Complete Time: 02:42 06/11 02:42 Interpretation: Normal except: WBC 11.60; HGB 10.1; HCT 30.4; MCV 77.9; MCH 25.8; PLT cp 135; RDW 17.6; STERLING% 84.2; LYM% 12.1; MN% 2.6; NEUT A 9.8. 06/11 01:08 Order name: LFT's; Complete Time: 02:10 06/11 02:11 Interpretation: Normal except: ALB 3.2; GLOB 4.8; A/G 0.7. 06/11 01:08 Order name: Magnesium; Complete Time: 02:10 06/11 01:08 Order name: NT PRO-BNP; Complete Time: 02:10 06/11 01:08 Order name: PT-INR; Complete Time: 02:19 06/11 01:08 Order name: Troponin (emerg Dept Use Only); Complete Time: 02:10 06/11 02:20 Order name: COVID-19 : Document "Date of Symptom Onset" if Symptomatic. 06/11 02:21 Order name: CORONAVIRUS [facility] 06/11 02:54 Order name: Basic Metabolic Panel [facility] 06/11 02:54 Order name: Basic Metabolic Panel [facility] 06/11 02:54 Order name: CBC with Automated Diff [facility] 06/11 02:54 Order name: CBC with Automated Diff [facility] 06/11 02:54 Order name: NT PRO-BNP [facility] 06/11 01:08 Order name: XRAY Chest (1 view) 06/11 01:08 Order name: EKG; Complete Time: 01:08 06/11 01:08 Order name: Cardiac monitoring; Complete Time: 01:28 06/11 01:08 Order name: EKG - Nurse/Tech; Complete Time: 01:28 06/11 01:08 Order name: IV Saline Lock; Complete Time: 01:28 cp 06/11 01:08 Order name: Labs collected and sent; Complete Time: cp 06/11 01:08 Order name: O2 Per Protocol; Complete Time: cp 06/11 02:54 Order name: NT PRO-BNP [facility] 06/11 02:54 Order name: Troponin I [facility] 06/11 02:54 Order name: Troponin I; Complete Time: 05:36 [facility] 06/11 02:54 Order name: Troponin I [facility] 06/11 04:33 Order name: SARS-COV-2 RT PCR; Complete Time: 05:36 [facility] 06/11 01:08 Order name: O2 Sat Monitoring; Complete Time: cp EC:20 Rate is 78 beats/min. Rhythm is regular. MD interval is prolonged at 250 msec. QRS cp interval is normal. QT interval is normal. T waves are Inverted in lead aVR. Interpreted by me. Reviewed by me. Administered Medications: 01:59 Drug: Aspirin Chewable Tablet 324 mg Route: PO; ad5 03:40 Follow up: Response: No adverse reaction ad5 02:00 Drug: Tylenol 1000 mg Route: PO; ad5 03:40 Follow up: Response: No adverse reaction; Pain is decreased ad5 02:12 Not Given (Patient Refused): Nitroglycerin 0.4 mg Sublingual once; every five minute if cp needed x3 02:54 Drug: Lasix (furosemide) 40 mg Route: IVP; Site: right antecubital; ad5 03:40 Follow up: Response: No adverse reaction ad5 Disposition Summary: 06/11/21 02:44 Hospitalization Ordered Hospitalization Status: Inpatient Admission cp Provider: Jigar Desai cp Condition: Stable cp Problem: new cp Symptoms: have improved cp Bed/Room Type: Standard cp Location: Telemetry/MedSurg (Inpatient)(06/11/21 12:45) Room Assignment: [facility](06/11/21 12:45) Diagnosis - Chest pain, unspecified cp - Unspecified combined systolic (congestive) and diastolic (congestive) heart failure cp Forms: - Medication Reconciliation Form cp - SBAR form cp Addendum: 06/15/2021 07:02 Co-signature as Attending Physician, Gael Mendoza MD I agree with the assessment and r n plan of care. PA/GRIDCAP MACHINE OPERATOR's history reviewed, patient interviewed, and examined. HPI: 71 year old female with Hx of SVT and NE presents with elevated BP and Chest pain. My personal exam of patient reveals: Normal exam, no acute findings. Equal lower ext circumference. I agree with assessment and care plan and confirm the diagnosis (es) above. Signatures: Dispatcher [employer] EDGael Hernández MD MD rn Smirch, Shelby, RN RN ss Anisha Holley RN RN tl1 Tam Chavez PA PA cp Antunez, Elena, RN RN Reggie Pizano Corrections: (The following items were deleted from the chart) 06/11 03:39 02:44 Telemetry/MedSurg (Inpatient) cp tl1 03:39 02:44 cp tl1 12:45 03:39 [facility] ER HOLD tl1 ss 12:45 03:39 ERHOLD- tl1 ss
[2021-06-11] MEDS ORDERED: ONDANSETRON 4 MG/2 ML VIAL IV PRN (02:47)
[2021-06-11] MEDS ORDERED: FUROSEMIDE 40 MG/4 ML VIAL ONE ×2 (03:09→07:43)
--- NOTE | 2021-06-11 07:20 | RAD REPORT ---
EXAM DESCRIPTION: RAD - Chest Single View - 06/11/2021 1:36 am CLINICAL HISTORY: CHEST PAIN COMPARISON: Chest Pa And Lat (2 Views) dated 05/04/2021; Chest Single View dated 05/02/2021; Chest Pa And Lat (2 Views) dated 07/03/2020; Chest Single View dated 01/13/2020; Chest For Pe Angio dated 021 FINDINGS: Worsening consolidation in the right upper lobe. Background of mild edema. Cardiomegaly.No acute osseous abnormality. Small left effusion. Sternotomy. IMPRESSION: Increasing consolidation in the right upper lobe remains concerning for pneumonia with b ackground of mild edema. .
[2021-06-11] MEDS: HYDRALAZINE HCL 25 MG TABLET PO SCH ×2 (09:00→18:15)
[2021-06-11] MEDS: FUROSEMIDE 40 MG/4 ML VIAL IV SCH (09:00)
[2021-06-11] MEDS ORDERED: FUROSEMIDE 20 MG/ 2ML VIAL IV SCH (09:00)
[2021-06-11] MEDS ORDERED: HYDRALAZINE HCL 25 MG TABLET ONE (09:10)
--- NOTE | 2021-06-11 10:59 | EKG ---
Test Date: 2021-06-11 Test Time: 01:14:25 Overseer [employer]: DONALDO MEASUREMENT RESULTS: Intervals: Rate: 78 TN: 250 QRSD: 94 QT: 384 QTc: 437 Seymour: P: 46 TN: 250 QRS: 64 T: 51 INTERPRETIVE STATEMENTS: Sinus rhythm with sinus arrhythmia with 1st degree AV block Possible Anterior infarct, age undetermined Abnormal ECG Compared to ECG 05/02/2021 05:25:47 Myocardial infarct finding now present Atrial premature complex(es) no longer present Electronically Signed On 06-11-21 10:58:20 CDT by Krish Aguilera
[2021-06-11 14:30] VITALS: BMI 37.8
[2021-06-11] MEDS: VALSARTAN 160 MG TAB PO SCH (18:15)
[2021-06-11] MEDS: METOPROLOL TAR 50 MG TAB PO SCH (18:16)
--- NOTE | 2021-06-11 20:00 | HP ---
Date of Admission: 06/11/2021 Chief Complaint: Chest pain and shortness of breath. History Of Present Illness: This is a 71-year-old female patient, came into emergency room because o f complaints of chest tightness, heaviness type of feeling associated with shortness of breath. Cullen es any fever, chills. No cough, no expectoration. She has been taking her medications regularly. A fter she came into emergency room, she was admitted to the hospital. When I saw her this morning, farshad villalobos was in the emergency room, feeling overall better compared to last night when she came in. Medications: List reviewed. Medication list includes furosemide 40 mg 2 times a day, hydralazine 10 mg 2 times a day, fluconazole 400 mg daily, Lantus insulin 40 units at bedtime, atorvastatin 80 mg d aily at bedtime, atenolol 50 mg 2 times a day, aspirin 81 mg daily, and olmesartan 40 mg daily. Review of Systems: Respiratory: As mentioned above. Cardiovascular: As mentioned above. All other systems reviewed and negative. Allergies: NO KNOWN ALLERGIES. Past Medical History: Significant for diastolic congestive heart failure, coronary artery disease, t ype 2 diabetes mellitus, coccidioidomycosis infection of lung for which she had workup done including biopsy while she was in [place] and since that time she was started on fluconazole 400 mg daily and she is taking that as her maintenance medication. Past medical history is also significant for hyper tension, hyperlipidemia, non-STEMI in January 12, 2020, supraventricular tachycardia, history of idi opathic thrombocytopenic purpura and had a negative bone marrow biopsy in 2017. Past Surgical History: Breast biopsy, coronary artery stent placement in May 2019, coronary artery bypass surgery in january 21, 2020, and subsequently had a pericardial effusion for which she required p ericardial window surgery in January 28, 2020. She also had hernia repair which was umbilical hernia an d cholecystectomy in the past. Family History: Significant for father had heart disease, hypertension. Mother had thyroid cancer. Social History: Negative for smoking or alcohol use. Physical Examination: Vital Signs: Height 5 feet 4 inches, weight 222 pounds, pulse 63, respiratory rate 16, blood pressur e 146/63, oxygen saturation 95%. General: Awake, alert, oriented, not in distress. HEENT: Head atraumatic, normocephalic. Conjunctivae nonerythematous. Sclerae white. Mouth, no thr ush or edema noted. Ears/Nose, no mass, lesion, discharge noted. Neck: Supple. No JVD, lymph nodes, bruit, thyromegaly noted. Lungs: Bilateral good equal air entry. Clear to auscultation. No rhonchi. No rales. Heart: Normal heart sounds, no murmur or gallop. Abdomen: Soft, bowel sounds normal. No guarding, rigidity, tenderness, mass, hepatosplenomegaly, dis tention, or bruit noted. Extremities: She has bilateral leg edema and dry skin on the lower legs. Skin: No rash, ulcer, cellulitis. Lymphatics: No lymph node enlargement in neck, supraclavicular, infraclavicular region. Neuro: No focal neurological deficit. Chest: Unremarkable. External Genitalia: Deferred. Rectal: Deferred. Laboratory Data: White count 11.6, hemoglobin 10.1, platelets 135. Sodium 138, potassium 3.6, chlor az[place] 103, bicarb 29, BUN 33, creatinine 0.98, glucose 218. Liver function tests unremarkable. Tropon in less than 0.02 x2. ProBNP 1210. COVID-19 test negative. Chest x-ray, no acute changes. Impression: 1.Chest pain. 2.Hypertension, uncontrolled. 3.Chronic diastolic congestive heart failure. 4.Lymphedema, bilateral legs. 5.Type 2 diabetes mellitus. 6.Hyperlipidemia. 7.Coronary artery disease. 8.Anemia, chronic. 9.Coccidioidomycosis infection of lung, on chronic fluconazole therapy. Plan: Admit the patient to hospital for further evaluation and management of this problem. The flaco ent will be admitted to telemetry unit. So far, cardiac enzymes are negative. We will consult Cardi ology. Details and plan of treatment discussed with the patient. We will make adjustment on her ant ihypertensive medication. We will discontinue atenolol and start her on metoprolol per order and we will also increase the dose of hydralazine. I will see her tomorrow for followup and Dr. Aguilera saw her after I evaluated her this morning and he is going to plan to have a stress test on an outpatien t elective basis. I will see her tomorrow morning and we will possibly discharge her tomorrow. SAUMYA/MODL Voice ID: [id number]
[2021-06-11] MEDS: ACETAMINOPHEN 500 MG TAB PO PRN (20:37)
[2021-06-11] MEDS ORDERED: ATORVASTATIN 80 MG TAB PO SCH (21:00)
[2021-06-11] MEDS ORDERED: D50W 25 GM/50 ML SYRINGE IV PRN (22:42)
[2021-06-11] MEDS ORDERED: GLUCAGON 1 MG/VIAL IM PRN (22:42)
[2021-06-11 23:10] VITALS: O2SAT 98
[2021-06-12] MEDS: ACETAMINOPHEN 500 MG TAB PO PRN (01:51)
[2021-06-12 06:06] LABS: Absolute Lymphocytes (CBC) 1.8 K/uL (0.7-4.9); Basophils % 0.4 % (0-1.3); Hematocrit 28.2 % (36.0-45.0); Lymphocytes % 20.5 % (15.3-44.8); MPV 7.4 fL (7.6-11.3)
[2021-06-12 06:29] LABS: Potassium 3.2 mmol/L (3.5-5.1)
[2021-06-12] MEDS ORDERED: AMLODIPINE 5 MG TAB PO ONE (07:50)
[2021-06-12] MEDS ORDERED: ASPIRIN 81 MG CHEWABLE TABLET PO SCH (09:00)
[2021-06-12] MEDS ORDERED: FLUCONAZOLE 100 MG TAB PO SCH (09:00)
[2021-06-12] MEDS: VALSARTAN 160 MG TAB PO SCH (09:35)
[2021-06-12] MEDS: METOPROLOL TAR 50 MG TAB PO SCH (09:36)
[2021-06-12] MEDS: HYDRALAZINE HCL 25 MG TABLET PO SCH (09:36)
[2021-06-12] MEDS: FUROSEMIDE 40 MG/4 ML VIAL IV SCH (09:36)
[2021-06-12 09:37] VITALS: BP 116/71
[2021-06-12 10:02] VITALS: TEMP 97.1
--- NOTE | 2021-06-12 13:38 | DS ---
Date of Discharge: 06/12/2021 Disposition: Discharged to go home. Physical Examination: HEENT: Unremarkable. Lungs: Clear to auscultation. Heart: Sounds normal. Abdomen: Soft. Bowel sounds normal. No guarding, rigidity, tenderness, or distention. Extremities: No leg edema. Discharge Medications And Instructions: Continue all prior home medication except following changes. 1. Stop atenolol. 2. Stop hydralazine 10 mg. 3. Start metoprolol 50 mg 1 tablet 2 times a day. 4. Start hydralazine 25 mg 1 tablet 2 times a day. 5. Start amlodipine 5 mg 1 tablet daily in morning. 6. Follow up at my office on of next week, which is 06/18/2021 at 9 a.m. 7. Follow up with Dr. Aguilera next week on Tuesday which is 06/16/2021. Final Diagnoses: 1. Chest pain. 2. Hypertension, uncontrolled. 3. Congestive heart failure, chronic, diastolic. 4. Lymphedema, bilateral legs. 5. Anemia, chronic, unspecified. 6. Type 2 diabetes mellitus. 7. Coccidioidomycosis infection of lung, on chronic fluconazole therapy. 8. Hyperlipidemia. 9. Coronary artery disease. 10. Peripheral vascular disease. Laboratory Data: White count 11.6, hemoglobin 10.1, platelets 135. Sodium 138, potassium 3.6, chloride 103, bicarb 29, BUN 33, creatinine 0.98, glucose 218. Liver function tests unremarkable. Troponin less than 0.02 x2. ProBNP 1210. COVID-19 test negative. Chest x-ray, no acute changes. Hospital Course: This is a 71-year-old pleasant female patient, admitted to the hospital with increased blood pressure as well as chest pain problem. Please see dictated H and P for more information. After the patient was evaluated in the emergency room, she was admitted to the hospital. Her OR was ruled out by getting serial cardiac enzymes. Cardiology consultation was requested from Dr. Aguilera and the patient has an appointment to see him next week at his office on Tuesday and he will arrange for elective outpatient stress test. The patient has remained asymptomatic during this hospitalization after her admission to the hospital. Blood pressure remains elevated. This morning it was still around 170 systolic and I have started her on amlodipine 5 mg daily. First dose was ordered to be given in the hospital this morning. We also stopped her atenolol and started her on metoprolol and we have increased her hydralazine dose. All these details were discussed with her. We will follow up next week and will make further adjustment on blood pressure medicine if it is necessary. SAUMYA/DALIA Voice ID: [id number] Report ID: [id number]
--- NOTE | 2021-06-12 19:47 | CON ---
Date of Consultation: 06/11/2021 Reason For Consultation: Chest pain. History Of Present Illness: Ms. Collazo is a 71-year-old woman. She is very well known to me from of fice visits. She is status post CABG in December 2019. This was about a year and a half ago. At th at time, she had a MERIDA to the LAD and I believe a graft to the OM. Has had a history of SVT, hypert ension, dyslipidemia, and diabetes mellitus. Came in with atypical chest pain. No nausea, vomiting, diaphoresis. Denied PND, orthopnea, pedal edema, palpitations, or syncope. She was hypertensive wh en she came in. She describes mostly chest pressure with and without exertion when her blood pressur e was elevated. She is already ruled out for MN. Her EKG, chest x-ray, BNP, troponin and CPK and MB s are all negative. She is asymptomatic now. Her blood pressure is better. Past Medical History: As stated above. Allergies: NONE. Review of Systems: Negative. Social History: Negative. Family History: Noncontributory. Medications: At home include aspirin, Lipitor, Lasix, insulin, hydralazine, atenolol. Physical Examination: Vital Signs: Stable, afebrile, sinus rhythm. HEENT: Negative. Neck: Supple with no bruit. Chest: Clear. Cardiac: Revealed a regular rhythm and rate with S4 gallops. No murmurs or rubs. Abdomen: Benign. Extremities: Revealed no clubbing, cyanosis, or edema. Diagnostic Data: Listed earlier. Impression And Plan: 1.Chest pain that I believe is more likely related to hypertension or possibly gastroesophageal refl ux disease. I will make arrangements for her to have an outpatient stress test and echocardiogram in the office in the near future. She can go home today. We should consider her medications and maybe increase the atenolol or the hydralazine for her blood pressure control. 2.Supraventricular tachycardia that is stable. 3.Hypertension, discussed earlier. 4.History of dyslipidemia, well controlled. 5.History of diabetes, well controlled. Case was discussed with Dr. Desai. The patient will go home today on some changes in her blood pressure medicine. I will see her in the office soon. MARCOS/DALIA Voice ID: [id number] Report ID: [id number]
[2021-06-12] MEDS ORDERED: INSULIN GLARGINE 100 UNITS/ML SQ ONE (22:44)
== END 2021-06-12 10:08 | disposition home or self-care (01) | DRG 313 ==
LOC: ER 00:33 → ERHOLD 02:56 → 2ND 13:00
PROVIDERS: ADMIT Internal Medicine; ATTEND Internal Medicine
DX: R07.89 Other chest pain (principal); I50.32 Chronic diastolic (congestive) heart failure; I47.1 Supraventricular tachycardia; B38.2 Pulmonary coccidioidomycosis, unspecified; I11.0 Hypertensive heart disease with heart failure; I25.2 Old myocardial infarction; E78.5 Hyperlipidemia, unspecified; E11.51 Type 2 diabetes mellitus with diabetic peripheral angiopathy without gangrene; I25.10 Atherosclerotic heart disease of native coronary artery without angina pectoris; I89.0 Lymphedema, not elsewhere classified; D64.9 Anemia, unspecified; Z79.4 Long term (current) use of insulin; Z79.82 Long term (current) use of aspirin; Z79.899 Other long term (current) drug therapy; Z95.5 Presence of coronary angioplasty implant and graft; Z95.1 Presence of aortocoronary bypass graft; Z90.49 Acquired absence of other specified parts of digestive tract; Z20.822 Contact with and (suspected) exposure to COVID-19
CPT/HCPCS: 36415; 71045; 80048; 80076; 82947; 83735; 83880; 84484; 85025; 85610; 93005; 96374; 99285; J1815; J1940; U0003

== ENCOUNTER 2024-04-21 09:31 | Inpatient (IN) | payer OTHER, MEDICARE ==
--- OUTSIDE RECORDS SUMMARY | 2024-04-21 09:36 | XMS REPORT | Clinical Summary ---
Author Name Unknown Organization [facility] Address [address] [place] [address] Care Team Providers Care Assistant Fitness Manager Name Role Phone Lex Ludwig MD Primary Care Provider [phone] Baorn Desai MD Unavailable [phone] Allergies No known active allergies Medications Medication Sig Dispensed Refills Start Date End Date Status atenolol (TENORMIN) 50 mg tablet TAKE 1 TABLET BY MOUTH TWICE DAILY 04/29/2021 Active olmesartan (BENICAR) 40 mg tablet TAKE 1 TABLET BY MOUTH DAILY 04/16/2021 Active aspirin (ASPIR-81 ORAL) Active fluconazole (DIFLUCAN) 200 mg tablet TAKE 2 TABLETS BY MOUTH DAILY 04/17/2021 Active furosemide (LASIX) 40 mg tablet TAKE 1 TABLET BY MOUTH TWICE DAILY 05/05/2021 Active atorvastatin (LIPITOR) 80 mg tablet TAKE 1 TABLET BY MOUTH EVERY DAY 03/23/2021 Active Lantus U-100 Insulin 100 unit/mL injection ADMINISTER 40 UNITS UNDER THE SKIN DAILY AT BEDTIME 05/04/2021 Active ferrous sulfate 142 mg (45 mg iron) TbER 1 tablet. 05/02/2021 Active acetaminophen (TYLENOL) 500 mg tablet Q4H 05/02/2021 Active amLODIPine (NORVASC) 5 mg tablet TAKE 1 TABLET BY MOUTH DAILY IN THE MORNING 11/27/2021 Active hydrALAZINE (APRESOLINE) 25 mg tablet TAKE 1 TABLET BY MOUTH TWICE DAILY 05/13/2022 Active potassium chloride (K-DUR,KLOR-CON M) 20 mEq tablet TAKE 1 TABLET BY MOUTH EVERY DAY WITH FOOD 06/16/2022 Active LORazepam (ATIVAN) 0.5 mg tablet Take 0.5 mg by mouth once. Prior MRI 08/17/2023 Discontinued (Not Applicable) Active Problems Problem Noted Date Diagnosed Date Anemia 05/26/2021 Chest pain 05/26/2021 Coronary bypass graft finding 05/26/2021 Type 2 diabetes mellitus 05/26/2021 History of placement of stent for coronary arter y disease 05/26/2021 Hypertension 05/26/2021 History of pericardiectomy 05/26/2021 Pleural effusion 05/26/2021 Hypervolemia 05/26/2021 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 Thrombocytopenia 05/26/2021 Coronary arteriosclerosis 01/14/2020 Encounters Date Type Department Care Team Description 08/17/2023 2:00 PM CDT Follow-Up MD [facility] in [place] - Breast Surgery Oncology [address] [place] [id number] Lex Ludwig MD Mammography abnormal (Primary Dx) 08/17/2023 10:15 AM CDT Ancillary Procedure Diagnostic Imaging in [facility] [id number] [place] [address] [address] [place] [address] Naty Burns PA Mammography abnormal 08/17/2023 Travel after 04/22/2023 Immunizations Name Administration Dates Next Due Moderna SARS-CoV-2 Vaccination 01/22/2021,2020 Surgical History Surgery Date Site/Laterality Comments COLON SURGERY Bowel obstruction 2009 COLONOSCOPY 11/21/2016 - 11/20/2017 CHOLECYSTECTOMY 11/21/1978 - 11/20/1979 CORONARY ARTERY BYPASS GRAFT 01/20/2020 - 02/19/2020 EYE SURGERY 11/21/2020 - 11/20/2021 Right hole in retina repaired THROMBOENDARTERECTOMY W/PATC H GRAFT; CAROTID, VERT, SUBCLAV, NECK INCISION Medical History Medical History Date Comments Hypertension 11/2010 Myocardial infarction 06/2019 1st heart attack; 2nd was in 12/2019 Peripheral vascular disease 06/2019 Inst alled stint Irregular heart beat 11/1986 SVT Unspecified lump in unspecified breast 11/1993 Menopause 2006 Arthritis 2019 Type 2 diabetes mellitus 1999 H/O: gallstones 11/1978 Gallbladder mark tabby Pulmonary nodule following i nfection by Coccidioides Primary pulmonary coccidioidomycosis Congestive heart failure Hypercholesterolemia Chronic chest pain Thrombocytopenia Small bowel obstruction 2009 Carotid artery stenosis <Left side> Family History Medical History Relation Name Comments Prostate cancer Father Mane Jacques Brain cancer Paternal Aunt Jocelyne Lung cancer Paternal Uncle Leon Jacques Relation Name Status Comments Father Mane Jacques Paternal Aunt Jocelyne Paternal Uncle Leon Jacques Social History Tobacco Use Types Packs/Day Years Used Date Smoking Tobacco: Never Smokeless Tobacco: Never Alcohol Use Standard Drinks/Week Comments Never 0 (1 standard drink = 0.6 oz pur e alcohol) Sex and Gender Information Value Date Recorded Sex Assigned at Not on file Gender Identity Not on file Sexual Orientation Not on file Job Start Date Occupation Industry Not on file Not on file Not on file Obstetrics History Para Term AB IAB SAB Ectopic Multiple Livin g Live Births 2 2 Date Outcome GA Total Labor Labor/2nd/3rd Weight Sex Type Anes PTL Lesley A1 A5 Name Clin Para Para Comments Age of parity: 20 Age of menarche: 15 OCP: 2 years HRT: 0 Fertility treatments: 0 : 0 Menopausal status: post, natural age 57 Bra Size: D Last Filed Vital Signs Vital Sign Reading Time Taken Comments Blood Pressure 142/52 08/17/2023 1:31 PM CDT Pulse 58 08/17/2023 1:31 PM CDT Temperature 36.6 C (97.9 F) 08/17/2023 1:31 PM CD T Respiratory Rate 18 08/17/2023 1:31 PM CDT Oxygen Saturation - - Inhaled Oxygen Concentration - - Weight 108.6 kg (239 lb 6.7 oz) 08/17/2023 1:31 PM CDT Height - - Body Mass Index 41.38 05/21/2021 12:05 PM CDT Plan of Treatment Upcoming Encounters Date Type Department Care Team (Late st Contact Info) Description 08/16/2024 9:45 AM CDT Ancillary Procedure Diagnostic Imaging in [facility] [address] [facility] [address] [place], [place] [id number] Naty Burns PA [facility] [place] [address] Health Maintenance Due Date Last Done Comments COVID-19 Vaccine ( season) 07/22/202302/2021, 12/27/2020 Influenza Vaccine 07/22/2024 Medical Devices Implanted Type Area Medicaid Collection Specialist Device Identifier Shelf Expiration Date Model / Serial / Lot Cardiac Stents Procedures Procedure Name Priority Date/Time Associated Diagnosis Comments MAMMO DIGITAL DIAGNOSTIC BILATERAL W MICHAEL STAT 08/17/2023 10:49 AM CDT Mammography abnormal after 04/22/2023 Results * Mammography Digital Diagnostic Bilateral with Michael (08/17/2023 10:49 AM CDT) Anatomical Region Laterality Modality Breast Bilateral Mammography 08/17/2023 11:1 6 AM CDT Impressions 08/17/2023 11:16 AM CDT There is no mammographic evidence of malignancy. Annual screening mammogram in 1 year is recommended. BI-RADS Category 2: Benign Finding(s) These results and recommendations were discussed with the patient at the time of the examination. Narrative 08/17/2023 11:16 AM CDT CLINICAL INDICATION: Patient is a 73 year old female and is seen for other signs and symptoms in the breast MAMMO DIGITAL DIAGNOSTIC BILATERAL W MICHAEL Digital Mammogram evaluated with Computer Aided Detection (CAD). COMPARISON: Prior imaging studies performed at an outside location on 07/03/2020 and 04/29/2021, and at [facility] on 05/20/2021, 01/07/2022 and 07/08/2022 were reviewed. FINDINGS: There are scattered areas of fibroglandular density. There are benign appearing calcifications with diffuse distribution in both breasts. There are stable postoperative changes and scattered areas of benign fat necrosis in both breast. Biopsy clips in both breast denote sites of previous benign biopsies. No dominant mass, distortion, or suspicious calcifications are identified. There has been no significant interval change. Tomosynthesis performed in CC and MLO projections. Procedure Note Ellen Gallego MD - 08/17/2023 CLINICAL INDICATION: Patient is a 73 year old female and is seen for other signs and symptomsin the breast MAMMO DIGITAL DIAGNOSTIC BILATERAL W MICHAEL Digital Mammogram evaluated with Computer Aided Detection (CAD). COMPARISON: Prior imaging studies performed at an outside location on 07/03/2020 and 04/29/2021, and at [facility] on05/20/2021, 01/07/2022 and 07/08/2022 were reviewed. FINDINGS: There are scattered areas of fibroglandular density. There are benign appearing calcifications with diffuse distribution inboth breasts. There are stable postoperative changes and scattered areas ofbenign fat necrosis in both breast. Biopsy clips in both breast denote sites of previous benign biopsies. No dominant mass, distortion, or suspicious calcifications are identified. There has been no significant interval change. Tomosynthesis performed in CC and MLO projections. IMPRESSION: There is no mammographic evidence of malignancy. Annual screening mammogram in 1 year is recommended. BI-RADS Category 2: Benign Finding(s) These results and recommendations were discussed with the patient at the time of the examination. Naty HERRERA IMG MAMMOGRAPHY ORDE SILVESTREKIM after 04/22/2023 Care Teams Assistant Fitness Manager Relationship Specialty Start Date End Date Lex Ludwig MD [address] [place] [address] PCP - General Breast Surgery 05/12/21 Baron Desai MD [address] [place] [phone] PCP - External Referring Internal Medicine 05/12/21
[2024-04-21 10:17] LABS: Absolute Basophils 0.1 K/uL (0-0.5); Absolute Eosinophils 0.3 K/uL (0-0.5); Absolute Monocytes 0.3 K/uL (0.1-1.3); Absolute Neutrophil 12.4 K/uL (1.8-8.0); Basophils % 0.5 % (0-1.3); Eosinophils % 1.9 % (0-4.4); Hematocrit 29.5 % (36.0-45.0); Hemoglobin 9.3 g/dL (12.0-15.0); Lymphocytes % 6.9 % (15.3-44.8); MCH 25.4 pg (27.0-35.0); MCHC 31.5 g/dL (32.0-36.0); MCV 80.7 fL (80-100); MPV 7.3 fL (7.6-11.3); Monocytes % 2.4 % (3.3-12.3); Neutrophils % 88.3 % (41.7-73.7); Nucleated Red Blood Cells % 0.1 % (0-0); Platelets 160 thou/uL (152-406); RBC Red Blood Cell Count 3.66 M/uL (3.86-4.86); Red Cell Distribution Width 15.5 % (12.1-15.2)
--- NOTE | 2024-04-21 10:25 | RAD REPORT ---
EXAM DESCRIPTION: RAD - Chest Single View - 04/21/2024 10:14 am CLINICAL HISTORY: DYSPNEA COMPARISON: Chest Pa And Lat (2 Views) dated 11/18/2022; Chest Single View dated 06/11/2021; Chest Pa And Lat (2 Views) dated 05/04/2021; Chest Single View dated 05/02/2021; Chest For Pe Angio dated 2020 FINDINGS: Lines: None. Lungs: Interstitial and airspace disease is present bilaterally. More focal opacities are present the right upper lung peripherally. Pleural: Probable small left pleural effusion. Cardiac: Cardiomegaly. Mediastinum: Within normal limits. Bones: No acute fractures. Sternotomy. Other: None IMPRESSION: Bilateral interstitial and airspace disease likely reflecting pulmonary edema. A more fo franck opacity is present at the peripheral right upper lobe. This has a less suspicious appearance comp ared with 11/18/2022 and may not reflect chronic changes. Radiographic follow-up in 4-6 weeks could b e considered.
[2024-04-21 10:27] LABS: PT Prothrombin Time 11.7 SECONDS (9.5-12.5); Protime INR 1.07
[2024-04-21 10:35] LABS: SARS-CoV-2 Antigen CONTROL BLUE LINE VIS/BG OK; SARS-CoV-2 Antigen Rapid Res Negative (Negative)
[2024-04-21 10:38] LABS: Albumin 3.3 g/dL (3.4-5.0); Albumin/Globulin Ratio 0.7 (1.1-1.8); Bilirubin Direct 0.2 mg/dL (0-0.2); Bilirubin Indirect, Calculated 0.4 mg/dL (0.2-0.8); Bilirubin Total 0.6 mg/dL (0.2-1.0); Globulin 4.5 g/dL (2.3-3.5); Magnesium 2.4 mg/dL (1.6-2.4); Protein, Total 7.8 g/dL (6.4-8.2); Troponin High Sensitivity 33.9 pg/mL (<58.9)
[2024-04-21 10:57] LABS: Anisocytosis 2+; Blood Morphology Comment NOTED (NOT SEEN); Hypochromasia 2+; Platelet Estimate ADEQ; Poikilocytosis 2+; White Blood Cell Scan OK (OK)
[2024-04-21] MEDS ORDERED: FUROSEMIDE 40 MG/4 ML VIAL ONE (11:17)
[2024-04-21] MEDS ORDERED: AZITHROMYCIN 250 MG TAB ONE (11:17)
[2024-04-21] MEDS ORDERED: CEFTRIAXONE 1000 MG/VIAL ONE (11:17)
[2024-04-21] MEDS ORDERED: NA CHLORIDE 0.9% 50 ML ONE (11:18)
[2024-04-21 11:30] LABS: Specific Gravity 1.009 (1.005-1.030); Sqamous Epithelial <5 /HPF (None Seen); Urine Bacteria None Seen /HPF (<20); Urine Bilirubin NEGATIVE (Negative); Urine Blood Negative (Negative); Urine Clarity Clear (Clear); Urine Color Colorless (Yellow); Urine Culture Reflex Order NOT NEEDED; Urine Glucose NEGATIVE (Negative); Urine Ketones NEGATIVE (Negative); Urine Microscopic Reflex YN ORDER UMIC; Urine Mucus Slight /HPF (None Seen); Urine Nitrite NEGATIVE (Negative); Urine Protein TRACE (Negative); Urine RBC <5 /HPF (None Seen); Urine Urobilinogen Normal (Normal); Urine WBC <5 /HPF (<5); Urine pH 5.5 (5.0-7.0)
--- NOTE | 2024-04-21 11:38 | ER ---
Nurse's Notes [facility] Name: Dominique Collazo Age: 74 yrs Sex: Female : 1950 Arrival Date: 04/21/2024 Time: 09:31 Bed 2 Private MD: Diagnosis: Chronic combined systolic (congestive) and diastolic (congestive) heart failure;Anemia, unspecified;Obesity, unspecified;Essential (primary) hypertension Presentation: 04/21 10:14 Chief complaint: Patient states: SOB, dizziness and fatigue x "a few days", worse w/ ph exertion, denies chest pain, cough or fever. Coronavirus screen: Vaccine status: Patient reports receiving the 2nd dose of the covid vaccine. Ebola Screen: No symptoms or risks identified at this time. Initial Sepsis Screen: Does the patient meet any 2 criteria? No. Patient's initial sepsis screen is negative. Does the patient have a suspected source of infection? No. Patient's initial sepsis screen is negative. Risk Assessment: Do you want to hurt yourself or someone else? Patient reports no desire to harm self or others. Onset of symptoms was April 21, 2024. 10:14 Method Of Arrival: Wheelchair ph 10:14 Acuity: RAYO 3 ph Triage Assessment: 10:21 General: Appears in no apparent distress. comfortable, well groomed, Behavior is calm, ph cooperative. Pain: Denies pain. Respiratory: Reports shortness of breath on exertion Onset: The symptoms/episode began/occurred gradually, the patient has mild shortness of breath. Historical: - Allergies: 10:15 No Known Allergies; ph - Home Meds: 10:15 amlodipine 5 mg oral tablet 1 tab 2 times per day [Active]; atenolol 25 mg oral tablet ph 2 times per day [Active]; atorvastatin 40 mg oral tablet daily [Active]; hydrochlorothiazide 50 mg oral tablet 2 times per day [Active]; furosemide 40 mg oral tablet daily [Active]; olmesartan 40 mg oral tablet daily [Active]; aspirin 81 mg Oral tablet, delayed release (enteric coated) daily [Active]; Lantus U-100 Insulin 100 unit/mL subcutaneous solution 40 units nightly [Active]; Vitamin D Oral 5000 unit daily [Active]; - PMHx: 12:13 Hypertensive disorder; Diabetes mellitus; Congestive heart failure; ph Hypercholesterolemia; - PSHx: 10:20 open heart; Cholecystectomy; ph - Immunization history:: Adult Immunizations unknown. - Infectious Disease History:: Denies. - Social history:: Smoking status: Patient denies any tobacco usage or history of. - Family history:: not pertinent. - Hospitalizations: : No recent hospitalization is reported. Screenin:21 [facility] ED Fall Risk Assessment (Adult) History of falling in the last 3 months, ph including since admission No falls in past 3 months (0 pts) Confusion or Disorientation No (0 pts) Intoxicated or Sedated No (0 pts) Impaired Gait No (0 pts) Mobility Assist Device Used No (0 pt) Altered Elimination No (0 pt) Score/Fall Risk Level 0 - 2 = Low Risk Oriented to surroundings, Maintained a safe environment, Hourly rounding (assess needs \\T\\ fall precautionary measures) done. Abuse screen: Denies threats or abuse. Denies injuries from another. Nutritional screening: No deficits noted. Tuberculosis screening: No symptoms or risk factors identified. Assessment: 10:22 General: Appears in no apparent distress. comfortable, well groomed, Behavior is calm, ph cooperative, appropriate for age, Denies fever, feeling ill. Pain: Denies pain. Neuro: Level of Consciousness is awake, alert, obeys commands, Oriented to person, place, time, situation, Reports dizziness. Cardiovascular: Reports fatigue, lightheadedness, shortness of breath, Rhythm is regular. Cardiovascular: Edema is 2+ to left ankle, left foot, right ankle and right foot. Respiratory: Reports shortness of breath on exertion Airway is patent Respiratory effort is even, unlabored, Respiratory pattern is regular, symmetrical. GI: No signs and/or symptoms were reported involving the gastrointestinal system. Derm: Skin is intact, is healthy with good turgor, Skin is pale, Skin temperature is warm. Musculoskeletal: Circulation, motion, and sensation intact. Range of motion: intact in all extremities. Vital Signs: 10:14 BP 158 / 60; Pulse 64; Resp 18; Temp 97.7; Pulse Ox 95% on R/A; ph 11:00 BP 141 / 68; Pulse 62; Resp 22; Pulse Ox 96% on R/A; ph 12:11 BP 151 / 58; Pulse 64; Resp 18; Temp 97.2; Pulse Ox 95% on R/A; ph ED Course: 09:40 Patient arrived in ED. ra3 09:42 Tam Nolen MD is Attending Physician. kevin 09:51 Shira Baxter, RN is Primary Nurse. ph 10:01 EKG done, by ED staff, reviewed by Tam Nolen MD. em1 10:15 Triage completed. ph 10:16 XRAY Chest (1 view) In Process Unspecified. EDMS 10:20 Initial lab(s) drawn, by me, sent to lab. Inserted saline lock: 22 gauge in right ph antecubital area, using aseptic technique. Blood collected. 10:21 Arm band placed on Patient placed in an exam room, on a stretcher, on road gang supervisor, ph on pulse oximetry. 10:22 Patient has correct armband on for positive identification. Placed in gown. Bed in low ph position. Call light in reach. Side rails up X 1. Client placed on continuous cardiac and pulse oximetry monitoring. NIBP monitoring applied. spring intern on. Door closed. Noise minimized. Warm blanket given. Pillow given. 10:24 Flu Sent. ph 10:24 SARS RAPID Sent. ph 10:24 Lipase Sent. ph 10:24 Basic Metabolic Panel Sent. ph 10:24 CBC with Diff Sent. ph 10:24 LFT's Sent. ph 10:25 Magnesium Sent. ph 10:25 NT PRO-BNP Sent. ph 10:25 PT-INR Sent. ph 10:25 Troponin HS Sent. ph 11:36 Baron Desai MD is Hospitalizing Provider. kevin 12:12 No provider procedures requiring assistance completed. Patient admitted, IV remains in ph place. Administered Medications: 11:58 Drug: Rocephin IV 1 grams IV at per protocol once; Given slow IV push per pharmacy ph instructions Route: IV; Rate: per protocol; Site: right antecubital; 12:30 Follow up: Response: No adverse reaction; IV Status: Completed infusion ph 11:58 Drug: AZITHromycin PO 500 mg PO once Route: PO; ph 12:30 Follow up: Response: No adverse reaction ph 11:58 Drug: Furosemide IVP 40 mg IVP once; give over 2 minutes Route: IVP; Site: right ph antecubital; 12:30 Follow up: Response: No adverse reaction ph Medication: 10:22 VIS not applicable for this client. ph Outcome: 11:37 Decision to Hospitalize by Provider. kevin 13:04 Patient left the ED. eb Signatures: Dispatcher [employer] Tam Carr MD MD cha Martinez, Ramses em1 Shira Baxter RN RN Lizzette Stevens Ruby ra3 Corrections: (The following items were deleted from the chart) 10:21 10:15 PMHx: Hypertension; ph ph 10:21 10:15 PMHx: SVT; ph ph 10:21 10:15 PMHx: Diabetes - IDDM; ph ph 10:21 10:15 PMHx: Hyperlipidemia; ph ph 10:21 10:15 PMHx: Myocardial infarction; ph ph
--- NOTE | 2024-04-21 11:38 | EDPHYS ---
Physician Documentation [facility] Name: Dominique Collazo Age: 74 yrs Sex: Female : 1950 Arrival Date: 04/21/2024 Time: 09:31 Bed 2 Private MD: JAXSON Physician Tam Nolen HPI: 04/21 11:29 This 74 yrs old Female presents to ER via Wheelchair with complaints of High kevin Blood Pressure, Shortness Of Breath. 11:29 The patient has elevated blood pressure and discovered this at home, with a home kevin device. Onset: The symptoms/episode began/occurred 3 day(s) ago. Modifying factors: The symptoms are aggravated by activity, The symptoms are alleviated by remaining still. Associated signs and symptoms: Pertinent positives: dizziness, lightheadedness, weakness. Severity of symptoms: At its worst the blood pressure was moderate. Historical: - Allergies: 10:15 No Known Allergies; ph - Home Meds: 10:15 amlodipine 5 mg oral tablet 1 tab 2 times per day [Active]; atenolol 25 mg oral tablet ph 2 times per day [Active]; atorvastatin 40 mg oral tablet daily [Active]; hydrochlorothiazide 50 mg oral tablet 2 times per day [Active]; furosemide 40 mg oral tablet daily [Active]; olmesartan 40 mg oral tablet daily [Active]; aspirin 81 mg Oral tablet, delayed release (enteric coated) daily [Active]; Lantus U-100 Insulin 100 unit/mL subcutaneous solution 40 units nightly [Active]; Vitamin D Oral 5000 unit daily [Active]; - PMHx: 12:13 Hypertensive disorder; Diabetes mellitus; Congestive heart failure; ph Hypercholesterolemia; - PSHx: 10:20 open heart; Cholecystectomy; ph - Immunization history:: Adult Immunizations unknown. - Infectious Disease History:: Denies. - Social history:: Smoking status: Patient denies any tobacco usage or history of. - Family history:: not pertinent. - Hospitalizations: : No recent hospitalization is reported. ROS: 11:30 Constitutional: Negative for fever, chills, and weight loss, Eyes: Negative for injury, kevin pain, redness, and discharge, ENT: Negative for injury, pain, and discharge, Neck: Negative for injury, pain, and swelling, Abdomen/GI: Negative for abdominal pain, nausea, vomiting, diarrhea, and constipation, Back: Negative for injury and pain, : Negative for injury, bleeding, discharge, and swelling, MS/Extremity: Negative for injury and deformity, Skin: Negative for injury, rash, and discoloration, Neuro: Negative for headache, weakness, numbness, tingling, and seizure, Psych: Negative for depression, anxiety, suicide ideation, homicidal ideation, and hallucinations, Allergy/Immunology: Negative for hives, rash, and allergies, Endocrine: Negative for neck swelling, polydipsia, polyuria, polyphagia, and marked weight changes, Hematologic/Lymphatic: Negative for swollen nodes, abnormal bleeding, and unusual bruising, 11:30 Cardiovascular: Positive for edema, orthopnea, paroxysmal nocturnal dyspnea, 11:30 Respiratory: Positive for cough, dyspnea on exertion, orthopnea, shortness of breath, at rest. 11:30 MS/extremity: Positive for pain, swelling, tenderness, Exam: 11:30 Constitutional: This is a well developed, well nourished patient who is awake, alert, kevin and in no acute distress. Head/Face: Normocephalic, atraumatic. Eyes: Pupils equal round and reactive to light, extra-ocular motions intact. Lids and lashes normal. Conjunctiva and sclera are non-icteric and not injected. Cornea within normal limits. Periorbital areas with no swelling, redness, or edema. ENT: Nares patent. No nasal discharge, no septal abnormalities noted. Tympanic membranes are normal and external auditory canals are clear. Oropharynx with no redness, swelling, or masses, exudates, or evidence of obstruction, uvula midline. Mucous membranes moist. Neck: Trachea midline, no thyromegaly or masses palpated, and no cervical lymphadenopathy. Supple, full range of motion without nuchal rigidity, or vertebral point tenderness. No Meningismus. Chest/axilla: Normal chest wall appearance and motion. Nontender with no deformity. No lesions are appreciated. Cardiovascular: Regular rate and rhythm with a normal S1 and S2. No gallops, murmurs, or rubs. Normal PMI, no JVD. No pulse deficits. Abdomen/GI: Soft, non-tender, with normal bowel sounds. No distension or tympany. No guarding or rebound. No evidence of tenderness throughout. Back: No spinal tenderness. No costovertebral tenderness. Full range of motion. Female : Normal external genitalia. Skin: Warm, dry with normal turgor. Normal color with no rashes, no lesions, and no evidence of cellulitis. Neuro: Awake and alert, GCS 15, oriented to person, place, time, and situation. Cranial nerves II-XII grossly intact. Motor strength 5/5 in all extremities. Sensory grossly intact. Cerebellar exam normal. Normal gait. Psych: Awake, alert, with orientation to person, place and time. Behavior, mood, and affect are within normal limits. 11:30 ECG was reviewed by the Attending Physician. 11:30 Respiratory: mild respiratory distress is noted, moderate respiratory distress is noted, Respirations: labored breathing, that is mild, Breath sounds: rales, that are moderate, are located in both bases, bronchial sounds, that are mild, are scattered, decreased breath sounds, that are mild, rhonchi, that are mild, are scattered, Respiratory rate: 20 Vital Signs: 10:14 BP 158 / 60; Pulse 64; Resp 18; Temp 97.7; Pulse Ox 95% on R/A; ph 11:00 BP 141 / 68; Pulse 62; Resp 22; Pulse Ox 96% on R/A; ph 12:11 BP 151 / 58; Pulse 64; Resp 18; Temp 97.2; Pulse Ox 95% on R/A; ph MDM: 09:42 Patient medically screened. kevin 11:34 Antibiotic administration: Rocephin and Zithromax given. Differential diagnosis: Anemia kevin Anxiety Reaction asthma, Bronchitis CHF exacerbation, Chronic Obstructive Pulmonary Disease hypertensive crisis, Malignant HTN, Myocardial Infarction pneumonia, Pneumothorax Psychogenic pulmonary edema, Pulmonary Embolism reactive airway disease, Sepsis Unstable Angina. Immunization status: Pneumococcal vaccine: within last 5 years. Influenza vaccine: within last 5 years. Data reviewed: vital signs, nurses notes, lab test result(s), EKG, radiologic studies, plain films. Consideration of Admission/Observation Patient was admitted/placed on observation. Escalation of care including admission/observation considered. I considered the following discharge prescriptions or medication management in the emergency department Medications were administered in the Emergency Department. See MAR. Independent interpretation of the following test(s) in the Emergency Department EKG: See my EKG interpretation above. Test considered but Not performed: Ultrasound no 2 d echo. Historians other than the Patient: Family Member: daughter alfred informed. Care significantly affected by the following chronic conditions: Diabetes, Hypertension, Congestive Heart Failure, Obesity, Chronic Kidney Disease. Counseling: I had a detailed discussion with the patient and/or guardian regarding the historical points, exam findings, and any diagnostic results supporting the discharge/admit diagnosis, the presence of at least one elevated blood pressure reading (>120/80) during this emergency department visit, lab results, radiology results, the need for further work-up and treatment in the hospital. 04/21 09:43 Order name: Basic Metabolic Panel; Complete Time: 10:53 [facility] 04/21 09:43 Order name: CBC with Diff; Complete Time: 11:37 [facility] 04/21 09:43 Order name: LFT's; Complete Time: 10:53 [facility] 04/21 09:43 Order name: Magnesium; Complete Time: 10:53 [facility] 04/21 09:43 Order name: NT PRO-BNP; Complete Time: 10:53 [facility] 04/21 09:43 Order name: PT-INR; Complete Time: 10:53 [facility] 04/21 09:43 Order name: Troponin HS; Complete Time: 10:53 [facility] 04/21 09:43 Order name: Urinalysis w/ reflexes; Complete Time: 11:37 [facility] 04/21 09:43 Order name: Lipase; Complete Time: 10:53 [facility] 04/21 09:43 Order name: SARS RAPID; Complete Time: 10:53 [facility] 04/21 09:43 Order name: Flu; Complete Time: 10:53 [facility] 04/21 10:28 Order name: CBC Smear Scan; Complete Time: 11:37 [facility] 04/21 10:54 Order name: Blood Culture Adult (2) [facility] 04/21 10:54 Order name: Lactate w/ 2H reflex if indic. [facility] 04/21 09:43 Order name: XRAY Chest (1 view); Complete Time: 10:53 [facility] 04/21 09:43 Order name: EKG; Complete Time: 09:44 [facility] 04/21 11:48 Order name: CONS Physician Consult [facility] 04/21 11:48 Order name: CONS Physician Consult [facility] 04/21 09:43 Order name: Cardiac monitoring; Complete Time: 09:58 [facility] 04/21 09:43 Order name: EKG - Nurse/Tech; Complete Time: 09:58 [facility] 04/21 09:43 Order name: IV Saline Lock; Complete Time: 10:25 [facility] 04/21 09:43 Order name: Labs collected and sent; Complete Time: : [facility] 04/21 09:43 Order name: O2 Per Protocol; Complete Time: [facility] 04/21 09:43 Order name: O2 Sat Monitoring; Complete Time: [facility] EC:30 Rate is 66 beats/min. Rhythm is regular. QRS Superior is Normal. DE interval is normal. QRS kevin interval is normal. QT interval is normal. No Q waves. T waves are Inverted in leads V4, V5, V6. No ST changes noted. Clinical impression: NSR w/ Non-specific ST/T Changes and No evidence of ischemia. Interpreted by me. Reviewed by me. Administered Medications: : Drug: Rocephin IV 1 grams IV at per protocol once; Given slow IV push per pharmacy ph instructions Route: IV; Rate: per protocol; Site: right antecubital; 12:30 Follow up: Response: No adverse reaction; IV Status: Completed infusion ph 11:58 Drug: AZITHromycin PO 500 mg PO once Route: PO; ph 12:30 Follow up: Response: No adverse reaction ph 11:58 Drug: Furosemide IVP 40 mg IVP once; give over 2 minutes Route: IVP; Site: right ph antecubital; 12:30 Follow up: Response: No adverse reaction ph Disposition Summary: 04/21/24 11:37 Hospitalization Ordered Notes: Hospitalization Status: Inpatient Admission kevin Provider: Baron Desai cha Location: Telemetry/MedSurg (Inpatient) kevin Condition: Fair kevin Problem: new kevin Symptoms: have improved kevin Bed/Room Type: Standard [facility] Room Assignment: 230(04/21/24 12:02) eb Diagnosis - Chronic combined systolic (congestive) and diastolic (congestive) heart failure kevin - Anemia, unspecified kevin - Obesity, unspecified kevin - Essential (primary) hypertension kevin Forms: - Medication Reconciliation Form kevin - SBAR form kevin - Leadership Thank You Letter kevin Signatures: Dispatcher [employer] Tam Carr MD MD cha Hall, Patricia RN RN Lizzette Stevens Corrections: (The following items were deleted from the chart) 09:44 09:44 BASIC METABOLIC PANEL+C.LAB.BRZ ordered. EDMS EDMS 09:44 09:44 CBC+H.LAB.BRZ ordered. EDMS EDMS 09:44 09:44 HEPATIC FUNCTION+C.LAB.BRZ ordered. EDMS EDMS 09:44 09:44 MAGNESIUM+C.LAB.BRZ ordered. EDMS EDMS 09:44 09:44 PROBNP+C.LAB.BRZ ordered. EDMS EDMS 09:44 09:44 PROTIME (+INR)+COAG.LAB.BRZ ordered. EDMS EDMS 09:44 09:44 Troponin High Sensitivity+C.LAB.BRZ ordered. EDMS EDMS 09:44 09:44 Urinalysis+U.LAB.BRZ ordered. EDMS EDMS 09:44 09:44 LIPASE+C.LAB.BRZ ordered. EDMS EDMS 09:44 09:44 SARS-COV-2 Antigen Rapid+I.LAB.BRZ ordered. EDMS EDMS 09:44 09:44 Influenza Screen (A \T\ B)+BA.LAB.BRZ ordered. EDMS EDMS 10:21 10:15 PMHx: Hypertension; ph ph 10:21 10:15 PMHx: SVT; ph ph 10:21 10:15 PMHx: Diabetes - IDDM; ph ph 10:21 10:15 PMHx: Hyperlipidemia; ph ph 10:21 10:15 PMHx: Myocardial infarction; ph ph 10:54 10:54 BLOOD CULTURE*+BA.LAB.BRZ ordered. EDMS EDMS 10:54 10:54 LACTATE+C.LAB.BRZ ordered. EDMS EDMS 12:02 11:37 kevin eb 12:35 11:42 Rod ordered. kevin hb
[2024-04-21] MEDS ORDERED: IPRATROPIUM BROM 0.5MG/2.5ML NEB PRN (13:39)
[2024-04-21] MEDS ORDERED: MORPHINE 4 MG/ML SYR IV PRN (13:39)
[2024-04-21] MEDS ORDERED: ALBUTEROL 2.5 MG/3 ML NEB SOL NEB PRN (13:39)
[2024-04-21] MEDS ORDERED: ONDANSETRON 4 MG/2 ML VIAL IV PRN (13:39)
[2024-04-21] MEDS ORDERED: ACETAMINOPHEN 325 MG TABLET PO PRN (13:49)
--- NOTE | 2024-04-21 15:36 | CON ---
Date of Consultation: 04/21/2024 Reason For Consultation: Congestive heart failure. History Of Present Illness: This is a 74-year-old female, history of hypertension, diabetes, congest bala heart failure, dyslipidemia, lower extremity edema, , presented with worsening shortnes s of breath, orthopnea, lower extremity edema. No chest pain, thought to be in acute congestive hear t failure exacerbation. She was started on IV Lasix. She feels better, but not completely well yet. Past Medical History: As outlined above in HPI. Medications: Refer to conciliation sheet for detailed list. Allergies: NO KNOWN DRUG ALLERGIES. Family History: No premature coronary artery disease or cancer. Social History: She does not smoke or drink. Does not use any drugs. Review of Systems: All systems reviewed and they were negative except as mentioned in the HPI. Physical Examination: Vital Signs: Reviewed. Head and Neck: Pupils are equal, reactive to light. Intact eye movements. No JVD. No cervical lym phadenopathy.. Neck: Supple. Thyroid is not enlarged. Lungs: Clear to auscultation bilaterally, but decreased air entry. Heart: Regular rate and rhythm with S3 gallop. Abdomen: Soft, nontender. Bowel sounds positive. No organomegaly. No masses or hernia. No rigidi ty or rebound. Extremities: 3+ edema bilaterally. No clubbing, cyanosis. Intact pulses. Skin: No rash. No nodule. Neurologic: Alert, awake, oriented x3. No acute focal deficit appreciated. Investigations: Her BUN is 54, creatinine 1.97. NT-proBNP is 1927. Hemoglobin 9.3 and white blood cell count is 14.3. Chest x-ray, pulmonary edema. Assessment And Recommendation: 1.Acute on chronic congestive heart failure exacerbation. Recommend to continue diuretics with Lasi x 40 mg q.12 hours. Monitor BUN, creatinine, electrolytes. 2.Acute renal failure, probably due to elevated central venous pressure. Should improve with diures is. Monitor BUN and creatinine closely. 3.Coronary artery disease. No chest pain and her troponins are negative. Continue to trend troponi n for 2 more sets. 4.Hypertension. Blood pressure is elevated due to fluid retention. Should improve further with diu resis. Continue home medications. 5.Dyslipidemia. Recommend Lipitor 40 mg q.h.s. SR/MODL Voice ID: [id number] Report ID: [id number]
[2024-04-21] MEDS: FUROSEMIDE 20 MG/ 2ML VIAL IV SCH (17:23)
[2024-04-21] MEDS: atenoloL 25 MG TAB PO SCH (22:48)
[2024-04-21] MEDS: HYDRALAZINE HCL 25 MG TABLET PO SCH (22:48)
[2024-04-21] MEDS: AMLODIPINE 5 MG TAB PO SCH (22:48)
[2024-04-22 07:03] LABS: Absolute Basophils 0.1 K/uL (0-0.5); Absolute Eosinophils 0.2 K/uL (0-0.5); Absolute Lymphocytes (CBC) 1.3 K/uL (0.7-4.9); Absolute Monocytes 0.4 K/uL (0.1-1.3); Absolute Neutrophil 7.8 K/uL (1.8-8.0); Basophils % 0.6 % (0-1.3); Eosinophils % 1.9 % (0-4.4); Hematocrit 25.4 % (36.0-45.0); Hemoglobin 8.3 g/dL (12.0-15.0); Lymphocytes % 13.2 % (15.3-44.8); MCH 26.1 pg (27.0-35.0); MCHC 32.6 g/dL (32.0-36.0); MCV 80.1 fL (80-100); MPV 7.7 fL (7.6-11.3); Neutrophils % 80.3 % (41.7-73.7); Nucleated Red Blood Cells % 0.1 % (0-0); Platelets 143 thou/uL (152-406); RBC Red Blood Cell Count 3.17 M/uL (3.86-4.86); Red Cell Distribution Width 15.7 % (12.1-15.2)
[2024-04-22 07:27] LABS: Anion Gap 7.7 mEq/L (5.0-15.0); Potassium 3.7 mEq/L (3.5-5.1)
--- NOTE | 2024-04-22 08:04 | RAD REPORT ---
EXAM DESCRIPTION: Kaylynn Single View04/22/2024 6:28 am CLINICAL HISTORY: Chest pain COMPARISON: 2019 FINDINGS: Right upper lobe opacity without significant change. Mild bilateral interstitial lung opacities have partially resolved Heart remains enlarged IMPRESSION: Chronic right upper lobe opacity may represent inflammation/pneumonia, atelectasis or ne oplasm Mild bilateral social lung opacities partially resolved may represent mild interstitial pulmonary margy ma
[2024-04-22] MEDS: VALSARTAN 160 MG TAB PO SCH (08:37)
[2024-04-22] MEDS: SOD FERRIC GLUC COMPLX/SUCROSE 125 MG in NA CHLORIDE 0.9% 100 ML IV SCH (11:07)
[2024-04-22] MEDS: INSULIN REGULAR (HUMAN) 100 UNIT/ML SQ SCH (11:40)
[2024-04-22] MEDS: ENOXAPARIN 40 MG/0.4 ML SQ SCH (12:24)
[2024-04-22] MEDS: POTASSIUM CL SA 10 MEQ TAB PO ONE (12:24)
[2024-04-22] MEDS: ASPIRIN 81 MG CHEWABLE TABLET PO SCH (12:24)
[2024-04-22] MEDS: FUROSEMIDE 40 MG/4 ML VIAL IV ONE (12:24)
--- NOTE | 2024-04-22 12:49 | HP ---
Date of Admission: 04/21/2024 Chief Complaint: Shortness of breath. History Of Present Illness: Ms. Collazo is a pleasant female patient, who came into emergency room with 2 to 3 days' history of worsening problem with shortness of breath. The patient reports having shortness of breath with normal daily activity along with shortness of breath at nighttime for the last 2 to 3 days and during nighttime, she has to sit upright in order for her to feel better. She also has some leg swelling with this. Denies any fever. No expectoration or any hemoptysis. No chest pain, heaviness, pressure. After she came into emergency room, she was evaluated and admitted to the hospital with congestive heart failure problem. Allergies: NO KNOWN ALLERGIES. Medications: Amlodipine 5 mg 2 times a day, aspirin 81 mg daily, atenolol 25 mg daily, atorvastatin 40 mg daily, furosemide 40 mg daily, hydralazine 50 mg 2 times a day, Lantus 40 units subcutaneous injection daily at bedtime, olmesartan 40 mg daily. Review of Systems: Cardiovascular: As mentioned above. All other systems reviewed and negative. Past Medical History: Significant for hypertension, hyperlipidemia, chronic kidney disease stage IIIB, chronic diastolic heart failure, coronary artery disease, anemia, thrombocytopenia, pulmonary coccidioidomycosis which is chronic problem for her for last several years, hypokalemia, uncontrolled diabetes mellitus and diabetes with chronic kidney disease and pancreatic cyst. The patient also had non-STEMI on January 12, 2020, supraventricular tachycardia in the past. Past Surgical History: Negative breast biopsy in May and June of 2020, coronary artery stent placement in May 2019, coronary artery bypass surgery on January 21, 2020, carotid artery endarterectomy on the left side on December 06, 2022, pericardial window procedure on January 28, 2020, umbilical hernia surgery, and cholecystectomy. Family History: Father had hypertension and heart disease. Mother has thyroid disorder. Sister is alive and well. Social History: Negative for smoking. Use of alcohol, negative. Physical Examination: Vital Signs: Temperature 97.7, pulse 64, respiratory rate 18, blood pressure 158/60, oxygen saturation 95%. Height 5 feet 4 inches, weight 232 pounds. General: Awake, alert, oriented, not in distress. HEENT: Head atraumatic, normocephalic. Conjunctivae nonerythematous. Sclerae white. Mouth, no thrush or edema noted. Ears/Nose, no mass, lesion, discharge noted. Neck: Supple. No JVD, lymph nodes, bruit, thyromegaly noted. Lungs: Lung examination shows bilateral rales in lower lung sanderson. Not using accessory muscles of respiration. Heart: Normal heart sounds, no murmur or gallop. Abdomen: Soft, bowel sounds normal. No guarding, rigidity, tenderness, mass, hepatosplenomegaly, distention, or bruit noted. Extremities: Bilateral grade 2 pedal edema extending all the way up to her knees. Skin: No rash, ulcer, cellulitis. Lymphatics: No lymph node enlargement in neck, supraclavicular, infraclavicular region. Neuro: No focal neurological deficit. Chest: Unremarkable. External Genitalia: Deferred. Rectal: Deferred. Laboratory Data: White count 14.10, hemoglobin 9.3, platelets 160. Sodium 140, potassium 4, chloride 114, bicarb 20, BUN 54, creatinine 1.97, glucose 122. Liver function tests normal. ProBNP 1927. Troponin 33.9 and 37.2. Lipase 30. Urinalysis negative. COVID-19 test negative. Chest x-ray shows bilateral increased interstitial and airspace markings along with chronic right upper lobe mass type of appearance which is unchanged from before. Impression: 1. Congestive heart failure, chronic, diastolic, with acute exacerbation. 2. Hypertension. 3. Hyperlipidemia. 4. Chronic kidney disease, stage IIIB. 5. Anemia, chronic. 6. Coronary artery disease. 7. Type 2 diabetes mellitus with chronic kidney disease. Plan: We will admit the patient to hospital for further evaluation and management of this problem. The patient is appropriate for inpatient and is expected to spend 2 midnights in hospital. For congestive heart failure, we will go ahead and give her IV Lasix. Monitor intake and output, weight and electrolytes, and renal function will be monitored with blood work tomorrow. We will repeat chest x-ray tomorrow. For blood pressure, we will continue her antihypertensive medication. Monitor blood pressure if necessary. Make adjustment on antihypertensive medication. Diabetes will be managed with sliding scale insulin at this time and will not require any further intervention. For hyperlipidemia, no need for further intervention at this time. Total time spent today was 80 minutes that includes review of emergency room records, communication with ER physician, review of prior office records, and performing evaluation and management for this hospital admission. We will go ahead and provide DVT prophylaxis with Lovenox. SAUMYA/DALIA Voice ID: [id number] JHOANA
--- NOTE | 2024-04-22 12:52 | PN ---
Date of Progress Note: 04/22/2024 Subjective: The patient was seen this morning for followup. No new complaints or problems reported by the patient. Overall, she feels better. Objective: Vital Signs: Reviewed. HEENT: Unremarkable. Lungs: Clear to auscultation except diminished air entry in lower lung sanderson with some rales, overa ll better today than yesterday. Heart: Sounds normal. Abdomen: Soft. Bowel sounds normal. No guarding, rigidity, tenderness, distention. Extremities: Bilateral leg edema, better today than yesterday. Laboratory Data: White count 9.7, hemoglobin 8.3, platelets 143. Sodium 139, potassium 3.7, chlorid e 110, bicarb 25, BUN 56, creatinine 1.83, glucose 133. ProBNP 2551. Chest x-ray shows improvement in bilateral lung markings. Impression: 1.Congestive heart failure, chronic, diastolic, with acute exacerbation. 2.Coronary artery disease. 3.Hypertension. 4.Diabetes mellitus with chronic kidney disease. 5.Anemia, who has plan to start outpatient iron infusion therapy on her sometime in the near future and we will go ahead and give 1 dose of IV iron today. Continue current IV Lasix. We will repeat bl ood work tomorrow morning. Continue diabetes management with sliding scale insulin. Plan is to possibly discharge her to go home tomorrow depending on her condit ion. SAUMYA/MODL Voice ID: [id number] Report ID: [id number]
--- NOTE | 2024-04-22 13:04 | CON ---
Patient is seen in room 230 at [facility]. History Of Present Illness: Patient is alert, awake, presented to the hospital with the shortness of breath and with the concern for congestive heart failure. X-ray consistent with the volume overload . The patient has been started on Lasix. Takes Lasix p.o. and also hydrochlorothiazide and amlodipi ne at home. Recently, her doses were increased for hydrochlorothiazide and also she thinks for amlod ipine due to her high blood pressure readings. Blood pressure was high on arrival around 160 systoli c range currently as well. The patient has been started on 40 mg IV Lasix twice daily. Has had some urine output with that in good responses. She is breathing a whole lot better and says she feels a whole lot better. Hemoglobin has been on the lower side. Patient also getting some iron transfusion currently to help with that. Past medical history is consistent with congestive heart failure, chrome worker faith kidney disease. Follows with Dr. Valdez, who is her primary it training specialist. She has presented wi th orthopnea, lower extremity edema, has venous congestion changes, stasis changes in the lower extre mity as well. Medications: In the chart reviewed. Allergies: NKDA. Family History: Noncontributory. Social History: Patient does not drink or use any alcohol and denies any smoking. Physical Examination: General: Patient is alert, awake. Vital signs: Stable as stated above with blood pressure on the higher side at about 160. Lungs: Clear with decreased breath sounds at the bases. Abdomen: Soft. Extremities: Revealed positive 1 to 2 edema bilaterally with venous congestion changes, stasis sherman es on the lower extremities. Laboratory Data: Reviewed. Labs showed WBC count has improved from 14.1 to 9.7 today, hemoglobin fr om 9.3 to 8.3, slightly on the lower side in the 8 range, hematocrit 25.4, platelet count 143. Chemi stry shows sodium 139, potassium 3.7, chloride 110, bicarb is 25. BUN and creatinine are relatively stable with creatinine actually improved slightly to 1.3, BUN at about 56. Glucose running in the 13 0 to 150 range, mostly last readings were 151 and 135. ProBNP was about 2551. Urinalysis does not s how any significant evidence of infection. In fact, it looks pretty clean with only trace protein. Leukoesterase, nitrites negative; blood, wbc's, bacteria negative. Assessment And Plan: Patient with acute kidney injury on chronic kidney disease, follows with Dr. René weber, outpatient. High blood pressure, likely in the setting of congestion and volume overload. René ree with Lasix. We will give an additional dose of Lasix 40 mg IV now. Potassium on the lower side but in normal range, but given the additional dose of Lasix, and the b.i.d. Lasix dose that she is ta wilberto, we will go ahead and give one small dose of 20 mEq. Repeat labs tomorrow. Consider giving Ret acrit, if hemoglobin stays low. Currently, tolerating IV iron. /DALIA Voice ID: [id number] Report ID: [id number]
[2024-04-22 14:25] VITALS: BMI 39.8
[2024-04-23 05:43] LABS: Absolute Basophils 0.1 K/uL (0-0.5); Absolute Eosinophils 0.2 K/uL (0-0.5); Absolute Lymphocytes (CBC) 1.4 K/uL (0.7-4.9); Absolute Monocytes 0.4 K/uL (0.1-1.3); Absolute Neutrophil 6.5 K/uL (1.8-8.0); Basophils % 0.7 % (0-1.3); Eosinophils % 2.5 % (0-4.4); Hematocrit 25.9 % (36.0-45.0); Hemoglobin 8.6 g/dL (12.0-15.0); Lymphocytes % 16.1 % (15.3-44.8); MCH 26.3 pg (27.0-35.0); MCHC 33.1 g/dL (32.0-36.0); MCV 79.4 fL (80-100); MPV 7.4 fL (7.6-11.3); Monocytes % 4.9 % (3.3-12.3); Neutrophils % 75.8 % (41.7-73.7); Nucleated Red Blood Cells % 0.2 % (0-0); Platelets 144 thou/uL (152-406); RBC Red Blood Cell Count 3.26 M/uL (3.86-4.86); Red Cell Distribution Width 15.9 % (12.1-15.2)
[2024-04-23 06:00] LABS: Anion Gap 7.7 mEq/L (5.0-15.0); Magnesium 2.3 mg/dL (1.6-2.4); Potassium 3.7 mEq/L (3.5-5.1)
[2024-04-23 08:15] VITALS: BP 143/62
[2024-04-23 08:48] VITALS: O2SAT 97
[2024-04-23] MEDS ORDERED: SOD FERRIC GLUC COMPLX/SUCROSE 125 MG in NA CHLORIDE 0.9% 100 ML IV SCH (09:00)
[2024-04-23 09:22] VITALS: TEMP 97.9
--- NOTE | 2024-04-23 14:11 | EKG ---
Test Date: 2024-04-21 Test Time: 09:52:55 [employer] Home Electrical [employer]: [employer] MEASUREMENT RESULTS: Intervals: Rate: 66 OK: 206 QRSD: 82 QT: 402 QTc: 421 Whitehouse: P: 83 OK: 206 QRS: 78 T: 96 INTERPRETIVE STATEMENTS: Normal sinus rhythm Nonspecific T wave abnormality Abnormal ECG Compared to ECG 11/18/2022 10:29:09 T-wave abnormality now present Sinus bradycardia no longer present First degree AV block no longer present Electronically Signed On 04-23-24 14:06:22 CDT by Michael Shelley
--- NOTE | 2024-04-25 03:59 | DS ---
Date of Discharge: 04/23/2024 Disposition: Discharged to go home. Physical Examination: HEENT: Unremarkable. Lungs: Clear to auscultation. Heart: Sounds normal. Abdomen: Soft. Bowel sounds normal. No guarding, rigidity, tenderness, distention. Extremities: Very trace leg edema. Discharge Medications And Instructions: Continue all prior home medication except following changes: 1. Increase furosemide 40 mg, take 1 tablet by mouth 2 times a day. 2. Start potassium chloride 10 mEq, take 1 tablet by mouth daily. 3. Lower Lantus insulin dose to 20 units subcutaneous injection daily at bedtime. 4. Follow up at my office next week. Laboratory Data: Today, white count 8.6, hemoglobin 8.6, platelets 144. Sodium 139, potassium 3.7, chloride 108, bicarb 27, BUN 59, creatinine 1.99, glucose 127. Yesterday, white count 9.7, hemoglobin 8.3, platelets 143. Sodium 139, potassium 3.7, chloride 110, bicarb 25, BUN 56, creatinine 1.83, glucose 133, and day before yesterday, white count 14.1, hemoglobin 9.3, platelets 160, BUN 54, creatinine 1.97, glucose 122. Hospital Course: Ms. Collazo is a very pleasant female patient, came into emergency room with complaints of leg swelling and shortness of breath. Please see dictated H and P for more information. After the patient was evaluated in the emergency room, she was admitted to the hospital with acute exacerbation of chronic diastolic heart failure. The patient was started on IV diuretic therapy and she responded very well to that. Her symptoms essentially improved with this diuretic therapy. We monitored her electrolytes and renal function. Her chest x-ray has shown improvement and clinically she has improved very well and she is stable for discharge. I have gone over discharge medications and instructions personally with her and explained her about it prior to discharge today. Normally, she was taking Lantus 40 units subcutaneous daily at bedtime at home, but during this hospitalization, she has not taken any Lantus and her blood sugar was under good control with sliding scale insulin, so we will go ahead and try to see if we can control her diabetes with less insulin. Final Diagnoses: 1. Congestive heart failure, chronic, diastolic, with acute exacerbation. 2. Hypertension. 3. Hyperlipidemia. 4. Chronic kidney disease, stage IIIB. 5. Anemia, chronic. 6. Coronary artery disease. 7. Type 2 diabetes mellitus with chronic kidney disease. Total time spent 40 minutes that includes review of this admission record, review of cardiology and nephrology consults, today's follow up visit and sending her prescriptions as per discharge medications and explaining her details about change in medications upon discharge. SAUMYA/DALIA Voice ID: [id number] Report ID: [id number] JHOANA
== END 2024-04-23 09:13 | disposition home or self-care (01) | DRG 291 ==
LOC: ER 09:31 → ERHOLD 11:44 → 2ND 12:36
PROVIDERS: ADMIT Internal Medicine; ATTEND Internal Medicine
DX: I13.0 Hypertensive heart and chronic kidney disease with heart failure and stage 1 through stage 4 chronic kidney disease, or unspecified chronic kidney disease (principal); I50.33 Acute on chronic diastolic (congestive) heart failure; N17.9 Acute kidney failure, unspecified; N18.32 Chronic kidney disease, stage 3b; E11.22 Type 2 diabetes mellitus with diabetic chronic kidney disease; D63.1 Anemia in chronic kidney disease; E78.00 Pure hypercholesterolemia, unspecified; E66.9 Obesity, unspecified; I25.10 Atherosclerotic heart disease of native coronary artery without angina pectoris; I25.2 Old myocardial infarction; Z79.4 Long term (current) use of insulin; Z95.1 Presence of aortocoronary bypass graft; Z11.52 Encounter for screening for COVID-19; Z79.82 Long term (current) use of aspirin; Z68.39 Body mass index [BMI] 39.0-39.9, adult; Z90.49 Acquired absence of other specified parts of digestive tract; Z79.899 Other long term (current) drug therapy
CPT/HCPCS: 36415; 71045; 80048; 80076; 81001; 82947; 83605; 83690; 83735; 83880; 84484; 84550; 85025; 85610; 87040; 87804; 87811; 93005; 96365; 96375; 99285; J0696; J1650; J1940; J2916

== ENCOUNTER 2024-05-27 08:31 | Emergency (ER) | payer OTHER, MEDICARE ==
--- OUTSIDE RECORDS SUMMARY | 2024-05-27 08:34 | XMS REPORT | Clinical Summary ---
Author Name Unknown Organization [facility] Address [address] [place] [address] Care Team Providers Care Side Splitter Name Role Phone Lex Ludwig MD Primary Care Provider [phone] Baron Desai MD Unavailable [phone] Allergies No known active allergies Medications [...] 2:00 PM CDT Follow-Up MD [facility] in [place] - Breast Surgery Oncology [address] [place] [id number] Lex Ludwig MD Mammography abnormal (Primary Dx) 08/17/2023 10:15 AM CDT Ancillary Procedure Diagnostic Imaging in [facility] [id number] [place] [address] [address] [place] [address] Naty Burns PA Mammography abnormal 08/17/2023 Travel after 05/28/2023 Immunizations Name Administration Dates Next Due Moderna [...] AM CDT Ancillary Procedure Diagnostic Imaging in [facility] [address] [facility] [address] [facility] [address] [place] [address] Naty Burns PA [facility] [place] [address] [email or web address] Health Maintenance Due Date Last Done Comments COVID-19 Vaccine ( season) 07/22/202302/2021, 12/27/2020 Influenza Vaccine 07/22/2024 Medical Devices Implanted Type Area Assistant Quality Manager Device Identifier Shelf Expiration Date Model / Serial / Lot Cardiac Stents Procedures Procedure Name Priority Date/Time Associated Diagnosis Comments MAMMO DIGITAL DIAGNOSTIC BILATERAL W MICHAEL STAT 08/17/2023 10:49 AM CDT Mammography abnormal after 05/28/2023 Results * Mammography Digital Diagnostic Bilateral with [...] location on 07/03/2020 and 04/29/2021, and at [facility] on 05/20/2021, 01/07/2022 and 07/08/2022 were reviewed. [...] location on 07/03/2020 and 04/29/2021, and at [facility] on05/20/2021, 01/07/2022 and 07/08/2022 were reviewed. FINDINGS: [...] the examination. Naty HERRERA IMG MAMMOGRAPHY ORDE PHIL after 05/28/2023 Care Teams Side Splitter Relationship Specialty Start Date End Date Lex Ludwig MD [address] [place] [address] [email or web address] PCP - General Breast Surgery 05/12/21 Baron Desai MD [address] [place] [phone] [email or web address]) PCP - External Referring Internal Medicine 05/12/21
[2024-05-27 09:16] LABS: Absolute Basophils 0.1 K/uL (0-0.5); Absolute Eosinophils 0.2 K/uL (0-0.5); Absolute Lymphocytes (CBC) 0.9 K/uL (0.7-4.9); Absolute Monocytes 0.4 K/uL (0.1-1.3); Absolute Neutrophil 8.2 K/uL (1.8-8.0); Basophils % 0.7 % (0-1.3); Hematocrit 33.1 % (36.0-45.0); Hemoglobin 10.8 g/dL (12.0-15.0); Lymphocytes % 9.2 % (15.3-44.8); MCH 26.9 pg (27.0-35.0); MCHC 32.7 g/dL (32.0-36.0); MCV 82.4 fL (80-100); MPV 7.4 fL (7.6-11.3); Monocytes % 3.6 % (3.3-12.3); Neutrophils % 84.5 % (41.7-73.7); Nucleated Red Blood Cells % 0.2 % (0-0); Platelets 181 thou/uL (152-406); RBC Red Blood Cell Count 4.01 M/uL (3.86-4.86)
[2024-05-27 09:39] LABS: Specific Gravity 1.009 (1.005-1.030); Urine Bilirubin NEGATIVE (Negative); Urine Blood Negative (Negative); Urine Clarity Clear (Clear); Urine Color Colorless (Yellow); Urine Glucose NEGATIVE (Negative); Urine Ketones NEGATIVE (Negative); Urine Microscopic Reflex YN NO UMIC; Urine Nitrite NEGATIVE (Negative); Urine Protein NEGATIVE (Negative); Urine Urobilinogen Normal (Normal)
--- NOTE | 2024-05-27 10:05 | RAD REPORT ---
EXAM DESCRIPTION: CT - Stone Protocol - 05/27/2024 9:30 am CLINICAL HISTORY: Abdominal pain. Flank pain COMPARISON: February 2024 ultrasound TECHNIQUE: Computed axial tomography of the abdomen pelvis was obtained without oral or IV contrast. Lack of IV and oral contrast limits evaluation of solid organs, appendix, bowel, and vessels. Manley l reformatted images were obtained and reviewed. All CT scans are performed using dose optimization technique as appropriate and may include automated exposure control or mA/KV adjustment according to patient size. FINDINGS: A renal calculus is not seen. An ureteral calculus is not noted. A bladder calculus is not present. Renal cortical thinning may be secondary to previous inflammation. No hydronephrosis Small left pleural effusion 2.3 centimeter left adrenal nodule. Hounsfield unit 26 Previously described 9 millimeter cystic mass pancreatic head not visualized on this exam although ev aluation is limited secondary lack of IV contrast. Liver, spleen, pancreas and right adrenal gland appear grossly normal. There is no evidence of diverticulitis. Calcified uterine fibroids are present. No adnexal mass. Laxity of anterior abdominal wall IMPRESSION: Negative for a genitourinary calculus 2.3 centimeter left adrenal nodule may represent an adenoma. It is recommended that patient have a no nemergent MRI abdomen with chemical shift. Pancreas can also be assessed at this time
[2024-05-27 10:09] LABS: Anion Gap 11.4 mEq/L (5.0-15.0); Potassium 4.4 mEq/L (3.5-5.1)
--- NOTE | 2024-05-27 10:20 | ER ---
Nurse's Notes [facility] Name: Dominique Collazo Age: 74 yrs Sex: Female : 1950 Arrival Date: 05/27/2024 Time: 08:31 Bed 17 Private MD: Diagnosis: Dysuria;Chronic kidney disease, unspecified Presentation: 05/27 08:44 Chief complaint: Dysuria and mid back pain x 2 days. Completed Cipro for UTI on Tuesday. Coronavirus screen: At this time, the client does not indicate any symptoms associated with coronavirus-19. Ebola Screen: No symptoms or risks identified at this time. Initial Sepsis Screen: Does the patient meet any 2 criteria? No. Patient's initial sepsis screen is negative. Does the patient have a suspected source of infection? No. Patient's initial sepsis screen is negative. Risk Assessment: Do you want to hurt yourself or someone else? Patient reports no desire to harm self or others. Onset of symptoms was May 26, 2024. 08:44 Method Of Arrival: Ambulatory hb 08:44 Acuity: RAYO 3 hb Triage Assessment: 08:47 General: Appears in no apparent distress. Behavior is calm, cooperative. Pain: Pain hb currently is 5 out of 10 on a pain scale. Neuro: Level of Consciousness is awake, alert, obeys commands, Oriented to person, place, time, situation. Cardiovascular: Patient's skin is warm and dry. Respiratory: Respiratory effort is even, unlabored, Respiratory pattern is regular, symmetrical. : Reports dysuria. Historical: - Allergies: 08:47 No Known Allergies; hb - PMHx: 08:47 diabetes mellitus; Hypertensive disorder; Congestive heart failure; hb Hypercholesterolemia; - PSHx: 08:47 Cholecystectomy; open heart; hb - Immunization history:: Adult Immunizations up to date. - Infectious Disease History:: Denies. - Social history:: Smoking status: Patient denies any tobacco usage or history of. Screenin:00 [facility] ED Fall Risk Assessment (Adult) History of falling in the last 3 months, hb including since admission No falls in past 3 months (0 pts) Confusion or Disorientation No (0 pts) Intoxicated or Sedated No (0 pts) Impaired Gait No (0 pts) Mobility Assist Device Used No (0 pt) Altered Elimination No (0 pt) Score/Fall Risk Level 0 - 2 = Low Risk Oriented to surroundings, Maintained a safe environment, Educated pt \T\ family on fall prevention, incl call for assistance when getting out of bed. Abuse screen: Denies threats or abuse. Denies injuries from another. Nutritional screening: No deficits noted. Tuberculosis screening: No symptoms or risk factors identified. Assessment: 09:00 General: Appears in no apparent distress. comfortable, Behavior is calm, cooperative. rs5 Pain: Denies pain. Neuro: Level of Consciousness is awake, alert, obeys commands, Oriented to person, place, time, situation. Cardiovascular: Patient's skin is warm and dry. Respiratory: Airway is patent Respiratory effort is even, unlabored, Respiratory pattern is regular, symmetrical. GI: Abdomen is round non-distended, Abd is soft and non tender X 4 quads. : Reports burning with urination. EENT: No signs and/or symptoms were reported regarding the EENT system. Derm: Skin is intact, Skin is pink, warm \T\ dry. Musculoskeletal: Range of motion: intact in all extremities. 10:10 Reassessment: Patient appears in no apparent distress at this time. Patient and/or hb family updated on plan of care and expected duration. Pain level reassessed. Patient is alert, oriented x 3, equal unlabored respirations, skin warm/dry/pink. Vital Signs: 08:44 BP 151 / 56; Pulse 57; Resp 16; Temp 98.4; Pulse Ox 96% on R/A; Weight 104.33 kg; hb Height 5 ft. 4 in. ; Pain 5/10; 10:20 BP 145 / 61; Pulse 63; Resp 17; Pulse Ox 98% on R/A; rs5 08:44 Body Mass Index 39.48 (104.33 kg, 162.56 cm) hb 08:44 Pain Scale: Adult hb ED Course: 08:36 Patient arrived in ED. mg5 08:47 Triage completed. hb 08:47 Kim Gutiérrez FNP-C is PHCP. kb 08:47 Mk Barry MD is Attending Physician. kb 08:48 Arm band placed on. hb 09:00 Patient has correct armband on for positive identification. Provided Education on: use hb of franck light . 09:00 No provider procedures requiring assistance completed. hb 09:32 CT Stone Protocol In Process Unspecified. EDMS 10:26 Darryl Beard, RN is Primary Nurse. rs5 10:30 IV discontinued, intact, bleeding controlled, No redness/swelling at site. Pressure rs5 dressing applied. Administered Medications: No medications were administered Medication: 09:00 VIS not applicable for this client. Outcome: 10:19 Discharge ordered by . kb 10:30 Discharged to home ambulatory, rs5 10:30 Condition: stable 10:30 Discharge instructions given to patient, family, Instructed on discharge instructions, follow up and referral plans. Demonstrated understanding of instructions, follow-up care, 10:32 Patient left the ED. Signatures: Dispatcher [employer] EDIN Kim Gutiérrez, TELEMARKETING SALES REPRESENTATIVE-C TELEMARKETING SALES REPRESENTATIVE-Ckb Ailin Ann RN RN Roxana Hopkins Darryl Beard, RN RN rs5 Saba Castillo mg5 Corrections: (The following items were deleted from the chart) 10:53 09:00 General: See triage assessment. rs5 10:53 09:30 BP 145 / 61; Pulse 63bpm; Resp 17bpm; Pulse Ox 98% RA; rs5 rs5
--- NOTE | 2024-05-27 10:20 | EDPHYS ---
Physician Documentation [facility] Name: Dominique Collazo Age: 74 yrs Sex: Female : 1950 Arrival Date: 05/27/2024 Time: 08:31 Bed 17 Private MD: ED Physician Mk Barry HPI: 05/27 08:52 This 74 yrs old Female presents to ER via Ambulatory with complaints of Urinary Problem.kb 08:52 Pt is a 74 year old female who presents for dysuria, urinary frequency, back pain and kb chills that started yesterday. States she completed a course of Cipro for a UTI 4 days [address] prescribed [address] Dr Desai. States symptoms improved while on the cipro but returned yesterday. Denies n/v/d, fever. . Historical: - Allergies: 08:47 No Known Allergies; hb - PMHx: 08:47 diabetes mellitus; Hypertensive disorder; Congestive heart failure; hb Hypercholesterolemia; - PSHx: 08:47 Cholecystectomy; open heart; hb - Immunization history:: Adult Immunizations up to date. - Infectious Disease History:: Denies. - Social history:: Smoking status: Patient denies any tobacco usage or history of. ROS: 08:52 Constitutional: As per HPI kb Exam: 08:52 Constitutional: This is a well developed, well nourished patient who is awake, alert, kb and in no acute distress. Head/Face: Normocephalic, atraumatic. ENT: Moist Mucous membranes Cardiovascular: Regular rate Respiratory: Respirations even and unlabored. No increased work of breathing. Talking in full sentences Skin: Warm, dry with normal turgor. Normal color. MS/ Extremity: Pulses equal, no cyanosis. Neurovascular intact. Full, normal range of motion. Neuro: Awake and alert, GCS 15, oriented to person, place, time, and situation. Moves all extremities. Normal gait. 08:52 Abdomen/GI: Inspection: abdomen appears normal, Bowel sounds: normal, Palpation: soft, in all quadrants, mild abdominal tenderness, in the right lower quadrant, 08:52 Back: CVA tenderness, that is mild, that is moderate, is noted on the right, Vital Signs: 08:44 BP 151 / 56; Pulse 57; Resp 16; Temp 98.4; Pulse Ox 96% on R/A; Weight 104.33 kg; hb Height 5 ft. 4 in. ; Pain 5/10; 10:20 BP 145 / 61; Pulse 63; Resp 17; Pulse Ox 98% on R/A; rs5 08:44 Body Mass Index 39.48 (104.33 kg, 162.56 cm) hb 08:44 Pain Scale: Adult hb MDM: 08:47 Patient medically screened. kb 08:52 Data reviewed: vital signs, nurses notes. kb 10:17 Differential diagnosis: uti, pyelonephritis, kidney stone. Consideration of kb Admission/Observation Escalation of care including admission/observation considered. admission considered but Dr Desai recommends outpatient follow up with him in office. Management of patient was discussed with the following: Primary Care Provider: Dr Desai, recommends cranberry pills daily and follow up with him in office. Counseling: I had a detailed discussion with the patient and/or guardian regarding the historical points, exam findings, and any diagnostic results supporting the discharge/admit diagnosis, lab results, radiology results, the need for outpatient follow up, a family practitioner, to return to the emergency department if symptoms worsen or persist or if there are any questions or concerns that arise at home. 05/27 08:48 Order name: Urinalysis w/ reflexes; Complete Time: 09:41 kb 05/27 08:51 Order name: CBC with Diff; Complete Time: 09:41 kb 05/27 08:51 Order name: BMP; Complete Time: 10:14 kb 05/27 08:52 Order name: CT Stone Protocol; Complete Time: 10:07 kb 05/27 08:51 Order name: IV Start; Complete Time: 10:16 kb 05/27 09:21 Order name: Labs - recollect needed; Complete Time: 10:15 hb Administered Medications: No medications were administered Disposition Summary: 05/27/24 10:19 Discharge Ordered Notes: Location: Home kb Condition: Stable kb Diagnosis - Dysuria kb - Chronic kidney disease, unspecified kb Followup: kb - With: Emergency Department - When: As needed - Reason: Worsening of condition Followup: kb - With: Private Physician - When: 2 - 3 days - Reason: Recheck today's complaints, Continuance of care, Re-evaluation by your physician Discharge Instructions: - Discharge Summary Sheet kb - Dysuria kb Forms: - Medication Reconciliation Form kb - Antibiotic Education kb - Prescription Opioid Use kb - Patient Portal Instructions kb - Leadership Thank You Letter kb Addendum: 05/28/2024 11:49 I was immediately available for consultation during this patient's visit. I did not e c2 personally see the patient or discuss the patient with the RADHA. . Signatures: Dispatcher [employer] Kim Chaudhry FNP-C Ailin Field RN RN Mk Barry MD MD ec2 Corrections: (The following items were deleted from the chart) 05/27 08:48 08:48 Urinalysis+U.LAB.BRZ ordered. SULEMA LEONE
[2024-05-27 10:47] VITALS: BP 151/56; TEMP 98.4; O2SAT 96
== END 2024-05-27 10:32 | disposition home or self-care (01) ==
LOC: ER 08:31
DX: R30.0 Dysuria (principal); E11.22 Type 2 diabetes mellitus with diabetic chronic kidney disease; I13.0 Hypertensive heart and chronic kidney disease with heart failure and stage 1 through stage 4 chronic kidney disease, or unspecified chronic kidney disease; N18.9 Chronic kidney disease, unspecified; I50.9 Heart failure, unspecified
CPT/HCPCS: 36415; 74176; 76377; 80048; 81003; 85025; 99283

== ENCOUNTER 2025-01-21 09:01 | Inpatient (IN) | payer OTHER, MEDICARE ==
--- OUTSIDE RECORDS SUMMARY | 2025-01-21 09:03 | XMS REPORT | Clinical Summary ---
Author Name Unknown Organization [facility] Address [address] [place] [address] Care Team Providers Care Certified Breastfeeding Educator Name Role Phone Lex Luwdig MD Primary Care Provider [phone] Baron Desai MD Unavailable [phone] Allergies No known active allergies Medications * This document contains information received from the source organization and may not represent a complete record from that organization. atenolol (TENORMIN) 50 mg tablet TAKE 1 TABLET BY MOUTH TWICE DAILY 1 Active olmesartan (BENICAR) 40 mg tablet TAKE 1 TABLET BY MOUTH DAILY 1 Active aspirin (ASPIR-81 ORAL) Acti ve fluconazole (DIFLUCAN) 200 mg tablet TAKE 2 TABLETS BY MOUTH DAILY 1 Active furosemide (LASIX) 40 mg tablet TAKE 1 TABLET BY MOUTH TWICE DAILY 1 Active atorvastatin (LIPITOR) 80 mg tablet TAKE 1 TABLET BY MOUTH EVERY DAY 1 Active Lantus U-100 Insulin 100 unit/mL injection ADMINISTER 40 UNITS UNDER THE SKIN DAILY AT BEDTIME 1 Active ferrous sulfate 142 mg (45 mg iron) TbER 1 tablet. 1 Active acetaminophen (TYLENOL) 500 mg tablet Q4H 1 Active amLODIPine (NORVASC) 5 mg tablet TAKE 1 TABLET BY MOUTH DAILY IN THE MORNING 2 Active hydrALAZINE (APRESOLINE) 25 mg tablet TAKE 1 TABLET BY MOUTH TWICE DAILY 2 Active potassium chloride (K-DUR,KLOR-CON M) 20 mEq tablet TAKE 1 TABLET BY MOUTH EVERY DAY WITH FOOD 2 Active Active Problems Problem Noted Date Diagnosed Date Anemia 05/26/2021 Chest pain 05/26/2021 Coronary bypass graft finding 05/26/2021 Type 2 diabetes mellitus 05/26/2021 History of placement of stent for coronary arter y disease 05/26/2021 Hypertension 05/26/2021 History of pericardiectomy 05/26/2021 Pleural effusion 05/26/2021 Hypervolemia 05/26/2021 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 Thrombocytopenia 05/26/2021 Coronary arteriosclerosis 01/14/2020 Encounters Date Type Department Care Team Description 09/04/2024 8:30 AM CDT Ancillary Procedure Diagnostic Imaging in [facility] [id number] [place] [address] [address] [place] [address] Naty Burns PA 08/08/2024 Documentation Breast Imaging [address] [facility], 5th [place] [address] Nestor Suarez, RT after 01/22/2024 Immunizations Name Administration Dates Next Due Moderna SARS-CoV-2 Vaccination 01/22/2021,2020 Surgical History Surgery Date Site/Laterality Comments COLON SURGERY Bowel obstruction 2009 COLONOSCOPY 11/21/2016 - 11/20/2017 CHOLECYSTECTOMY 11/21/1978 - 11/20/1979 CORONARY ARTERY BYPASS GRAFT 01/20/2020 - 02/19/2020 EYE SURGERY 11/21/2020 - 11/20/2021 Right hole in retina repaired THROMBOENDARTERECTOMY W/PATC H GRAFT; CAROTID, VERT, SUBCLAV, NECK INCISION STEREOTACTIC BREAST BX HISTORY 06/29/2021 Bilateral Medical History Medical History Date Comments Hypertension [...] drink = 0.6 oz pur e alcohol) Comments No Sex and Gender Information Value Date Recorded Sex Assigned at Not on file Legal Sex Female 10:54 AM CDT Gender Identity Not on file Sexual Orientation Not on file Obstetrics History Para Term AB IAB SAB Ectopic Multiple Livin g Live Births 2 2 2 Date Outcome GA Total Labor Labor/2nd/3rd Weight Sex Type Anes PTL Lesley A1 A5 Name Clin Term Term Comments Age of parity: 20 Age of menarche: 15 OCP: 2 years HRT: 0 Fertility treatments: 0 : 0 Menopausal status: post, natural age 57 Bra Size: D Plan of Treatment Health Maintenance Due Date Last Done Comments Pneumococcal Vaccine: 50+ Ye ars (1 of 2 - PCV) 02/13/1971 COVID-19 Vaccine ( - 2023- season) 07/22/202402/2021, 12/27/2020 Influenza Vaccine (#1) 2024 Medical Devices Implanted Type Area Lithograph Designer Device Identifier Shelf Expiration Date Model / Serial / Lot Cardiac Stents Procedures Procedure Name Priority Date/Time Associated Diagnosis Comments MAMMO DIGITAL SCREENING BILATERAL W MICHAEL Routine 09/04/2024 9:18 AM CDT Mammography abnormal after 01/22/2024 Results * Mammography Digital Screening Bilateral with Michael (09/04/2024 9:18 AM CDT) Anatomical Region Laterality Modality Breast Bilateral Mammography Impressions 09/04/2024 10:30 AM CDT Bilateral There is no mammographic evidence of malignancy. Overall BI-RAD Category: 2 - Benign Recommend return to annual screening mammography, due on 09/03/2025. Narrative 09/04/2024 10:30 AM CDT CLINICAL INDICATION: Patient is a 74 y.o. female and is seen for screening. Mammography Digital Screening Bilateral with Michael Computer-aided detection was utilized by the radiologist in the interpretation of this examination. Tomosynthesis was performed in CC and MLO projections. COMPARISON: The present examination has been compared to prior imaging studies performed : 06/29/2021 Stereotactic Breast Biopsy Left at [facility], 06/29/2021 Stereotactic Breast Biopsy Right at [facility], 01/07/2022 Diagnostic Mammogram w Michael - [facility] [facility] 07/08/2022 Mammography Digital Diagnostic Bilateral with [place] [facility]/17[place]2023 Mammography Digital Diagnostic [facility] with [place] [facility] FINDINGS: There are scattered areas of fibroglandular density. Bilateral 1) Post-Surgical Finding: There are post-surgical findings seen in both breasts. There has been no interval development of a suspicious mass, microcalcification, or architectural distortion. 2) Clip: There are biopsy clips seen in both breasts. No dominant mass, architectural distortion, or suspicious calcifications are identified. Naty [facility] MAMMOGRAPHY ORDERABLES Final Result after 01/22/2024 Insurance MEDICARE PART A AND B [facility] [id number] [facility] ONLY MEDICARE PART A AND B [facility] ONLY Care Teams Certified Breastfeeding Educator Relationship Specialty Start Date End Date Lex Ludwig MD [facility] [place] [address] [email or web address] PCP - General Breast Surgery 05/12/21 Baron Desai MD [address] [place] [phone] [email or web address] PCP - External Referring Internal Medicine 05/12/21
--- NOTE | 2025-01-21 10:31 | RAD REPORT ---
EXAMINATION: ONE VIEW CHEST XR CLINICAL INDICATION: DYSPNEA TECHNIQUE: Frontal chest projection is submitted. Examination is limited by patient positioning and t echnique. COMPARISON: 04/22/2024 FINDINGS: Bilateral [id number] pulmonary opacities likely represents pulmonary edema appears similar to p rior study. Chronic right upper lobe lateral lung opacity also noted unchanged. The heart is moderately enlarged. Small left pleural effusion. Sternotomy wires present. IMPRESSION: Stable findings of [id number] CHF.
[2025-01-21 10:33] LABS: Absolute Basophils 0.2 K/uL (0-0.5); Absolute Eosinophils 0.2 K/uL (0-0.5); Absolute Lymphocytes (CBC) 1.2 K/uL (0.7-4.9); Absolute Monocytes 0.4 K/uL (0.1-1.3); Absolute Neutrophil 9.9 K/uL (1.8-8.0); Basophils % 1.3 % (0-1.3); Eosinophils % 1.6 % (0-4.4); Hematocrit 31.3 % (36.0-45.0); Hemoglobin 10.3 g/dL (12.0-15.0); Lymphocytes % 10.2 % (15.3-44.8); MCH 27.7 pg (27.0-35.0); MCHC 32.9 g/dL (32.0-36.0); MCV 84.2 fL (80-100); MPV 7.2 fL (7.6-11.3); Monocytes % 3.5 % (3.3-12.3); Neutrophils % 83.4 % (41.7-73.7); Platelets 226 thou/uL (152-406); RBC Red Blood Cell Count 3.72 M/uL (3.86-4.86); Red Cell Distribution Width 15.3 % (12.1-15.2)
[2025-01-21 10:39] LABS: Protime INR 1.06
[2025-01-21] MEDS ORDERED: FUROSEMIDE 40 MG/4 ML VIAL ONE (10:51)
[2025-01-21 11:43] LABS: ALT/SGPT 19 U/L (13-56); Albumin 3.3 g/dL (3.4-5.0); Albumin/Globulin Ratio 0.8 (1.1-1.8); Alkaline Phosphatase 49 U/L (45-117); Anion Gap 10.5 mEq/L (5.0-15.0); BUN Blood Urea Nitrogen 65 mg/dL (7-18); Bicarbonate 24 mEq/L (21-32); Bilirubin Direct 0.2 mg/dL (0-0.2); Bilirubin Indirect, Calculated 0.6 mg/dL (0.2-0.8); Bilirubin Total 0.8 mg/dL (0.2-1.0); Glomerular Filtration Rate 21 ml/min (=/>90); Glucose Level 93 mg/dL (74-106); NT PRO-BNP 2638 pg/mL (<125); Potassium 4.5 mEq/L (3.5-5.1); Protein, Total 7.3 g/dL (6.4-8.2); Sodium Level 140 mEq/L (136-145); Troponin High Sensitivity 36.2 pg/mL (<58.9)
[2025-01-21 11:46] LABS: AST/SGOT < 10 U/L (15-37)
--- NOTE | 2025-01-21 11:53 | EDPHYS ---
Physician Documentation [facility] Name: Dominique Collazo Age: 74 yrs Sex: Female : 1950 Arrival Date: 01/21/2025 Time: 09:01 Bed 14 Private MD: ED Physician Gael Mendoza HPI: 01/21 09:31 This 74 yrs old Female presents to ER via Ambulatory with complaints of Shortness Of rn Breath. 09:31 The patient has shortness of breath with light activity. Onset: The symptoms/episode rn began/occurred 3 day(s) ago. Duration: The symptoms are intermittent. The patient's shortness of breath is aggravated by exertion, light activity, supine position, talking. Severity of symptoms: At their worst the symptoms were moderate in the emergency department the symptoms are unchanged. The patient has experienced similar episodes in the past. Patient reports shortness of breath with exertion and supine position, reports unable to sleep last night despite taking extra Lasix. Reports dyspnea on exertion with minimal ability to walk due to dyspnea. Does not feel ill. No fever or chills. No cough. Reports lower extremity swelling. Patient reports feels identical to previous episodes of congestive heart failure and volume overload. Historical: - Allergies: 11:21 No Known Allergies; ph - PMHx: 09:22 Congestive heart failure; diabetes mellitus; Hypercholesterolemia; Hypertensive aa5 disorder; - PSHx: 09:22 Cholecystectomy; open heart; aa5 - Immunization history:: Adult Immunizations unknown. - Infectious Disease History:: Denies. - Social history:: Smoking status: Patient denies any tobacco usage or history of. - Family history:: not pertinent. - Hospitalizations: : No recent hospitalization is reported. ROS: 09:31 Constitutional: Negative for fever, chills, and weight loss, Cardiovascular: Negative rn for chest pain, palpitations Respiratory: Positive for shortness of breath Abdomen/GI: Negative for abdominal pain, nausea, vomiting, diarrhea, and constipation, MS/Extremity: Negative for injury and deformity, Neuro: Negative for headache, weakness, numbness, tingling, and seizure, Exam: :31 Constitutional: This is a well developed, well nourished patient who is awake, alert, rn and in no acute distress. Cardiovascular: Bradycardic, regular Respiratory: Mild tachypnea Abdomen/GI: Soft, non-tender MS/ Extremity: Pulses equal, no cyanosis. Neurovascular intact. Full, normal range of motion. Equal circumference. 09:43 ECG was reviewed by the Attending Physician. rn Vital Signs: 09:10 BP 164 / 71; Pulse 54; Resp 18 S; Temp 97.2(TE); Pulse Ox 95% on R/A; Weight 104.33 kg aa5 (R); Height 5 ft. 4 in. (R); 11:19 BP 161 / 52; Pulse 56; Resp 18; Pulse Ox 95% on R/A; ph 12:30 BP 159 / 57; Pulse 55; Resp 18; Temp 97.4; Pulse Ox 95% on R/A; ph 09:10 Body Mass Index 39.48 (104.33 kg, 162.56 cm) aa5 MDM: 09:12 Medical Screening Exam initiated rn 11:52 Differential diagnosis: Anemia Anxiety Reaction CHF exacerbation, Pneumothorax rn pulmonary edema. Data reviewed: vital signs, nurses notes, lab test result(s), EKG, radiologic studies, plain films, and as a result, I will admit patient. Consideration of Admission/Observation Patient was admitted/placed on observation. Escalation of care including admission/observation considered. Counseling: I had a detailed discussion with the patient and/or guardian regarding the historical points, exam findings, and any diagnostic results supporting the discharge/admit diagnosis, lab results, radiology results, the need for further work-up and treatment in the hospital. 01/21 09:22 Order name: BMP; Complete Time: 11:46 rn 01/21 09:22 Order name: CBC with Diff; Complete Time: 10:43 rn 01/21 09:22 Order name: Hepatic Function; Complete Time: 11:46 rn 01/21 09:22 Order name: NT PRO-BNP; Complete Time: 11:46 rn 01/21 09:22 Order name: PT-INR; Complete Time: 10:43 rn 01/21 09:22 Order name: Ptt, Activated; Complete Time: 10:43 rn 01/21 09:22 Order name: Troponin HS; Complete Time: 11:46 rn 01/21 09:22 Order name: XRAY CXR (1 view); Complete Time: 10:36 rn 01/21 09:22 Order name: EKG; Complete Time: 09:22 rn 01/21 09:22 Order name: Cardiac monitoring; Complete Time: 09:39 rn 01/21 09:22 Order name: EKG - Nurse/Tech; Complete Time: 10:21 rn 01/21 09:22 Order name: IV Saline Lock; Complete Time: 10:21 rn 01/21 09:22 Order name: Labs collected and sent; Complete Time: 10:21 rn 01/21 09:22 Order name: O2 Per Protocol; Complete Time: 10:48 rn 01/21 09:22 Order name: O2 Sat Monitoring; Complete Time: 10:21 rn 01/21 10:33 Order name: Labs - recollect needed: recollect green top; Complete Time: 11:20 bd EC:43 Rate is 55 beats/min. Rhythm is regular. QRS [place] is Normal. [place] interval is prolonged. rn QT interval is normal. No Q waves. T waves are Normal. No ST changes noted. Clinical impression: Sinus bradycardia. Interpreted by me. Reviewed by me. Administered Medications: 11:20 Drug: Furosemide IVP 40 mg IVP once; give over 2 minutes Route: IVP; Site: right ph antecubital; 12:00 Follow up: Response: No adverse reaction ph Disposition Summary: 01/21/25 11:53 Hospitalization Ordered Notes: Hospitalization Status: Inpatient Admission rn Provider: Jigra Desai [facility]n [facility] Condition: Stable rn Problem: an acute exacerbation rn Symptoms: have improved rn Bed/Room Type: Standard rn Room Assignment: 215(01/21/25 12:01) [email or web address] Diagnosis - Unspecified combined systolic (congestive) and diastolic (congestive) heart failure rn - Acute pulmonary edema rn - Dyspnea, unspecified rn Forms: - Medication Reconciliation Form rn - SBAR form rn - Leadership Thank You Letter rn Signatures: Dispatcher [employer] Rosemarie Sorto Roman, MD MD rn Calderon, Audri, RN RN Shira Hernandez RN ALEX Marcio Dumont, RN RN [email or web address] Corrections: (The following items were deleted from the chart) 12:01 11:53 rn asuncion
--- NOTE | 2025-01-21 11:53 | ER ---
Nurse's Notes [facility] Name: Dominique Collazo Age: 74 yrs Sex: Female : 1950 Arrival Date: 01/21/2025 Time: 09:01 Bed 14 Private MD: Diagnosis: Unspecified combined systolic (congestive) and diastolic (congestive) heart failure;Acute pulmonary edema;Dyspnea, unspecified Presentation: 01/21 09:10 Chief complaint: Patient states: SOB that began Tuesday, reports hx of CHF. aa5 09:10 Coronavirus screen: shortness of breath. Ebola Screen: Patient denies travel to an [place] [employer] Ebola-affected area in the 21 days before illness onset. Initial Sepsis Screen: Does the patient meet any 2 criteria? No. Patient's initial sepsis screen is negative. Does the patient have a suspected source of infection? No. Patient's initial sepsis screen is negative. Risk Assessment: Do you want to hurt yourself or someone else? Patient reports no desire to harm self or others. Onset of symptoms was January 18, 2025. 09:10 Method Of Arrival: Ambulatory [place] [employer] 09:10 Acuity: RAYO 3 aa5 Historical: - Allergies: 11:21 No Known Allergies; ph - PMHx: 09:22 Congestive heart failure; diabetes mellitus; Hypercholesterolemia; Hypertensive aa5 disorder; - PSHx: 09:22 Cholecystectomy; open heart; aa5 - Immunization history:: Adult Immunizations unknown. - Infectious Disease History:: Denies. - Social history:: Smoking status: Patient denies any tobacco usage or history of. - Family history:: not pertinent. - Hospitalizations: : No recent hospitalization is reported. Screenin:17 [facility] ED Fall Risk Assessment (Adult) History of falling in the last 3 months, ph including since admission No falls in past 3 months (0 pts) Confusion or Disorientation No (0 pts) Intoxicated or Sedated No (0 pts) Impaired Gait No (0 pts) Mobility Assist Device Used Yes (1 pt) Altered Elimination No (0 pt) Score/Fall Risk Level 0 - 2 = Low Risk Oriented to surroundings, Maintained a safe environment, Hourly rounding (assess needs \T\ fall precautionary measures) done. Abuse screen: Denies threats or abuse. Denies injuries from another. Nutritional screening: No deficits noted. Tuberculosis screening: No symptoms or risk factors identified. Assessment: 11:18 General: Appears in no apparent distress. Behavior is calm, cooperative. Pain: Denies ph pain. Neuro: Level of Consciousness is awake, alert, obeys commands, Oriented to person, place, time, situation. Cardiovascular: Reports shortness of breath, Denies chest pain, Rhythm is sinus bradycardia. Respiratory: Reports shortness of breath at rest Airway is patent Respiratory effort is even, unlabored, Respiratory pattern is regular, symmetrical. GI: No signs and/or symptoms were reported involving the gastrointestinal system. Derm: Skin is pink, warm \T\ dry. Vital Signs: 09:10 BP 164 / 71; Pulse 54; Resp 18 S; Temp 97.2(TE); Pulse Ox 95% on R/A; Weight 104.33 kg aa5 (R); Height 5 ft. 4 in. (R); 11:19 BP 161 / 52; Pulse 56; Resp 18; Pulse Ox 95% on R/A; ph 12:30 BP 159 / 57; Pulse 55; Resp 18; Temp 97.4; Pulse Ox 95% on R/A; ph 09:10 Body Mass Index 39.48 (104.33 kg, 162.56 cm) aa5 Vitals: 11:19 Cardiac Rhythm Assessment Sinus yuliana. ph ED Course: 09:03 Patient arrived in ED. mr 09:10 Arm band placed on. aa5 09:12 Gael Mendoza MD is Attending Physician. rn 09:20 EKG completed in triage. Results shown to MD. aa5 09:25 Triage completed. aa5 09:42 Shira Baxter, RN is Primary Nurse. ph 10:16 XRAY CXR (1 view) In Process Unspecified. EDMS 10:20 Inserted saline lock: 20 gauge in right antecubital area, using aseptic technique. rk3 Blood collected. Flushed with 10 mL NS. 10:21 BMP Sent. rk3 10:21 CBC with Diff Sent. rk3 10:21 Hepatic Function Sent. rk3 10:21 NT PRO-BNP Sent. rk3 10:21 PT-INR Sent. rk3 10:21 Ptt, Activated Sent. rk3 10:21 Troponin HS Sent. rk3 10:27 Initial lab(s) drawn, by me, sent to lab. rk3 11:19 Patient has correct armband on for positive identification. Bed in low position. Call ph light in reach. Client placed on continuous cardiac and pulse oximetry monitoring. NIBP monitoring applied. computer numerical control operator on. Door closed. Noise minimized. Warm blanket given. Pillow given. 11:19 No provider procedures requiring assistance completed. ph 11:52 Jigar Desai MD is Hospitalizing Provider. rn 12:59 Patient admitted, IV remains in place. ph Administered Medications: 11:20 Drug: Furosemide IVP 40 mg IVP once; give over 2 minutes Route: IVP; Site: right antecubital; 12:00 Follow up: Response: No adverse reaction ph Medication: 11:21 VIS not applicable for this client. ph Outcome: 11:53 Decision to Hospitalize by Provider. rn 13:04 Admitted to Tele accompanied by tech, family with patient, via wheelchair, with chart, ph 13:04 Condition: stable 14:10 Patient left the ED. Signatures: Dispatcher [employer] EDOK Ana Larson, Reg Reg mr Gael Mendoza MD MD rn Calderon, Audri, RN RN aa5 Shira Baxter RN RN ph Génesis Ndiaye rk3 Corrections: (The following items were deleted from the chart) 09:23 09:22 Arm band placed on aa5 aa5
[2025-01-21] MEDS: INSULIN REGULAR (HUMAN) 100 UNIT/ML SQ SCH (16:30)
[2025-01-21] MEDS: FUROSEMIDE 20 MG/ 2ML VIAL IV SCH (17:30)
[2025-01-21] MEDS ORDERED: HOME MED 1 EA UNK (Hydralazine Hcl [Hydralazine Hcl] 50 MG Tablet) PO SCH (21:00)
[2025-01-21] MEDS: HYDRALAZINE HCL 25 MG TABLET PO SCH (21:27)
[2025-01-21] MEDS: AMLODIPINE 5 MG TAB PO SCH (21:27)
[2025-01-21] MEDS: atenoloL 25 MG TAB PO SCH (21:27)
--- NOTE | 2025-01-22 01:19 | HP ---
Date of Admission: 01/21/2025 Chief Complaint: Shortness of breath. History Of Present Illness: This is a 74-year-old pleasant female patient who came into emergency ro om with complaints of shortness of breath that started on Tuesday, so about 3 days ago. The patient d enies any chest pain. No fever. No cough or congestion. No vomiting, diarrhea. After she came int o emergency room with worsening symptoms, she was admitted to the hospital with congestive heart fail ure. The patient also reported having some leg swelling in last 3 days along with gaining weight and having paroxysmal nocturnal dyspnea and orthopnea. After she came into ER, she was given IV Lasix t hat actually has resulted in improvement in all her symptoms. When I saw her this evening, she was f eeling better than earlier today. Physical Examination: Vital Signs: Height 5 feet 4 inches, weight 230 pounds. Temperature 97.8, pulse 58, respiratory rat e 16, blood pressure 135/47, oxygen saturation 94%. General: Awake, alert, oriented, not in distress. HEENT: Head atraumatic, normocephalic. Conjunctivae nonerythematous. Sclerae white. Mouth, no thr ush or edema noted. Ears/Nose, no mass, lesion, discharge noted. Neck: Supple. No JVD, lymph nodes, bruit, thyromegaly noted. Lungs: Presence of rales noted in both lower lung sanderson. Not using accessory muscles of respiratio n. Heart: Normal heart sounds, no murmur or gallop. Abdomen: Soft, bowel sounds normal. No guarding, rigidity, tenderness, mass, hepatosplenomegaly, dis tention, or bruit noted. Extremities: Bilateral trace leg edema. Skin: No rash, ulcer, cellulitis. Lymphatics: No lymph node enlargement in neck, supraclavicular, infraclavicular region. Neuro: No focal neurological deficit. Chest: Unremarkable. External Genitalia: Deferred. Rectal: Deferred. Laboratory Data: WBC 11.9, hemoglobin 10.3, platelets 226. Sodium 140, potassium 4.5, chloride 110, bicarb 24, BUN 65, creatinine 2.38, glucose 93. Liver function tests unremarkable. Troponin 36.2 o n the first set, second set 34.3. ProBNP 2638. Chest x-ray shows moderate changes of congestive hea rt failure. Impression: 1. Congestive heart failure, chronic, diastolic, with acute exacerbation. 2. Hypertension. 3. Hyperlipidemia. 4. Chronic kidney disease, stage 4. 5. Anemia due to chronic kidney disease. 6. Coronary artery disease. 7. Type 2 diabetes mellitus with chronic kidney disease. Plan: Admit patient to hospital for further evaluation and management of this problem. The patient is appropriate for inpatient and is expected to spend 2 midnights in hospital. For her congestive he art failure, we will continue diuretic therapy with monitoring of her blood work and lab data includi ng electrolytes and renal function. I will see her tomorrow for followup and will make further decis ion about any adjustment on medication before that. Diabetes will be managed with sliding scale insu abilio per order and no need for further intervention. Coronary artery disease problem is stable and no need for further intervention. Anemia due to chronic kidney disease will not require any further in tervention at this time, and her hemoglobin is stable compared to before. For chronic kidney disease , stage IV, no need for further intervention except monitoring with blood work tomorrow. For hyperte nsion, we will continue antihypertensive medication. Monitor blood pressure, and if necessary, adjus t medication. For hyperlipidemia, no need for further intervention. Total time spent today was 80 minutes including review of last hospital admission records from 2023, review of last office visit record, communication with the emergency room physician, review of emergency room visit record, and performing today's evaluation and management. I will see her juliana orrow for followup. SAUMYA/MODL Voice ID: [id number]
[2025-01-22 05:04] LABS: Absolute Basophils 0.1 K/uL (0-0.5); Absolute Eosinophils 0.1 K/uL (0-0.5); Absolute Lymphocytes (CBC) 1.1 K/uL (0.7-4.9); Absolute Monocytes 0.4 K/uL (0.1-1.3); Absolute Neutrophil 6.9 K/uL (1.8-8.0); Basophils % 0.7 % (0-1.3); Eosinophils % 1.3 % (0-4.4); Hematocrit 25.9 % (36.0-45.0); Hemoglobin 8.8 g/dL (12.0-15.0); Lymphocytes % 12.5 % (15.3-44.8); MCH 28.4 pg (27.0-35.0); MCHC 34.1 g/dL (32.0-36.0); MCV 83.4 fL (80-100); MPV 6.9 fL (7.6-11.3); Monocytes % 5.2 % (3.3-12.3); Neutrophils % 80.3 % (41.7-73.7); Nucleated Red Blood Cells % 0.1 % (0-0); Platelets 163 thou/uL (152-406); RBC Red Blood Cell Count 3.11 M/uL (3.86-4.86); Red Cell Distribution Width 14.8 % (12.1-15.2)
[2025-01-22] MEDS ORDERED: HOME MED 1 EA UNK (Olmesartan Medoxomil [Olmesartan Medoxomil] 40 MG Tablet) PO SCH (09:00)
[2025-01-22] MEDS: HEPARIN 5000 UNIT/ML 1 ML VIAL SQ SCH (09:31)
[2025-01-22] MEDS: FUROSEMIDE 40 MG/4 ML VIAL IV SCH (09:32)
[2025-01-22] MEDS: ATORVASTATIN 40 MG TAB PO SCH (09:32)
[2025-01-22] MEDS: ASPIRIN 81 MG CHEWABLE TABLET PO SCH (09:32)
[2025-01-22] MEDS: VITAMIN D 5,000 UNIT CAP PO SCH (09:33)
[2025-01-22] MEDS: VALSARTAN 160 MG TAB PO SCH (09:33)
--- NOTE | 2025-01-22 12:15 | EKG ---
Test Date: 2025-01-21 Test Time: 09:20:30 Change Director: RUFUS MEASUREMENT RESULTS: Intervals: Rate: 55 TX: 210 QRSD: 82 QT: 458 QTc: 438 [place]: P: 54 TX: 210 QRS: 89 T: 106 INTERPRETIVE STATEMENTS: Sinus bradycardia with 1st degree AV block Nonspecific ST abnormality Abnormal ECG Compared to ECG 04/21/2024 09:52:55 First degree AV block now present ST (T wave) deviation now present Sinus rhythm no longer present T-wave abnormality no longer present Electronically Signed On 01-22-25 12:11:33 TIN WHIZ MACHINE OPERATOR by Adan Amaya
[2025-01-22 12:48] VITALS: O2SAT 97
[2025-01-22 18:23] VITALS: BMI 38.9
--- NOTE | 2025-01-22 20:50 | PN ---
Date of Progress Note: 01/22/2025 Subjective: The patient was seen this morning for followup. No new complaints or problems reported by the patient. Denies any chest pain, shortness of breath. No nausea or vomiting overnight. Objective: Vital Signs: Reviewed. HEENT: Unremarkable. Lungs: Bilateral good equal air entry. Clear to auscultation except basal rales noted. Not using a ccessory muscles of respiration. Heart: Sounds normal. Abdomen: Soft. Bowel sounds normal. No guarding, rigidity, tenderness, distention. Extremities: No leg edema. Impression: 1. Congestive heart failure, chronic, diastolic, with acute exacerbation. 2. Hypertension. 3. Diabetes mellitus. 4. Chronic kidney disease. Plan: Continue current diuretic therapy. We will monitor electrolytes and renal function. Plan is to possibly discharge her to go home tomorrow depending on her condition. Heparin was ordered for DV T prophylaxis. SAUMYA/MODL Voice ID: [id number] Report ID: [id number]
[2025-01-23 08:48] VITALS: TEMP 98
[2025-01-23 09:15] VITALS: BP 134/55
--- NOTE | 2025-01-24 07:47 | DS ---
Date of Discharge: 01/23/2025 Disposition: Discharged to go home. Physical Examination: HEENT: Unremarkable. Lungs: Clear to auscultation. Heart: Sounds normal. Abdomen: Soft. Bowel sounds normal. No guarding, rigidity, tenderness, distention. Extremities: No leg edema. Laboratory Data: Upon admission on January 21, 2025, WBC 11.9, hemoglobin 10.3, platelets 226. Yesterd ay, WBC 8.6, hemoglobin 8.8, and platelets 163. Chemistry, upon admission, sodium 140, potassium 4.5 , chloride 110, bicarb 24, BUN 65, creatinine 2.38, glucose 93. Liver function test unremarkable. I nitial troponin 36.2, second troponin 34.3. Initial proBNP 2638, second proBNP 2664. Last chemistry , yesterday, sodium 140, potassium 4, chloride 110, bicarb 26, BUN 68, creatinine 2.18, glucose 147. Hospital Course: This is a 74-year-old female patient who came into emergency room with complaints o f shortness of breath and after she was evaluated, she was admitted to the hospital with congestive h eart failure problem. Please see dictated H and P for more information. After the patient was evalu ated in ER, she was admitted to the hospital with this congestive heart failure problem and was given IV Lasix, which has actually resulted in significant improvement in her symptoms. The patient's meg rtness of breath problem resolved and she started to ambulate well. Her other chronic medical proble ms remained stable. After her condition improved, we were able to discharge her to go home today wit h change in her instruction. She normally takes furosemide 1 tablet one day and 2 tablets next day. She takes potassium tablet 1 tablet every other day. I have instructed her to change medications as below. Final Diagnoses: 1. Congestive heart failure, chronic, diastolic, with acute exacerbation. 2. Hypertension. 3. Hyperlipidemia. 4. Chronic kidney disease stage 4. 5. Anemia due to chronic kidney disease. 6. Coronary artery disease. 7. Type 2 diabetes mellitus with chronic kidney disease. Discharge Medications And Instructions: 1. Continue all prior home medication except following changes: a. Furosemide take 2 tablets by mouth daily. b. Potassium chloride take 1 tablet by mouth daily. 2. Follow up at my office next week. Total time spent 35 minutes. SAUMYA/MODL Voice ID: [id number] Report ID: [id number]
== END 2025-01-23 09:34 | disposition home or self-care (01) | DRG 291 ==
LOC: ER 09:01 → 2ND 13:12
PROVIDERS: ADMIT Internal Medicine; ATTEND Internal Medicine
DX: I13.0 Hypertensive heart and chronic kidney disease with heart failure and stage 1 through stage 4 chronic kidney disease, or unspecified chronic kidney disease (principal); I50.33 Acute on chronic diastolic (congestive) heart failure; N18.4 Chronic kidney disease, stage 4 (severe); E11.22 Type 2 diabetes mellitus with diabetic chronic kidney disease; D63.1 Anemia in chronic kidney disease; E78.00 Pure hypercholesterolemia, unspecified; I25.10 Atherosclerotic heart disease of native coronary artery without angina pectoris; Z90.49 Acquired absence of other specified parts of digestive tract
CPT/HCPCS: 36415; 71045; 80048; 80076; 82947; 83880; 84484; 85025; 85610; 85730; 93005; 96374; 99285; J1644; J1815; J1940